=== PATIENT | male | born 1945 | race Caucasian/White ===

== ENCOUNTER → 2017-12-05 09:04 | Outpatient (CLI) | payer OTHER, SELFPAY ==
[2017-12-05 10:01] LABS: Add Manual Diff / Slide Review NO; Basophils Percent Auto 0.6 % (0-2); Eosinophils Percent Auto 2.9 % (2-4); Hematocrit 45.6 % (41-53); Hemoglobin 15.6 g/dL (13.5-17.5); Lymphocytes Percent Auto 30.9 % (25-40); Mean Corpuscular HGB Conc 34.2 % (30-36); Mean Corpuscular Hemoglobin 32.1 PG (26-34); Mean Corpuscular Volume 93.8 fL (80-100); Monocytes Percent Auto 10.1 % (3-14); Neutrophils Absolute Auto 3100 /uL (3000-5900); Neutrophils Percent Auto 55.5 % (50-75); Platelet Count 192 X10^3/uL (150-400); Red Blood Cell Count 4.86 X10^6/uL (4.5-5.9); Red Cell Distribution Width 13.4 % (11.6-14.8); White Blood Cell Count 5.7 X10^3/uL (4.5-11.0)
[2017-12-05 10:50] LABS: Alanine Aminotransferase 31 IU/L (21-72); Albumin 4.6 g/dL (3.5-5.0); Albumin Globulin Ratio 1.5 (1.0-2.8); Alkaline Phosphatase 66 U/L (38-126); Aspartate Aminotransferase 30 IU/L (17-59); BUN Creatinine Ratio 25.6 (6-22); Blood Urea Nitrogen 23 mg/dL (9-20); Calcium 9.6 mg/dL (8.4-10.2); Carbon Dioxide 34 mmol/L (22-32); Chloride 101 mmol/L (98-107); Cholesterol 154 mg/dL (140-199); Estimated Glomerular Filt Rate > 60.0 mL/min (>60); Glucose 102 mg/dL (80-110); HDL Cholesterol 59 mg/dL (40-60); HEMOLYSIS < 15 (0-50); LDL Cholesterol Calculated 73 mg/dL (<100); Potassium 4.3 mmol/L (3.4-5.1); Sodium 144 mmol/L (137-145); Total Protein 7.6 g/dL (6.3-8.2); Triglycerides 110 mg/dL (35-150)
[2017-12-05 11:10] LABS: Thyroid Stimulating Hormone 2.05 uIU/mL (0.47-4.68)
[2017-12-05 11:18] LABS: Prostate Specific Antigen Scrn 1.56 ng/mL (0.1-4.0)
== END ==
PROVIDERS: PCP Family Medicine; Visit Provider Family Medicine
DX: E78.2 Mixed hyperlipidemia (principal); I10 Essential (primary) hypertension; R73.9 Hyperglycemia, unspecified
CPT/HCPCS: 36415; 80053; 80061; 84443; 85025; G0103

== ENCOUNTER → 2018-05-14 10:29 | Outpatient (CLI) | payer OTHER, SELFPAY ==
[2018-05-14 11:04] LABS: Add Manual Diff / Slide Review NO; Basophils Absolute Auto 100 /uL (0-100); Basophils Percent Auto 0.9 % (0-2); Eosinophils Absolute Auto 100 /uL (0-450); Eosinophils Percent Auto 1.6 % (2-4); Hematocrit 47.3 % (41-53); Hemoglobin 15.6 g/dL (13.5-17.5); Lymphocytes Absolute Auto 1500 /uL (1100-4500); Lymphocytes Percent Auto 24.5 % (25-40); Mean Corpuscular HGB Conc 33.1 % (30-36); Mean Corpuscular Hemoglobin 31.2 PG (26-34); Mean Corpuscular Volume 94.3 fL (80-100); Monocytes Absolute Auto 600 /uL (0-900); Neutrophils Absolute Auto 3700 /uL (1500-7000); Platelet Count 198 X10^3/uL (150-400); Red Blood Cell Count 5.02 X10^6/uL (4.5-5.9); White Blood Cell Count 5.9 X10^3/uL (4.5-11.0)
[2018-05-14 11:30] LABS: BUN Creatinine Ratio 23.3 (6-22); Blood Urea Nitrogen 21 mg/dL (9-20); Calcium 9.2 mg/dL (8.4-10.2); Carbon Dioxide 27 mmol/L (22-32); Chloride 100 mmol/L (98-107); Estimated Glomerular Filt Rate > 60.0 mL/min (>60); Glucose 97 mg/dL (80-110); Sodium 139 mmol/L (137-145)
[2018-05-14 11:32] LABS: HEMOLYSIS 77 (0-50)
[2018-05-14 11:34] LABS: Potassium 4.5 mmol/L (3.4-5.1)
== END ==
PROVIDERS: PCP Family Medicine; Visit Provider Orthopaedic Surgery Orthopaedic Surgery of the Spine
DX: Z01.818 Encounter for other preprocedural examination (principal)
CPT/HCPCS: 36415; 80048; 85025; 93005; 93010

== ENCOUNTER 2018-06-13 11:11 | Inpatient (IN) | payer OTHER, MEDICARE, SELFPAY ==
[2018-06-03 09:40] VITALS: BMI 27.2
[2018-06-13] VITALS (16 sets, daily range): BP systolic 133–169; BP diastolic 63–95; PULSE 54–74; RESP 12–16; TEMP 36–36.9; O2SAT 93–100; BMI 27.2
--- NOTE | 2018-06-13 | DI.RAD.S_ITS ---
PROCEDURE: XR CERVICAL SPINE 2V OR 3V INDICATIONS: ACDF, C5-6,C6-7 TECHNIQUE: 5 intraoperative fluoroscopic view(s) of the cervical spine were acquired. COMPARISON: None. FINDINGS: Intraoperative fluoroscopic images of cervical spine shows anterior fusion at C5-C7 levels. IMPRESSION: Fluoroscopy guidance was provided intraoperatively for anterior fusion at C5-C7 levels. Dictated by: Yves Aranda M.D. on 06/13/2018 at 19:40 Approved by: Yves Aranda M.D. on 06/13/2018 at 19:41
[2018-06-13] MEDS: LACTATED RINGERS 1,000 ML 42 ML IV ×2 (13:30→15:50)
--- NOTE | 2018-06-13 14:04 | PM.PREOP ---
Pre-operative Note Interval Note History & Physical reviewed/Exam performed by Physician: Yes Changes to H&P: No
[2018-06-13] MEDS: CEFAZOLIN 2 GM/100 ML FROZ.PIGGY IV ×2 (14:30→22:39)
--- NOTE | 2018-06-13 15:25 | SUR.OPER ---
Prone on spine table, head in foam head support, padded chest and pelvic supports, gel pad at knees, lower legs supported by pillows; nipples, genitalia and toes free of pressure, arms secured on foam padded arm boards at <90 degrees abduction. Tape over blanket at thigh secured to table.
--- NOTE | 2018-06-13 16:59 | P.OP_ITS ---
Operative Date/Time/Diagnoses Date of procedure: 06/13/18 Time of procedure: 14:55 Pre-op diagnosis: 1. C5-6, C6-7 spinal stenosis 2. C5-6, C6-7 spondylosis with radiculopathy Post-op diagnosis: same Procedure & Clinicians Procedure: 1. C5-6 C6-7 anterior cervical diskectomy and fusion 2. C5-6 C6-7 anterior interbody cage placement 3. C5-6 C6-7 anterior instrumentation with plate and screw placement in C5-C6 and C7 vertebrae 4. Utilization of microsurgical technique and operating microscope Same procedure as scheduled: Yes Indications: Patient has been having chronic neck pain and worsening cervical radiculopathy. Patient failed multiple conservative management with worsening pain weakness and numbness in her upper extremity. Patient has been having difficulty performing activity of daily living. After discussing risks benefits of treatment options, patient elected proceed with surgery. Surgeon: Tere Sierra Scuba Diving Instructor: Maki Gomez Click Yes if Unassisted: No Anesthesia Type: General Operative Notes Closure Type: primary Prosthetic devices, grafts, tissues, transplants, or devices: Globus extend plate, PEEK cages Estimated Blood Loss (mL): 10 Blood products transfused: none Procedure in detail: Patient was seen in the preoperative area. Risks and benefits of the surgery was discussed with the patient. Operative consent was obtained and placed in the chart. Patient was then taken to the operative room. Prophylactic antibiotic was given less than 0.5 hr prior to skin incision. General anesthesia was administered. Patient was placed into a supine position on her radiolucent table. Bilateral shoulders were taped down to allow proper C- arm imaging. Anterior cervical area was prepped and draped in a sterile fashion. Time-out was performed at this time. Using lateral C-arm imaging, the level between C5 and C7 was identified and marked on patient's neck. A oblique incision from midline towards medial border of sternocleidomastoid muscle was made. The platysma muscle was incised in line with skin incision. Metzenbaum scissor was used to develop the plane between the medial border of sternocleidomastoid d and the strap muscles medially. The carotid sheath and its contents were identified and protected behind the hand- held retractor during the entire case. The plane between the carotid sheath and strap muscles was developed with Metzenbaum scissors. Dissection was made down to the level of the anterior cervical fascia. Longus colli muscle was incised on the anterior aspect of vertebral bodies bilaterally from C5-C7. Spinal needle was placed into the C5-6 disc space and confirmed with lateral C-arm imaging. Using microsurgical technique and operative microscope, anterior cervical diskectomy was performed at C5-6 and C6-7 level. This was done by removing the disc material, removing the anterior and posterior osteophytes posterior longitudinal ligaments along with performing bilateral foraminotomies at both levels. Patient was found to have severe central and foraminal stenosis at both levels. Patient's stenosis was fully decompressed after decompression was completed. After the diskectomy was completed, 2 anterior interbody cages were obtained. The cages were packed with DBM bone grafting material. One cage each along with the bone grafting material was then packed into the interbody spaces from C5-C7 with one cage into each interbody level. After the cages were placed, the anterior cervical plate was stabilized to the C5-C7 vertebrae using 2 screws at each each level. Total 6 screws were placed. After confirming placement of the hardware with AP and lateral C-arm imaging, the screws were locked into the plate using the locking mechanism and torque limiting screwdriver. After the hardware was placed and confirmed with AP and lateral C-arm imaging, the wound was irrigated with sterile normal saline. The platysma muscle and the subcutaneous tissue was closed with 2-0 Vicryl. The skin was closed with 4-0 Monocryl and Steri-Strips. Patient tolerated the procedure well. Patient was transferred recovery room in stable condition. There were no complications. Complications: none Condition: stable Disposition: PACU Plan for aftercare: Admit to inpatient hospital
[2018-06-13] MEDS: fentaNYL 100 MCG/2 ML INJ 50 MCG IV ×2 (17:20→17:25)
[2018-06-13] MEDS: HYDROMORPHONE 2 MG INJ 0.5 MG IV ×4 (17:27→17:45)
[2018-06-13] MEDS: hydrOXYzine 50 MG/ML INJ IM (18:00)
[2018-06-13] MEDS: SODIUM CHLORIDE 0.9% 1,000 ML 100 ML IV (18:54)
[2018-06-13] MEDS: OXYCODONE IR 5 MG TABLET 10 MG PO ×2 (19:30→22:43)
--- NOTE | 2018-06-13 19:30 | PC.NURSE ---
Pt admitted to acute care from PACU, transferred via bed. Alert/oriented. Pain 08/25. Anterior neck dressing c/d/i. Soft neck collar in place. IV fluids infusing, site patent. Foot SCDs on. Oriented to room/call light. Spouse present for admission. Oxycodone 10mg given for pain. Ice pack also applied.
[2018-06-13] MEDS: hydrOXYzine pamoate 25 MG CAPSULE PO (20:23)
[2018-06-13] MEDS: SIMVASTATIN 20 MG TABLET PO (21:55)
[2018-06-13] MEDS: DOCUSATE 100 MG CAPSULE PO (21:55)
[2018-06-13] MEDS: LATANOPROST 0.005% OPHTH 2.5 ML 1 DROPS EYE-BOTH (21:56)
[2018-06-13] MEDS: SENNOSIDES 8.6 MG TABLET 17.2 MG PO (21:56)
[2018-06-13] MEDS: LISINOPRIL 10 MG TABLET PO (21:56)
[2018-06-14 00:18] VITALS: BP 145/75; PULSE 65; RESP 18; TEMP 36.6; O2SAT 96
[2018-06-14] MEDS: OXYCODONE IR 5 MG TABLET 10 MG PO ×3 (01:09→08:32)
[2018-06-14 04:07] VITALS: BP 144/70; PULSE 70; RESP 18; TEMP 36.7; O2SAT 95
--- NOTE | 2018-06-14 04:17 | PC.NURSE ---
pt AO and receptive to care. c/o 2/10 pain in posterior neck at start of shift and pain increased to 6/10, administered 5mg (1tab) oxycodone. Pain only decreased to 5 and within 2 1/2 hours was up to an 8/10. I then administered 2 tabs at 0400 and will continue to monitor. pt refusing soft collar and SCD's. Using ice pack. Dressing is CDI. pt reports mild throat irritation and asking for ice cream and ice water to assist. NS infusing at 100ml/hr.
[2018-06-14] MEDS: SODIUM CHLORIDE 0.9% 1,000 ML 100 ML IV (05:24)
[2018-06-14] MEDS: CEFAZOLIN 2 GM/100 ML FROZ.PIGGY IV (06:18)
[2018-06-14 07:25] VITALS: BP 126/66; PULSE 71; RESP 18; TEMP 36.3; O2SAT 96
--- NOTE | 2018-06-14 08:01 | PC.NURSE ---
Addendum entered by Joo Oreilly R.N. 06/14/18 13:49: 13:15 Discharge orders given to Pt and , Prescriptions and D/C instructions discussed and given to Pt and . IV d/c'd intact. Pt escorted to car via w/c with KUSH Greenberg and Original Note: Addendum entered by Joo Oreilly R.N. 06/14/18 09:41: Pt continues to progress, looking to go home today. attentive at bedside. Original Note: Pt alert and oriented able to make needs known. Offers no overt c/o pain or issues. Neck dressing CDI.
[2018-06-14] MEDS: DOCUSATE 100 MG CAPSULE PO (08:33)
--- NOTE | 2018-06-14 10:39 | P.DS_ITS ---
History of Present Illness Date Patient Seen: 06/14/18 Time Patient Seen: 10:31 Chief complaint: [id number] C-5-6 C6-7 ACDF Narrative: Patient is a 72 year old male who is POD#1 s/p C5-[address] Sierra. He reports some issues with pain management overnight that resolved with oxycodone 10mg. Since pain level has been 4/10. Pain is centered about the wound site with some radiation to the back of the neck. Prior to surgery he had radiation to the shoulder with tingling and numbess in RUE that has resolved in the post op period. He denies any issues with swallowing and is tolerating a diet. He has been up and out of bed to the bathroom. He denies any chest pain, shortness of breath or calf tenderness. Discharge Providers Date of admission: 06/13/18 11:11 Discharge Date: 06/14/18 Primary care physician: Silvano Leach MD Consults: 06/13/18 18:43 Consult to Occupational Therapy Evaluate & Treat Comment: Physician Instructions: Evaluate and treat Consult to Physical Therapy Evaluate & Treat Comment: Physician Instructions: Evaluate and Treat Discharge provider: Adelina Norwood PA-C Summary Discharge Diagnosis: s/p C5-C6 ACDF Hospital Course: Closure Type: primary Prosthetic devices, grafts, tissues, transplants, or devices: Globus extend plate, PEEK cages Estimated Blood Loss (mL): 10 Blood products transfused: none Procedure in detail: Patient was seen in the preoperative area. Risks and benefits of the surgery was discussed with the patient. Operative consent was obtained and placed in the chart. Patient was then taken to the operative room. Prophylactic antibiotic was given less than 0.5 hr prior to skin incision. General anesthesia was administered. Patient was placed into a supine position on her radiolucent table. Bilateral shoulders were taped down to allow proper C- arm imaging. Anterior cervical area was prepped and draped in a sterile fashio n. Time-out was performed at this time. Using lateral C-arm imaging, the level between C5 and C7 was identified and marked on patient's neck. A oblique incision from midline towards medial border of sternocleidomastoid muscle was made. The platysma muscle was incised in line with skin incision. Metzenbaum scissor was used to develop the plane between the medial border of sternocleidomastoid d and the strap muscles medially. The carotid sheath and its contents were identified and protected behind the hand- held retractor during the entire case. The plane between the carotid sheath and strap muscles was developed with Metzenbaum scissors. Dissection was made down to the level of the anterior cervical fascia. Longus colli muscle was incised on the anterior aspect of vertebral bodies bilaterally from C5-C7. Spinal needle was placed into the C5-6 disc space and confirmed with lateral C-arm imaging. Using microsurgical technique and operative microscope, anterior cervical diskectomy was performed at C5-6 and C6-7 level. This was done by removing the disc material, removing the anterior and posterior osteophytes posterior longitudinal ligaments along with performing bilateral foraminotomies at both levels. Patient was found to have severe central and foraminal stenosis at both levels. Patient's stenosis was fully decompressed after decompression was completed. After the diskectomy was completed, 2 anterior interbody cages were obtained. The cages were packed with DBM bone grafting material. One cage each along with the bone grafting material was then packed into the interbody spaces from C5-C7 with one cage into each interbody level. After the cages were placed, the anterior cervical plate was stabilized to the C5-C7 vertebrae using 2 screws at each each level. Total 6 screws were placed. After confirming placement of the hardware with AP and lateral C-arm imaging, the screws were locked into the plate using the locking mechanism and torque limiting screwdriver. After the hardware was placed and confirmed with AP and lateral C-arm imaging, the wound was irrigated with sterile normal saline. The platysma muscle and the subcutaneous tissue was closed with 2-0 Vicryl. The skin was closed with 4-0 Monocryl and Steri-Strips. Patient tolerated the procedure well. Patient was transferred recovery room in stable condition. There were no complications. Complications: none Condition: stable Disposition: PACU Plan for aftercare: Admit to inpatient hospital. During his inpatient stay the patient has been progressing well. His pain is being well controlled with his current regimen and he has been mobilizing well. He has adequate assistance at home in the post operative period. Scripts were provided for oxycodone as needed for pain and vistaril for muscle spasms. He will follow up in the office as scheduled. Status at Discharge Cognitive/behavioral status at discharge: oriented Overall status at discharge: patient is progressing back to baseline Exam Vital Signs (past 8 hours): - 06/14/18 04:07 06/14/18 07:25 Temperature 98.0 F 97.3 F L Pulse Rate 70 71 Respiratory Rate 18 18 Blood Pressure 144/70 H 126/66 Pulse Oximetry 95 96 Oxygen Delivery Method Nasal Cannula Oxygen Flow Rate 0 Narrative Exam Narrative: Pleasant 72 year old male resting comfortably in bed in no apparent distress. Neck Other: Dressing in place over incision site is clean, dry, and intact. Sensation intact in surrounding area and bilateral upper extremities. Discharge Plan Discharge Plan Patient Disposition: Home Discharge Med Rec/Prescriptions Prescriptions: New oxycodone 5 mg Tablet See Rx Instructions .ROUTE .COMPLEX PRN (Reason: PRN pain) Qty: 40 RF: 0 hydroxyzine pamoate 25 mg Capsule 25 mg PO Q4HR PRN (Reason: PRN nausea/muscle spasms) Qty: 30 RF: 0 Continued latanoprost 0.005 % drops 1 drp EYE-BOTH HS Qty: 0 RF: 0 simvastatin 20 mg tablet 20 mg PO BEDTIME RF: 0 lisinopril 10 mg tablet 10 mg PO BEDTIME RF: 0 Follow up/Referrals: Silvano Leach MD [Primary Care Provider] - Provider Discharge Instructions Diet: Diet as Tolerated Activity: Full weight bearing as tolerated Cold/Heat Therapy: Apply ice packs PRN Skin/Wound/Dressing Care Report to your healthcare provider any signs of infection, such as:: chills, fever, night sweats, increased pain, unusual drainage and unusual redness Dressing: Leave dressing in place. Keep area clean and dry. Discharge Data Primary Care Provider: Silvano Leach Attending Provider: Tere Sierra Admit Date/Time: 06/13/18 11:11 Quality VTE Deep Vein Thrombosis/Pulmonary Embolism Present on Admission: No
--- NOTE | 2018-06-14 11:36 | PT.IIE ---
Current Diagnoses Other spondylosis with radiculopathy, cervical region (06/13/18) Spinal stenosis, cervical region (06/13/18) Surgery Performed Operation Date: 06/13/18 12:45 Actual Procedures p C5-6, C6-7 ACDF w/Anterior Instru. 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) Hiatal hernia (Acute) Lumbago (Acute) Migraines (Acute) Pneumonia (Acute) Actinic keratosis (Chronic ~2004) Ankle pain (Chronic ~2009) Carpal tunnel syndrome (Chronic ~2012) Chronic back pain (Chronic ~1999) Foot pain (Chronic ~2013) Hypertension (Chronic ~2013) Irritable bowel syndrome (Chronic ~1999) Osteoarthritis (Chronic ~2004) Shoulder pain (Chronic ~2001) Tinnitus (Chronic ~1969) Chicken pox (Resolved ~1955) Measles (Resolved ~1955) Mumps (Resolved ~1955) Physical Therapy Inpatient Evaluation/Re-Eval M1 PT/OT-IP Prior Functional Status Start: 06/14/18 12:47 Freq: NEEDED Status: Active Protocol: Document 06/14/18 11:36 DLM (Rec: 06/14/18 13:00 DLM [id number]) Medical Review Prior Functional Status Medical History Reviewed Yes Diet/Fluid Consistency Regular Communication WNL Mobility and Gait Independent without device, community distances Activities of Daily Living and IADL's Independent 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, plays in a [employer] [place] M2 PT-IP Current Condition Start: 06/14/18 12:47 Freq: NEEDED Status: Active Protocol: Document 06/14/18 11:36 DLM (Rec: 06/14/18 13:00 DLM [id number]) Physical Therapy Current Condition Current Condition Evaluation Date 06/14/18 Treatment Diagnosis C5-7 ACDF, impaired gait Onset Date 06/13/18 Precautions Cervical Spine Precautions Soft Collar for Comfort Log Roll Other Precautions he reports hx of decreased balance M3 PT-IP Subjective Start: 06/14/18 12:47 Freq: NEEDED Status: Active Protocol: Document 06/14/18 11:36 DLM (Rec: 06/14/18 13:00 DLM [id number]) Subjective Physical Therapy Visit Type Type Initial Evaluation Visit Start Time 11:05 Visit Stop Time 11:36 Total Visit Minutes 31 Number of RESIDENTIAL CASE MANAGER Visits 0 Physical Therapy Visit Comments Patient Comments he is not sure if he needs a fWW for home, feeling unsteady today Patient Goals discharge home today Therapy Pain Assessment Pain When Pain Assessed During Mobility Pain Present Pain Present Pain Reported Location Neck Intensity 4 Scale Used Numeric (1 - 10) Description Aching Pain Behaviors Guarding M4 PT-IP Mobility and Gait Start: 06/14/18 12:47 Freq: NEEDED Status: Active Protocol: Document 06/14/18 11:36 DLM (Rec: 06/14/18 13:00 DLM [id number]) PT-Bed Mobility Assessment Scooting Scooting to Edge of Bed Independent PT-Transfer Assessment Sit to and From Stand Sit to and from Stand Independent Equipment Transfer Assistive Device Gait Belt Straight Cane Transfers Transfer Destination Chair Transfer Technique Stand Step Pivot Transfer Ability Level of Assist Independent Use of Upper Extremities Comments Mobility Comments OT reports no difficulties with bed mobility, pt up in recliner this visit and wants to stay up Gait Assessment Gait Gait Assistance Required: Standby Assistance Distance (Feet) 200 Assistive Devices Assistive Device Gait Belt Straight Cane Front Wheeled Walker Factors Limiting Gait Function Factors Limiting Gait Function Decreased Activity Tolerance Comments Gait Comments trials of gait performed with fWW and then with cane, pt reports feeling better as he ambulated, no losses of balance during gait with st cane Stair Climbing Assessment Comments Stair Climbing Comments he has no stairs at home PT-Balance Assessment Sitting Balance and Reactions Static Sitting Balance Ability Normal Dynamic Sitting Balance Ability Normal Standing Balance and Reactions Static Standing Balance Ability Good Dynamic Standing Balance Ability Good Device Used cane M5 PT-IP Objective Assessments Start: 06/14/18 12:47 Freq: NEEDED Status: Active Protocol: Document 06/14/18 11:36 DLM (Rec: 06/14/18 13:00 DLM [id number]) Orientation Orientation/Cognition Level of Alertness Alert Orientation Name Age Birthday Month Date Year Day of Week Place Situation Language Function Ability No Deficits Noted Safety Awareness Understands Safety Issues Memory Description No Deficits Noted Gross Range of Motion Upper Extremity ROM Assessment Within Functional Limits Lower Extremity ROM Assessment Within Functional Limits Strength Upper Extremity Strength Assessment Within Functional Limits Lower Extremity Strength Assessment Within Functional Limits Comments Strength Comments functional UE use limited by post-op neck pain and precautions Coordination Assessment Gross Coordination Gross Coordination WNL Sensation Assessment Sensation Gross Sensation Left LE Impaired Sensation Description Numbness Comments Sensation Comments hx of numbness left foot since back problems Muscle Tone Muscle Tone WNL Yes M6 PT-IP Treatment Start: 06/14/18 12:47 Freq: NEEDED Status: Active Protocol: Document 06/14/18 11:36 DLM (Rec: 06/14/18 13:00 DLM [id number]) Physical Therapy Treatment Education Education Provided Precautions Safety M7 PT-IP Assessment and Plan Start: 06/14/18 12:47 Freq: NEEDED Status: Active Protocol: Document 06/14/18 11:36 DLM (Rec: 06/14/18 13:00 DLM [id number]) PT Summary Assessment and Plan Potential Rehabilitation Potential Excellent Status of Condition at Evaluation Evolving Summary Impairments Pain ROM Balance Gait Activity Tolerance Assessment Summary Miki is alert and tolerated therapy well this visit. His activity tolerance appears to be below his baseline and he reports a mild decline in his balance. Wearing a cervical collar may be contributing to his decreased balance as well as post-op issues. After gait trials with fWW and cane it was determined he is safe to discharge home using a cane. Pt has a cane at home but uses no device at baseline. He appears safe to discharge home with his today if medically cleared. No further skilled PT needed at this time . Frequency of Treatment Frequency Of Treatment Discharge Recommendations To Nursing Amount of Assist Needed Standby Assistance Discharge Recommendations PT Discharge Recommendations Home with Assistance Other Discharge Recommendations pt to use his cane for gait
--- NOTE | 2018-06-14 16:00 | OT.IP.EVAL ---
Current Diagnoses Other spondylosis with radiculopathy, cervical region (06/13/18) Spinal stenosis, cervical region (06/13/18) Surgery Performed Operation Date: 06/13/18 12:45 Actual Procedures p C5-6, C6-7 ACDF w/Anterior Instru. 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) Hiatal hernia (Acute) Lumbago (Acute) Migraines (Acute) Pneumonia (Acute) Actinic keratosis (Chronic ~2004) Ankle pain (Chronic ~2009) Carpal tunnel syndrome (Chronic ~2012) Chronic back pain (Chronic ~1999) Foot pain (Chronic ~2013) Hypertension (Chronic ~2013) Irritable bowel syndrome (Chronic ~1999) Osteoarthritis (Chronic ~2004) Shoulder pain (Chronic ~2001) Tinnitus (Chronic ~1969) Chicken pox (Resolved ~1955) Measles (Resolved ~1955) Mumps (Resolved ~1955) Surgical History (Last Updated 06/03/18 @ 09:46 by Kayla Vieira RN) History of arthroplasty of left shoulder (Acute 04/02/16) Hx of carpal tunnel repair (Acute) Anesthesia (Resolved) History of knee replacement (~05/2011) History of knee replacement (~09/2010) Status post arthroscopy (~2006) Occupational Therapy Inpatient Evaluation/Re-Eval M1 PT/OT-IP Prior Functional Status Start: 06/14/18 1100 Freq: NEEDED Status: Active Protocol: Document 06/14/18 11:00 CGR (Rec: 06/14/18 16:00 CGR [id number]) Medical Review Prior Functional Status Medical History Reviewed Yes Diet/Fluid Consistency Regular Communication WNL Mobility and Gait Independent without device, community distances Activities of Daily Living and IADL's Independent 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 OT-IP Current Condition Start: 06/14/18 15:51 Freq: Status: Active Protocol: Document 06/14/18 11:00 CGR (Rec: 06/14/18 16:00 CGR [id number]) Occupational Therapy Current Condition Current Condition Evaluation Date 06/14/18 Treatment Diagnosis C5-7 ACDF Diagnosis Onset Date Sx 06/13 Post Operative Precautions Cervical Spine Precautions Soft Collar for Comfort No Heavy Lifting Log Roll M3 OT- IP Subjective and Pain Start: 06/14/18 15:51 Freq: Status: Active Protocol: Document 06/14/18 11:00 CGR (Rec: 06/14/18 16:00 CGR [id number]) OT- Subjective Occupational Therapy Visit Type Type Initial Evaluation Visit Start Time 10:15 Visit Stop Time 10:55 Total Visit Minutes 40 Occupational Therapy Visit Comments Patient Comments Pt agreeable to OT services OT Pain Assessment Pain When Pain Assessed During Mobility Pain Present Pain Present Pain Reported Location Neck Intensity 4 Scale Used Numeric (1 - 10) Management Techniques Re-positioning Timing of Activity with Medications M4 OT- IP ADL's Start: 06/14/18 15:51 Freq: Status: Active Protocol: Document 06/14/18 11:00 CGR (Rec: 06/14/18 16:00 CGR [id number]) OT ADL-Grooming General Evaluation Grooming Ability Independent Areas Needing Assistance Combing/Brushing Hair Face Washing Comments OT Grooming Comments Standing at sink OT ADL-Oral Care General Eval Oral Care Ability Independent Areas of Assistance Brushing Teeth Comments Oral Care Comments Standing at sink OT ADL-Dressing General Eval Upper Body Dressing Ability Independent Lower Body Dressing Ability Independent Comments OT Dressing Comments Able to perform without AD OT ADL-Toileting General Evaluation Toileting Ability Independent Devices Toileting Assistive Devices Toilet Seat Rails M5 OT- IP IADL's Start: 06/14/18 15:51 Freq: Status: Active Protocol: Document 06/14/18 11:00 CGR (Rec: 06/14/18 16:00 CGR [id number]) OT-Instrumental Activities of Daily Living Home Safety Awareness Awareness of Need for Assistance at Home Good Awareness Ability to Problem Solve Emergency Able to Problem Solve Situations Medication Management Medication Management No Deficits Identified M6 OT- IP Functional Cognition Start: 06/14/18 15:51 Freq: Status: Active Protocol: Document 06/14/18 11:00 CGR (Rec: 06/14/18 16:00 CGR [id number]) Cognitive Factors Limiting Selfcare Function Cognitive Ability Level of Alertness Alert Patient Orientation Name Age Birthday Month Date Year Day of Week Place Situation Attention Span Ability Capable of Focused Attention Ability to Follow Commands Able to Follow Multi-Step Commands Memory Description No Deficits Noted Safety Awareness No Deficits Noted Problem Solving Ability No deficits Noted Executive Function Ability No Deficits Noted Abstract Thinking Ability No Deficits Noted OT- Vision and Hearing OT- Hearing Assessment OT- Hearing Assessment WFL OT- Vision Assessment Visual Acuity WFL Visual Attentiveness WFL Occular Pursuits WFL Visual Convergence WFL Visual Ugarte WFL Diplopia Absent Visual Spacial Neglect Not Applicable Vision Assessment Comments Pt wears trifocals M7 OT- IP Mobility and Balance Start: 06/14/18 15:51 Freq: Status: Active Protocol: Document 06/14/18 11:00 CGR (Rec: 06/14/18 16:00 R [id number]) OT- Bed Mobility Assessment Rolling Type of Rolling Log Rolling Level of Assistance Independent Supine to Sit Supine to Sit Assist Independent Sit to Supine Sit to Supine Assist Independent Scooting Scooting to Edge of Bed Independent Scooting Up and Down in Bed Independent OT-Transfer Assessment Sit to and From Stand Sit to and from Stand Independent Transfers Transfer Ability Independent Technique Transfer Destination Bed Chair Toilet Devices Transfer Assistive Devices Front Wheeled Walker OT- Gait Assessment Gait Gait Assistance Required: Independent Assistive Devices Assistive Device Front Wheeled Walker OT- Balance Assessment Sitting Balance and Reactions Static Sitting Balance Ability Normal Dynamic Sitting Balance Ability Normal Standing Balance and Reactions Static Standing Balance Ability Normal Dynamic Standing Balance Ability Normal M8 OT- IP Objective Assessments Start: 06/14/18 15:51 Freq: Status: Active Protocol: Document 06/14/18 11:00 CGR (Rec: 06/14/18 16:00 CGR [id number]) OT Gross Range of Motion Upper Extremity Range of Motion Assessment Within Functional Limits OT Strength Upper Extremity Strength Assessment Within Functional Limits OT- Coordination Assessment Upper Extremity Finger to Nose Test Within Functional Limits Finger Tapping Test Within Functional Limits OT Sensation Assessment Comments Summary Comments Sensation back to normal, no numbness or tingling M9 OT- IP Assessment and Plan Start: 06/14/18 15:51 Freq: Status: Active Protocol: Document 06/14/18 11:00 CGR (Rec: 03/30/19 16:00 CGR [id number]) OT Summary Assessment and Plan Potential Rehabilitation Potential Excellent Analytic Complexity at Evaluation Low Frequency of Treatment Frequency Of Treatment Discharge Discharge Recommendations OT Discharge Recommendations Home Home Equipment Needs No OT needs
--- NOTE | 2018-06-14 16:09 | CM.IDA ---
Pt POD#1 from spinal surgery w/Dr Mariela DC order for home today. Payer: [facility]/Medicare A Only Reviewed chart. Therapy team and PA agree pt safe to return home w/spouse and outpt f/u as ordered by the Ortho team. No barriers and no SW needs indicated. P: DC home today w/family. COLBY Candelaria
== END 2018-06-14 13:30 | disposition home or self-care (01) | DRG 473 ==
PROVIDERS: Admitting Provider Orthopaedic Surgery Orthopaedic Surgery of the Spine; PCP Family Medicine; Visit Provider Orthopaedic Surgery Orthopaedic Surgery of the Spine
PROC: 0RG20A0 Fusion of 2 or more Cervical Vertebral Joints with Interbody Fusion Device, Anterior Approach, Anterior Column, Open Approach (ICD-10-PCS; principal; 2018-06-13 12:45)
DX: M48.02 Spinal stenosis, cervical region (principal); M47.22 Other spondylosis with radiculopathy, cervical region; I10 Essential (primary) hypertension; E78.5 Hyperlipidemia, unspecified
CPT/HCPCS: 72040; 76000; 97162; 97165; 97535; C1776; J0690; J1100; J1170; J2250; J2405; J2704; J3010; J3410

== ENCOUNTER → 2019-01-15 07:08 | Outpatient (CLI) | payer MEDICARE, OTHER, SELFPAY ==
[2018-06-13 19:06] VITALS: BMI 27.2
[2019-01-15 08:37] LABS: Add Manual Diff / Slide Review NO; Basophils Absolute Auto 0 /uL (0-100); Basophils Percent Auto 0.6 % (0-2); Eosinophils Absolute Auto 200 /uL (0-450); Eosinophils Percent Auto 3.1 % (2-4); Hematocrit 41.7 % (41-53); Hemoglobin 14.5 g/dL (13.5-17.5); Lymphocytes Absolute Auto 1600 /uL (1100-4500); Lymphocytes Percent Auto 32.9 % (25-40); Mean Corpuscular HGB Conc 34.7 % (30-36); Mean Corpuscular Hemoglobin 32.2 PG (26-34); Mean Corpuscular Volume 92.8 fL (80-100); Monocytes Absolute Auto 500 /uL (0-900); Monocytes Percent Auto 10.1 % (3-14); Neutrophils Absolute Auto 2600 /uL (1500-7000); Neutrophils Percent Auto 53.3 % (50-75); Platelet Count 172 X10^3/uL (150-400); Red Blood Cell Count 4.49 X10^6/uL (4.5-5.9); Red Cell Distribution Width 13.4 % (11.6-14.8); White Blood Cell Count 4.9 X10^3/uL (4.5-11.0)
[2019-01-15 08:58] LABS: Alanine Aminotransferase 41 IU/L (21-72); Albumin 4.5 g/dL (3.5-5.0); Albumin Globulin Ratio 1.7 (1.0-2.8); Alkaline Phosphatase 83 U/L (38-126); Aspartate Aminotransferase 32 IU/L (17-59); BUN Creatinine Ratio 23.3 (6-22); Bilirubin Total 0.6 mg/dL (0.2-1.3); Blood Urea Nitrogen 21 mg/dL (9-20); Calcium 9.1 mg/dL (8.4-10.2); Carbon Dioxide 31 mmol/L (22-32); Chloride 102 mmol/L (98-107); Cholesterol 150 mg/dL (140-199); Estimated Glomerular Filt Rate > 60.0 mL/min (>60); Globulin 2.7 g/dL (1.7-4.1); Glucose 103 mg/dL (80-110); HDL Cholesterol 65 mg/dL (40-60); HEMOLYSIS < 15 (0-50); LDL Cholesterol Calculated 76 mg/dL (<100); Potassium 4.3 mmol/L (3.4-5.1); Sodium 141 mmol/L (137-145); Total Protein 7.2 g/dL (6.3-8.2); Triglycerides 47 mg/dL (35-150)
[2019-01-15 09:23] LABS: Prostate Specific Antigen Scrn 1.17 ng/mL (0.1-4.0)
[2019-01-15 09:54] LABS: Thyroid Stimulating Hormone 2.71 uIU/mL (0.47-4.68)
== END ==
PROVIDERS: Family Provider Family Medicine; PCP Family Medicine; Visit Provider Hospitalist
DX: E78.5 Hyperlipidemia, unspecified (principal); I10 Essential (primary) hypertension; R73.9 Hyperglycemia, unspecified
CPT/HCPCS: 36415; 80053; 80061; 84443; 85025; G0103

== ENCOUNTER → 2019-02-28 09:34 | Outpatient (CLI) | payer MEDICARE, OTHER, SELFPAY ==
[2018-06-13 19:06] VITALS: BMI 27.2
[2019-02-28 09:55] LABS: Bacteria Urine None Seen
[2019-02-28 10:20] LABS: Appearance Urine UA CLEAR; Bilirubin Urine UA NEGATIVE (NEGATIVE); Color Urine UA YELLOW; Glucose Urine UA NEGATIVE (Negative); Ketones Urine UA NEGATIVE (NEGATIVE); Leukocyte Esterase Urine UA NEGATIVE (NEGATIVE); Nitrite Urine UA NEGATIVE (Negative); Occult Blood Urine UA 2+ (Negative); Protein Urine UA NEGATIVE (Negative); Urobilinogen Urine UA 0.2 E.U./dL (0.2)
[2019-02-28 10:32] LABS: Add Manual Diff / Slide Review NO; Basophils Absolute Auto 0 /uL (0-100); Basophils Percent Auto 0.4 % (0-2); Eosinophils Absolute Auto 100 /uL (0-450); Eosinophils Percent Auto 2.5 % (2-4); Hematocrit 44.5 % (41-53); Hemoglobin 15.3 g/dL (13.5-17.5); Lymphocytes Absolute Auto 1600 /uL (1100-4500); Mean Corpuscular HGB Conc 34.3 % (30-36); Mean Corpuscular Hemoglobin 31.8 PG (26-34); Mean Corpuscular Volume 92.8 fL (80-100); Monocytes Absolute Auto 500 /uL (0-900); Monocytes Percent Auto 9.1 % (3-14); Neutrophils Absolute Auto 2800 /uL (1500-7000); Platelet Count 189 X10^3/uL (150-400); Red Cell Distribution Width 13.7 % (11.6-14.8)
[2019-02-28 10:34] LABS: Culture Indicated Urine Cult Not Indicated; RBC Urine 1-5/HPF (0-5/HPF); Squamous Epithelial Cell Urine 0-1 /HPF (0-5/HPF); WBC Urine 0-1/HPF (0-5/HPF)
[2019-02-28 10:37] LABS: Blood Urea Nitrogen 24 mg/dL (9-20); Calcium 9.4 mg/dL (8.4-10.2); Carbon Dioxide 33 mmol/L (22-32); Chloride 100 mmol/L (98-107); Estimated Glomerular Filt Rate > 60.0 mL/min (>60); Glucose 110 mg/dL (80-110); HEMOLYSIS < 15 (0-50); Sodium 140 mmol/L (137-145)
[2019-02-28 10:40] LABS: Transferrin 252 mg/dL (206-381)
[2019-02-28 11:26] LABS: Hemoglobin A1C% w Est Avg Glu 5.2 % (4.0-6.0)
== END ==
PROVIDERS: Family Provider Family Medicine; PCP Family Medicine; Visit Provider Orthopaedic Surgery
DX: Z01.818 Encounter for other preprocedural examination (principal); Z01.812 Encounter for preprocedural laboratory examination; R73.9 Hyperglycemia, unspecified; N39.0 Urinary tract infection, site not specified; D64.9 Anemia, unspecified
CPT/HCPCS: 36415; 80048; 81001; 83036; 84466; 85025; 93005; 93010

== ENCOUNTER 2019-04-27 11:12 | Inpatient (IN) | payer MEDICARE, OTHER, SELFPAY ==
[2018-06-13 19:06] VITALS: BMI 27.2
[2019-04-22 12:57] VITALS: BMI 28.0
[2019-04-27] VITALS (17 sets, daily range): BP systolic 103–126; BP diastolic 45–79; PULSE 57–74; RESP 12–17; TEMP 36.4–36.9; O2SAT 92–97; BMI 26.4
--- NOTE | 2019-04-27 06:00 | DI.RAD.S_ITS ---
PROCEDURE: XR SHOULDER RT 1V INDICATIONS: post op TECHNIQUE: 2 views of the shoulder were acquired. COMPARISON: [facility] Outside Film, MR, MR SHOULDER RIGHT WITHOUT CONTRAST, 02/07/2019, 12:45. [facility], CR, SHOULDER 1 VIEW LEFT, 04/16/2016, 10:43. FINDINGS: Bones: No fractures or dislocations. No suspicious bony lesions. Visualized ribs appear intact. Postsurgical changes reflecting right shoulder arthroplasty. Hardware is intact. Soft tissues: No suspicious soft tissue calcifications. IMPRESSION: Right shoulder postoperative arthroplasty changes. Dictated by: Marisa Lloyd M.D. on 04/27/2019 at 17:06 Approved by: Marisa Lloyd M.D. on 04/27/2019 at 17:06
[2019-04-27] MEDS: CELECOXIB 200 MG CAPSULE PO (11:44)
[2019-04-27] MEDS: LACTATED RINGERS 1,000 ML 42 ML IV ×2 (11:47→14:03)
[2019-04-27] MEDS: PREGABALIN 75 MG CAPSULE PO (11:47)
[2019-04-27] MEDS: ACETAMINOPHEN 325 MG TABLET 975 MG PO ×2 (11:47→21:50)
--- NOTE | 2019-04-27 12:22 | PM.PREOP ---
Pre-operative Note Interval Note History & Physical reviewed/Exam performed by Physician: Yes Changes to H&P: No
--- NOTE | 2019-04-27 12:30 | PM.OP.1 ---
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 He returns with significant right shoulder pain and arthritic change evident on x-rays and MRI imaging. He also has significant rotator cuff pathology evident on his MRI and therefore his replacement is contemplated as a reverse total shoulder replacement in order to account for both diagnoses. He has agreed to the surgery after discussion the risks benefits and alternatives. Risks discussed included but were not limited to: Failure to improve, stiffness, instability of the prosthetic, infection, nerve damage, deep venous thrombosis, pulmonary embolism, stroke, myocardial infarction, permanent paralysis and . Surgeon: Aly Fraire Attorney Law Clerk: Adelina Allen Yes if Unassisted: No Anesthesia Type: General, Peripheral nerve block and Local Operative Notes Findings: Significant arthritic change in the glenohumeral joint with excellent quality of the bone. Degenerative change of the rotator cuff but no yenny tearing. Closure Type: primary Specimen(s): none sent Prosthetic devices, grafts, tissues, transplants, or devices: Implants used in this procedure were manufactured by the [employer] and included an RSP reverse total shoulder system with a size 16 porous-coated stem, a 36 mm standard +4 humeral socket. A 36 mm neutral glenoid head with retaining screw, a standard 30 mm screw length glenoid base plate and 4 locking screws measuring 38, 38, 22 and 14 mm in length. Applied: drain(s) and implant(s) Estimated Blood Loss (mL): 100 Blood products transfused: none Procedure in detail: The patient was seen in the preoperative area where they identified the right shoulder as the operative site and this was marked with my initials. They received preoperative antibiotics and underwent the induction of an interscalene block. They were taken to the operating room and placed on the operating room table in a supine position with the underwent the induction of a general anesthetic. There were then repositioned in the ?beach chair? position using a dedicated positioner. All pressure points were well padded. The knees were slightly bent to prevent tension on the sciatic nerves. A auto mechanic supervisor-out was performed. The right arm was prepared from the fingertips to the base of the neck with ChloraPrep in the usual fashion and draped through sterile drapes. An approximately 15 cm incision was created starting at the clavicle just above the coracoid and going to the deltoid insertion. The deltopectoral interval was used to access the shoulder taking the vein to the medial side. The vein was protected throughout the case. The upper 1 cm of the pectoralis major was released. The biceps tendon was identified and used as a guide to releasing the remaining subscapularis. The biceps itself was tenodesed over the pectoralis tendon using a suture. The subscapularis was tagged. The shoulder was dislocated and a proximal humeral osteotomy performed using an extramedullary guide. A proximal humeral protector was then placed. Retractors were placed access the glenoid. A 360 degree release was performed of the remaining subscapularis with care being taken to protect the axillary nerve. The soft tissues were removed circumferentially around the glenoid. The guide was used to drill the guide hole in the center of the inferior glenoid. The tap was placed and used as a guide for the reamer. The tap was then removed and the glenoid base plate inserted. The peripheral locking screws were then placed through the appropriate guide. A trial glenoid head was applied. We then turned our attention to the humerus. The proximal humeral protector was removed. Cylindrical reamers were used to size the canal. Broaching was then performed beginning with a small broach and working up until a line to line fit with the reamer was obtained. The guide for the proximal metaphyseal reamer was then applied and the metaphysis was reamed appropriately. The trial metaphyseal portion of the body was then applied to the broach. Trial reductions were performed and the size of the glenoid head and the cup were optimized. Stability was checked in maximal internal and external rotation in both abduction an abduction and range of motion was checked to allow access to the top of the head, internal rotation to an excess of 50? in the ?scarecrow position? and the ability to reach the groin. The appropriate final prosthetic components were then opened. The glenoid head was impacted into position and checked for rotational and axial stability before placing the set screw. The humeral prosthetic was then impacted into position. The humeral cup was placed. The joint was relocated and irrigated. A deep drain was placed. The deltopectoral interval was reapproximated with 0 Vicryl. Subcutaneous layer was closed with interrupted 3-0 Vicryl and skin with a running 3 0 V lock suture. Subcutaneous tissues were then infiltrated with 0.5% Marcaine for postoperative pain control. An Aquacel Ag dressing was applied and the patient's arm was placed in a sling. The patient was then transferred to the recovery room in good condition having tolerated the procedure well. Complications: none Post-operative Condition: stable Disposition: PACU Plan for aftercare: The patient will be maintained on a standard total shoulder replacement protocol with no specific limits on range of motion. The patient will receive aspirin and sequential compression devices for DVT prophylaxis. The patient will be discharged home when safe for the home environment, likely tomorrow.
[2019-04-27] MEDS: fentaNYL 100 MCG/2 ML INJ 50 MCG IV ×2 (13:08→13:11)
[2019-04-27] MEDS: MIDAZOLAM 2 MG/2 ML VIAL IV ×2 (13:08→13:11)
[2019-04-27] MEDS: TRANEXAMIC ACID 1,000 MG VIAL 1000 MG INJ ×2 (13:20→14:51)
--- NOTE | 2019-04-27 13:20 | SUR.PREOP ---
Block start time [1305] . Monitoring initiated and maintained throughout procedure. Oxygen and medications given per anesthesiologist instructions. Patient remained stable throughout procedure, no adverse reactions noted. Block end time [1314].
--- NOTE | 2019-04-27 13:24 | SUR.PREOP ---
Pt to OR with Katrin, left room 5 in stable condition.
[2019-04-27] MEDS: CEFAZOLIN 2 GM/100 ML FROZ.PIGGY IV (13:25)
--- NOTE | 2019-04-27 13:55 | SUR.OPER ---
Beach chair with Calvinn/Earline shoulder positioner. Lower body on padded OR bed. Head in foam padded head cradle, secured with straps. Non-operative arm secured <90 degrees abduction. Pillow under knees. Safety belt at thigh. Cloth tape over blanket over lower legs. Gel pad under heels.
[2019-04-27] MEDS: BUPIVACAINE 0.5% W/ EPI (PF) 10 ML VIAL 30 ML INJ (14:05)
[2019-04-27] MEDS: HYDROMORPHONE 2 MG INJ IV ×4 (15:40→15:55)
--- NOTE | 2019-04-27 16:03 | SUR.PHASEI ---
reported off to Ke RN. Did give acute care RN Nimco report about this pt.
--- NOTE | 2019-04-27 16:10 | SUR.PHASEI ---
Assumed care from Ally, report called by Ally.
[2019-04-27] MEDS: OXYCODONE IR 5 MG TABLET PO (16:30)
--- NOTE | 2019-04-27 17:12 | SUR.PHASEI ---
Late entry: Pt medicated with oxycodone ir and transported up to room. Pt left in stable condition.
[2019-04-27] MEDS: LACTATED RINGERS 1,000 ML 125 ML IV (17:19)
[2019-04-27] MEDS: ASPIRIN EC 81 MG TABLET PO (21:49)
[2019-04-27] MEDS: DOCUSATE 100 MG CAPSULE PO (21:51)
[2019-04-27] MEDS: SIMVASTATIN 10 MG TABLET PO (21:52)
[2019-04-27] MEDS: LATANOPROST 0.005% OPHTH 2.5 ML 1 DROPS EYE-BOTH (21:52)
--- NOTE | 2019-04-27 23:31 | PC.NURSE ---
Post-op/Evening notes: Red brought from PACU via hospital bed, awake, alert & oriented. Grawgy when 1st admitted to room, reported no pain after given meds in PACU. RUE with strong radial pulse, arm is warm, he can wiggle fingers/move hand, sling in place to protect. Does report residual numbness to R shoulder/arm but can feel nurse hand on shoulder/arm/hand. Drsg CDI. Hemovac present, disc compressed, suction active; 50 ml sero-sang drainage tonight. Continues to deny pain. Reports that he had cervical discectomy surgery last year and has had sore throat today when woke up from surgery, saying it feels like the tube (in OR) must have agitated his throat. Able to eat pudding/broth and few snacks tonight with no coughing or observed choking. ordered him breakfast, he said he prefers soft foods at this point. He has not been OOB since brought from PACU, told me he is able to shift bottom around in bed but that my butt hurts. I encouraged mvmt in bed, asking him if he would like to turn on side or get OOB & sit in recliner, he declined saying OK maybe in a while. I encouraged mvmt & ambulation tonight. Fall precautions in place & alarm active for safety, he is using call button appropriately & encouraged to call for any needs/concerns. BP borderline low tonight 105/58 and 115/66, tonight's dose of Lisinopril not given. Denies dizziness or nausea.
[2019-04-28] MEDS: LACTATED RINGERS 1,000 ML 125 ML IV (00:37)
[2019-04-28 00:40] VITALS: BP 127/65; PULSE 68; RESP 20; TEMP 37.2; O2SAT 95
[2019-04-28 04:22] VITALS: BP 125/63; PULSE 69; RESP 20; TEMP 37.2; O2SAT 95
[2019-04-28 07:00] LABS: Hematocrit 37.4 % (41-53); Hemoglobin 12.6 g/dL (13.5-17.5); Mean Corpuscular HGB Conc 33.7 % (30-36); Mean Corpuscular Hemoglobin 31.4 PG (26-34); Platelet Count 190 X10^3/uL (150-400); Red Blood Cell Count 4.02 X10^6/uL (4.5-5.9); Red Cell Distribution Width 12.8 % (11.6-14.8)
--- NOTE | 2019-04-28 07:46 | PM.DS.1 ---
History of Present Illness History of Present Illness Date Patient Seen: 04/28/19 Time Patient Seen: 07:46 Chief complaint: [id number] Right Total Shoulder Arthrosplasty/Reverse Narrative: The history and physical are contained in the chart previously completed note. Please review that note for this information. Discharge Providers Provider Date of admission: 04/27/19 11:12 Discharge Date: 04/28/19 Primary care physician: Silvano Leach MD Consults: 04/27/19 16:46 Consult to Discharge Planning Routine Comment: Consult to Physical Therapy Evaluate & Treat Comment: Physician Instructions: Evaluate and Treat Consult to Respiratory Therapy Evaluate & Treat Comment: Physician Instructions: Evaluate and treat Discharge provider: Aly Fraire MD Summary Hospital Course Discharge Diagnosis: 1. 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 Mild post hemorrhagic anemia Hospital Course: The patient was admitted to the hospital and taken directly to the operating room on April 27, 2019. He underwent a right reverse total shoulder replacement without complication. He was quite comfortable overnight and stable for discharge on postoperative day 1. Status at Discharge Cognitive/behavioral status at discharge: oriented Functional status at discharge: independent ambulation Overall status at discharge: patient is progressing back to baseline Time Spent with Patient Time spent: Less than 30 minutes Exam Vital Signs (past 8 hours): - 04/28/19 00:40 04/28/19 04:22 Temperature 98.9 F 98.9 F Pulse Rate 68 69 Respiratory Rate 20 20 Blood Pressure 127/65 125/63 Pulse Oximetry 95 95 Oxygen Delivery Method Room Air Oxygen Flow Rate 0 Narrative Exam Narrative: Right shoulder wound is dressed with no significant drainage on the bandage. Light touch is intact in the radial, ulnar, median, muscular cutaneous and axillary nerve distributions. He can extend his thumb, abduct his thumb, abduct his fingers and can fire his biceps and deltoid. Objective Labs Result Diagrams: 04/28/19 06:48 Labs: Laboratory Results - last 24 hr 04/28/19 06:48 WBC 14.0 H RBC 4.02 L Hgb 12.6 L Hct 37.4 L MCV 93.0 MCH 31.4 MCHC 33.7 RDW 12.8 Plt Count 190 Discharge Plan Discharge Plan Patient Disposition: Home Discharge orders & Medications Prescriptions: New acetaminophen 325 mg Tablet 975 mg PO TID 30 Days Qty: 270 RF: 0 aspirin 81 mg Tablet,Delayed Release (Dr/Ec) 81 mg PO BID 42 Days Qty: 84 RF: 0 oxycodone 5 mg Tablet 5 mg PO Q4H PRN (Reason: Pain, Moderate (4-6)) Qty: 40 RF: 0 Continued latanoprost 0.005 % drops 1 drp EYE-BOTH HS Qty: 0 RF: 0 lisinopril 10 mg tablet 10 mg PO BEDTIME Qty: 90 RF: 3 simvastatin 10 mg tablet 10 mg PO BEDTIME Qty: 90 RF: 1 Follow up/Referrals: Silvano Leach MD [Primary Care Provider] - Aly Fraire MD [Physician] - 2 Weeks Discharge Health Status Multidrug resistant organism: No MDRO Diet/Activity/Treatments Diet: Diet as Tolerated and Regular Activity: You may use your right arm in front of your body below shoulder level. Keep your right arm in a sling except for hygiene, eating, reading, and use of a computer. Cold/Heat Therapy: Apply ice to the right shoulder for 15 minutes every hour as needed for pain control. Skin/Wound/Dressing Care Report to your healthcare provider any signs of infection, such as:: chills, fever, night sweats, increased pain, unusual drainage and unusual redness Dressing: Leave the dressing in place until your follow-up. You may shower with the dressing in place. If the central strip of the dressing becomes saturated with either water or blood please call the office to have it evaluated. Visit Report/Discharge Packet Instructions: DI for Prescription Opioid Use, DI for Shoulder Replacement Stand Alone Forms: Surgery Discharge Discharge Data Primary Care Provider: Silvano Leach
[2019-04-28 08:00] VITALS: BP 106/59; PULSE 60; RESP 16; TEMP 37.1; O2SAT 96
[2019-04-28] MEDS: ACETAMINOPHEN 325 MG TABLET 975 MG PO (08:10)
[2019-04-28] MEDS: OXYCODONE IR 5 MG TABLET PO ×2 (08:11→11:39)
[2019-04-28] MEDS: DOCUSATE 100 MG CAPSULE PO (08:12)
[2019-04-28] MEDS: SODIUM CHLORIDE 0.9% FLUSH 10 ML IV (08:12)
[2019-04-28] MEDS: ASPIRIN EC 81 MG TABLET PO (08:12)
--- NOTE | 2019-04-28 09:15 | PT.IIE ---
Current Diagnoses Primary osteoarthritis, right shoulder (04/27/19) Complete rotator cuff tear or rupture of left shoulder, not specified as traumatic (04/27/19) Surgery Performed Operation Date: 04/27/19 13:15 Actual Procedures p Total Shoulder Arthroplasty - Reverse(Right) - Aly Fraire MD Surgical History (Last Updated 04/22/19 @ 13:26 by Kayla Vieira RN) Anesthesia (Resolved) History of arthroplasty of left shoulder (Acute 04/02/16) History of knee replacement (~05/2011) History of knee replacement (~09/2010) Hx of carpal tunnel repair (Acute) S/P cervical spinal fusion (Acute 06/13/18) Status post arthroscopy (~2006) Medical History (Last Updated 06/03/18 @ 09:51 by Kayla Vieira RN) Actinic keratosis (Chronic ~2004) Ankle pain (Chronic ~2009) Carpal tunnel syndrome (Chronic ~2012) Cervical stenosis of spine (Acute) Chicken pox (Resolved ~1955) Chronic back pain (Chronic ~1999) Foot pain (Chronic ~2013) Glaucoma (Acute) Grand mal seizure (Acute ~1978) Hiatal hernia (Acute) Hypertension (Chronic ~2013) Irritable bowel syndrome (Chronic ~1999) Lumbago (Acute) Measles (Resolved ~1955) Migraines (Acute) Mumps (Resolved ~1955) Osteoarthritis (Chronic ~2004) Pneumonia (Acute) Shoulder pain (Chronic ~2001) Tinnitus (Chronic ~1969) Physical Therapy Inpatient Evaluation/Re-Eval M1 PT/OT-IP Prior Functional Status Start: 04/28/19 11:36 Freq: NEEDED Status: Active Protocol: Document 04/28/19 09:15 AB (Rec: 04/28/19 11:46 AB [id number]) Medical Review Prior Functional Status Medical History Reviewed Yes Communication able to make needs known Mobility and Gait pt stated that he is indpeendent with all mobilities and ambulation without AD Social History Household Members spouse Living Arrangements House Number of Floors (Floors) One Floor Number of Stairs To Enter/Railing? no steps to enter Home Environment High Toilet,Tub/Shower Home Equipment Straight Cane,Shower Seat without Backrest,Hand Held Shower Employment Status Retired M2 PT-IP Current Condition Start: 04/28/19 11:36 Freq: NEEDED Status: Active Protocol: Document 04/28/19 09:15 AB (Rec: 04/28/19 11:46 AB [id number]) Physical Therapy Current Condition Current Condition Evaluation Date 04/28/19 Treatment Diagnosis s/p R TSA reverse; difficulty in walking Onset Date 04/27/2019 Precautions Shoulder Precautions Sling,PROM,Pendulums Brace sling RUE Weight Bearing Status Weight Bearing Status Non-Weight Bearing Allowed Weight Bearing Amount (enter % RUE NWB or #) (%) M3 PT-IP Subjective Start: 04/28/19 11:36 Freq: NEEDED Status: Active Protocol: Document 04/28/19 09:15 AB (Rec: 04/28/19 11:46 AB [id number]) Subjective Physical Therapy Visit Type Type Initial Evaluation Visit Start Time 09:15 Visit Stop Time 11:00 Total Visit Minutes 55 Notes pt seen for split visits: 915 to 958 and 1047 to 1100. Number of PIPE WRAPPING MACHINE OPERATOR Visits 0 Physical Therapy Visit Comments Patient Comments pt agreeable to do PT Therapy Pain Assessment Pain When Pain Assessed At Rest Pain Present Pain Present Pain Reported Location Right Shoulder Intensity 3 Scale Used Numeric (1 - 10) Pain Management Techniques Apply Cold,Re-positioning, Timing of Activity with Medications M4 PT-IP Mobility and Gait Start: 04/28/19 11:36 Freq: NEEDED Status: Active Protocol: Document 04/28/19 09:15 AB (Rec: 04/28/19 11:46 [id number]) PT-Bed Mobility Assessment Supine to Sit Supine to Sit Standby Assistance PT-Transfer Assessment Sit to and From Stand Sit to and from Stand Standby Assistance Equipment Transfer Assistive Device Gait Belt Transfers Transfer Destination Chair Transfer Technique ambulated without AD Transfer Ability Level of Assist Standby Assistance Comments Mobility Comments pt educated on precautions. completed supine to sit SBA. educated pt on sling management. completed elbow/ hand exercises and also attempted pendulum but pt unable to fully relax RUE to safely do pendulum but able to dangle UE. pt ambulated ~ 200 ft without AD SBA pt agreed to sit up on chair. positioned pt on chair. call light and table placed within reach. pt seen again with spouse present for caregiver training . educated spouse on how to manage sling and spouse was able to raven sling on pt. also educated on how to do UB dressing . Gait Assessment Gait Gait Assistance Required: Standby Assistance Distance (Feet) 200 Able to Maintain Weight Bearing Status Yes During Gait Assistive Devices Assistive Device None,Gait Belt Factors Limiting Gait Function Factors Limiting Gait Function Limited Range of Motion,Pain PT-Balance Assessment Sitting Balance and Reactions Static Sitting Balance Ability Normal Dynamic Sitting Balance Ability Normal Standing Balance and Reactions Static Standing Balance Ability Good Dynamic Standing Balance Ability Good Device Used without AD M5 PT-IP Objective Assessments Start: 04/28/19 11:36 Freq: NEEDED Status: Active Protocol: Document 04/28/19 09:15 AB (Rec: 04/28/19 11:46 AB [id number]) Orientation Orientation/Cognition Level of Alertness Alert Orientation Name,Age,Birthday,Month,Date, Year,Day of Week,Place, Situation Language Function Ability No Deficits Noted Safety Awareness Understands Safety Issues Memory Description No Deficits Noted Gross Range of Motion Lower Extremity ROM Assessment Within Functional Limits Strength Lower Extremity Strength Assessment Within Functional Limits Sensation Assessment Sensation Gross Sensation WNL Muscle Tone Muscle Tone WNL Yes M6 PT-IP Treatment Start: 04/28/19 11:36 Freq: NEEDED Status: Active Protocol: Document 04/28/19 09:15 AB (Rec: 04/28/19 11:46 AB [id number]) Physical Therapy Treatment Education Education Provided Precautions,Weight Bearing Status,Post-Op Packet,Safety M7 PT-IP Assessment and Plan Start: 04/28/19 11:36 Freq: NEEDED Status: Active Protocol: Document 04/28/19 09:15 AB (Rec: 04/28/19 11:46 AB [id number]) PT Summary Assessment and Plan Potential Rehabilitation Potential Good Status of Condition at Evaluation Stable Summary Impairments Pain,ROM,Strength,Balance, Coordination,Sensation,Tone, Cognition,Bed Mobility, Transfers,Gait,Activity Tolerance Assessment Summary pt requires SBA with mobility and plans to go home with spouse to assist him. pt may go home when medically stable Goals Bed Mobility Goal Independent Transfer Goal Independent Gait Goal Independent Gait Distance 300 Days to Meet Goals 3 Frequency of Treatment Frequency Of Treatment Twice a Day Treatment Plan Physical Therapy Treatment Plan Bed Mobility Training,Transfer Training,Gait Training, Therapeutic Exercise,Balance Retraining,Post Op Education, Discharge Planning,Hot or Cold Pack,Neuromuscular Re-ed, Coordination Retraining,Manual Therapy Recommendations To Nursing Amount of Assist Needed Standby Assistance Discharge Recommendations PT Discharge Recommendations Home with Assistance, Outpatient PT Transportation Needs at Discharge Private Vehicle
--- NOTE | 2019-04-28 11:23 | CM.DANOTE ---
DCP/Assessment: Reviewed chart. Patient is a 73yr old male admitted to [facility] for right TSA performed on 04-27-[address] Fraire. PCP is Dr. Leach. Primary payor is 1)Medicare 2)[facility]. Met with patient and spouse at bedside explained CM/SW role. Patient reports that he plans to d/c home today. Patient's spouse will be primary caregiver. Patient and spouse do not anticipate any d/c planning needs. P: Home today. 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 Yes Advance Directives on File Yes History Provided By Patient Prior Living Arrangements House Household Members spouse Type of transporation used prior to Drives own vehicle admit Independent with ADL's Yes Is patient alert and oriented? Yes Caregiver for Another No Barriers to Discharge No Discharge Plan Home Transportation Arrangement Family to provide transport. Referrals Initiated None needed Whiteboard Updated in Patient Room with Yes name and ext. # of Wood Carving Lathe Operator Review Status In Process Next Review Type Continued Stay Review Pre-Anesthesia Assessment Start: 04/22/19 12:57 Freq: Status: Complete Protocol: Document 04/22/19 12:57 CAB (Rec: 04/22/19 13:10 CAB [id number]) Pre-Anesthesia Assessment PAC Comment Unable to reach pt for scheduled phone assessment. Cervical fusion 06/13/18 @ , chart review only Preferred Name Red Patient Information Reviewed Via Phone Assessment Assessment Completed With Patient Diagnostic Results BMP/CMP,CBC,EKG Comment Labs/EKG @ 02/28/19 Primary Care Provider Silvano Leach Seen Specialist in Last 12 Months Yes Specialist Seen Orthopedist Primary Language Japanese Preferred Language Japanese Height 195.58 cm Weight 107.501 kg Body Mass Index (BMI) 28.0 Hearing Ability Normal Visual Assist Glasses Dentition Type Teeth, Natural Present Barriers to Learning None Other Aids No Hx Anesthesia Reactions No Hx Family Anesthesia Reaction No Hx Malignant Hyperthermia No Hx Blood Transfusions No Anesthesia Review Requested No Lost Charge Card Clerk No alcohol intake current alcohol intake frequency 0-2 drinks per day Smoking Status Former smoker Tobacco type cigarettes how long ago did patient quit smoking Quit 1981 Substance Use Type does not use Pain Present Pain Reported Musculoskeletal Symptoms Back Pain,Joint Pain,Limited Range of Motion,Muscle Weakness History of Falling (Recent or History of Yes ) Patient is completely paralyzed or No completely immobile Mental Status Oriented to own ability Is patient on oxygen? No Does patient have ÁLVAREZ/SOB No Hx Sleep Apnea No CPAP/BIPAP use not prescribed Currently Taking a Beta Eli No Can You Climb a Flight of Stairs Without Yes SOB Hx Chest Pain No Hx SOB No Hx Syncope or Dizziness Yes: Occasional with positional changes Anti-Coagulant Therapy No Has a Sql Developer Dba No Cardiac Testing No Hx Pacemaker/ICD No Pacemaker Rep Required? No Cardiac Clearance Received Not Applicable Diet Type At Home Regular dysphagia Yes: A little bit with nuts Genitourinary Symptoms Change in Urinary Stream, Difficulty Urinating Bladder Pattern Nocturia Urinary Catheter Present No Hx Urinary Self Catheterization No Diabetes No HgbA1C 5.2 Date 02/28/19 Hx Drug Resistant Organism No Presence of External or Internal Medical Yes: Cervical hardware Devices Have you traveled outside the [place] Yes: Out of country 04/06/19-2/ [facility] in the last 30 days? 07/05 Marital Status Lives With spouse Prior Living Arrangements House Support System Child/Children,Spouse Does the Patient Have Assistance After Yes Surgery Patient Discharge Plan Description Return Home Feels Safe in Current Environment Yes Been Physically Hurt or Threatened By a No Person in Current Environment Do you have thoughts of harming yourself None or others? Are you currently considering suicide? No Do you have a plan to hurt yourself or No Plan others? Do You Have Any Spiritual Beliefs That No May Affect Your HC Choices? Do You Have Any Cultural Practices That No May Affect Your HC Choices? Who Can We Speak to About Patient's Care Family, friends Identifying Code for Release of Patient Declines to issue Information Health Care Proxy/Next of Kin Selene ()Mohinder (son) Health Care Proxy Phone Number Selene: [phone] Mohinder: [phone] Emergency Contact Name Selene ()Mohinder (son) Emergency Contact Phone Number Selene: [phone] Mohinder: [phone] Advance Directives? Yes Advance Directives on File Yes Power of Manager Community Yes Power of Manager Community Name Selene () Power of Manager Community
--- NOTE | 2019-04-28 12:03 | PC.NURSE ---
Went over dc instructions and meds, questions answered. Patient taken via wc to vehicle driven by spouse. Patient had all belongings.
== END 2019-04-28 12:04 | disposition home or self-care (01) | DRG 483 ==
PROVIDERS: Admitting Provider Orthopaedic Surgery; Family Provider Family Medicine; PCP Family Medicine; Referring Provider Orthopaedic Surgery; Visit Provider Orthopaedic Surgery
PROC: 0RRJ00Z Replacement of Right Shoulder Joint with Reverse Ball and Socket Synthetic Substitute, Open Approach (ICD-10-PCS; CPT 23472; principal; 2019-04-27 13:15)
DX: M19.011 Primary osteoarthritis, right shoulder (principal); I10 Essential (primary) hypertension; H40.9 Unspecified glaucoma; E78.00 Pure hypercholesterolemia, unspecified
CPT/HCPCS: 36415; 64450; 73020; 85027; 94762; 97161; 97535; C1776; J0330; J0690; J1100; J1170; J2250; J2405; J2704; J3010

== ENCOUNTER 2019-08-07 16:49 | Emergency (ER) | payer MEDICARE, OTHER, SELFPAY ==
[2019-04-27 16:47] VITALS: BMI 26.4
[2019-08-07 17:05] VITALS: BP 136/67; PULSE 59; RESP 16; TEMP 37.1; O2SAT 97; BMI 26.1
[2019-08-07 17:42] LABS: Add Manual Diff / Slide Review NO; Basophils Absolute Auto 0 /uL (0-100); Basophils Percent Auto 0.3 % (0-2); Eosinophils Absolute Auto 100 /uL (0-450); Eosinophils Percent Auto 1.6 % (2-4); Hematocrit 43.6 % (41-53); Lymphocytes Absolute Auto 1500 /uL (1100-4500); Mean Corpuscular HGB Conc 34.5 % (30-36); Mean Corpuscular Hemoglobin 31.8 PG (26-34); Mean Corpuscular Volume 92.2 fL (80-100); Monocytes Absolute Auto 600 /uL (0-900); Monocytes Percent Auto 9.6 % (3-14); Neutrophils Absolute Auto 4400 /uL (1500-7000); Neutrophils Percent Auto 65.5 % (50-75); Platelet Count 186 X10^3/uL (150-400); Red Blood Cell Count 4.72 X10^6/uL (4.5-5.9); Red Cell Distribution Width 13.5 % (11.6-14.8); White Blood Cell Count 6.7 X10^3/uL (4.5-11.0)
[2019-08-07 18:05] LABS: Alanine Aminotransferase 26 IU/L (<50); Albumin 4.8 g/dL (3.5-5.0); Albumin Globulin Ratio 1.4 (1.0-2.8); Alkaline Phosphatase 88 U/L (38-126); Aspartate Aminotransferase 36 IU/L (17-59); BUN Creatinine Ratio 24.4 (6-22); Bilirubin Total 0.6 mg/dL (0.2-1.3); Blood Urea Nitrogen 22 mg/dL (9-20); Calcium 9.6 mg/dL (8.4-10.2); Carbon Dioxide 29 mmol/L (22-32); Chloride 102 mmol/L (98-107); Estimated Glomerular Filt Rate > 60.0 mL/min (>60); Globulin 3.4 g/dL (1.7-4.1); Glucose 109 mg/dL (80-110); HEMOLYSIS 36 (0-50); Lipase 85 U/L (23-300); Potassium 4.4 mmol/L (3.4-5.1); Sodium 138 mmol/L (137-145); Total Protein 8.2 g/dL (6.3-8.2)
[2019-08-07 18:51] LABS: Prothrombin Time 11.5 SECONDS (10.1-12.7)
[2019-08-07 18:54] LABS: PTT Partial Thromboplastin Tim 33 SECONDS (26.4-36.2)
--- NOTE | 2019-08-07 19:50 | PC.NURSE ---
Pt agitated about the wait. Pt claiming that no one has came into check on him in the 2 hours that he has been waiting, and is requesting to leave. QUYEN Gottlieb at bedside and dobby loom chain pegger Kate aware
--- NOTE | 2019-08-07 20:29 | PC.NURSE ---
assessment deferred to
--- NOTE | 2019-08-08 00:09 | ED_ITS ---
HPI - Abdominal Pain General Chief Complaint: Abdominal Pain Stated Complaint: ABDOMINAL PAIN X 2 HOURS Time Seen by Provider: 08/07/19 18:08 Source: patient Mode of arrival: Family Vehicle Limitations: no limitations History of Present Illness HPI narrative: 73-year-old gentleman with a history of hypertension and hyperlipidemia presents with acute right lower quadrant pain starting at 1:00 p.m. this afternoon. Describes it as sharp and stabbing, nonradiating. Not associated with fevers, cough, chills, diarrhea. He is passing flatus, describes normal bowel movements over the last few days. Related Data Home Medications Medication Instructions Recorded Confirmed latanoprost 1 drp EYE-BOTH HS #0 03/22/16 04/27/19 Previous Rx's Medication Instructions Recorded lisinopril 10 mg tablet 10 mg PO BEDTIME #90 tab 02/23/19 oxycodone 5 mg PO Q4H PRN #40 tab 04/28/19 simvastatin 10 mg tablet 10 mg PO BEDTIME #90 tab 08/05/19 Allergies Allergy/AdvReac Type Severity Reaction Status Date / Time omeprazole [OMEPRAZOLE] AdvReac Mild BLOATING, Verified 08/07/19 17:08 CRAMPS Review of Systems Review of Systems Narrative: Pertinent positive and negative findings as per HPI Remainder of review of systems is otherwise unremarkable for Constitutional: Fevers, chills, weakness CV: Chest pain, palpitations, dyspnea on exertion Respiratory: Cough, wheeze, dyspnea GI: Nausea, vomiting, diarrhea, change in bowel habits, black or bloody stools : Dysuria, hematuria, flank pain MS: Muscle weakness, numbness, joint swelling or warmth Skin: Rashes, nonhealing lesions Neuro: Syncope, dizziness, tingling Endocrine: Fatigue, heat or cold intolerance, very dry skin Allergy: Seasonal rhinorrhea, itchy eyes Patient History Medical History Actinic keratosis (Chronic ~2004) Ankle pain (Chronic ~2009) Carpal tunnel syndrome (Chronic ~2012) Cervical stenosis of spine (Acute) Chicken pox (Resolved ~1955) Chronic back pain (Chronic ~1999) Foot pain (Chronic ~2013) Glaucoma (Acute) Grand mal seizure (Acute ~1978) Hiatal hernia (Acute) Hypertension (Chronic ~2013) Irritable bowel syndrome (Chronic ~1999) Lumbago (Acute) Measles (Resolved ~1955) Migraines (Acute) Mumps (Resolved ~1955) Osteoarthritis (Chronic ~2004) Pneumonia (Acute) Shoulder pain (Chronic ~2001) Tinnitus (Chronic ~1969) Surgical History Anesthesia (Resolved) History of arthroplasty of left shoulder (Acute 04/02/16) History of knee replacement (~05/2011) History of knee replacement (~09/2010) Hx of carpal tunnel repair (Acute) S/P cervical spinal fusion (Acute 06/13/18) Status post arthroscopy (~2006) Family History Brother Age: 78 Hypertension High cholesterol Stroke Brother Age: 79 Hypertension High cholesterol Father Heart disease Mother Hypertension High cholesterol Grandfather Heart disease Social History household members: spouse Smoking Status: Former smoker alcohol intake: current Smoking Status: Former smoker alcohol intake frequency: 0-2 drinks per day Substance Use Type: does not use Exam Narrative Exam Narrative: General: Healthy appearing, in no acute distress. Able to give a complete and coherent history. Well-nourished well-developed HEENT: Moist mucous membranes, normal sclera with reactive pupils, Neck: No JVD, supple Respiratory: Lungs are clear to auscultation, no wheezing no rales no rhonchi. Full and symmetrical air movement Cardiac: Regular rate and rhythm no murmurs no bruits Abdomen: On initial exam he has some mild right lower quadrant tenderness without rebound or guarding. By the time blood work has returned and he is reexamined his abdomen is entirely Soft nontender with good bowel tones, no flank pain Skin: Warm and dry, no rashes Neurologic: Grossly neurologically intact with no obvious asymmetries or abnormalities Extremities: No trauma, well perfused Psych: Cooperative, appropriate insight and affect Initial Vital Signs Initial Vital Signs: Vital Signs Temperature 98.7 F 08/07/19 17:05 Pulse Rate 59 L 08/07/19 17:05 Respiratory Rate 16 08/07/19 17:05 Blood Pressure 136/67 08/07/19 17:05 Pulse Oximetry 97 08/07/19 17:05 Course Orders Ordered: ED Orders 08/07/19 17:35 Complete Blood Count AUTO DIFF Stat Comprehensive Metabolic Panel Stat Lipase Stat Partial Thromboplastin Time Stat Prothrombin Time INR Stat Vital Signs Vital signs: Vital Signs - 8 hr 08/07/19 17:05 Temperature 98.7 F Pulse Rate 59 L Respiratory Rate 16 Blood Pressure 136/67 Pulse Oximetry 97 MDM - Abdominal Pain Medical Records Attestation: I reviewed the patient's medical records. Lab Data Attestation: I reviewed the patient's lab results. Result diagrams: 08/07/19 17:35 08/07/19 17:35 Labs: Lab Results 08/07/19 08/07/19 08/07/19 Range/Units 17:35 17:35 17:35 WBC 6.7 (4.5-11.0) X10^3/uL RBC 4.72 (4.5-5.9) X10^6/uL Hgb 15.0 (13.5-17.5) g/dL Hct 43.6 (41-53) % MCV 92.2 (80-100) fL MCH 31.8 (26-34) PG MCHC 34.5 (30-36) % RDW 13.5 (11.6-14.8) % Plt Count 186 (150-400) X10^3/uL Neut % (Auto) 65.5 (50-75) % Lymph % (Auto) 23.0 L (25-40) % Lipscomb % (Auto) 9.6 (3-14) % Eos % (Auto) 1.6 L (2-4) % Baso % (Auto) 0.3 (0-2) % Neut # (Auto) 4400 (5161-9642) /uL Lymph # (Auto) 1500 (9793-5859) /uL Lipscomb # (Auto) 600 (0-900) /uL Eos # (Auto) 100 (0-450) /uL Baso # (Auto) 0 (0-100) /uL PT 11.5 (10.1-12.7) SECONDS INR 1.0 (0.9-1.3) APTT 33 (26.4-36.2) SECONDS Sodium 138 (137-145) mmol/L Potassium 4.4 (3.4-5.1) mmol/L Chloride 102 (98-107) mmol/L Carbon Dioxide 29 (22-32) mmol/L BUN 22 H (9-20) mg/dL Creatinine 0.90 (0.66-1.25) mg/dL Estimated GFR > 60.0 (>60) mL/min BUN/Creatinine Ratio 24.4 H (6-22) Glucose 109 (80-110) mg/dL Calcium 9.6 (8.4-10.2) mg/dL Total Bilirubin 0.6 (0.2-1.3) mg/dL AST 36 (17-59) IU/L ALT 26 (<50) IU/L Alkaline Phosphatase 88 (38-126) U/L Total Protein 8.2 (6.3-8.2) g/dL Albumin 4.8 (3.5-5.0) g/dL Globulin 3.4 (1.7-4.1) g/dL Albumin/Globulin Ratio 1.4 (1.0-2.8) Lipase 85 (23-300) U/L [facility] Narrative Medical decision making narrative: 73-year-old gentleman presents with acute onset right lower quadrant abdominal pain that has completely resolved. His exam is benign as our labs. We reviewed the possibility of appendicitis and discussed that sometimes it can be difficult to fully diagnose but he is not meeting criteria for concerns at this time. We discussed the possibility of kidney stones, pyelonephritis, bowel obstruction and most probable diagnosis of constipation. Given the complete lack of symptoms at this time which shared decision making we opted to not proceed with any imaging. I encouraged him to return to the emergency department should he have worsening or recurrent symptoms. He is safe for home discharge at this time Discharge Plan Departure Patient Disposition: Home Clinical Impression: Abdominal pain Qualifiers: Abdominal location: right lower quadrant Qualified Code(s): R10.31 - Right lower quadrant pain Discharge Date/Time: 08/07/19 20:40 Instructions: DI for Abdominal Pain-Adult Activity Restrictions/Additional Instructions: Thank you for coming in this evening. The pain you experienced at 1:00 this afternoon certainly sounds concerning. I am very pleased that it is completely gone now. Blood work was very reassuring with no evidence of significant infection. Under clinical exam your belly is soft at this time and I am not particularly concerned about acute appendicitis or other intra-abdominal infection. Given the complete resolution of symptoms and a normal blood work the most lik cuca explanation is compact stool in the right side of your colon. We talked about trying some MiraLax to encourage a complete bowel movement. With the chronic belly issues that you had you may find that using MiraLax regularly to regulate her bowel movements causes less gas and is just more comfortable. As we did discuss, appendicitis can be a tricky diagnosis. If you find that you are having increasing pain fevers or new symptoms it would be very appropriate to return to the emergency department and the next step in your workup would be to do a CT scan of your abdomen. I hope that you feel better. Thanks for your patience in the emergency department this evening Prescriptions: No Action latanoprost 0.005 % drops 1 drp EYE-BOTH HS Qty: 0 RF: 0 lisinopril 10 mg tablet 10 mg PO BEDTIME Qty: 90 RF: 3 simvastatin 10 mg tablet 10 mg PO BEDTIME Qty: 90 RF: 0 oxycodone 5 mg Tablet 5 mg PO Q4H PRN (Reason: Pain, Moderate (4-6)) Qty: 40 RF: 0 Referrals: Silvano Leach MD [Primary Care Provider] -
== END 2019-08-07 20:40 | disposition home or self-care (01) ==
PROVIDERS: Emergency Medicine; Emergency Provider Emergency Medicine; Family Provider Family Medicine; PCP Family Medicine
DX: R10.31 Right lower quadrant pain (principal)
CPT/HCPCS: 36415; 80053; 83690; 85025; 85610; 85730; 99283; 99284

== ENCOUNTER → 2019-08-13 07:46 | Outpatient (CLI) | payer MEDICARE, OTHER, SELFPAY ==
[2019-04-27 16:47] VITALS: BMI 26.4
[2019-08-13 08:18] LABS: Add Manual Diff / Slide Review NO; Basophils Absolute Auto 100 /uL (0-100); Basophils Percent Auto 1.9 % (0-2); Eosinophils Absolute Auto 200 /uL (0-450); Eosinophils Percent Auto 2.8 % (2-4); Hematocrit 44.4 % (41-53); Hemoglobin 15.3 g/dL (13.5-17.5); Lymphocytes Absolute Auto 1900 /uL (1100-4500); Lymphocytes Percent Auto 34.3 % (25-40); Mean Corpuscular HGB Conc 34.3 % (30-36); Mean Corpuscular Hemoglobin 31.5 PG (26-34); Mean Corpuscular Volume 91.8 fL (80-100); Monocytes Absolute Auto 500 /uL (0-900); Monocytes Percent Auto 8.4 % (3-14); Neutrophils Absolute Auto 2900 /uL (1500-7000); Neutrophils Percent Auto 52.6 % (50-75); Platelet Count 181 X10^3/uL (150-400); Red Blood Cell Count 4.84 X10^6/uL (4.5-5.9); Red Cell Distribution Width 13.6 % (11.6-14.8); White Blood Cell Count 5.6 X10^3/uL (4.5-11.0)
[2019-08-13 08:35] LABS: BUN Creatinine Ratio 27.4 (6-22); Blood Urea Nitrogen 23 mg/dL (9-20); Calcium 9.6 mg/dL (8.4-10.2); Carbon Dioxide 27 mmol/L (22-32); Chloride 105 mmol/L (98-107); Cholesterol 156 mg/dL (140-199); Estimated Glomerular Filt Rate > 60.0 mL/min (>60); Glucose 116 mg/dL (80-110); HDL Cholesterol 72 mg/dL (40-60); HEMOLYSIS 30 (0-50); LDL Cholesterol Calculated 68 mg/dL (<100); Potassium 4.5 mmol/L (3.4-5.1); Sodium 139 mmol/L (137-145); Triglycerides 82 mg/dL (35-150)
== END ==
PROVIDERS: Family Provider Family Medicine; PCP Family Medicine; Referring Provider Family Medicine; Visit Provider Family Medicine
DX: E78.2 Mixed hyperlipidemia (principal); I10 Essential (primary) hypertension
CPT/HCPCS: 36415; 80048; 80061; 85025

== ENCOUNTER → 2020-07-12 08:28 | Outpatient (CLI) | payer MEDICARE, OTHER, SELFPAY ==
[2019-04-27 16:47] VITALS: BMI 26.4
[2020-07-12 09:49] LABS: Hemoglobin A1C% w Est Avg Glu 5.2 % (4.0-6.0)
[2020-07-12 10:14] LABS: Alanine Aminotransferase 31 IU/L (<50); Albumin 4.3 g/dL (3.5-5.0); Albumin Globulin Ratio 1.6 (1.0-2.8); Alkaline Phosphatase 70 U/L (38-126); Aspartate Aminotransferase 32 IU/L (17-59); BUN Creatinine Ratio 26.7 (6-22); Bilirubin Total 0.7 mg/dL (0.2-1.3); Blood Urea Nitrogen 24 mg/dL (9-20); Calcium 9.7 mg/dL (8.4-10.2); Carbon Dioxide 31 mmol/L (22-32); Chloride 102 mmol/L (98-107); Cholesterol 148 mg/dL (140-199); Estimated Glomerular Filt Rate > 60.0 mL/min (>60); Globulin 2.7 g/dL (1.7-4.1); Glucose 106 mg/dL (80-110); HDL Cholesterol 65 mg/dL (40-60); HEMOLYSIS < 15 (0-50); LDL Cholesterol Calculated 69 mg/dL (<100); Potassium 4.5 mmol/L (3.4-5.1); Sodium 138 mmol/L (137-145); Triglycerides 72 mg/dL (35-150)
[2020-07-12 10:41] LABS: Prostate Specific Antigen 0.961 ng/mL (0.10-4.00)
== END ==
PROVIDERS: Family Provider Family Medicine; PCP Family Medicine; Referring Provider Family Medicine; Visit Provider Family Medicine
DX: I10 Essential (primary) hypertension (principal); R73.9 Hyperglycemia, unspecified; Z12.5 Encounter for screening for malignant neoplasm of prostate
CPT/HCPCS: 36415; 80053; 80061; 83036; 84153; G0103

== ENCOUNTER → 2020-08-23 10:20 | Outpatient (CLI) | payer MEDICARE, OTHER, SELFPAY ==
[2020-08-03 11:52] VITALS: BMI 26.4
--- NOTE | 2020-08-23 10:21 | DI.US.S_ITS ---
PROCEDURE: US CAROTID DOPPLER BI INDICATIONS: exertional, positional dizziness TECHNIQUE: Color and pulse Doppler interrogation was performed of both carotid systems, with image documentation and velocity measurements. COMPARISON: None. FINDINGS: Stenosis calculations are based on SRU (Society of Radiologists in Ultrasound) criteria. The flow velocities and the arterial waveforms are normal within both carotid arterial systems. Atherosclerotic plaque is seen on both sides, left worse than right. The estimated degree of internal carotid artery stenosis is less than 50%. Antegrade flow is confirmed within both vertebral arteries. IMPRESSION: No hemodynamically significant stenosis is seen. Atherosclerotic plaque is noted bilaterally. Dictated by: Neftali Malave M.D. on 08/23/2020 at 11:48 Approved by: Neftali Malave M.D. on 08/23/2020 at 11:49
== END ==
PROVIDERS: Family Provider Family Medicine; PCP Family Medicine; Referring Provider Family Medicine; Visit Provider Family Medicine
DX: I65.23 Occlusion and stenosis of bilateral carotid arteries (principal); I10 Essential (primary) hypertension; R42 Dizziness and giddiness; R06.02 Shortness of breath
CPT/HCPCS: 93880

== ENCOUNTER → 2020-08-27 11:53 | Outpatient (CLI) | payer MEDICARE, OTHER, SELFPAY ==
[2020-08-03 11:52] VITALS: BMI 26.4
[2020-08-27 12:26] LABS: COVID19 -Nasal RAPID Negative (Negative)
== END ==
PROVIDERS: Family Provider Family Medicine; PCP Family Medicine; Visit Provider Physician Assistant
DX: Z01.812 Encounter for preprocedural laboratory examination (principal); Z20.822 Contact with and (suspected) exposure to COVID-19
CPT/HCPCS: 87635; C9803

== ENCOUNTER → 2020-08-29 14:10 | Outpatient (CLI) | payer MEDICARE, OTHER, SELFPAY ==
[2020-08-03 11:52] VITALS: BMI 26.4
--- NOTE | 2020-08-29 14:11 | DI.NM.S_ITS ---
PROCEDURE: NM AMI PERF SPECT REST & STR Rest and exercise myocardial perfusion SPECT with gated imaging and ejection fraction RADIOPHARMACEUTICAL: 26.0 mCi Tc-99m sestamibi IV at rest and 26.0 mCi Tc-99m sestamibi IV at peak exercise. A twoday-protocol was performed. INDICATIONS: Exertional dizziness TECHNIQUE: Radiopharmaceutical was injected at peak stress test, and also at rest. SPECT images were obtained. SPECT myocardial perfusion images were displayed in short axis, horizontal long axis, and vertical long axis views. Gated images were reviewed using [employer]lik[employer] software. COMPARISON: None. CARDIAC STRESS: A standard Kashif treadmill exercise tolerance test was performed by the patient under the supervision of an attending staff. The patient exercised for 9 minutes and 0 seconds; functional aerobic impairment (EMILEE) is -33%. Hemodynamic data: There is normal blood pressure and heart rate response to exercise stress. Patient achieved 92% of maximum predicted heart rate at peak exercise. Symptoms: Patient denied chest pain during exercise. EKG: There were mild horizontal ST depressions in the inferior and anterolateral leads during recovery; occasional PACs present. FINDINGS: Raw data: There is good myocardial labeling by radiotracer. No significant motion artifacts. Left ventricle function: Gated images demonstrate normal left ventricle wall thickening. No segmental wall motion abnormality. No transient ischemic dilation; TID is 0.92 (normal less than 1.3). The left ventricle resting end-diastolic volume is 148 mL. Left ventricle stress ejection fraction is 70%; normal values are above 45%. Myocardial perfusion: There is a mildly intense fixed inferior wall defect that resolves with prone imaging suggesting attenuation artifact than true ischemia or infarction. IMPRESSION: Low risk, probably normal treadmill nuclear stress test 1) No perfusion evidence of ischemia or infarction. There is a mildly intense fixed inferior wall defect that resolves with prone imaging suggesting attenuation artifact than true ischemia or infarction. 2) Normal left ventricular size, wall motion, and systolic function (EF post stress 70%). 3) Mild horizontal ST depressions during recovery that are non-diagnostic in the setting of reassuring perfusion images. 4) No angina during the study. 5) Good exercise tolerance (9.1 METs, EMILEE -33%). Target heart rate achieved. Appropriate BP response to exercise. 6) No prior nuclear stress test available for comparison. Dictated by: Kenn Navarro MD on 08/30/2020 at 16:08 Approved by: Kenn Navarro MD on 08/30/2020 at 16:13
--- NOTE | 2020-08-29 15:20 | PM.TREADMILL ---
Cardiac Stress Test Report Referral & Results Date Patient Seen: 08/29/20 Time Patient Seen: 15:20 Requesting provider: Ricardo Reinoso Indication: Essential hypertension Rest ECG: Sinus rhythm Procedure Note: Standard Kashif protocol, 9:00 mins; 9.7 METS Good exercise capacity, EMILEE -33% Normal hemodynamic response to exercise No chest pain or anginal symptoms 1mm ST depression in II, III, aVF, V5-V6 Occasional PACs Impression: Equivocal exercise stress test Please note: Actual ECG tracings can be found in the PACS system.
== END ==
PROVIDERS: Family Provider Family Medicine; PCP Family Medicine; Referring Provider Family Medicine; Visit Provider Family Medicine
DX: R06.02 Shortness of breath (principal); R42 Dizziness and giddiness; I10 Essential (primary) hypertension
CPT/HCPCS: 78452; 93017; A9502

== ENCOUNTER 2021-02-02 10:30 | Outpatient (RCR) | payer MEDICARE, OTHER, SELFPAY ==
[2020-08-03 11:52] VITALS: BMI 26.4
--- NOTE | 2021-01-06 15:03 | PT.OIE ---
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) Hiatal hernia 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) Hx of carpal tunnel repair Hypertension (~2013) Irritable bowel syndrome (~1999) Lumbago Measles (~1955) Migraines Mumps (~1955) Osteoarthritis (~2004) Pneumonia S/P cervical spinal fusion (06/13/18) Shoulder pain (~2001) Tinnitus (~1969) Vertigo Past Surgical History (Last Reviewed 02/09/20 @ 13:54 by Ricardo Reinoso MD) Anesthesia 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) History of knee replacement (~05/2011) History of knee replacement (~09/2010) Hx of carpal tunnel repair S/P cervical spinal fusion (06/13/18) Status post arthroscopy (~2006) Visit Care Team Role Provider Type Ricardo Reinoso MD Attending Provider Physician Family Provider Primary Care Provider Referring Provider Specialty: Family Practice Address: [address] [place] [address] Email: [email or web address] Physical Therapy Initial Evaluation PT-OP-A Visit Information Start: 01/06/21 14:23 Freq: Status: Active Protocol: Document 01/06/21 10:30 DCW (Rec: 01/06/21 15:02 DCW [id number]) Out-Patient Physical Therapy Visit Information Visit Information Visit Type Initial Evaluation Visit Start Time 10:30 Visit Stop Time 11:15 Total Visit Minutes 45 Visit Number 1 Number of HAT TRIMMER Visits 0 Evaluation Information Evaluation Date 01/06/21 PT-OP-B Current Condition Start: 01/06/21 14:23 Freq: Status: Active Protocol: Document 01/06/21 10:30 DCW (Rec: 01/06/21 15:02 DCW [id number]) Current Condition History of Current Condition Onset Date ~9 month history Current Complaints occasional debilitating dizziness when looking up History of Current Condition Pt is a 75 year old male complaining of a 9 months history of dizziness/imbalance with certain head movements. Reports he gets blurred vision and imbalance when tilting his head back, or occasionally when bending over. Symptoms only last 1-2 minutes, but pt feels that it affects his whole day. Notes he never has symptoms when sitting or driving. 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 Pt also has a history of severe low back pain with radicular symptoms down his right lower extremity. Pt does note a history of HTN, which is well controlled with medication. Prior Treatments and Tests Carotid Doppler: IMPRESSION: No hemodynamically significant stenosis is seen. Atherosclerotic plaque is noted bilaterally. Per Neftali Malave M.D. on 08/23/2020 Cardiac stress test largely unremarkable Audiogram: Findings: Bilateral sensorineural hearing loss with asymmetry in the left ear at 6000 and 8000 Hz. Normal middle ear function bilaterally. Per Neil Vaughn on 03/07 Treatment Goals Patient/Caregiver Goals Determine cause of symptoms PT-OP-C Subjective Start: 01/06/21 14:23 Freq: Status: Active Protocol: Document 01/06/21 10:30 DCW (Rec: 01/06/21 15:02 [facility] [id number]) OP-PT Subjective Patient Comments Patient Comments I'm not sure it's my ears, it really seems to be kind of associated with my neck, actually. Patient Reported Progress Improving Patient Questionnaires Dizziness Handicap Inventory DHI Score 40% DHI Functional Impairment 40 to 59% Impaired (Score 40- 59) PT-OP-O Vestibular Start: 01/06/21 14:23 Freq: Status: Active Protocol: Document 01/06/21 10:30 DCW (Rec: 01/06/21 15:02 DCW [id number]) Vestibular Assessment Screening Tests Vestibular Artery Screen Negative Sharp-Henny Test Negative Auditory Tests Cano Test Within normal limits Rinne Test Negative Air Conduction Results Equal Visual Testing Smooth Pursuits Horizontal WNL Smooth Pursuits Vertical WNL Saccades Horizontal WNL Saccades Vertical WNL Gaze Evoked Nystagmus With Fixation Negative Gaze Evoked Nystagmus Without Fixation Negative Heave Test Positive Bilateral Thrust Head Positive Bilateral Tyler String Test WNL Convergence Test WNL Head Shake Negative Positional Testing Radha-Hallpike Negative Left,Negative Right Rolling Test Negative Left,Negative Right PT-OP-T Assessment and Plan Start: 01/06/21 14:23 Freq: Status: Active Protocol: Document 01/06/21 10:30 DCW (Rec: 01/06/21 15:02 DCW [id number]) Physical Therapy Assessment Rehab Potential Rehabilitation Potential Good Evaluation Complexity Number of Personal Factors/Comorbidities 1-2 Number of Body Systems Impaired 1-2 Clinical Presentation at Evaluation Unstable Impairments Impairments Balance,Coordination,ROM,Soft Tissue Mobility Goals One Impairment Pt experiences dizziness with cervical extension in standing Head Counselor Goal (LTG) Pt to be able to look up or bend over without any symptoms for one entire week to return to nurmal functional activities. LTG Duration 03/08/21 Assessment Summary Assessment Pt's vestibular examination largely unremarkable. Only positive test was head impulse testing, however it was equally positive bilaterally, which is suggestive of age related vestibular loss. Pt's symptoms could not be replicated in clinic today. With subjective history, pt's symptoms may be suggestive of Vertebrobasilar insufficiency, however pt has already had a negative doppler study. Pt may also be suffering from cervicogenic dizziness, which is very difficult to diagnose, however pt may benefit from skilled therapy focusing on cervical ROM, tone management, and strengthening. If pt's symptoms decline, cervicogenic dizziness is most likely cause of symptoms. Physical Therapy Plan Frequency and Duration Frequency of Treatment 2x/Week Duration of Treatment Two months Plan of Care Start Date 01/06/21 Plan of Care End Date 03/08/21 Therapeutic Interventions Therapeutic Interventions Home Exercise Program,Joint Mobilizations,Manual Therapy, Patient/Caregiver Education, Self-Care/Home Management, Therapeutic Activities, Therapeutic Exercises Modalities Cold Pack/Ice Massage,Electric Stimulation,Hot Packs, Ultrasound Next Visit Focus/Plan Next Note Type Treatment Note Next Visit Plan Further assessment of cervical ROM and tone, STM, flexibility
--- NOTE | 2021-01-06 15:04 | PT.OPPOC ---
Physical, Occupational & Speech Therapy At [facility] Current Diagnoses Stiffness of other specified joint, not elsewhere classified (01/06/21) Cervicalgia (01/06/21) Dizziness and giddiness (01/06/21) Visit Care Team Role Provider Type Ricardo Reinoso MD Attending Provider Physician Family Provider Primary Care Provider Referring Provider Specialty: Family Practice Address: [address] [place] [address], [facility] Email: [email or web address] Plan Of Care PT-OP-T Assessment and Plan Start: 01/06/21 14:23 Freq: Status: Active Protocol: Document 01/06/21 10:30 DCW (Rec: 01/06/21 15:02 DCW [id number]) Physical Therapy Assessment Rehab Potential Rehabilitation Potential Good Evaluation Complexity Number of Personal Factors/Comorbidities 1-2 Number of Body Systems Impaired 1-2 Clinical Presentation at Evaluation Unstable Impairments Impairments Balance,Coordination,ROM,Soft Tissue Mobility Goals One Impairment Pt experiences dizziness with cervical extension in standing Public Events Facilities Rental Manager Goal (LTG) Pt to be able to look up or bend over without any symptoms for one entire week to return to normal functional activities. LTG Duration 03/08/21 Assessment Summary Assessment Pt's vestibular examination largely unremarkable. Only positive test was head impulse testing, however it was equally positive bilaterally, which is suggestive of age related vestibular loss. Pt's symptoms could not be replicated in clinic today. With subjective history, pt's symptoms may be suggestive of Vertebrobasilar insufficiency, however pt has already had a negative doppler study. Pt may also be suffering from cervicogenic dizziness, which is very difficult to diagnose, however pt may benefit from skilled therapy focusing on cervical ROM, tone management, and strengthening. If pt's symptoms decline, cervicogenic dizziness is most likely cause of symptoms. Physical Therapy Plan Frequency and Duration Frequency of Treatment 2x/Week Duration of Treatment Two months Plan of Care Start Date 01/06/21 Plan of Care End Date 03/08/21 Therapeutic Interventions Therapeutic Interventions Home Exercise Program,Joint Mobilizations,Manual Therapy, Patient/Caregiver Education, Self-Care/Home Management, Therapeutic Activities, Therapeutic Exercises Modalities Cold Pack/Ice Massage,Electric Stimulation,Hot Packs, Ultrasound Next Visit Focus/Plan Next Note Type Treatment Note Next Visit Plan Further assessment of cervical ROM and tone, STM, flexibility Plan of Care Dates Plan of Care Start Date 01/06/21 Plan of Care End Date 03/08/21 Electronically Signed by: Gordon Barragan, PT 01/06/21 7746 Please Sign and Return: I have reviewed this Plan of Care and certify that the skilled therapy services above are required to meet the patient?s needs. Physician Signature Date Printed Name and Credentials Clinical Instructor Signature Printed Name and Credentials
--- NOTE | 2021-01-09 12:42 | PT.OTN ---
Current Diagnoses Stiffness of other specified joint, not elsewhere classified (01/09/21) Cervicalgia (01/09/21) Dizziness and giddiness (01/09/21) Physical Therapy Treatment Note PT-OP-A Visit Information Start: 01/06/21 14:23 Freq: Status: Active Protocol: Document 01/09/21 12:00 DCW (Rec: 01/09/21 12:42 DCW [id number]) Out-Patient Physical Therapy Visit Information Visit Information Visit Type Treatment Note Visit Start Time 12:00 Visit Stop Time 12:45 Total Visit Minutes 45 Visit Number 2 Number of CUSTOMER SERVICE DRIVER Visits 0 Evaluation Information Evaluation Date 01/06/21 PT-OP-B Current Condition Start: 01/06/21 14:23 Freq: Status: Active Protocol: Document 01/06/21 10:30 DCW (Rec: 01/06/21 15:02 DCW [id number]) Current Condition History of Current Condition Onset Date ~9 month history Current Complaints occasional debilitating dizziness when looking up History of Current Condition Pt is a 75 year old male complaining of a 9 months history of dizziness/imbalance with certain head movements. Reports he gets blurred vision and imbalance when tilting his head back, or occasionally when bending over. Symptoms only last 1-2 minutes, but pt feels that it affects his whole day. Notes he never has symptoms when sitting or driving. 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 Pt also has a history of severe low back pain with radicular symptoms down his right lower extremity. Pt does note a history of HTN, which is well controlled with medication. Prior Treatments and Tests Carotid Doppler: IMPRESSION: No hemodynamically significant stenosis is seen. Atherosclerotic plaque is noted bilaterally. Per Neftali Malave M.D. on 08/23/2020 Cardiac stress test largely unremarkable Audiogram: Findings: Bilateral sensorineural hearing loss with asymmetry in the left ear at 6000 and 8000 Hz. Normal middle ear function bilaterally. Per Neil Vaughn on 03/07 Treatment Goals Patient/Caregiver Goals Determine cause of symptoms PT-OP-C Subjective Start: 01/06/21 14:23 Freq: Status: Active Protocol: Document 01/09/21 12:00 DCW (Rec: 01/09/21 12:42 DCW [id number]) OP-PT Subjective Patient Comments Patient Comments I've got a real bad lumbar spine too, I'm going to need to get that checked out at some point. PT-OP-F Manual Assessment Start: 01/06/21 14:23 Freq: Status: Active Protocol: Document 01/09/21 12:00 DCW (Rec: 01/09/21 12:42 DCW [id number]) Manual Assessments Soft Tissue Assessment Soft Tissue Mobility Assessment Moderate tone R upper trap, R SCM, B occipitals, R pec major Joint Mobility Assessment Joint Mobility Assessment Elevated R sternoclavicular joint, tenderness with palpation PT-OP-K Range of Motion Start: 01/06/21 14:23 Freq: Status: Active Protocol: Document 01/09/21 12:00 DCW (Rec: 01/09/21 12:42 DCW [id number]) Cervical Spine Range of Motion Cervical Spine Active Degrees Testing Position Sitting Flexion 45 Extension 30 Rotation Left 48 Rotation Right 38 Lateral Flexion Left 15 Lateral Flexion Right 20 PT-OP-L Special Tests Start: 01/06/21 14:23 Freq: Status: Active Protocol: Document 01/09/21 12:00 DCW (Rec: 01/09/21 12:42 DCW [id number]) Special Tests Cervical Spine Special Tests Upper Limb Tension Test Test Results Negative Traction Test Results Negative Alar Ligament Test Results Negative Slump Test Results Negative Spurling's Test Test Results Negative Passive Neck Flexion Test Results Negative Foraminal Compression Test Results Negative PT-OP-O Vestibular Start: 01/06/21 14:23 Freq: Status: Active Protocol: Document 01/06/21 10:30 DCW (Rec: 01/06/21 15:02 DCW [id number]) Vestibular Assessment Screening Tests Vestibular Artery Screen Negative Sharp-Henny Test Negative Auditory Tests Cano Test Within normal limits Rinne Test Negative Air Conduction Results Equal Visual Testing Smooth Pursuits Horizontal WNL Smooth Pursuits Vertical WNL Saccades Horizontal WNL Saccades Vertical WNL Gaze Evoked Nystagmus With Fixation Negative Gaze Evoked Nystagmus Without Fixation Negative Heave Test Positive Bilateral Thrust Head Positive Bilateral Tyler String Test WNL Convergence Test WNL Head Shake Negative Positional Testing [place]-Hallpike Negative Left,Negative Right Rolling Test Negative Left,Negative Right PT-OP-Q Treatments Start: 01/06/21 14:23 Freq: Status: Active Protocol: Document 01/09/21 12:00 DCW (Rec: 01/09/21 12:42 DCW [id number]) Therapeutic Exercises Supine Exercises 1 Supine Exercise Name R UT stretch Sitting Exercises 1 Sitting Exercise Name UT, Scal[place] stretches Side bilateral Comments HEP Standing Exercises 1 Standing Exercise Name Corner Pec Stretch Side bilateral Comments HEP Manual Therapy Treatment Soft Tissue Mobilization 1 Body Location UT, Scalenes, Pecs, SCM R>L Mobilization Type Strumming,Sustained Pressure, Trigger Point Release Intensity/Depth Moderate PT-OP-T Assessment and Plan Start: 01/06/21 14:23 Freq: Status: Active Protocol: Document 01/09/21 12:00 DCW (Rec: 01/09/21 12:42 DCW [id number]) Physical Therapy Assessment Rehab Potential Rehabilitation Potential Good Evaluation Complexity Number of Personal Factors/Comorbidities 1-2 Number of Body Systems Impaired 1-2 Clinical Presentation at Evaluation Unstable Impairments Impairments Balance,Coordination,ROM,Soft Tissue Mobility Goals One Impairment Pt experiences dizziness with cervical extension in standing Behavioral Health Aide Goal (LTG) Pt to be able to look up or bend over without any symptoms for one entire week to return to normal functional activities. LTG Duration 03/08/21 Assessment Summary Assessment Pt demonstrates significant tone through right cervical area, limited ROM which affects ability to turn head while driving. Possible cervicogenic causes of pt's complaints of vertigo, will likely benefit from further stretching and STM to decrease tone and improve mobility. Physical Therapy Plan Frequency and Duration Frequency of Treatment 2x/Week Duration of Treatment Two months Plan of Care Start Date 01/06/21 Plan of Care End Date 03/08/21 Therapeutic Interventions Therapeutic Interventions Home Exercise Program,Joint Mobilizations,Manual Therapy, Patient/Caregiver Education, Self-Care/Home Management, Therapeutic Activities, Therapeutic Exercises Modalities Cold Pack/Ice Massage,Electric Stimulation,Hot Packs, Ultrasound Next Visit Focus/Plan Next Note Type Treatment Note Next Visit Plan Further assessment of cervical ROM and tone, STM, flexibility
--- NOTE | 2021-01-11 15:18 | PT.OTN ---
Current Diagnoses Stiffness of other specified joint, not elsewhere classified (01/11/21) Cervicalgia (01/11/21) Dizziness and giddiness (01/11/21) Physical Therapy Treatment Note PT-OP-A Visit Information Start: 01/06/21 14:23 Freq: Status: Active Protocol: Document 01/11/21 14:30 DCW (Rec: 01/11/21 15:18 DCW [id number]) Out-Patient Physical Therapy Visit Information Visit Information Visit Type Treatment Note Visit Start Time 14:30 Visit Stop Time 15:15 Total Visit Minutes 45 Visit Number 3 Number of LINE FIXER Visits 0 Evaluation Information Evaluation Date 01/06/21 PT-OP-B Current Condition Start: 01/06/21 14:23 Freq: Status: Active Protocol: Document 01/06/21 10:30 DCW (Rec: 01/06/21 15:02 DCW [id number]) Current Condition History of Current Condition Onset Date ~9 month history Current Complaints occasional debilitating dizziness when looking up History of Current Condition Pt is a 75 year old male complaining of a 9 months history of dizziness/imbalance with certain head movements. Reports he gets blurred vision and imbalance when tilting his head back, or occasionally when bending over. Symptoms only last 1-2 minutes, but pt feels that it affects his whole day. Notes he never has symptoms when sitting or driving. 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 Pt also has a history of severe low back pain with radicular symptoms down his right lower extremity. Pt does note a history of HTN, which is well controlled with medication. Prior Treatments and Tests Carotid Doppler: IMPRESSION: No hemodynamically significant stenosis is seen. Atherosclerotic plaque is noted bilaterally. Per Neftali Malave M.D. on 08/23/2020 Cardiac stress test largely unremarkable Audiogram: Findings: Bilateral sensorineural hearing loss with asymmetry in the left ear at 6000 and 8000 Hz. Normal middle ear function bilaterally. Per Neil Vaughn on 03/07 Treatment Goals Patient/Caregiver Goals Determine cause of symptoms PT-OP-C Subjective Start: 01/06/21 14:23 Freq: Status: Active Protocol: Document 01/11/21 14:30 DCW (Rec: 01/11/21 15:18 DCW [id number]) OP-PT Subjective Patient Comments Patient Comments I'm a little sore, but I do feel more flexible. PT-OP-F Manual Assessment Start: 01/06/21 14:23 Freq: Status: Active Protocol: Document 01/09/21 12:00 DCW (Rec: 01/09/21 12:42 DCW [id number]) Manual Assessments Soft Tissue Assessment Soft Tissue Mobility Assessment Moderate tone R upper trap, R SCM, B occipitals, R pec major Joint Mobility Assessment Joint Mobility Assessment Elevated R sternoclavicular joint, tenderness with palpation PT-OP-K Range of Motion Start: 01/06/21 14:23 Freq: Status: Active Protocol: Document 01/09/21 12:00 DCW (Rec: 01/09/21 12:42 DCW [id number]) Cervical Spine Range of Motion Cervical Spine Active Degrees Testing Position Sitting Flexion 45 Extension 30 Rotation Left 48 Rotation Right 38 Lateral Flexion Left 15 Lateral Flexion Right 20 PT-OP-L Special Tests Start: 01/06/21 14:23 Freq: Status: Active Protocol: Document 01/09/21 12:00 DCW (Rec: 01/09/21 12:42 DCW [id number]) Special Tests Cervical Spine Special Tests Upper Limb Tension Test Test Results Negative Traction Test Results Negative Alar Ligament Test Results Negative Slump Test Results Negative Spurling's Test Test Results Negative Passive Neck Flexion Test Results Negative Foraminal Compression Test Results Negative PT-OP-O Vestibular Start: 01/06/21 14:23 Freq: Status: Active Protocol: Document 01/06/21 10:30 DCW (Rec: 01/06/21 15:02 DCW [id number]) Vestibular Assessment Screening Tests Vestibular Artery Screen Negative Sharp-Henny Test Negative Auditory Tests Cano Test Within normal limits Rinne Test Negative Air Conduction Results Equal Visual Testing Smooth Pursuits Horizontal WNL Smooth Pursuits Vertical WNL Saccades Horizontal WNL Saccades Vertical WNL Gaze Evoked Nystagmus With Fixation Negative Gaze Evoked Nystagmus Without Fixation Negative Heave Test Positive Bilateral Thrust Head Positive Bilateral Tyler String Test WNL Convergence Test WNL Head Shake Negative Positional Testing [place]-Hallpike Negative Left,Negative Right Rolling Test Negative Left,Negative Right PT-OP-Q Treatments Start: 01/06/21 14:23 Freq: Status: Active Protocol: Document 01/11/21 14:30 DCW (Rec: 01/11/21 15:18 DCW [id number]) Therapeutic Exercises Sitting Exercises 1 Sitting Exercise Name UT, Scalene stretches Side bilateral Comments HEP Manual Therapy Treatment Soft Tissue Mobilization 1 Body Location UT, Scalenes, Pecs, SCM R>L Mobilization Type Strumming,Sustained Pressure, Trigger Point Release Intensity/Depth Moderate Manual Traction Cervical Body Position Supine PT-OP-T Assessment and Plan Start: 01/06/21 14:23 Freq: Status: Active Protocol: Document 01/11/21 14:30 DCW (Rec: 01/11/21 15:18 DCW [id number]) Physical Therapy Assessment Impairments Impairments Balance,Coordination,ROM,Soft Tissue Mobility Goals One Impairment Pt experiences dizziness with cervical extension in standing Alf Goal (LTG) Pt to be able to look up or bend over without any symptoms for one entire week to return to normal functional activities. LTG Duration 03/08/21 Assessment Summary Assessment Pt felt much better following therapy today, noticeable improvement with tone and stiffness. Physical Therapy Plan Frequency and Duration Frequency of Treatment 2x/Week Duration of Treatment Two months Plan of Care Start Date 01/06/21 Plan of Care End Date 03/08/21 Therapeutic Interventions Therapeutic Interventions Home Exercise Program,Joint Mobilizations,Manual Therapy, Patient/Caregiver Education, Self-Care/Home Management, Therapeutic Activities, Therapeutic Exercises Modalities Cold Pack/Ice Massage,Electric Stimulation,Hot Packs, Ultrasound Next Visit Focus/Plan Next Note Type Treatment Note Next Visit Plan Further assessment of cervical ROM and tone, STM, flexibility
--- NOTE | 2021-01-16 11:15 | PT.OTN ---
Current Diagnoses Stiffness of other specified joint, not elsewhere classified (01/16/21) Cervicalgia (01/16/21) Dizziness and giddiness (01/16/21) Physical Therapy Treatment Note PT-OP-A Visit Information Start: 01/06/21 14:23 Freq: Status: Active Protocol: Document 01/16/21 10:30 DCW (Rec: 01/16/21 11:15 DCW [id number]) Out-Patient Physical Therapy Visit Information Visit Information Visit Type Treatment Note Visit Start Time 10:30 Visit Stop Time 11:15 Total Visit Minutes 45 Visit Number 4 Number of FACE BURLER Visits 0 Evaluation Information Evaluation Date 01/06/21 PT-OP-B Current Condition Start: 01/06/21 14:23 Freq: Status: Active Protocol: Document 01/06/21 10:30 DCW (Rec: 01/06/21 15:02 DCW [id number]) Current Condition History of Current Condition Onset Date ~9 month history Current Complaints occasional debilitating dizziness when looking up History of Current Condition Pt is a 75 year old male complaining of a 9 months history of dizziness/imbalance with certain head movements. Reports he gets blurred vision and imbalance when tilting his head back, or occasionally when bending over. Symptoms only last 1-2 minutes, but pt feels that it affects his whole day. Notes he never has symptoms when sitting or driving. 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 Pt also has a history of severe low back pain with radicular symptoms down his right lower extremity. Pt does note a history of HTN, which is well controlled with medication. Prior Treatments and Tests Carotid Doppler: IMPRESSION: No hemodynamically significant stenosis is seen. Atherosclerotic plaque is noted bilaterally. Per Neftali Malave M.D. on 08/23/2020 Cardiac stress test largely unremarkable Audiogram: Findings: Bilateral sensorineural hearing loss with asymmetry in the left ear at 6000 and 8000 Hz. Normal middle ear function bilaterally. Per Neil Vaughn on 03/07 Treatment Goals Patient/Caregiver Goals Determine cause of symptoms PT-OP-C Subjective Start: 01/06/21 14:23 Freq: Status: Active Protocol: Document 01/16/21 10:30 DCW (Rec: 01/16/21 11:15 DCW [id number]) OP-PT Subjective Patient Comments Patient Comments Pt feels a little stiff, a little dizzy. I had a couble episodes this weekend. 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 PT-OP-F Manual Assessment Start: 01/06/21 14:23 Freq: Status: Active Protocol: Document 01/09/21 12:00 DCW (Rec: 01/09/21 12:42 DCW [id number]) Manual Assessments Soft Tissue Assessment Soft Tissue Mobility Assessment Moderate tone R upper trap, R SCM, B occipitals, R pec major Joint Mobility Assessment Joint Mobility Assessment Elevated R sternoclavicular joint, tenderness with palpation PT-OP-K Range of Motion Start: 01/06/21 14:23 Freq: Status: Active Protocol: Document 01/09/21 12:00 DCW (Rec: 01/09/21 12:42 DCW [id number]) Cervical Spine Range of Motion Cervical Spine Active Degrees Testing Position Sitting Flexion 45 Extension 30 Rotation Left 48 Rotation Right 38 Lateral Flexion Left 15 Lateral Flexion Right 20 PT-OP-L Special Tests Start: 01/06/21 14:23 Freq: Status: Active Protocol: Document 01/09/21 12:00 DCW (Rec: 01/09/21 12:42 DCW [id number]) Special Tests Cervical Spine Special Tests Upper Limb Tension Test Test Results Negative Traction Test Results Negative Alar Ligament Test Results Negative Slump Test Results Negative Spurling's Test Test Results Negative Passive Neck Flexion Test Results Negative Foraminal Compression Test Results Negative PT-OP-O Vestibular Start: 01/06/21 14:23 Freq: Status: Active Protocol: Document 01/06/21 10:30 DCW (Rec: 01/06/21 15:02 DCW [id number]) Vestibular Assessment Screening Tests Vestibular Artery Screen Negative Sharp-Henny Test Negative Auditory Tests Cano Test Within normal limits Rinne Test Negative Air Conduction Results Equal Visual Testing Smooth Pursuits Horizontal WNL Smooth Pursuits Vertical WNL Saccades Horizontal WNL Saccades Vertical WNL Gaze Evoked Nystagmus With Fixation Negative Gaze Evoked Nystagmus Without Fixation Negative Heave Test Positive Bilateral Thrust Head Positive Bilateral Tyler String Test WNL Convergence Test WNL Head Shake Negative Positional Testing [place]-Hallpike Negative Left,Negative Right Rolling Test Negative Left,Negative Right PT-OP-Q Treatments Start: 01/06/21 14:23 Freq: Status: Active Protocol: Document 01/16/21 10:30 DCW (Rec: 01/16/21 11:15 DCW [id number]) Therapeutic Exercises Supine Exercises 1 Supine Exercise Name R UT/scalene stretch Manual Therapy Treatment Soft Tissue Mobilization 1 Body Location UT, Scalenes, Pecs, SCM R>L Mobilization Type Strumming,Sustained Pressure, Trigger Point Release Intensity/Depth Moderate Manual Traction Cervical Body Position Supine PT-OP-T Assessment and Plan Start: 01/06/21 14:23 Freq: Status: Active Protocol: Document 01/16/21 10:30 DCW (Rec: 01/16/21 11:15 DCW [id number]) Physical Therapy Assessment Impairments Impairments Balance,Coordination,ROM,Soft Tissue Mobility Goals One Impairment Pt experiences dizziness with cervical extension in standing Half-Way Goal (LTG) Pt to be able to look up or bend over without any symptoms for one entire week to return to normal functional activities. LTG Duration 03/08/21 Assessment Summary Assessment Pt having less frequent dizziness, but still noting some increased dizziness with head/cervical movement. Physical Therapy Plan Frequency and Duration Frequency of Treatment 2x/Week Duration of Treatment Two months Plan of Care Start Date 01/06/21 Plan of Care End Date 03/08/21 Therapeutic Interventions Therapeutic Interventions Home Exercise Program,Joint Mobilizations,Manual Therapy, Patient/Caregiver Education, Self-Care/Home Management, Therapeutic Activities, Therapeutic Exercises Modalities Cold Pack/Ice Massage,Electric Stimulation,Hot Packs, Ultrasound Next Visit Focus/Plan Next Note Type Treatment Note Next Visit Plan Further assessment of cervical ROM and tone, STM, flexibility
--- NOTE | 2021-01-18 11:58 | PT.OTN ---
Current Diagnoses Stiffness of other specified joint, not elsewhere classified (01/18/21) Cervicalgia (01/18/21) Dizziness and giddiness (01/18/21) Physical Therapy Treatment Note PT-OP-A Visit Information Start: 01/06/21 14:23 Freq: Status: Active Protocol: Document 01/18/21 11:15 DCW (Rec: 01/18/21 11:58 DCW [id number]) Out-Patient Physical Therapy Visit Information Visit Information Visit Type Treatment Note Visit Start Time 11:15 Visit Stop Time 12:00 Total Visit Minutes 45 Visit Number 5 Number of WEAVING TEACHER Visits 0 Evaluation Information Evaluation Date 01/06/21 PT-OP-B Current Condition Start: 01/06/21 14:23 Freq: Status: Active Protocol: Document 01/06/21 10:30 DCW (Rec: 01/06/21 15:02 DCW [id number]) Current Condition History of Current Condition Onset Date ~9 month history Current Complaints occasional debilitating dizziness when looking up History of Current Condition Pt is a 75 year old male complaining of a 9 months history of dizziness/imbalance with certain head movements. Reports he gets blurred vision and imbalance when tilting his head back, or occasionally when bending over. Symptoms only last 1-2 minutes, but pt feels that it affects his whole day. Notes he never has symptoms when sitting or driving. 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 Pt also has a history of severe low back pain with radicular symptoms down his right lower extremity. Pt does note a history of HTN, which is well controlled with medication. Prior Treatments and Tests Carotid Doppler: IMPRESSION: No hemodynamically significant stenosis is seen. Atherosclerotic plaque is noted bilaterally. Per Neftali Malave M.D. on 08/23/2020 Cardiac stress test largely unremarkable Audiogram: Findings: Bilateral sensorineural hearing loss with asymmetry in the left ear at 6000 and 8000 Hz. Normal middle ear function bilaterally. Per Neil Vaughn on 03/07 Treatment Goals Patient/Caregiver Goals Determine cause of symptoms PT-OP-C Subjective Start: 01/06/21 14:23 Freq: Status: Active Protocol: Document 01/18/21 11:15 DCW (Rec: 01/18/21 11:58 DCW [id number]) OP-PT Subjective Patient Comments Patient Comments Pt feeling better today, used his personal TENS unit last night, felt good afterward. PT-OP-F Manual Assessment Start: 01/06/21 14:23 Freq: Status: Active Protocol: Document 01/09/21 12:00 DCW (Rec: 01/09/21 12:42 DCW [id number]) Manual Assessments Soft Tissue Assessment Soft Tissue Mobility Assessment Moderate tone R upper trap, R SCM, B occipitals, R pec major Joint Mobility Assessment Joint Mobility Assessment Elevated R sternoclavicular joint, tenderness with palpation PT-OP-K Range of Motion Start: 01/06/21 14:23 Freq: Status: Active Protocol: Document 01/09/21 12:00 DCW (Rec: 01/09/21 12:42 DCW [id number]) Cervical Spine Range of Motion Cervical Spine Active Degrees Testing Position Sitting Flexion 45 Extension 30 Rotation Left 48 Rotation Right 38 Lateral Flexion Left 15 Lateral Flexion Right 20 PT-OP-L Special Tests Start: 01/06/21 14:23 Freq: Status: Active Protocol: Document 01/09/21 12:00 DCW (Rec: 01/09/21 12:42 DCW [id number]) Special Tests Cervical Spine Special Tests Upper Limb Tension Test Test Results Negative Traction Test Results Negative Alar Ligament Test Results Negative Slump Test Results Negative Spurling's Test Test Results Negative Passive Neck Flexion Test Results Negative Foraminal Compression Test Results Negative PT-OP-O Vestibular Start: 01/06/21 14:23 Freq: Status: Active Protocol: Document 01/06/21 10:30 DCW (Rec: 01/06/21 15:02 DCW [id number]) Vestibular Assessment Screening Tests Vestibular Artery Screen Negative Sharp-Henny Test Negative Auditory Tests Cano Test Within normal limits Rinne Test Negative Air Conduction Results Equal Visual Testing Smooth Pursuits Horizontal WNL Smooth Pursuits Vertical WNL Saccades Horizontal WNL Saccades Vertical WNL Gaze Evoked Nystagmus With Fixation Negative Gaze Evoked Nystagmus Without Fixation Negative Heave Test Positive Bilateral Thrust Head Positive Bilateral Tyler String Test WNL Convergence Test WNL Head Shake Negative Positional Testing [place]-Hallpike Negative Left,Negative Right Rolling Test Negative Left,Negative Right PT-OP-Q Treatments Start: 01/06/21 14:23 Freq: Status: Active Protocol: Document 01/18/21 11:15 DCW (Rec: 01/18/21 11:58 DCW [id number]) Therapeutic Exercises Supine Exercises 1 Supine Exercise Name R UT/scalene stretch Manual Therapy Treatment Soft Tissue Mobilization 1 Body Location UT, Scalenes, Pecs, SCM R>L Mobilization Type Strumming,Sustained Pressure, Trigger Point Release Intensity/Depth Moderate Manual Traction Cervical Body Position Supine PT-OP-T Assessment and Plan Start: 01/06/21 14:23 Freq: Status: Active Protocol: Document 01/18/21 11:15 DCW (Rec: 01/18/21 11:58 DCW [id number]) Physical Therapy Assessment Impairments Impairments Balance,Coordination,ROM,Soft Tissue Mobility Goals One Impairment Pt experiences dizziness with cervical extension in standing Rn Shift Mgr Goal (LTG) Pt to be able to look up or bend over without any symptoms for one entire week to return to normal functional activities. LTG Duration 03/08/21 Assessment Summary Assessment Pt working more on home stretching, feels like he is seeing improvement. Physical Therapy Plan Frequency and Duration Frequency of Treatment 2x/Week Duration of Treatment Two months Plan of Care Start Date 01/06/21 Plan of Care End Date 03/08/21 Therapeutic Interventions Therapeutic Interventions Home Exercise Program,Joint Mobilizations,Manual Therapy, Patient/Caregiver Education, Self-Care/Home Management, Therapeutic Activities, Therapeutic Exercises Modalities Cold Pack/Ice Massage,Electric Stimulation,Hot Packs, Ultrasound Next Visit Focus/Plan Next Note Type Treatment Note Next Visit Plan Further assessment of cervical ROM and tone, STM, flexibility
--- NOTE | 2021-01-23 11:15 | PT.OTN ---
Current Diagnoses Stiffness of other specified joint, not elsewhere classified (01/23/21) Cervicalgia (01/23/21) Dizziness and giddiness (01/23/21) Physical Therapy Treatment Note PT-OP-A Visit Information Start: 01/06/21 14:23 Freq: Status: Active Protocol: Document 01/23/21 10:30 DCW (Rec: 01/23/21 11:14 DCW [id number]) Out-Patient Physical Therapy Visit Information Visit Information Visit Type Treatment Note Visit Start Time 10:30 Visit Stop Time 11:15 Total Visit Minutes 45 Visit Number 6 Number of FIBERGLASS LAMINATOR Visits 0 Evaluation Information Evaluation Date 01/06/21 PT-OP-B Current Condition Start: 01/06/21 14:23 Freq: Status: Active Protocol: Document 01/06/21 10:30 DCW (Rec: 01/06/21 15:02 DCW [id number]) Current Condition History of Current Condition Onset Date ~9 month history Current Complaints occasional debilitating dizziness when looking up History of Current Condition Pt is a 75 year old male complaining of a 9 months history of dizziness/imbalance with certain head movements. Reports he gets blurred vision and imbalance when tilting his head back, or occasionally when bending over. Symptoms only last 1-2 minutes, but pt feels that it affects his whole day. Notes he never has symptoms when sitting or driving. 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 Pt also has a history of severe low back pain with radicular symptoms down his right lower extremity. Pt does note a history of HTN, which is well controlled with medication. Prior Treatments and Tests Carotid Doppler: IMPRESSION: No hemodynamically significant stenosis is seen. Atherosclerotic plaque is noted bilaterally. Per Neftali Malave M.D. on 08/23/2020 Cardiac stress test largely unremarkable Audiogram: Findings: Bilateral sensorineural hearing loss with asymmetry in the left ear at 6000 and 8000 Hz. Normal middle ear function bilaterally. Per Neil Vaughn on 03/07 Treatment Goals Patient/Caregiver Goals Determine cause of symptoms PT-OP-C Subjective Start: 01/06/21 14:23 Freq: Status: Active Protocol: Document 01/23/21 10:30 DCW (Rec: 01/23/21 11:14 DCW [id number]) OP-PT Subjective Patient Comments Patient Comments I haven't had any dizzy spells. I'm having more trouble with my back than anything. PT-OP-F Manual Assessment Start: 01/06/21 14:23 Freq: Status: Active Protocol: Document 01/09/21 12:00 DCW (Rec: 01/09/21 12:42 DCW [id number]) Manual Assessments Soft Tissue Assessment Soft Tissue Mobility Assessment Moderate tone R upper trap, R SCM, B occipitals, R pec major Joint Mobility Assessment Joint Mobility Assessment Elevated R sternoclavicular joint, tenderness with palpation PT-OP-K Range of Motion Start: 01/06/21 14:23 Freq: Status: Active Protocol: Document 01/09/21 12:00 DCW (Rec: 01/09/21 12:42 DCW [id number]) Cervical Spine Range of Motion Cervical Spine Active Degrees Testing Position Sitting Flexion 45 Extension 30 Rotation Left 48 Rotation Right 38 Lateral Flexion Left 15 Lateral Flexion Right 20 PT-OP-L Special Tests Start: 01/06/21 14:23 Freq: Status: Active Protocol: Document 01/09/21 12:00 DCW (Rec: 01/09/21 12:42 DCW [id number]) Special Tests Cervical Spine Special Tests Upper Limb Tension Test Test Results Negative Traction Test Results Negative Alar Ligament Test Results Negative Slump Test Results Negative Spurling's Test Test Results Negative Passive Neck Flexion Test Results Negative Foraminal Compression Test Results Negative PT-OP-O Vestibular Start: 01/06/21 14:23 Freq: Status: Active Protocol: Document 01/06/21 10:30 DCW (Rec: 01/06/21 15:02 DCW [id number]) Vestibular Assessment Screening Tests Vestibular Artery Screen Negative Sharp-Henny Test Negative Auditory Tests Cano Test Within normal limits Rinne Test Negative Air Conduction Results Equal Visual Testing Smooth Pursuits Horizontal WNL Smooth Pursuits Vertical WNL Saccades Horizontal WNL Saccades Vertical WNL Gaze Evoked Nystagmus With Fixation Negative Gaze Evoked Nystagmus Without Fixation Negative Heave Test Positive Bilateral Thrust Head Positive Bilateral Tyler String Test WNL Convergence Test WNL Head Shake Negative Positional Testing [place]-Hallpike Negative Left,Negative Right Rolling Test Negative Left,Negative Right PT-OP-Q Treatments Start: 01/06/21 14:23 Freq: Status: Active Protocol: Document 01/23/21 10:30 DCW (Rec: 01/23/21 11:14 DCW [id number]) Therapeutic Exercises Supine Exercises 1 Supine Exercise Name R UT/scalene stretch Manual Therapy Treatment Soft Tissue Mobilization 1 Body Location UT, Scalenes, Pecs, SCM R>L Mobilization Type Strumming,Sustained Pressure, Trigger Point Release Intensity/Depth Moderate Manual Traction Cervical Body Position Supine PT-OP-T Assessment and Plan Start: 01/06/21 14:23 Freq: Status: Active Protocol: Document 01/23/21 10:30 DCW (Rec: 01/23/21 11:14 DCW [id number]) Physical Therapy Assessment Impairments Impairments Balance,Coordination,ROM,Soft Tissue Mobility Goals One Impairment Pt experiences dizziness with cervical extension in standing Penitentiary Goal (LTG) Pt to be able to look up or bend over without any symptoms for one entire week to return to normal functional activities. LTG Duration 03/08/21 Assessment Summary Assessment Pt tone at its best levels currently since he began therapy, not having any recent dizziness, responding well to treatment. Physical Therapy Plan Frequency and Duration Frequency of Treatment 2x/Week Duration of Treatment Two months Plan of Care Start Date 01/06/21 Plan of Care End Date 03/08/21 Therapeutic Interventions Therapeutic Interventions Home Exercise Program,Joint Mobilizations,Manual Therapy, Patient/Caregiver Education, Self-Care/Home Management, Therapeutic Activities, Therapeutic Exercises Modalities Cold Pack/Ice Massage,Electric Stimulation,Hot Packs, Ultrasound Next Visit Focus/Plan Next Note Type Treatment Note Next Visit Plan Further assessment of cervical ROM and tone, STM, flexibility
--- NOTE | 2021-01-26 12:45 | PT.OTN ---
Current Diagnoses Stiffness of other specified joint, not elsewhere classified (01/26/21) Cervicalgia (01/26/21) Dizziness and giddiness (01/26/21) Physical Therapy Treatment Note PT-OP-A Visit Information Start: 01/06/21 14:23 Freq: Status: Active Protocol: Document 01/26/21 12:00 DCW (Rec: 01/26/21 12:45 DCW [id number]) Out-Patient Physical Therapy Visit Information Visit Information Visit Type Treatment Note Visit Start Time 12:00 Visit Stop Time 12:45 Total Visit Minutes 45 Visit Number 7 Number of CORPORATE INVESTIGATOR Visits 0 Evaluation Information Evaluation Date 01/06/21 PT-OP-B Current Condition Start: 01/06/21 14:23 Freq: Status: Active Protocol: Document 01/06/21 10:30 DCW (Rec: 01/06/21 15:02 DCW [id number]) Current Condition History of Current Condition Onset Date ~9 month history Current Complaints occasional debilitating dizziness when looking up History of Current Condition Pt is a 75 year old male complaining of a 9 months history of dizziness/imbalance with certain head movements. Reports he gets blurred vision and imbalance when tilting his head back, or occasionally when bending over. Symptoms only last 1-2 minutes, but pt feels that it affects his whole day. Notes he never has symptoms when sitting or driving. 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 Pt also has a history of severe low back pain with radicular symptoms down his right lower extremity. Pt does note a history of HTN, which is well controlled with medication. Prior Treatments and Tests Carotid Doppler: IMPRESSION: No hemodynamically significant stenosis is seen. Atherosclerotic plaque is noted bilaterally. Per Neftali Malave M.D. on 08/23/2020 Cardiac stress test largely unremarkable Audiogram: Findings: Bilateral sensorineural hearing loss with asymmetry in the left ear at 6000 and 8000 Hz. Normal middle ear function bilaterally. Per Neil Vaughn on 03/07 Treatment Goals Patient/Caregiver Goals Determine cause of symptoms PT-OP-C Subjective Start: 01/06/21 14:23 Freq: Status: Active Protocol: Document 01/26/21 12:00 DCW (Rec: 01/26/21 12:45 DCW [id number]) OP-PT Subjective Patient Comments Patient Comments Pt notes his neck has been doing a lot better, I haven't had any dizziness, and I've been really busy, doing all the things that used to bother me. PT-OP-F Manual Assessment Start: 01/06/21 14:23 Freq: Status: Active Protocol: Document 01/09/21 12:00 DCW (Rec: 01/09/21 12:42 DCW [id number]) Manual Assessments Soft Tissue Assessment Soft Tissue Mobility Assessment Moderate tone R upper trap, R SCM, B occipitals, R pec major Joint Mobility Assessment Joint Mobility Assessment Elevated R sternoclavicular joint, tenderness with palpation PT-OP-K Range of Motion Start: 01/06/21 14:23 Freq: Status: Active Protocol: Document 01/09/21 12:00 DCW (Rec: 01/09/21 12:42 DCW [id number]) Cervical Spine Range of Motion Cervical Spine Active Degrees Testing Position Sitting Flexion 45 Extension 30 Rotation Left 48 Rotation Right 38 Lateral Flexion Left 15 Lateral Flexion Right 20 PT-OP-L Special Tests Start: 01/06/21 14:23 Freq: Status: Active Protocol: Document 01/09/21 12:00 DCW (Rec: 01/09/21 12:42 DCW [id number]) Special Tests Cervical Spine Special Tests Upper Limb Tension Test Test Results Negative Traction Test Results Negative Alar Ligament Test Results Negative Slump Test Results Negative Spurling's Test Test Results Negative Passive Neck Flexion Test Results Negative Foraminal Compression Test Results Negative PT-OP-O Vestibular Start: 01/06/21 14:23 Freq: Status: Active Protocol: Document 01/06/21 10:30 DCW (Rec: 01/06/21 15:02 DCW [id number]) Vestibular Assessment Screening Tests Vestibular Artery Screen Negative Sharp-Henny Test Negative Auditory Tests Cano Test Within normal limits Rinne Test Negative Air Conduction Results Equal Visual Testing Smooth Pursuits Horizontal WNL Smooth Pursuits Vertical WNL Saccades Horizontal WNL Saccades Vertical WNL Gaze Evoked Nystagmus With Fixation Negative Gaze Evoked Nystagmus Without Fixation Negative Heave Test Positive Bilateral Thrust Head Positive Bilateral Tyler String Test WNL Convergence Test WNL Head Shake Negative Positional Testing Radha-Hallpike Negative Left,Negative Right Rolling Test Negative Left,Negative Right PT-OP-Q Treatments Start: 01/06/21 14:23 Freq: Status: Active Protocol: Document 01/26/21 12:00 DCW (Rec: 01/26/21 12:45 DCW [id number]) Manual Therapy Treatment Soft Tissue Mobilization 1 Body Location UT, Scalenes, Pecs, SCM R>L Mobilization Type Strumming,Sustained Pressure, Trigger Point Release Intensity/Depth Moderate Manual Traction Cervical Body Position Supine PT-OP-T Assessment and Plan Start: 01/06/21 14:23 Freq: Status: Active Protocol: Document 01/26/21 12:00 DCW (Rec: 01/26/21 12:45 DCW [id number]) Physical Therapy Assessment Impairments Impairments Balance,Coordination,ROM,Soft Tissue Mobility Goals One Impairment Pt experiences dizziness with cervical extension in standing [employer] Worker Goal (LTG) Pt to be able to look up or bend over without any symptoms for one entire week to return to normal functional activities. LTG Duration 03/08/21 Assessment Summary Assessment Continues to progress well, no recent dizziness. Likely approaching discharge, will return for scheduled appointments next week, will then likely discharge to independent program. Physical Therapy Plan Frequency and Duration Frequency of Treatment 2x/Week Duration of Treatment Two months Plan of Care Start Date 01/06/21 Plan of Care End Date 03/08/21 Therapeutic Interventions Therapeutic Interventions Home Exercise Program,Joint Mobilizations,Manual Therapy, Patient/Caregiver Education, Self-Care/Home Management, Therapeutic Activities, Therapeutic Exercises Modalities Cold Pack/Ice Massage,Electric Stimulation,Hot Packs, Ultrasound Next Visit Focus/Plan Next Note Type Treatment Note Next Visit Plan Further assessment of cervical ROM and tone, STM, flexibility
--- NOTE | 2021-01-30 12:43 | PT.OTN ---
Current Diagnoses Stiffness of other specified joint, not elsewhere classified (01/30/21) Cervicalgia (01/30/21) Dizziness and giddiness (01/30/21) Physical Therapy Treatment Note PT-OP-A Visit Information Start: 01/06/21 14:23 Freq: Status: Active Protocol: Document 01/30/21 12:04 DCW (Rec: 01/30/21 12:43 DCW [id number]) Out-Patient Physical Therapy Visit Information Visit Information Visit Type Treatment Note Visit Start Time 12:04 Visit Stop Time 12:45 Total Visit Minutes 41 Visit Number 8 Number of LOCAL COORDINATOR Visits 0 Evaluation Information Evaluation Date 01/06/21 PT-OP-B Current Condition Start: 01/06/21 14:23 Freq: Status: Active Protocol: Document 01/06/21 10:30 DCW (Rec: 01/06/21 15:02 DCW [id number]) Current Condition History of Current Condition Onset Date ~9 month history Current Complaints occasional debilitating dizziness when looking up History of Current Condition Pt is a 75 year old male complaining of a 9 months history of dizziness/imbalance with certain head movements. Reports he gets blurred vision and imbalance when tilting his head back, or occasionally when bending over. Symptoms only last 1-2 minutes, but pt feels that it affects his whole day. Notes he never has symptoms when sitting or driving. 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 Pt also has a history of severe low back pain with radicular symptoms down his right lower extremity. Pt does note a history of HTN, which is well controlled with medication. Prior Treatments and Tests Carotid Doppler: IMPRESSION: No hemodynamically significant stenosis is seen. Atherosclerotic plaque is noted bilaterally. Per Neftali Malave M.D. on 08/23/2020 Cardiac stress test largely unremarkable Audiogram: Findings: Bilateral sensorineural hearing loss with asymmetry in the left ear at 6000 and 8000 Hz. Normal middle ear function bilaterally. Per Neil Vaughn on 03/07 Treatment Goals Patient/Caregiver Goals Determine cause of symptoms PT-OP-C Subjective Start: 01/06/21 14:23 Freq: Status: Active Protocol: Document 01/30/21 12:04 DCW (Rec: 01/30/21 12:42 DCW [id number]) OP-PT Subjective Patient Comments Patient Comments I was having some fuzziness and just felt off yesterday, and my neck was just so tight. I did those neck stretches and actually felt better, so I think we're on the right track. PT-OP-F Manual Assessment Start: 01/06/21 14:23 Freq: Status: Active Protocol: Document 01/09/21 12:00 DCW (Rec: 01/09/21 12:42 DCW [id number]) Manual Assessments Soft Tissue Assessment Soft Tissue Mobility Assessment Moderate tone R upper trap, R SCM, B occipitals, R pec major Joint Mobility Assessment Joint Mobility Assessment Elevated R sternoclavicular joint, tenderness with palpation PT-OP-K Range of Motion Start: 01/06/21 14:23 Freq: Status: Active Protocol: Document 01/09/21 12:00 DCW (Rec: 01/09/21 12:42 DCW [id number]) Cervical Spine Range of Motion Cervical Spine Active Degrees Testing Position Sitting Flexion 45 Extension 30 Rotation Left 48 Rotation Right 38 Lateral Flexion Left 15 Lateral Flexion Right 20 PT-OP-L Special Tests Start: 01/06/21 14:23 Freq: Status: Active Protocol: Document 01/09/21 12:00 DCW (Rec: 01/09/21 12:42 DCW [id number]) Special Tests Cervical Spine Special Tests Upper Limb Tension Test Test Results Negative Traction Test Results Negative Alar Ligament Test Results Negative Slump Test Results Negative Spurling's Test Test Results Negative Passive Neck Flexion Test Results Negative Foraminal Compression Test Results Negative PT-OP-O Vestibular Start: 01/06/21 14:23 Freq: Status: Active Protocol: Document 01/06/21 10:30 DCW (Rec: 01/06/21 15:02 DCW [id number]) Vestibular Assessment Screening Tests Vestibular Artery Screen Negative Sharp-Henny Test Negative Auditory Tests Cano Test Within normal limits Rinne Test Negative Air Conduction Results Equal Visual Testing Smooth Pursuits Horizontal WNL Smooth Pursuits Vertical WNL Saccades Horizontal WNL Saccades Vertical WNL Gaze Evoked Nystagmus With Fixation Negative Gaze Evoked Nystagmus Without Fixation Negative Heave Test Positive Bilateral Thrust Head Positive Bilateral Tyler String Test WNL Convergence Test WNL Head Shake Negative Positional Testing Radha-Hallpike Negative Left,Negative Right Rolling Test Negative Left,Negative Right PT-OP-Q Treatments Start: 01/06/21 14:23 Freq: Status: Active Protocol: Document 01/30/21 12:04 DCW (Rec: 01/30/21 12:42 DCW [id number]) Manual Therapy Treatment Soft Tissue Mobilization 1 Body Location UT, Scalenes, Pecs, SCM R>L Mobilization Type Strumming,Sustained Pressure, Trigger Point Release Intensity/Depth Moderate Manual Traction Cervical Body Position Supine PT-OP-T Assessment and Plan Start: 01/06/21 14:23 Freq: Status: Active Protocol: Document 01/30/21 12:04 DCW (Rec: 01/30/21 12:42 DCW [id number]) Physical Therapy Assessment Impairments Impairments Balance,Coordination,ROM,Soft Tissue Mobility Goals One Impairment Pt experiences dizziness with cervical extension in standing [facility] Goal (LTG) Pt to be able to look up or bend over without any symptoms for one entire week to return to normal functional activities. LTG Duration 03/08/21 Assessment Summary Assessment Pt doing well, will discharge to [facility] following next visit. Physical Therapy Plan Frequency and Duration Frequency of Treatment 2x/Week Duration of Treatment Two months Plan of Care Start Date 01/06/21 Plan of Care End Date 03/08/21 Therapeutic Interventions Therapeutic Interventions Home Exercise Program,Joint Mobilizations,Manual Therapy, Patient/Caregiver Education, Self-Care/Home Management, Therapeutic Activities, Therapeutic Exercises Modalities Cold Pack/Ice Massage,Electric Stimulation,Hot Packs, Ultrasound Next Visit Focus/Plan Next Note Type Discharge Summary Next Visit Plan Further assessment of cervical ROM and tone, STM, flexibility
--- NOTE | 2021-02-02 11:18 | PT.OTN ---
Current Diagnoses Stiffness of other specified joint, not elsewhere classified (02/02/21) Cervicalgia (02/02/21) Dizziness and giddiness (02/02/21) Physical Therapy Treatment Note PT-OP-A Visit Information Start: 01/06/21 14:23 Freq: Status: Active Protocol: Document 02/02/21 10:37 DCW (Rec: 02/02/21 11:18 DCW [id number]) Out-Patient Physical Therapy Visit Information Visit Information Visit Type Treatment Note Visit Start Time 10:37 Visit Stop Time 11:15 Total Visit Minutes 38 Visit Number 9 Number of INSPECTORS AND REGULATORY OFFICERS Visits 0 Evaluation Information Evaluation Date 01/06/21 PT-OP-B Current Condition Start: 01/06/21 14:23 Freq: Status: Active Protocol: Document 01/06/21 10:30 DCW (Rec: 01/06/21 15:02 DCW [id number]) Current Condition History of Current Condition Onset Date ~9 month history Current Complaints occasional debilitating dizziness when looking up History of Current Condition Pt is a 75 year old male complaining of a 9 months history of dizziness/imbalance with certain head movements. Reports he gets blurred vision and imbalance when tilting his head back, or occasionally when bending over. Symptoms only last 1-2 minutes, but pt feels that it affects his whole day. Notes he never has symptoms when sitting or driving. 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 Pt also has a history of severe low back pain with radicular symptoms down his right lower extremity. Pt does note a history of HTN, which is well controlled with medication. Prior Treatments and Tests Carotid Doppler: IMPRESSION: No hemodynamically significant stenosis is seen. Atherosclerotic plaque is noted bilaterally. Per Neftali Malave M.D. on 08/23/2020 Cardiac stress test largely unremarkable Audiogram: Findings: Bilateral sensorineural hearing loss with asymmetry in the left ear at 6000 and 8000 Hz. Normal middle ear function bilaterally. Per Neil Vaughn on 03/07 Treatment Goals Patient/Caregiver Goals Determine cause of symptoms PT-OP-C Subjective Start: 01/06/21 14:23 Freq: Status: Active Protocol: Document 02/02/21 10:37 DCW (Rec: 02/02/21 11:18 DCW [id number]) OP-PT Subjective Patient Comments Patient Comments I'm doing real good, I haven' t had any dizzy spells the past couple of days. PT-OP-F Manual Assessment Start: 01/06/21 14:23 Freq: Status: Active Protocol: Document 02/02/21 10:37 DCW (Rec: 02/02/21 10:46 DCW [id number]) Manual Assessments Soft Tissue Assessment Soft Tissue Mobility Assessment Mild tone R upper trap, R SCM Joint Mobility Assessment Joint Mobility Assessment Elevated R sternoclavicular joint, tenderness with palpation PT-OP-K Range of Motion Start: 01/06/21 14:23 Freq: Status: Active Protocol: Document 02/02/21 10:37 DCW (Rec: 02/02/21 10:46 DCW [id number]) Cervical Spine Range of Motion Cervical Spine Active Degrees Testing Position Sitting Flexion 55 Extension 35 Rotation Left 55 Rotation Right 50 Lateral Flexion Left 25 Lateral Flexion Right 25 PT-OP-L Special Tests Start: 01/06/21 14:23 Freq: Status: Active Protocol: Document 01/09/21 12:00 DCW (Rec: 01/09/21 12:42 DCW [id number]) Special Tests Cervical Spine Special Tests Upper Limb Tension Test Test Results Negative Traction Test Results Negative Alar Ligament Test Results Negative Slump Test Results Negative Spurling's Test Test Results Negative Passive Neck Flexion Test Results Negative Foraminal Compression Test Results Negative PT-OP-O Vestibular Start: 01/06/21 14:23 Freq: Status: Active Protocol: Document 01/06/21 10:30 DCW (Rec: 01/06/21 15:02 DCW [id number]) Vestibular Assessment Screening Tests Vestibular Artery Screen Negative Sharp-Henny Test Negative Auditory Tests Cano Test Within normal limits Rinne Test Negative Air Conduction Results Equal Visual Testing Smooth Pursuits Horizontal WNL Smooth Pursuits Vertical WNL Saccades Horizontal WNL Saccades Vertical WNL Gaze Evoked Nystagmus With Fixation Negative Gaze Evoked Nystagmus Without Fixation Negative Heave Test Positive Bilateral Thrust Head Positive Bilateral Tyler String Test WNL Convergence Test WNL Head Shake Negative Positional Testing Radha-Hallpike Negative Left,Negative Right Rolling Test Negative Left,Negative Right PT-OP-Q Treatments Start: 01/06/21 14:23 Freq: Status: Active Protocol: Document 02/02/21 10:37 DCW (Rec: 02/02/21 11:18 DCW [id number]) Manual Therapy Treatment Soft Tissue Mobilization 1 Body Location UT, Scalenes, Pecs, SCM R>L Mobilization Type Strumming,Sustained Pressure, Trigger Point Release Intensity/Depth Moderate Manual Traction Cervical Body Position Supine PT-OP-T Assessment and Plan Start: 01/06/21 14:23 Freq: Status: Active Protocol: Document 02/02/21 10:37 DCW (Rec: 02/02/21 11:18 DCW [id number]) Physical Therapy Assessment Impairments Impairments Balance,Coordination,ROM,Soft Tissue Mobility Goals One Impairment Pt experiences dizziness with cervical extension in standing [facility] Goal (LTG) Pt to be able to look up or bend over without any symptoms for one entire week to return to normal functional activities. LTG Duration Met Progress Towards Goals Progress Towards Goals Goals Met Assessment Summary Assessment Pt feeling good, has not been experiencing vertigo, feels that he has a good understanding regarding his HEP, appropriate for discharge at this time. Physical Therapy Plan Frequency and Duration Frequency of Treatment 2x/Week Duration of Treatment Two months Plan of Care Start Date 01/06/21 Plan of Care End Date 03/08/21 Therapeutic Interventions Therapeutic Interventions Home Exercise Program,Joint Mobilizations,Manual Therapy, Patient/Caregiver Education, Self-Care/Home Management, Therapeutic Activities, Therapeutic Exercises Modalities Cold Pack/Ice Massage,Electric Stimulation,Hot Packs, Ultrasound Discharge Physical Therapy Discharge Reasons Goals Met Next Visit Focus/Plan Next Note Type Discharge Summary
== END 2021-04-18 09:43 ==
LOC: PHYS 10:30
PROVIDERS: Family Provider Family Medicine; PCP Family Medicine; Referring Provider Family Medicine; Visit Provider Family Medicine
DX: R42 Dizziness and giddiness (principal); M25.69 Stiffness of other specified joint, not elsewhere classified; M54.2 Cervicalgia
CPT/HCPCS: 97110; 97140; 97162

== ENCOUNTER → 2021-02-02 13:26 | Outpatient (CLI) | payer MEDICARE, OTHER, SELFPAY ==
[2020-08-03 11:52] VITALS: BMI 26.4
--- NOTE | 2021-02-02 | DI.CT.S_ITS ---
PROCEDURE: CT LUMBAR SPINE WO CON INDICATIONS: Radiculopathy, lumbar region TECHNIQUE: Noncontrast 3 mm thick sections acquired from the T12 level to the sacrum. Sagittal and coronal reformats were constructed. For radiation dose reduction, the following was used: automated exposure control. COMPARISON: [facility] Outside Film, MR, MR LUMBAR SPINE WITHOUT CONTRAST, 01/30/2020, 12:47 (images only, no report) FINDINGS: Image quality: Excellent. Bones: No acute vertebral body compression fractures. No suspicious lytic or blastic bony lesions. No pars defects. Mild dextroconvex scoliotic curvature is seen. There is mild grade 1 anterolisthesis seen at the L2-L3 level. Mild grade 1 retrolisthesis is seen at L4-L5. This patient has transitional lumbar anatomy. For the purposes of this examination, the level with the last pair of ribs is considered to be T12. By this numbering scheme, the L5 level is transitional and is relatively highly sacralized. T12-L1: Partially bridging anterior osteophytes are seen. The disc height is relatively well preserved. No significant neural foraminal or central canal narrowing can be seen. L1-L2: Calcification/ossification can be seen involving the posterior left annulus fibrosus, as on series 4, image 39 and on series 6, image 71. Mild to moderate disc bulge is seen. Mild bilateral neural foraminal narrowing is seen. Mild central canal narrowing is seen. L2-L3: The disc height is well preserved. At least moderate disc bulge is seen. Prominent facet hypertrophy is seen at this level. Moderate bilateral neural foraminal narrowing can be seen, left worse than right. At least moderate central canal narrowing is seen. L3-L4: Moderate to severe loss of disc height is seen on the left side. Vacuum disc phenomenon is seen at this level. Bridging endplate osteophytes are seen on the left. Moderate to prominent disc bulge is seen at this level. There is moderate to severe right-sided and at least moderate left-sided neural foraminal narrowing seen. Moderate to severe central canal narrowing is seen at this level. L4-L5: There is moderate loss of disc height. Vacuum disc phenomenon is seen at this level. At least moderate disc bulge is seen at this level. Prominent facet hypertrophy can be seen. There is severe bilateral neural foraminal narrowing seen. Moderate to severe central canal narrowing is seen. L5-S1: The disc height is well preserved. Mild to moderate disc bulge is seen. There is moderate left-sided and no significant right-sided neural foraminal narrowing seen. No significant central canal narrowing is seen. Soft tissues: No retroperitoneal masses or hematomas. Visualized aorta is normal in caliber. Atherosclerotic calcification is noted. 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 Mild dextroconvex scoliotic curvature is seen. Dictated by: Neftali Malave M.D. on 02/02/2021 at 15:57 Approved by: Neftali Malave M.D. on 02/02/2021 at 16:08
[2021-02-02 15:03] LABS: Add Manual Diff / Slide Review NO; Basophils Absolute Auto 0 /uL (0-100); Basophils Percent Auto 0.5 % (0-2); Eosinophils Absolute Auto 100 /uL (0-450); Eosinophils Percent Auto 1.7 % (2-4); Hematocrit 41.9 % (41-53); Hemoglobin 14.3 g/dL (13.5-17.5); Lymphocytes Absolute Auto 1600 /uL (1100-4500); Lymphocytes Percent Auto 26.4 % (25-40); Mean Corpuscular HGB Conc 34.1 % (30-36); Mean Corpuscular Hemoglobin 31.8 PG (26-34); Mean Corpuscular Volume 93.4 fL (80-100); Monocytes Absolute Auto 600 /uL (0-900); Monocytes Percent Auto 9.2 % (3-14); Neutrophils Absolute Auto 3900 /uL (1500-7000); Neutrophils Percent Auto 62.2 % (50-75); Platelet Count 178 X10^3/uL (150-400); Red Blood Cell Count 4.49 X10^6/uL (4.5-5.9); Red Cell Distribution Width 13.3 % (11.6-14.8); White Blood Cell Count 6.2 X10^3/uL (4.5-11.0)
[2021-02-02 15:20] LABS: Appearance Urine UA CLEAR; Bilirubin Urine UA NEGATIVE (NEGATIVE); Color Urine UA YELLOW; Glucose Urine UA NEGATIVE (Negative); Ketones Urine UA NEGATIVE (NEGATIVE); Leukocyte Esterase Urine UA NEGATIVE (NEGATIVE); Nitrite Urine UA NEGATIVE (Negative); Occult Blood Urine UA TRACE-INTACT (Negative); Protein Urine UA NEGATIVE (Negative); Specific Gravity Urine UA 1.015 (1.000-1.035); Urobilinogen Urine UA 0.2 E.U./dL (0.2)
[2021-02-02 15:54] LABS: Bacteria Urine None Seen; Culture Indicated Urine Cult Not Indicated; RBC Urine None Seen (0-5/HPF); WBC Urine None Seen (0-5/HPF)
[2021-02-02 17:07] LABS: BUN Creatinine Ratio 22.8 (6-22); Blood Urea Nitrogen 21 mg/dL (9-20); Calcium 9.7 mg/dL (8.4-10.2); Carbon Dioxide 33 mmol/L (22-32); Chloride 101 mmol/L (98-107); Estimated Glomerular Filt Rate > 60.0 mL/min (>60); Glucose 84 mg/dL (80-110); HEMOLYSIS < 15 (0-50); Potassium 4.5 mmol/L (3.4-5.1); Sodium 140 mmol/L (137-145)
[2021-02-02 17:56] LABS: Hemoglobin A1C% w Est Avg Glu 5.1 % (4.0-6.0)
== END ==
PROVIDERS: Family Provider Family Medicine; PCP Family Medicine; Referring Provider Orthopaedic Surgery Orthopaedic Surgery of the Spine; Visit Provider Orthopaedic Surgery Orthopaedic Surgery of the Spine
DX: Z01.818 Encounter for other preprocedural examination (principal); M47.26 Other spondylosis with radiculopathy, lumbar region; M43.27 Fusion of spine, lumbosacral region; Z01.812 Encounter for preprocedural laboratory examination; M41.86 Other forms of scoliosis, lumbar region; N39.0 Urinary tract infection, site not specified; R73.9 Hyperglycemia, unspecified
CPT/HCPCS: 36415; 72131; 80048; 81001; 83036; 85025; 93005

== ENCOUNTER → 2021-05-16 12:09 | Outpatient (CLI) | payer MEDICARE, OTHER, SELFPAY ==
[2020-08-03 11:52] VITALS: BMI 26.4
[2021-05-16 16:05] LABS: Add Manual Diff / Slide Review NO; Basophils Absolute Auto 0 /uL (0-100); Basophils Percent Auto 0.6 % (0-2); Eosinophils Absolute Auto 100 /uL (0-450); Eosinophils Percent Auto 1.8 % (2-4); Hematocrit 41.4 % (41-53); Lymphocytes Absolute Auto 1400 /uL (1100-4500); Mean Corpuscular HGB Conc 33.9 % (30-36); Mean Corpuscular Hemoglobin 31.8 PG (26-34); Mean Corpuscular Volume 93.8 fL (80-100); Monocytes Absolute Auto 600 /uL (0-900); Monocytes Percent Auto 8.9 % (3-14); Neutrophils Absolute Auto 4600 /uL (1500-7000); Neutrophils Percent Auto 67.7 % (50-75); Platelet Count 165 X10^3/uL (150-400); Red Blood Cell Count 4.42 X10^6/uL (4.5-5.9); Red Cell Distribution Width 13.3 % (11.6-14.8); White Blood Cell Count 6.8 X10^3/uL (4.5-11.0)
== END ==
PROVIDERS: Family Provider Family Medicine; PCP Family Medicine; Referring Provider Orthopaedic Surgery Orthopaedic Surgery of the Spine; Visit Provider Orthopaedic Surgery Orthopaedic Surgery of the Spine
DX: M54.50 Low back pain, unspecified (principal)
CPT/HCPCS: 36415; 85025

== ENCOUNTER 2021-05-17 11:15 | Outpatient (RCR) | payer MEDICARE, OTHER, SELFPAY ==
[2020-08-03 11:52] VITALS: BMI 26.4
--- NOTE | 2021-05-08 12:26 | PT.OIE ---
Current Diagnoses Other specific arthropathies, not elsewhere classified, right shoulder (05/08/21) Pain in right shoulder (05/08/21) Stiffness of right shoulder, not elsewhere classified (05/08/21) Stiffness of left shoulder, not elsewhere classified (05/08/21) Aftercare following joint replacement surgery (05/08/21) Past Medical History (Last Updated 01/03/21 @ 08:24 by Ricardo Reinoso MD) Actinic keratosis (~2004) Ankle pain (~2009) Carpal tunnel syndrome (~2012) Cervical stenosis of spine Chicken pox (~1955) Chronic back pain (~1999) Foot pain (~2013) Glaucoma 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) Hiatal hernia 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) Hx of carpal tunnel repair Hypertension (~2013) Irritable bowel syndrome (~1999) Lumbago Measles (~1955) Migraines Mumps (~1955) Osteoarthritis (~2004) Pneumonia S/P cervical spinal fusion (06/13/18) Shoulder pain (~2001) Tinnitus (~1969) Vertigo Past Surgical History (Last Reviewed 02/09/20 @ 13:54 by Ricardo Reinoso MD) Anesthesia 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) History of knee replacement (~05/2011) History of knee replacement (~09/2010) Hx of carpal tunnel repair S/P cervical spinal fusion (06/13/18) Status post arthroscopy (~2006) Visit Care Team Role Provider Type Ricardo Reinoso MD Family Provider Physician Primary Care Provider Specialty: Family Practice Address: [address] [place] [address], [id number] Email: [email or web address] Aly Fraire MD Attending Provider Physician Referring Provider Specialty: Orthopedic Surgery Address: [address] [place] [address], [id number] Email: [email or web address] [facility] Initial Evaluation PT-OP-A Visit Information Start: 05/08/21 10:20 Freq: Status: Active Protocol: Document 05/08/21 09:45 DCW (Rec: 05/08/21 10:21 [facility] [id number]) Out-Patient Physical Therapy Visit Information Visit Information Visit Type Initial Evaluation Visit Start Time 09:45 Visit Stop Time 10:20 Total Visit Minutes 35 Visit Number 1 Number of PRESSER HAND Visits 0 Evaluation Information Evaluation Date 05/08/21 PT-OP-B Current Condition Start: 05/08/21 10:20 Freq: Status: Active Protocol: Document 05/08/21 09:45 DCW (Rec: 05/08/21 12:26 DCW [id number]) Current Condition History of Current Condition Onset Date 04/27/2019 Current Complaints Right shoulder pain and weakness s/p reverse TSA History of Current Condition Pt is a 75 year old male presenting with a two year history of right shoulder pain following a reverse total shoulder arthroplasty. Pt also had a left total shoulder five years ago, which has been doing well. Pt note he never really recovered from his right shoulder surgery, and has just had fairly constant pain and difficulty with his arm. Increased pain with lifting, carrying, playing his perry guitar, lying on his right side, or using his right arm to steer his car. Complicating matters is there is a fairly major time restriction with this PT course, as pt is scheduled for a lumbar fusion on 05/22/21, and will therefore only be able to attend ~2 weeks of therapy for his shoulder pre- surgery. Prior Treatments and Tests R reverse TSA 04/27/2019 L TSA 04/02/2016 PT-OP-C Subjective Start: 05/08/21 10:20 Freq: Status: Active Protocol: Document 05/08/21 09:45 DCW (Rec: 05/08/21 10:29 DCW [id number]) OP-PT Subjective Patient Comments Patient Comments It's actually better than it has been in months today. I'm not sure why, I though about cancelling. Patient Reported Progress Improving Patient Questionnaires Quick Dash- Upper Extremity Quick Dash UE Score 45.45% OP-PT Pain Assessment Pain Assessment Grid Paper Pain Assessment Grid Completed Yes Location Right Shoulder Intensity 4 Scale Used Numeric (0 - 10) PT-OP-E Functional Tests Start: 05/08/21 10:20 Freq: Status: Active Protocol: Document 05/08/21 09:45 DCW (Rec: 05/08/21 12:26 DCW [id number]) Functional Tests Apley's Scratch Test Action 2- Left T2 Action 2- Right T2 Action 3- Left T11 Action 3- Right S1 PT-OP-F Manual Assessment Start: 05/08/21 10:20 Freq: Status: Active Protocol: Document 05/08/21 09:45 DCW (Rec: 05/08/21 12:26 DCW [id number]) Manual Assessments Soft Tissue Assessment Soft Tissue Mobility Assessment Tenderness to palpation 2/4: pain with wincing along right infra- and supraspinatus, as well as along right deltoid. PT-OP-K Range of Motion Start: 05/08/21 10:20 Freq: Status: Active Protocol: Document 05/08/21 09:45 DCW (Rec: 05/08/21 12:26 DCW [id number]) Shoulder Goniometric Range of Motion Shoulder Right Active Testing Position Sitting Flexion 110 Abduction 125 Internal Rotation Behind Back (text) S1 Comments Pinching pain at end-rande abduction Left Active Testing Position Sitting Flexion 118 Abduction 140 Internal Rotation Behind Back (text) T11 Shoulder ROM Limitations Shoulder ROM Limitations Muscle Weakness,Muscle Tone, Pain PT-OP-M Strength Start: 05/08/21 10:20 Freq: Status: Active Protocol: Document 05/08/21 09:45 DCW (Rec: 05/08/21 12:26 DCW [id number]) Shoulder Strength Shoulder Manual Muscle Testing Right Flexion 4- Good- Abduction (C5) 4- Good- External Rotation 3+ Fair+ Internal Rotation 4 Good Left Flexion 4 Good Abduction (C5) 4 Good External Rotation 4- Good- Internal Rotation 4 Good PT-OP-Q Treatments Start: 05/08/21 10:20 Freq: Status: Active Protocol: Document 05/08/21 09:45 DCW (Rec: 05/08/21 10:24 DCW [id number]) Therapeutic Exercises Supine Exercises 2 Supine Exercise Name Flys Side bilateral Resistance 4# 1 Supine Exercise Name Serratus punch Side bilateral Resistance 4# Standing Exercises 4 Standing Exercise Name External Rotation Side bilateral Resistance Lv 3 T-band 3 Standing Exercise Name Internal Rotation Side bilateral Resistance Lv 3 T-band 2 Standing Exercise Name Rows Side bilateral Resistance Lv 3 T-band Equipment Used 4# 1 Standing Exercise Name Shoulder Extension Side bilateral Resistance 4# PT-OP-T Assessment and Plan Start: 05/08/21 10:20 Freq: Status: Active Protocol: Document 05/08/21 09:45 DCW (Rec: 05/08/21 12:26 DCW [id number]) Physical Therapy Assessment Rehab Potential Rehabilitation Potential Good Evaluation Complexity Number of Personal Factors/Comorbidities 1-2 Number of Body Systems Impaired 1-2 Clinical Presentation at Evaluation Stable Impairments Impairments Activity Tolerance,Functional Activities,Functional Mobility ,Pain,ROM,Strength Goals Three Impairment Pt experiences increased shoulder pain after playing his perry guitar Short Term Goal (STG) Pt to report ability to play his guitar for one hour without increased pain the following day. Two Impairment bilateral shoulder weakness Short Term Goal (STG) Pt to demonstrate a half grade improvement in R shoulder MMT in all planes STG Duration 05/22/21 One Impairment Pt does not have an appropriate home exercise program Short Term Goal (STG) Pt to be independent and compliant with an appropriate HEP STG Duration 05/22/21 Assessment Summary Assessment Pt presents with signs and symptoms consistent with decreased mobility and strength two years s/p reverse total shoulder. Pt should benefit from skilled therapy focusing on improving strength, activity tolerance, mobility, and pain control in order to improve pt's ability to participate in his preferred hobbies and daily activities. Physical Therapy will unfortunately be limited with his planned lumbar fusion scheduled two weeks from today , will likely need to discharge at this time due to very large change in medical status. Pt may need to return to skilled therapy for both his shoulder and his back following surgery. Physical Therapy Plan Frequency and Duration Frequency of Treatment 2x/Week Duration of Treatment Three weeks Plan of Care Start Date 05/08/21 Plan of Care End Date 05/29/21 Therapeutic Interventions Therapeutic Interventions Home Exercise Program,Joint Mobilizations,Manual Therapy, Patient/Caregiver Education, Self-Care/Home Management,Soft Tissue Mobilization, Therapeutic Activities, Therapeutic Exercises Modalities Cold Pack/Ice Massage,Electric Stimulation,Hot Packs, Ultrasound Next Visit Focus/Plan Next Note Type Treatment Note Next Visit Plan Shoulder strengthening, pec stretching, joint stabilization
--- NOTE | 2021-05-08 12:26 | PT.OPPOC ---
Physical, Occupational & Speech Therapy At [facility] Current Diagnoses Other specific arthropathies, not elsewhere classified, right shoulder (05/08/21) Pain in right shoulder (05/08/21) Stiffness of right shoulder, not elsewhere classified (05/08/21) Stiffness of left shoulder, not elsewhere classified (05/08/21) Aftercare following joint replacement surgery (05/08/21) Visit Care Team Role Provider Type Ricardo Reinoso MD Family Provider Physician Primary Care Provider Specialty: Family Practice Address: [address] [place] [address], [id number] Email: [email or web address] Aly Fraire MD Attending Provider Physician Referring Provider Specialty: Orthopedic Surgery Address: [address] [place] [address], [address] Email: [email or web address] Plan Of Care PT-OP-T Assessment and Plan Start: 05/08/21 10:20 Freq: Status: Active Protocol: Document 05/08/21 09:45 DCW (Rec: 05/08/21 12:26 DCW [id number]) Physical Therapy Assessment Rehab Potential Rehabilitation Potential Good Evaluation Complexity Number of Personal Factors/Comorbidities 1-2 Number of Body Systems Impaired 1-2 Clinical Presentation at Evaluation Stable Impairments Impairments Activity Tolerance,Functional Activities,Functional Mobility ,Pain,ROM,Strength Goals Three Impairment Pt experiences increased shoulder pain after playing his perry guitar Short Term Goal (STG) Pt to report ability to play his guitar for one hour without increased pain the following day. Two Impairment bilateral shoulder weakness Short Term Goal (STG) Pt to demonstrate a half grade improvement in R shoulder MMT in all planes STG Duration 05/22/21 One Impairment Pt does not have an appropriate home exercise program Short Term Goal (STG) Pt to be independent and compliant with an appropriate HEP STG Duration 05/22/21 Assessment Summary Assessment Pt presents with signs and symptoms consistent with decreased mobility and strength two years s/p reverse total shoulder. Pt should benefit from skilled therapy focusing on improving strength, activity tolerance, mobility, and pain control in order to improve pt's ability to participate in his preferred hobbies and daily activities. Physical Therapy will unfortunately be limited with his planned lumbar fusion scheduled two weeks from today , will likely need to discharge at this time due to very large change in medical status. Pt may need to return to skilled therapy for both his shoulder and his back following surgery. Physical Therapy Plan Frequency and Duration Frequency of Treatment 2x/Week Duration of Treatment Three weeks Plan of Care Start Date 05/08/21 Plan of Care End Date 05/29/21 Therapeutic Interventions Therapeutic Interventions Home Exercise Program,Joint Mobilizations,Manual Therapy, Patient/Caregiver Education, Self-Care/Home Management,Soft Tissue Mobilization, Therapeutic Activities, Therapeutic Exercises Modalities Cold Pack/Ice Massage,Electric Stimulation,Hot Packs, Ultrasound Next Visit Focus/Plan Next Note Type Treatment Note Next Visit Plan Shoulder strengthening, pec stretching, joint stabilization Plan of Care Dates Plan of Care Start Date 05/08/21 Plan of Care End Date 05/29/21 Electronically Signed by: Gordon Barragan, PT 05/08/21 4527 Please Sign and Return: I have reviewed this Plan of Care and certify that the skilled therapy services above are required to meet the patient?s needs. Physician Signature Date Printed Name and Credentials Clinical Instructor Signature Printed Name and Credentials
--- NOTE | 2021-05-10 15:57 | PT.OTN ---
Current Diagnoses Other specific arthropathies, not elsewhere classified, right shoulder (05/10/21) Pain in right shoulder (05/10/21) Stiffness of right shoulder, not elsewhere classified (05/10/21) Stiffness of left shoulder, not elsewhere classified (05/10/21) Aftercare following joint replacement surgery (05/10/21) Physical Therapy Treatment Note PT-OP-A Visit Information Start: 05/08/21 10:20 Freq: Status: Active Protocol: Document 05/10/21 15:15 DCW (Rec: 05/10/21 15:56 DCW [id number]) Out-Patient Physical Therapy Visit Information Visit Information Visit Type Treatment Note Visit Start Time 15:15 Visit Stop Time 16:00 Total Visit Minutes 45 Visit Number 2 Number of ROUTE RIDER SUPERVISOR Visits 0 Evaluation Information Evaluation Date 05/08/21 PT-OP-B Current Condition Start: 05/08/21 10:20 Freq: Status: Active Protocol: Document 05/08/21 09:45 DCW (Rec: 05/08/21 12:26 DCW [id number]) Current Condition History of Current Condition Onset Date 04/27/2019 Current Complaints Right shoulder pain and weakness s/p reverse TSA History of Current Condition Pt is a 75 year old male presenting with a two year history of right shoulder pain following a reverse total shoulder arthroplasty. Pt also had a left total shoulder five years ago, which has been doing well. Pt note he never really recovered from his right shoulder surgery, and has just had fairly constant pain and difficulty with his arm. Increased pain with lifting, carrying, playing his perry guitar, lying on his right side, or using his right arm to steer his car. Complicating matters is there is a fairly major time restriction with this PT course, as pt is scheduled for a lumbar fusion on 05/22/21, and will therefore only be able to attend ~2 weeks of therapy for his shoulder pre- surgery. Prior Treatments and Tests R reverse TSA 04/27/2019 L TSA 04/02/2016 PT-OP-C Subjective Start: 05/08/21 10:20 Freq: Status: Active Protocol: Document 05/10/21 15:15 DCW (Rec: 05/10/21 15:57 DCW [id number]) OP-PT Subjective Patient Comments Patient Comments Pt notes he was a little sore yesterday, but is doing better now. PT-OP-E Functional Tests Start: 05/08/21 10:20 Freq: Status: Active Protocol: Document 05/08/21 09:45 DCW (Rec: 05/08/21 12:26 DCW [id number]) Functional Tests Apley's Scratch Test Action 2- Left T2 Action 2- Right T2 Action 3- Left T11 Action 3- Right S1 PT-OP-F Manual Assessment Start: 05/08/21 10:20 Freq: Status: Active Protocol: Document 05/08/21 09:45 DCW (Rec: 05/08/21 12:26 DCW [id number]) Manual Assessments Soft Tissue Assessment Soft Tissue Mobility Assessment Tenderness to palpation 2/4: pain with wincing along right infra- and supraspinatus, as well as along right deltoid. PT-OP-K Range of Motion Start: 05/08/21 10:20 Freq: Status: Active Protocol: Document 05/08/21 09:45 DCW (Rec: 05/08/21 12:26 DCW [id number]) Shoulder Goniometric Range of Motion Shoulder Right Active Testing Position Sitting Flexion 110 Abduction 125 Internal Rotation Behind Back (text) S1 Comments Pinching pain at end-rande abduction Left Active Testing Position Sitting Flexion 118 Abduction 140 Internal Rotation Behind Back (text) T11 Shoulder ROM Limitations Shoulder ROM Limitations Muscle Weakness,Muscle Tone, Pain PT-OP-M Strength Start: 05/08/21 10:20 Freq: Status: Active Protocol: Document 05/08/21 09:45 DCW (Rec: 05/08/21 12:26 DCW [id number]) Shoulder Strength Shoulder Manual Muscle Testing Right Flexion 4- Good- Abduction (C5) 4- Good- External Rotation 3+ Fair+ Internal Rotation 4 Good Left Flexion 4 Good Abduction (C5) 4 Good External Rotation 4- Good- Internal Rotation 4 Good PT-OP-Q Treatments Start: 05/08/21 10:20 Freq: Status: Active Protocol: Document 05/10/21 15:15 DCW (Rec: 05/10/21 15:56 DCW [id number]) Cardio Equipment Upper Body Ergometer (UBE) Duration (Minutes) 6 RPM 60 Seat Position 14 Height 4.5 Therapeutic Exercises Supine Exercises 3 Supine Exercise Name Hold T-ball in 90 deg flexion vs perturbation Side bilateral Prone Exercises 1 Prone Exercise Name I's, Y's, T's, W's Side bilateral Resistance 2# Other Exercises 1 Other Exercise Name UE resisted side-stepping Resistance Red T-band loop Manual Therapy Treatment Soft Tissue Mobilization 1 Body Location R Parascapulars Mobilization Type Strumming,Sustained Pressure Joint Mobilizations 1 Joint Scapoluthoracic Direction Lateral Grade III Body Position Supine PT-OP-T Assessment and Plan Start: 05/08/21 10:20 Freq: Status: Active Protocol: Document 05/10/21 15:15 DCW (Rec: 05/10/21 15:56 DCW [id number]) Physical Therapy Assessment Impairments Impairments Activity Tolerance,Functional Activities,Functional Mobility ,Pain,ROM,Strength Goals Three Impairment Pt experiences increased shoulder pain after playing his perry guitar Short Term Goal (STG) Pt to report ability to play his guitar for one hour without increased pain the following day. Two Impairment bilateral shoulder weakness Short Term Goal (STG) Pt to demonstrate a half grade improvement in R shoulder MMT in all planes STG Duration 05/22/21 One Impairment Pt does not have an appropriate home exercise program Short Term Goal (STG) Pt to be independent and compliant with an appropriate HEP STG Duration 05/22/21 Assessment Summary Assessment Pt has been compliant so far with his HEP, tolerated new exercises very well. Mild soreness with STM, felt better following session. Physical Therapy Plan Frequency and Duration Frequency of Treatment 2x/Week Duration of Treatment Three weeks Plan of Care Start Date 05/08/21 Plan of Care End Date 05/29/21 Therapeutic Interventions Therapeutic Interventions Home Exercise Program,Joint Mobilizations,Manual Therapy, Patient/Caregiver Education, Self-Care/Home Management,Soft Tissue Mobilization, Therapeutic Activities, Therapeutic Exercises Modalities Cold Pack/Ice Massage,Electric Stimulation,Hot Packs, Ultrasound Next Visit Focus/Plan Next Note Type Treatment Note Next Visit Plan Shoulder strengthening, pec stretching, joint stabilization
--- NOTE | 2021-05-15 10:28 | PT.OTN ---
Current Diagnoses Other specific arthropathies, not elsewhere classified, right shoulder (05/15/21) Pain in right shoulder (05/15/21) Stiffness of right shoulder, not elsewhere classified (05/15/21) Stiffness of left shoulder, not elsewhere classified (05/15/21) Aftercare following joint replacement surgery (05/15/21) Physical Therapy Treatment Note PT-OP-A Visit Information Start: 05/08/21 10:20 Freq: Status: Active Protocol: Document 05/15/21 09:49 DCW (Rec: 05/15/21 10:28 DCW [id number]) Out-Patient Physical Therapy Visit Information Visit Information Visit Type Treatment Note Visit Start Time 09:49 Visit Stop Time 10:30 Total Visit Minutes 41 Visit Number 3 Number of LEGAL DOCUMENT SPECIALIST Visits 0 Evaluation Information Evaluation Date 05/08/21 PT-OP-B Current Condition Start: 05/08/21 10:20 Freq: Status: Active Protocol: Document 05/08/21 09:45 DCW (Rec: 05/08/21 12:26 DCW [id number]) Current Condition History of Current Condition Onset Date 04/27/2019 Current Complaints Right shoulder pain and weakness s/p reverse TSA History of Current Condition Pt is a 75 year old male presenting with a two year history of right shoulder pain following a reverse total shoulder arthroplasty. Pt also had a left total shoulder five years ago, which has been doing well. Pt note he never really recovered from his right shoulder surgery, and has just had fairly constant pain and difficulty with his arm. Increased pain with lifting, carrying, playing his perry guitar, lying on his right side, or using his right arm to steer his car. Complicating matters is there is a fairly major time restriction with this PT course, as pt is scheduled for a lumbar fusion on 05/22/21, and will therefore only be able to attend ~2 weeks of therapy for his shoulder pre- surgery. Prior Treatments and Tests R reverse TSA 04/27/2019 L TSA 04/02/2016 PT-OP-C Subjective Start: 05/08/21 10:20 Freq: Status: Active Protocol: Document 05/15/21 09:49 DCW (Rec: 05/15/21 10:28 DCW [id number]) OP-PT Subjective Patient Comments Patient Comments I'm been surprised. We had rehersal yesterday, and I didn 't take any advil or anything, and I felt really good. PT-OP-E Functional Tests Start: 05/08/21 10:20 Freq: Status: Active Protocol: Document 05/08/21 09:45 DCW (Rec: 05/08/21 12:26 DCW [id number]) Functional Tests Apley's Scratch Test Action 2- Left T2 Action 2- Right T2 Action 3- Left T11 Action 3- Right S1 PT-OP-F Manual Assessment Start: 05/08/21 10:20 Freq: Status: Active Protocol: Document 05/08/21 09:45 DCW (Rec: 05/08/21 12:26 DCW [id number]) Manual Assessments Soft Tissue Assessment Soft Tissue Mobility Assessment Tenderness to palpation 2/4: pain with wincing along right infra- and supraspinatus, as well as along right deltoid. PT-OP-K Range of Motion Start: 05/08/21 10:20 Freq: Status: Active Protocol: Document 05/08/21 09:45 DCW (Rec: 05/08/21 12:26 DCW [id number]) Shoulder Goniometric Range of Motion Shoulder Right Active Testing Position Sitting Flexion 110 Abduction 125 Internal Rotation Behind Back (text) S1 Comments Pinching pain at end-rande abduction Left Active Testing Position Sitting Flexion 118 Abduction 140 Internal Rotation Behind Back (text) T11 Shoulder ROM Limitations Shoulder ROM Limitations Muscle Weakness,Muscle Tone, Pain PT-OP-M Strength Start: 05/08/21 10:20 Freq: Status: Active Protocol: Document 05/08/21 09:45 DCW (Rec: 05/08/21 12:26 DCW [id number]) Shoulder Strength Shoulder Manual Muscle Testing Right Flexion 4- Good- Abduction (C5) 4- Good- External Rotation 3+ Fair+ Internal Rotation 4 Good Left Flexion 4 Good Abduction (C5) 4 Good External Rotation 4- Good- Internal Rotation 4 Good PT-OP-Q Treatments Start: 05/08/21 10:20 Freq: Status: Active Protocol: Document 05/15/21 09:49 DCW (Rec: 05/15/21 10:28 DCW [id number]) Cardio Equipment Upper Body Ergometer (UBE) Duration (Minutes) 6 RPM 60 Seat Position 14 Height 4.5 Therapeutic Exercises Supine Exercises 4 Supine Exercise Name UE PNF D1/D2 Other Exercises 3 Other Exercise Name Ball/Wall circles Side right Resistance 2# Comments Flexion, Abduction 2 Other Exercise Name Wall clock Side bilateral Resistance Red T-band loop Manual Therapy Treatment Soft Tissue Mobilization 1 Body Location R Parascapulars Mobilization Type Strumming,Sustained Pressure Joint Mobilizations 1 Joint Scapoluthoracic Direction Lateral Grade III Body Position Supine PT-OP-T Assessment and Plan Start: 05/08/21 10:20 Freq: Status: Active Protocol: Document 05/15/21 09:49 DCW (Rec: 05/15/21 10:28 DCW [id number]) Physical Therapy Assessment Impairments Impairments Activity Tolerance,Functional Activities,Functional Mobility ,Pain,ROM,Strength Goals Three Impairment Pt experiences increased shoulder pain after playing his perry guitar Short Term Goal (STG) Pt to report ability to play his guitar for one hour without increased pain the following day. Two Impairment bilateral shoulder weakness Short Term Goal (STG) Pt to demonstrate a half grade improvement in R shoulder MMT in all planes STG Duration 05/22/21 One Impairment Pt does not have an appropriate home exercise program Short Term Goal (STG) Pt to be independent and compliant with an appropriate HEP STG Duration 05/22/21 Assessment Summary Assessment Pt progressing well, showing good improvement with shoulder and scapular mobility. Physical Therapy Plan Frequency and Duration Frequency of Treatment 2x/Week Duration of Treatment Three weeks Plan of Care Start Date 05/08/21 Plan of Care End Date 05/29/21 Therapeutic Interventions Therapeutic Interventions Home Exercise Program,Joint Mobilizations,Manual Therapy, Patient/Caregiver Education, Self-Care/Home Management,Soft Tissue Mobilization, Therapeutic Activities, Therapeutic Exercises Modalities Cold Pack/Ice Massage,Electric Stimulation,Hot Packs, Ultrasound Next Visit Focus/Plan Next Note Type Treatment Note Next Visit Plan Shoulder strengthening, pec stretching, joint stabilization
--- NOTE | 2021-05-17 12:01 | PT.OTN ---
Current Diagnoses Other specific arthropathies, not elsewhere classified, right shoulder (05/17/21) Pain in right shoulder (05/17/21) Stiffness of right shoulder, not elsewhere classified (05/17/21) Stiffness of left shoulder, not elsewhere classified (05/17/21) Aftercare following joint replacement surgery (05/17/21) Physical Therapy Treatment Note PT-OP-A Visit Information Start: 05/08/21 10:20 Freq: Status: Active Protocol: Document 05/17/21 11:15 DCW (Rec: 05/17/21 11:58 DCW [id number]) Out-Patient Physical Therapy Visit Information Visit Information Visit Type Discharge Summary Visit Start Time 11:15 Visit Stop Time 12:00 Total Visit Minutes 45 Visit Number 4 Number of PRECISION INSTRUMENT AND TOOL MAKER Visits 0 Evaluation Information Evaluation Date 05/08/21 PT-OP-B Current Condition Start: 05/08/21 10:20 Freq: Status: Active Protocol: Document 05/08/21 09:45 DCW (Rec: 05/08/21 12:26 DCW [id number]) Current Condition History of Current Condition Onset Date 04/27/2019 Current Complaints Right shoulder pain and weakness s/p reverse TSA History of Current Condition Pt is a 75 year old male presenting with a two year history of right shoulder pain following a reverse total shoulder arthroplasty. Pt also had a left total shoulder five years ago, which has been doing well. Pt note he never really recovered from his right shoulder surgery, and has just had fairly constant pain and difficulty with his arm. Increased pain with lifting, carrying, playing his perry guitar, lying on his right side, or using his right arm to steer his car. Complicating matters is there is a fairly major time restriction with this PT course, as pt is scheduled for a lumbar fusion on 05/22/21, and will therefore only be able to attend ~2 weeks of therapy for his shoulder pre- surgery. Prior Treatments and Tests R reverse TSA 04/27/2019 L TSA 04/02/2016 PT-OP-C Subjective Start: 05/08/21 10:20 Freq: Status: Active Protocol: Document 05/17/21 11:15 DCW (Rec: 05/17/21 11:58 DCW [id number]) OP-PT Subjective Patient Comments Patient Comments Right shoulder very sore today. PT-OP-E Functional Tests Start: 05/08/21 10:20 Freq: Status: Active Protocol: Document 05/08/21 09:45 DCW (Rec: 05/08/21 12:26 DCW [id number]) Functional Tests Apley's Scratch Test Action 2- Left T2 Action 2- Right T2 Action 3- Left T11 Action 3- Right S1 PT-OP-F Manual Assessment Start: 05/08/21 10:20 Freq: Status: Active Protocol: Document 05/08/21 09:45 DCW (Rec: 05/08/21 12:26 DCW [id number]) Manual Assessments Soft Tissue Assessment Soft Tissue Mobility Assessment Tenderness to palpation 2/4: pain with wincing along right infra- and supraspinatus, as well as along right deltoid. PT-OP-K Range of Motion Start: 05/08/21 10:20 Freq: Status: Active Protocol: Document 05/08/21 09:45 DCW (Rec: 05/08/21 12:26 DCW [id number]) Shoulder Goniometric Range of Motion Shoulder Right Active Testing Position Sitting Flexion 110 Abduction 125 Internal Rotation Behind Back (text) S1 Comments Pinching pain at end-rande abduction Left Active Testing Position Sitting Flexion 118 Abduction 140 Internal Rotation Behind Back (text) T11 Shoulder ROM Limitations Shoulder ROM Limitations Muscle Weakness,Muscle Tone, Pain PT-OP-M Strength Start: 05/08/21 10:20 Freq: Status: Active Protocol: Document 05/08/21 09:45 DCW (Rec: 05/08/21 12:26 DCW [id number]) Shoulder Strength Shoulder Manual Muscle Testing Right Flexion 4- Good- Abduction (C5) 4- Good- External Rotation 3+ Fair+ Internal Rotation 4 Good Left Flexion 4 Good Abduction (C5) 4 Good External Rotation 4- Good- Internal Rotation 4 Good PT-OP-Q Treatments Start: 05/08/21 10:20 Freq: Status: Active Protocol: Document 05/17/21 11:15 DCW (Rec: 05/17/21 11:58 DCW [id number]) Cardio Equipment Upper Body Ergometer (UBE) Duration (Minutes) 6 RPM 60 Seat Position 14 Height 4.5 Therapeutic Exercises Supine Exercises 4 Supine Exercise Name UE PNF D1/D2 Manual Therapy Treatment Soft Tissue Mobilization 1 Body Location R Parascapulars Mobilization Type Strumming,Sustained Pressure Joint Mobilizations 1 Joint Scapoluthoracic Direction Lateral Grade III Body Position Supine PT-OP-T Assessment and Plan Start: 05/08/21 10:20 Freq: Status: Active Protocol: Document 05/17/21 11:15 DCW (Rec: 05/17/21 11:58 DCW [id number]) Physical Therapy Assessment Impairments Impairments Activity Tolerance,Functional Activities,Functional Mobility ,Pain,ROM,Strength Goals Three Impairment Pt experiences increased shoulder pain after playing his perry guitar Short Term Goal (STG) Pt to report ability to play his guitar for one hour without increased pain the following day. Two Impairment bilateral shoulder weakness Short Term Goal (STG) Pt to demonstrate a half grade improvement in R shoulder MMT in all planes STG Duration 05/22/21 One Impairment Pt does not have an appropriate home exercise program Short Term Goal (STG) Pt to be independent and compliant with an appropriate HEP STG Duration 05/22/21 Assessment Summary Assessment Pt more sore today, but felt more mobile and less swollen following STM. PT is undergoing low back surgery next week, and will therefore be discharged from skilled therapy at this time. Pt to return to skilled therapy following surgery with a new referral. Physical Therapy Plan Frequency and Duration Frequency of Treatment 2x/Week Duration of Treatment Three weeks Plan of Care Start Date 05/08/21 Plan of Care End Date 05/29/21 Therapeutic Interventions Therapeutic Interventions Home Exercise Program,Joint Mobilizations,Manual Therapy, Patient/Caregiver Education, Self-Care/Home Management,Soft Tissue Mobilization, Therapeutic Activities, Therapeutic Exercises Modalities Cold Pack/Ice Massage,Electric Stimulation,Hot Packs, Ultrasound Discharge Physical Therapy Discharge Reasons Change in Medical Status Discharge Comments Lumbar surgery on 05/22/21 Next Visit Focus/Plan Next Note Type Discharge Summary
== END 2021-05-22 09:57 ==
LOC: PHYS 11:15
PROVIDERS: Family Provider Family Medicine; PCP Family Medicine; Referring Provider Orthopaedic Surgery; Visit Provider Orthopaedic Surgery
DX: M12.811 Other specific arthropathies, not elsewhere classified, right shoulder (principal); Z47.1 Aftercare following joint replacement surgery; M25.511 Pain in right shoulder; M25.612 Stiffness of left shoulder, not elsewhere classified; M25.611 Stiffness of right shoulder, not elsewhere classified
CPT/HCPCS: 97110; 97140; 97161

== ENCOUNTER → 2021-05-19 09:22 | Outpatient (CLI) | payer MEDICARE, OTHER, SELFPAY ==
[2020-08-03 11:52] VITALS: BMI 26.4
[2021-05-19 10:53] LABS: COVID19 -Nasal RAPID Negative (Negative)
== END ==
PROVIDERS: Family Provider Family Medicine; PCP Family Medicine; Visit Provider Family Medicine Sleep Medicine
DX: Z20.822 Contact with and (suspected) exposure to COVID-19 (principal)
CPT/HCPCS: 87635; C9803

== ENCOUNTER 2021-05-22 06:06 | Inpatient (IN) | payer MEDICARE, OTHER, SELFPAY ==
[2020-08-03 11:52] VITALS: BMI 26.4
[2021-05-16 08:26] VITALS: BMI 27.7
[2021-05-22] VITALS (21 sets, daily range): BP systolic 112–146; BP diastolic 43–76; PULSE 58–87; RESP 12–18; TEMP 35.8–37.1; O2SAT 94–100; BMI 27.7
--- NOTE | 2021-05-22 | DI.RAD.S_ITS ---
PROCEDURE: XR LUMBAR SPINE 2-3V INDICATIONS: L3-4 L4-5 TLIF TECHNIQUE: 2 intraoperative views of the lumbar spine were acquired. COMPARISON: None. FINDINGS: Intraoperative imaging demonstrates mid/lower lumbar fusion hardware. IMPRESSION: Intraoperative imaging as above. Dictated by: Jenna Kamara M.D. on 05/22/2021 at 13:54 Approved by: Jenna Kamara M.D. on 05/22/2021 at 13:56
[2021-05-22] MEDS: LACTATED RINGERS 1,000 ML 42 ML IV ×2 (07:00→11:19)
--- NOTE | 2021-05-22 07:44 | PM.PREOP ---
Pre-operative Note COVID-19 COVID-19 status: Negative Result date/Date tested (Pos, Neg/Pending): 05/21/21 Criteria for continued procedure: Expected advancement of disease process, Possibility delay results in more complex future surgery or treatment, Increased loss of function, Continuing or worsening of significant or severe pain, Deterioration of the patient's condition or overall health and Delay expected to result in less-positive ultimate med/surg outcome Interval Note History & Physical reviewed/Exam performed by Physician: Yes Changes to H&P: No
[2021-05-22] MEDS: CEFAZOLIN 2 GM/20 ML SYRINGE IV ×3 (08:00→23:44)
[2021-05-22] MEDS: BUPIVACAINE LIPOSOME 266 MG/20 ML VIAL INJ (09:05)
[2021-05-22] MEDS: BUPIVACAINE 0.25% (PF) 30 ML, EPINEPHrine 0.3 MG INJ (09:06)
--- NOTE | 2021-05-22 12:25 | PM.OP.1 ---
Operative Date/Time/Diagnoses Date of procedure: 05/22/21 Time of procedure: 07:45 Pre-op diagnosis: 1. L3-4, L4-5 spinal stenosis with radiculopathy 2. L3-4, L4-5 spondylolisthesis. Post-op diagnosis: same Procedure & Clinicians Procedure: 1. L3-4, L4-5 Postero-lateral and posterior interbody fusion 2. L3-4, L4-5 interbody cage placement. 3. L3-4, L4-5 decompressive laminectomy with bilateral facetecomies 4. L3-4, L4-5 Posterior segmental instrumentation 5. [place] of bone marrow from iliac crest 6. Utilization of microsurgical technique and operating microscope Same procedure as scheduled: Yes Indications: Patient has been having chronic back pain and worsening lumbar radiculopathy. Patient failed multiple conservative management with worsening pain weakness and numbness in her lower extremity. Patient has been having difficulty performing activity of daily living. After discussing risks benefits of treatment options, patient elected proceed with surgery. Surgeon: Tere Sierra Purchasing Administrator: Tram Portillo Click Yes if Unassisted: No Anesthesia Type: General Operative Notes Closure Type: primary Specimen(s): none sent Prosthetic devices, grafts, tissues, transplants, or devices: Globus CREO MIS screws, Rise cage Applied: catheter Estimated Blood Loss (mL): 150 Blood products transfused: none Procedure in detail: Patient was seen in the preoperative area. Risks and benefits of the surgery was discussed with the patient. Informed consent was obtained from the patient and placed in the chart. Surgical site was marked. Patient was taken to the operative room. General anesthesia was administered. Prophylactic antibiotic was given to the patient less than 30 min before the incision was made. Patient was placed into a prone position on the Julian table. Patient's back was then prepped and draped in the sterile fashion. Time-out was performed at this time. After patient was prepped and draped, patient's PSIS was palpated and marked bilaterally. Small 1 cm incision was made over the PSIS for placement of the reference probes. Two trocar was placed into the PSIS 1 on each side. The reference probe was attached to the trocar of the reference apparatus. At this time the C-arm imaging was used to confirm AP and lateral of L3, L4-L5 vertebrae and merged the C-arm imaging using the [employer] robotic navigation system with the CT of the lumbar spine. After successful merging was completed and confirmed, skin marker was used to teresita out the skin incision using the [employer] robotic arm. Bilateral incision was made at this time. Pre templated trajectory was used and guided using the [employer] robotic navigation system for bilateral L3 L4, L5 pedicle screw placement. This was done by using the robotic arm to guide the high-speed bur to make a cortical entry point. Next a drill was placed also using the robotic arm and guided using the navigation system drilling partially through bilateral L3, L4, L5 pedicles. Next L3, L4, L5 pedicle screws it was pre templated and measured was placed onto the power company truck driver and inserted into the pedicles bilaterally. After all 6 screws were placed C-arm imaging was taken of both AP and lateral to confirm the placement. Excellent placement of the screws were confirmed and a matched precisely with the pre planned screw placement using the navigation system. MARs retractor was inserted using [employer] guidence. Globus MARS retractors was placed inside the incision and docked onto the L3, L4 lamina. Using microsurgical technique and operating microscope, a L4, L5 laminectomy and L3-4, L4-5 facetectomy was performed using a [place] rongeur. Patient was found have severe lateral recess and neural foramen stenosis which was fully decompressed after the laminectomy facetectomy. More than 75% of the facets were removed during the process of decompression rendering L3-4, L4-5 level grossly unstable and required a fusion procedure at the same time. The disc space at L3-4, L4-5 was identified, and a total diskectomy was performed at L3-4, L4-5 level. The endplates were decorticated using a rasp and shaver. The total diskectomy and decortication was performed at L3-4, L4-5 level in order to to accomplish a L3-4, L4-5 fusion. The local bone from the laminectomy and facetectomy was saved for local bone grafting. After the total diskectomy and decortication was completed, Trifecta bone graft material was combined with local bone that was harvested earlier. At this time, a separate skin is incision was made over the iliac crest. A Jamshidi needle was inserted into the iliac crest through a separate skin incision. 5 cc of bone marrow aspiration was obtained through the separate skin incision using a Jamshidi needle from the iliac crest. The bone marrow aspiration was combined with local bone and the Trifecta bone grafting material. The bone grafting material was placed into the L3-4, L4-5 interbody space along with expandable cages. One cage each was inserted into the L3-4 L4-5 interbody space along with bone graft material. The cage was expanded to its maximum height using the torque limiting screwdriver. The disc preparation as well as the cage insertion were also performed under navigation guidance. After the cage was placed, AP and lateral C-arm imaging was taken to confirm placement of the cage and excellent position was confirmed. Globus MARS retractor was inserted and docked onto the L3-4, L4-5 posterolateral gutter on the right side. Using the power drill, posterior-lateral decortication was performed at L3-4, L4-5 level until bleeding cortical bone was identified. The remaining bone grafting material was placed into the L3-4, L4-5 posterior lateral gutter he order to accomplish posterolateral fusion at the L3-4, L4-5 level. At this time the tulips were attached to the L3, L4-L5 pedicle screw shanks. After measuring the length of the rods, they were inserted into the tulips of the pedicle screws and locked in place using locking caps and torque limiting screwdriver bilaterally. Total 6 caps and 2 titanium rods was used in order to complete the posterior instrumentation construct. After all the hardware was placed, and confirmed with AP and lateral C-arm imaging, the wound was then irrigated with sterile normal saline and packed with Ray-Zunilda gauze for 3 min to accomplish hemostasis. After the gauze was removed the deep fascia was closed with #1 Vicryl suture. The subcutaneous layer was closed with 2-0 Vicryl. The skin was closed with skin jax. Patient tolerated the procedure well. There were no complications. Neuro monitoring system was used to monitor patient's neurologic status throughout entire procedure. There was no disturbance of the neural monitoring signals throughout the case. Complications: none Post-operative Condition: stable Disposition: PACU Plan for aftercare: Admit to inpatient hospital
[2021-05-22] MEDS: HYDROMORPHONE 2 MG INJ IV ×5 (12:36→13:22)
[2021-05-22] MEDS: fentaNYL 250 MCG/5 ML INJ IV ×5 (12:43→13:29)
[2021-05-22] MEDS: OXYCODONE/ACETAMINOPHEN 5/325 TABLET 1 TAB PO ×2 (12:50→13:26)
[2021-05-22] MEDS: ONDANSETRON 4 MG/2 ML INJ IV (13:40)
--- NOTE | 2021-05-22 15:39 | PC.NURSE ---
Addendum entered by Azalea Lakhani R.N. 05/22/21 19:08: Patient given 2 oxycodone for pain of 09/24, this was helpful to patient and he is resting. Original Note: Assess- Patient has a dressing to his lower back that is cdi, he is sleeping now and comfortable. He will call when he is having discomfort and understands that pain medication to to keep him comfortable but will not completely take his discomfort to his lower back away. He is lying on his l.side, sanchez in place with yellow urine. CMS wnl and ppx2. Resting now.
[2021-05-22] MEDS: OXYCODONE IR 5 MG TABLET 10 MG PO ×2 (18:04→21:04)
[2021-05-22] MEDS: SENNOSIDES 8.6 MG TABLET 17.2 MG PO (20:53)
[2021-05-22] MEDS: ATORVASTATIN 20 MG TABLET 10 MG PO (20:53)
[2021-05-22] MEDS: lisinopriL 10 MG TABLET PO (20:54)
[2021-05-22] MEDS: DOCUSATE 100 MG CAPSULE PO (20:56)
[2021-05-23] VITALS (8 sets, daily range): BP systolic 115–123; BP diastolic 50–56; PULSE 71–88; RESP 18; TEMP 36.8–38.3; O2SAT 97–100
[2021-05-23] MEDS: OXYCODONE IR 5 MG TABLET 10 MG PO ×6 (03:39→23:53)
[2021-05-23 05:14] LABS: Hematocrit 38.4 % (41-53); Hemoglobin 12.7 g/dL (13.5-17.5)
--- NOTE | 2021-05-23 07:22 | PM.PNPO.1 ---
Subjective Subjective Date Patient Seen: 05/23/21 Time Patient Seen: 07:53 Interval history: Sitting up in bed comfortably. Complains of back pain, denies leg pain. Has not been out of bed yet. Exam Vital Signs (past 8 hours): - 05/22/21 23:43 05/23/21 03:35 Temperature 98.7 F 99.1 F Pulse Rate 72 71 Respiratory Rate 18 18 Blood Pressure 121/62 120/50 L Pulse Oximetry 96 98 Oxygen Delivery Method Room Air Oxygen Flow Rate 0 Narrative Exam Narrative: 5/5 strength in quadriceps, hamstrings, DF, PF, EHL bilaterally. Sensation to light touch intact in BLE, somewhat decreased in R anterior thigh. Calves soft, compressible, nontender and without palpable cords or masses. 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) Hiatal hernia Hypertension (~2013) Irritable bowel syndrome (~1999) Lumbago Measles (~1955) Migraines Mumps (~1955) Osteoarthritis (~2004) Pneumonia Shoulder pain (~2001) Tinnitus (~1969) Vertigo Surgical History (Updated 05/23/21 @ 07:23 by Tram Portillo PA-C) Anesthesia 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) History of knee replacement (~05/2011) History of knee replacement (~09/2010) 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) Hx of carpal tunnel repair S/P cervical spinal fusion (06/13/18) Status post arthroscopy (~2006) Family History Brother Age: 80 Hypertension High cholesterol Stroke Brother Age: 81 Hypertension High cholesterol Father Heart disease Mother Hypertension High cholesterol Grandfather Heart disease Social History household members: spouse Smoking Status: Former smoker alcohol intake: current Assessment & Plan Post-op Assessment and plan (1) S/P lumbar fusion: Assessment and Plan narrative: D/c sanchez. PT to evaluate and mobilize. Continue pain control with Tylenol, Vistaril, and oxycodone - will sent rxs to [facility]. (2) Acute postoperative anemia due to expected blood loss: Assessment and Plan narrative: Asymptomatic; no intervention needed at this time. Postoperative Procedures: Procedures Operation Date: 05/22/21 07:45 Actual Procedure Side Surgeon p L3-4, L4-5 TLIF w. posterior instrumentation-Robot Tere Sierra MD Postoperative day: 1 Postoperative plan narrative: Likely discharge home tomorrow. Quality VTE Deep Vein Thrombosis/Pulmonary Embolism Present on Admission: No
[2021-05-23] MEDS: DOCUSATE 100 MG CAPSULE PO ×2 (08:40→20:56)
--- NOTE | 2021-05-23 09:58 | OT.IP.EVAL ---
Current Diagnoses Acute posthemorrhagic anemia (05/22/21) Spondylolisthesis, lumbar region (05/22/21) Arthrodesis status (05/22/21) Surgery Performed Operation Date: 05/22/21 07:45 Actual Procedures p L3-4, L4-5 TLIF w. 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) Hx of carpal tunnel repair Hypertension (~2013) Irritable bowel syndrome (~1999) Lumbago Measles (~1955) Migraines Mumps (~1955) Osteoarthritis (~2004) Pneumonia S/P cervical spinal fusion (06/13/18) Shoulder pain (~2001) Tinnitus (~1969) Vertigo Surgical History (Last Updated 05/16/21 @ 08:32 by Kayla Vieira RN) Anesthesia 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) History of knee replacement (~05/2011) History of knee replacement (~09/2010) 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 Activities of Daily Living and IADL's Completely independent with ADL and IADl but have pain. Social History Household Members spouse Living Arrangements House Number of Floors (Floors) Two Floors Number of Stairs To Enter/Railing? No steps to enter and a sloped ramp to get to the second level ( per pt was two steps prior). 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 Pt has borrowed a tall FWW and tall chair from a friend. In addition pt has a tall recliner at home which he used for prior shoulder surgeries in the past. M2 OT-IP Current Condition Start: 05/23/21 10:01 Freq: Status: Active Protocol: Document 05/23/21 10:01 [facility] (Rec: 05/23/21 10:30 [facility] [id number]) Occupational Therapy Current Condition Current Condition Evaluation Date 05/23/21 Treatment Diagnosis S/p L3-4, L4-5 TLIF Diagnosis Onset Date 05/22/21 Post Operative Precautions Lumbar Precautions Log Roll,No Twisting,Limit Bending,Lifting Restriction of 10 lbs,Gait Belt above Incisional Area M3 OT- IP Subjective and Pain Start: 05/23/21 10:01 Freq: Status: Active Protocol: Document 05/23/21 10:01 [facility] (Rec: 05/23/21 10:30 [facility] [id number]) OT- Subjective Occupational Therapy Visit Type Type Initial Evaluation Visit Start Time 09:15 Visit Stop Time 09:58 Total Visit Minutes 43 Occupational Therapy Visit Comments Patient Comments Pt agreed to get up for OT eval. Patient/Caregiver Goals TO go home. OT Pain Assessment Pain When Pain Assessed During Mobility Pain Present Pain Present Pain Reported Location Lower Back Intensity 7 Scale Used Numeric (0 - 10) M4 OT- IP ADL's Start: 05/23/21 10:01 Freq: Status: Active Protocol: Document 05/23/21 10:01 [facility] (Rec: 05/23/21 10:30 [facility] [id number]) OT KTO-Qvyh-Juajvut General Evaluation Self-Feeding Ability Independent OT ADL-Grooming General Evaluation Grooming Ability Standby Assistance Areas Needing Assistance Retrieving/Set-up of Grooming Items OT ADL-Oral Care Comments Oral Care Comments NOt performed, able to educated best to spit into a cup to best follow his back precautions for oral care needs. OT ADL-Dressing General Eval Lower Body Dressing Ability Standby Assistance,Maximum Assistance Comments OT Dressing Comments Able to practice use of sock aid with pt and pt has texted his to pick one up in addition to a shower chair at [facility]. OT ADL-Toileting General Evaluation Toileting Ability Total Assistance Comments OT Toileting Comments Ovalle in place. Spoke of strategies to for wiping after a bowel movement, pt to dizzy to try today. Standing with FWW to reach back may be his best option. OT ADL-Bathing Comments OT Bathing Comments To attempt tomorrow. M5 OT- IP IADL's Start: 05/23/21 10:01 Freq: Status: Active Protocol: Document 05/23/21 10:01 [facility] (Rec: 05/23/21 10:30 [facility] [id number]) OT-Instrumental Activities of Daily Living Home Safety Awareness Home Safety Comments Pt a little groggy from cox medications and states his will be able to assist with his needs at home as needed. M6 OT- IP Functional Cognition Start: 05/23/21 10:01 Freq: Status: Active Protocol: Document 05/23/21 10:01 [facility] (Rec: 05/23/21 10:30 [facility] [id number]) Cognitive Factors Limiting Selfcare Function Cognitive Ability Level of Alertness Alert,Drowsy Patient Orientation Name,Place,Situation Attention Span Ability Capable of Focused Attention, Capable of Sustained Attention Ability to Follow Commands Able to Follow One Step Commands Safety Awareness Decreased Recall of Precautions Cognitive Comments Cognitive Assessment Comments Pt a bit groggy from pain medications and needing reminders to recall his back precautions. OT- Vision and Hearing OT- Hearing Assessment OT- Hearing Assessment WFL OT- Vision Assessment Visual Acuity Glasses All The Time M7 OT- IP Mobility and Balance Start: 05/23/21 10:01 Freq: Status: Active Protocol: Document 05/23/21 10:01 [facility] (Rec: 05/23/21 10:30 [facility] [id number]) OT- Bed Mobility Assessment Rolling Type of Rolling Roll to Right Level of Assistance Contact Guard Assistance Supine to Sit Supine to Sit Assist Minimal Assistance Sit to Supine Sit to Supine Assist Minimal Assistance OT-Transfer Assessment Sit to and From Stand Sit to and from Stand Minimal Assistance Transfers Transfer Ability Minimal Assistance Technique Transfer Destination Bed Transfer Technique Stand Step Pivot Devices Transfer Assistive Devices Gait Belt,Front Wheeled Walker Comments Mobility Comments TRICIA to help with bed mobility to get his trunk upright and get his feet up in the bed. TRICIA to stand with FWW and able to take a few step and then complaining of being dizzy. BP supine 127/53, sitting 121/51, and standing 102/53, nursing notified and pt wanted to get back in bed. OT- Gait Assessment Comments Gait Ability Comments CGA with FWW for a few steps in the room. OT- Balance Assessment Sitting Balance and Reactions Static Sitting Balance Ability Good Standing Balance and Reactions Static Standing Balance Ability Fair M8 OT- IP Objective Assessments Start: 05/23/21 10:01 Freq: Status: Active Protocol: Document 05/23/21 10:01 [facility] (Rec: 05/23/21 10:30 [facility] [id number]) OT-Muscle Tone Assessment Muscle Tone WNL Yes M9 OT- IP Assessment and Plan Start: 05/23/21 10:01 Freq: Status: Active Protocol: Document 05/23/21 10:01 [facility] (Rec: 05/23/21 10:30 [facility] [id number]) OT Summary Assessment and Plan Potential Rehabilitation Potential Good Analytic Complexity at Evaluation Low Summary OT Impairments Pain,Balance,Functional Mobility,Dressing,Toileting, Bathing,Toilet Transfers, Shower Transfers,Activity Tolerance Progress Towards Goals Slow Progress due to Pain,Slow Progress due to Medical Issues Assessment Summary Pt low complexity and main barriers are decreased BP and pain at this time. Pt has a supportive to be able to assist at home and looking into getting a shower chair and sock aid for the pt. Pt pending medical progress to go home with his . To do showering tomorrow. Goals Dressing Goal Independent Toileting Goal Independent Bathing Goal Independent Toilet Transfer Goal Independent Shower Transfer Goal Independent Patient/Caregiver Education Goal Demonstrate Post-Op Precautions,Caregiver Independent Assisting Patient Days to Meet Goals 5 Frequency of Treatment Frequency Of Treatment Once a Day Treatment Plan OT Treatment Plan ADL Training,Functional Mobility,Patient/Family Education,Discharge Planning Other Treatment Recommendations and Next shower Treatment Focus Discharge Recommendations OT Discharge Recommendations Home with Assistance Home Equipment Needs shower chair, sock aid Transportation Needs at Discharge Private Vehicle
--- NOTE | 2021-05-23 10:11 | PT.IIE ---
Current Diagnoses Acute posthemorrhagic anemia (05/22/21) Spondylolisthesis, lumbar region (05/22/21) Arthrodesis status (05/22/21) Surgery Performed Operation Date: 05/22/21 07:45 Actual Procedures p L3-4, L4-5 TLIF w. posterior instrumentation-Robot - Tere Sierra MD Surgical History (Last Updated 05/16/21 @ 08:32 by Kayla Vieira RN) Anesthesia History of knee replacement (~05/2011) History of knee replacement (~09/2010) Status post arthroscopy (~2006) Medical History (Last Updated 01/03/21 @ 08:24 by Ricardo Reinoso MD) Actinic keratosis (~2004) Ankle pain (~2009) Carpal tunnel syndrome (~2012) Cervical stenosis of spine Chicken pox (~1955) Chronic back pain (~1999) Foot pain (~2013) Glaucoma 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) Hiatal hernia Hypertension (~2013) Irritable bowel syndrome (~1999) Lumbago Measles (~1955) Migraines Mumps (~1955) Osteoarthritis (~2004) Pneumonia Shoulder pain (~2001) Tinnitus (~1969) Vertigo Physical Therapy Inpatient Evaluation/Re-Eval M1 PT/OT-IP Prior Functional Status Start: 05/23/21 11:59 Freq: NEEDED Status: Active Protocol: Document 05/23/21 10:11 AB (Rec: 05/23/21 12:22 [email or web address]) Medical Review Prior Functional Status Medical History Reviewed Yes Communication able to make needs known Mobility and Gait pt stated that he is independent with all mobilities and ambulation without AD Social History Household Members spouse Living Arrangements House Number of Floors (Floors) One Floor Number of Stairs To Enter/Railing? no steps to enter Home Environment High Toilet,Tub/Shower Home Equipment Front Wheel Walker,Hand Held Shower,Grab Bars In Shower Additional Social History Comment pt stated that he does not want his spouse to assist him much and stated going to SNF for rehab and that the doctor is aware M2 PT-IP Current Condition Start: 05/23/21 11:59 Freq: NEEDED Status: Active Protocol: Document 05/23/21 10:11 AB (Rec: 05/23/21 12:22 AB [email or web address]) Physical Therapy Current Condition Current Condition Evaluation Date 05/23/21 Treatment Diagnosis s/p L3-4, L4-5 TLIF; difficulty in walking Onset Date 05/22/21 M3 PT-IP Subjective Start: 05/23/21 11:59 Freq: NEEDED Status: Active Protocol: Document 05/23/21 10:11 AB (Rec: 05/23/21 12:22 [id number]) Subjective Physical Therapy Visit Type Type Initial Evaluation Visit Start Time 10:11 Visit Stop Time 10:52 Total Visit Minutes 41 Number of PROVIDER RELATIONS REPRESENTATIVE Visits 0 Physical Therapy Visit Comments Patient Comments agreeable to do PT Therapy Pain Assessment Pain When Pain Assessed At Rest Pain Present Pain Present Pain Reported Location Lower Back Intensity 6 Scale Used Numeric (0 - 10) Pain Behaviors Guarding,Wincing Pain Management Techniques Distraction,Modification of Treatment,Re-positioning, Timing of Activity with Medications M4 PT-IP Mobility and Gait Start: 05/23/21 11:59 Freq: NEEDED Status: Active Protocol: Document 05/23/21 10:11 AB (Rec: 05/23/21 12:22 [id number]) PT-Bed Mobility Assessment Rolling Type of Rolling Log Rolling Level of Assist Minimal Assistance Supine to Sit Supine to Sit Minimal Assistance Sit to Supine Sit to Supine Moderate Assistance PT-Transfer Assessment Sit to and From Stand Sit to and from Stand Maximum Assistance,1 Person Assistance,Use of Upper Extremities Equipment Transfer Assistive Device Gait Belt,Front Wheeled Walker Orthotic/Prosthetic Devices or Brace: No Comments Mobility Comments reviewed back precautions with pt and log roll bed mobility. BP in supine: 124/56. pt completed supine to sit min A and max cues. able to sit on EOB SBA. c/o slight dizziness . BP checked in sittin/ 58. completed sit to stand max A and max cues. required x 3 attempts to be able to stand. able to stand using FWW for support mod A. c/o dizziness. BP checked: 92/48. pt sat back on the bed and rested. BP checked: 121/48. pt agreed to stand again and completed max A and max cues x 2 attempts. c/o dizziness again. BP checked: 76/44. instructed pt to sit back down . pt scooted to HOB SBA. completed sit to supine mod A and cues. positioned in bed. BP in supine: 126/51. call light and table placed within reach. informed nurse Gait Assessment Comments Gait Comments deferred due to decrease in BP in standin/44 PT-Balance Assessment Sitting Balance and Reactions Static Sitting Balance Ability Good Dynamic Sitting Balance Ability Good Standing Balance and Reactions Static Standing Balance Ability Fair Dynamic Standing Balance Ability Poor Device Used FWW M5 PT-IP Objective Assessments Start: 05/23/21 11:59 Freq: NEEDED Status: Active Protocol: Document 05/23/21 10:11 AB (Rec: 05/23/21 12:22 AB [id number]) Orientation Orientation/Cognition Level of Alertness Alert Orientation Name,Age,Birthday,Month,Date, Year,Day of Week,Place, Situation Language Function Ability No Deficits Noted Safety Awareness Decreased Safety Awareness Memory Description Short Term Impaired Gross Range of Motion Lower Extremity ROM Assessment Within Functional Limits Strength Lower Extremity Strength Assessment Bilaterally Impaired Comments Strength Comments LLE: 4-/5 RLE: 3+/5 Sensation Assessment Sensation Gross Sensation Right LE Impaired,Left LE Impaired Light Touch Impaired Proprioception (Position) Impaired Sensation Description Numbness Comments Sensation Comments stated chronic numbness on BLE : lower leg to B feet Muscle Tone Muscle Tone WNL Yes M6 PT-IP Treatment Start: 05/23/21 11:59 Freq: NEEDED Status: Active Protocol: Document 05/23/21 10:11 AB (Rec: 05/23/21 12:22 AB [id number]) Physical Therapy Treatment Education Education Provided Precautions,Weight Bearing Status,Safety M7 PT-IP Assessment and Plan Start: 05/23/21 11:59 Freq: NEEDED Status: Active Protocol: Document 05/23/21 10:11 AB (Rec: 05/23/21 12:22 AB [id number]) PT Summary Assessment and Plan Potential Rehabilitation Potential Good Status of Condition at Evaluation Evolving Summary Impairments Pain,ROM,Strength,Balance, Coordination,Sensation,Tone, Cognition,Bed Mobility, Transfers,Gait,Activity Tolerance Assessment Summary pt requiring max A with sit to stand and unable to tolerate much activity with decrease in BP to 76/44 in standing. pt will require SNF rehab to improve strength and mobiltiiy . Goals Bed Mobility Goal Standby Assistance Transfer Goal Standby Assistance,Front Wheeled Walker Gait Goal Standby Assistance,Front Wheel Walker Gait Distance 250 Days to Meet Goals 5 Frequency of Treatment Frequency Of Treatment Twice a Day Treatment Plan Physical Therapy Treatment Plan Bed Mobility Training,Transfer Training,Gait Training, Therapeutic Exercise,Balance Retraining,Post Op Education, Discharge Planning,Hot or Cold Pack,Neuromuscular Re-ed, Coordination Retraining,Manual Therapy Precautions Lumbar Precautions Log Roll,No Twisting,Limit Bending,Lifting Restriction of 10 lbs,Gait Belt above Incisional Area Recommendations To Nursing Amount of Assist Needed 1 Person Assist Discharge Recommendations PT Discharge Recommendations SNF Rehab Transportation Needs at Discharge Wheelchair/Cabulance
--- NOTE | 2021-05-23 10:24 | PC.NURSE ---
Addendum entered by Azalea Lakhani R.N. 05/23/21 19:07: Patient had a temp of 100.5, just given tylenol and he is resting comfortably. Voices no complaints of pain Addendum entered by Azalea Lakhani R.N. 05/23/21 15:49: Encouraged patient to let us take his catheter out, he wants to wait until he is moving more and his blood pressure is not going down as he gets up. Patient takes lisinopril 10mg at night, will pass on to maria luz NAPIER that she may want to hold this medication because of hypotension. Addendum entered by Azalea Lakhani R.N. 05/23/21 15:28: Patients temp 101.0, given tylenol earlier, he has ice pack to his chest and head at this time. He denies pain to lower back. Addendum entered by Azalea Lakhani R.N. 05/23/21 14:59: Physical therapy attempted to work with Patient again, his sitting and lying blood pressures were good, when he stood this last time his systolic was in the 80s. Patient layed back down and bp came up. Tram PAPPAS is aware of this and patient had a 1000cc bolus earlier over an hour. He also had a temp of 100. Tylenol given and patient had 2 oxycodone before this. He is resting comfortably in bed. Original Note: Assess- Patient is alert and oriented x3, he complained of 6/10 pain to lower back, given oxycodone 10mg and helpful. Lower back dressing is cdi, patient states that he has numbess to his r.leg but this was before surgery. Ovalle to come out soon, patient worked with pt and ot, he stood up and ambulated. Blood pressure went down to 105/50s and he complained of being dizzy. Back to bed, cms wnl and ppx2.
--- NOTE | 2021-05-23 10:31 | CM.DANOTE ---
Addendum entered by Shanti Ahmadi R.N. 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 Updated patient, He is ok going to either place, would rather be here in town if possible. Left a message with Tram Garcia, PAC ortho, that if patient is medically ready tomorrow, can go to jail. Addendum entered by Shanti Ahmadi R.N. 05/23/21 15:42: Met with patient and gave him Medicare Choice List. Explained to him that he would be going on a COVID waiver, patient concerned about it being payed for. Let him know that [facility] may accept, will know for sure in the am. He is ok going there, he just knows he'll need rehab. Addendum entered by Shanti Ahmadi R.N. 05/23/21 15:26: Patient is currently OBS, from [facility] [place]. He will be re-reviewed tomorrow. Spoke to Marla earlier today, and she was concerned taking him on a COVID waiver, since they have had a few lately, and was hoping for him being inpatient. Called Kizzy at [facility] and gave her update on patient. She is prepared to take patient tomorrow on COVID waiver. She asked if he was vaccinated, which he is. Went ahead and completed PASSR, and faxed over face sheet, PASSR, vaccination information, operative report, today's progress note and P.T. note. Will need to complete COVID waiver form and have ortho sign. P: DCP to continue to follow. Will attempt to meet with ortho tomorrow regarding discharging patient to skilled facility. Shanti Ahmadi RN/Scallop Cutter Machine Original Note: DCP: Case received, EMR reviewed and met with patient. Introduced self and role. Was able to obtain information regarding patient's baseline activity level prior to hospitalization. DCP assessment completed with information currently available. Patient is a 75 year old male who admitted yesterday morning to the care of the orthopedic team. PCP: Dr. Reinoso. Payer: confirmed: Medicare/[employer]. Patient came to the hospital via private vehicle for a surgical procedure. Patient had L3-4, L4-5 posteo-lateral and posterior interbody fusion. Patient has had chronic back pain. He has history of spondylolisthesis of lumbar region. Met with patient in his room. He is alert and oriented. He was sitting up in bed. Confirmed with patient that he resides here in [place] with his spouse, Selene. He has not used any DME supplies prior to surgery. 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 He stated, his might be able to help him, but he's pretty anxious about moving, and would like referral sent to rehab just in case. He has never been to rehab, and has no preference, this is just for back up. Went ahead and called Marla over at [facility] and gave her referral information. She will review. Patient has not yet been up with P.T, will have to see how he does with therapy. P: DCP to continue to follow. Goal is home, but [facility] will also review in case he needs rehab. Shanti Ahmadi RN/Scallop Cutter Machine Discharge Planning/Care Management CM Discharge Assessment Start: 05/23/21 10:28 Freq: Status: Active Protocol: Document 05/23/21 10:28 (Rec: 05/23/21 10:31 [id number]) Discharge Planning Assessment Assigned Canal Equipment Maintenance Supervisor Shanti Ahmadi RN/Scallop Cutter Machine Advance Directives? Yes Advance Directives on File Yes History Provided By Patient,Medical Record Prior Living Arrangements House Household Members spouse Type of transporation used prior to Drives own vehicle admit Independent with ADL's Yes Is patient alert and oriented? Yes Caregiver for Another No Barriers to Discharge No Discharge Plan Home Transportation Arrangement Family to provide transport. Referrals Initiated [facility] Additional Comment Sent referral to [facility] as back up Whiteboard Updated in Patient Room with Yes name and ext. # of Canal Equipment Maintenance Supervisor Review Status In Process Next Review Type Continued Stay Review Pre-Anesthesia Assessment Start: 05/16/21 08:26 Freq: Status: Active Protocol: Document 05/16/21 08:26 CAB (Rec: 05/16/21 08:31 CAB [id number]) Pre-Anesthesia Assessment PAC Comment Patient is s/p RT TSA 04/27/19. He declines need for PAC phone assess for upcoming surgery. He reports no changes to medical/medication history and has no questions/ concerns for surgery, chart review only. Preferred Name Red Patient Information Reviewed Via Chart Review Comment Pre-op labs/ECG not identified at time of review, COVID screen @ 05/19/21 Seen Specialist in Last 12 Months Yes Specialist Seen Orthopedist Primary Language Congolese Preferred Language Congolese Emergency Medical Service Manager Required No Height 6 ft 5 in Weight 234 lb Body Mass Index (BMI) 27.7 Hearing Ability Normal Visual Assist Glasses Dentition Type Teeth, Natural Present Barriers to Learning None Other Aids No Hx Anesthesia Reactions No Hx Family Anesthesia Reaction No Hx Malignant Hyperthermia No Hx Blood Transfusions No Hx Blood Transfusion Reaction No Anesthesia Review Requested No Rope Rider No alcohol intake current alcohol intake frequency 0-2 drinks per day Smoking Status Former smoker Tobacco type cigarettes how long ago did patient quit smoking Quit 1982 Substance Use Type does not use Pain Present Pain Reported Musculoskeletal Symptoms Back Pain,Joint Pain,Limited Range of Motion,Muscle Weakness History of Falling (Recent or History of Yes ) Patient is completely paralyzed or No completely immobile Mental Status Oriented to own ability Is patient on oxygen? No Does patient have ÁLVAREZ/SOB No Hx Sleep Apnea No CPAP/BIPAP use not prescribed Currently Taking a Beta Eli No Can You Climb a Flight of Stairs Without Yes SOB Hx Chest Pain No Hx SOB No Hx Syncope or Dizziness Yes: Occasional with positional changes Anti-Coagulant Therapy No Has a Application Engineer No Cardiac Testing No Hx Pacemaker/ICD No Pacemaker Rep Required? No Diet Type At Home Regular dysphagia Yes: A little bit with nuts Genitourinary Symptoms Change in Urinary Stream, Difficulty Urinating Bladder Pattern Nocturia Urinary Catheter Present No Hx Urinary Self Catheterization No Diabetes No Hx Drug Resistant Organism No Presence of External or Internal Medical Yes: Cervical hardware, esperanza Devices shoulders/knees Marital Status Lives With spouse Prior Living Arrangements House Support System Child/Children,Spouse Does the Patient Have Assistance After Yes Surgery Patient Discharge Plan Description Return Home Feels Safe in Current Environment Yes Been Physically Hurt or Threatened By a No Person in Current Environment Do you have thoughts of harming yourself None or others? Are you currently considering suicide? No Do you have a plan to hurt yourself or No Plan others? Do You Have Any Spiritual Beliefs That No May Affect Your HC Choices? Do You Have Any Cultural Practices That No May Affect Your HC Choices? Who Can We Speak to About Patient's Care Family, friends Identifying Code for Release of Patient Declines to issue Information Health Care Proxy/Next of Kin Selene ()Mohinder (son) Health Care Proxy Phone Number Selene: [phone] Mohinder: Emergency Contact Name Selene ()Mohinder (son) Emergency Contact Phone Number Selene: [phone] Mohinder: [phone] Advance Directives? Yes Advance Directives on File Yes Power of Insulation Estimator Yes Power of Insulation Estimator Name Selene () Power of Insulation Estimator
[2021-05-23] MEDS: SODIUM CHLORIDE 0.9% 1,000 ML 1000 ML IV (11:20)
[2021-05-23] MEDS: ACETAMINOPHEN 325 MG TABLET 650 MG PO ×2 (12:55→18:48)
--- NOTE | 2021-05-23 13:30 | PT.IPTN ---
Current Diagnoses Acute posthemorrhagic anemia (05/22/21) Spondylolisthesis, lumbar region (05/22/21) Arthrodesis status (05/22/21) Surgery Performed Operation Date: 05/22/21 07:45 Actual Procedures p L3-4, L4-5 TLIF w. posterior instrumentation-Robot - Tere Sierra MD Physical Therapy Treatment Note M2 PT-IP Current Condition Start: 05/23/21 11:59 Freq: NEEDED Status: Active Protocol: Document 05/23/21 10:11 AB (Rec: 05/23/21 12:22 AB [id number]) Physical Therapy Current Condition Current Condition Evaluation Date 05/23/21 Treatment Diagnosis s/p L3-4, L4-5 TLIF; difficulty in walking Onset Date 05/22/21 M3 PT-IP Subjective Start: 05/23/21 11:59 Freq: NEEDED Status: Active Protocol: Document 05/23/21 13:30 AB (Rec: 05/23/21 15:16 AB [email or web address]) Subjective Physical Therapy Visit Type Type Treatment Note Visit Start Time 13:30 Visit Stop Time 13:45 Total Visit Minutes 15 Number of PLANNING MANAGER Visits 0 Physical Therapy Visit Comments Patient Comments agreeable to do PT Therapy Pain Assessment Pain When Pain Assessed At Rest Pain Present Pain Present Pain Reported Location Lower Back Intensity 6 Scale Used Numeric (0 - 10) M4 PT-IP Mobility and Gait Start: 05/23/21 11:59 Freq: NEEDED Status: Active Protocol: Document 05/23/21 13:30 AB (Rec: 05/23/21 15:16 AB [id number]) PT-Bed Mobility Assessment Rolling Type of Rolling Log Rolling Level of Assist Standby Assistance Supine to Sit Supine to Sit Standby Assistance Sit to Supine Sit to Supine Standby Assistance PT-Transfer Assessment Comments Mobility Comments pt's spouse in room. spouse stated that she cannot assist pt to do his showers or assist him to get up from the toilet . pt requires cues to recall his back precautions. BP in supine log roll supine to sit SBA. Pt sat on EOB SBA . BP in sittin/44. pt sat for ~ 2 min and BP checked again: 107/52. c/o increase back pain. pt sat for 1 more minute and BP checked: 93/42. Pt refused to stand and stated that he just wants to get back in bed. completed supine to sit log roll SBA. positioned on the chair. BP checked. : 119/47. call light and table placed within reach. M5 PT-IP Objective Assessments Start: 05/23/21 11:59 Freq: NEEDED Status: Active Protocol: Document 05/23/21 10:11 AB (Rec: 05/23/21 12:22 AB [id number]) Orientation Orientation/Cognition Level of Alertness Alert Orientation Name,Age,Birthday,Month,Date, Year,Day of Week,Place, Situation Language Function Ability No Deficits Noted Safety Awareness Decreased Safety Awareness Memory Description Short Term Impaired Gross Range of Motion Lower Extremity ROM Assessment Within Functional Limits Strength Lower Extremity Strength Assessment Bilaterally Impaired Comments Strength Comments LLE: 4-/5 RLE: 3+/5 Sensation Assessment Sensation Gross Sensation Right LE Impaired,Left LE Impaired Light Touch Impaired Proprioception (Position) Impaired Sensation Description Numbness Comments Sensation Comments stated chronic numbness on BLE : lower leg to B feet Muscle Tone Muscle Tone WNL Yes M6 PT-IP Treatment Start: 05/23/21 11:59 Freq: NEEDED Status: Active Protocol: Document 05/23/21 13:30 AB (Rec: 05/23/21 15:16 AB [email or web address]) Physical Therapy Treatment Education Education Provided Precautions,Weight Bearing Status,Safety M7 PT-IP Assessment and Plan Start: 05/23/21 11:59 Freq: NEEDED Status: Active Protocol: Document 05/23/21 13:30 AB (Rec: 05/23/21 15:16 AB [id number]) PT Summary Assessment and Plan Potential Rehabilitation Potential Fair Summary Impairments Pain,ROM,Strength,Balance, Coordination,Sensation,Tone, Cognition,Bed Mobility, Transfers,Gait,Activity Tolerance Progress Towards Goals Slow Progress due to Pain,Slow Progress due to Medical Issues,Slow Progress due to Activity Tolerance Assessment Summary pt continues to have decrease BP and unable to tolerate much activity. will continue to assess progress but will require SNF rehab at this time . Goals Bed Mobility Goal Standby Assistance Transfer Goal Standby Assistance,Front Wheeled Walker Gait Goal Standby Assistance,Front Wheel Walker Gait Distance 250 Days to Meet Goals 5 Frequency of Treatment Frequency Of Treatment Twice a Day Treatment Plan Physical Therapy Treatment Plan Bed Mobility Training,Transfer Training,Gait Training, Therapeutic Exercise,Balance Retraining,Post Op Education, Discharge Planning,Hot or Cold Pack,Neuromuscular Re-ed, Coordination Retraining,Manual Therapy Precautions Lumbar Precautions Log Roll,No Twisting,Limit Bending,Lifting Restriction of 10 lbs,Gait Belt above Incisional Area Recommendations To Nursing Amount of Assist Needed 1 Person Assist Discharge Recommendations PT Discharge Recommendations SNF Rehab Transportation Needs at Discharge Wheelchair/Cabulance
[2021-05-23] MEDS: ATORVASTATIN 20 MG TABLET 10 MG PO (20:55)
[2021-05-23] MEDS: SENNOSIDES 8.6 MG TABLET 17.2 MG PO (20:56)
[2021-05-24] VITALS (8 sets, daily range): BP systolic 97–136; BP diastolic 53–62; PULSE 76–89; RESP 16–19; TEMP 36.6–37; O2SAT 94–99
[2021-05-24] MEDS: OXYCODONE IR 5 MG TABLET 10 MG PO ×6 (04:56→23:58)
--- NOTE | 2021-05-24 07:27 | PM.DS.1 ---
History of Present Illness History of Present Illness Date Patient Seen: 05/24/21 Time Patient Seen: 07:28 Chief complaint: LUMBAR TLIF *OPB* Narrative: Operative Date/Time/Diagnoses Date of procedure: 05/22/21 Time of procedure: 07:45 Pre-op diagnosis: 1. L3-4, L4-5 spinal stenosis with radiculopathy 2. L3-4, L4-5 spondylolisthesis. Post-op diagnosis: same Procedure & Clinicians Procedure: 1. L3-4, L4-5 Postero-lateral and posterior interbody fusion 2. L3-4, L4-5 interbody cage placement. 3. L3-4, L4-5 decompressive laminectomy with bilateral facetecomies 4. L3-4, L4-5 Posterior segmental instrumentation 5. [place] of bone marrow from iliac crest 6. Utilization of microsurgical technique and operating microscope Same procedure as scheduled: Yes Indications: Patient has been having chronic back pain and worsening lumbar radiculopathy. Patient failed multiple conservative management with worsening pain weakness and numbness in her lower extremity.? Patient has been having difficulty performing activity of daily living.? After discussing risks benefits of treatment options, patient elected proceed with surgery. Surgeon: Tere Sierra Learning Coach: Tram Portillo Click Yes if Unassisted: No Anesthesia Type: General Operative Notes Closure Type: primary Specimen(s): none sent Prosthetic devices, grafts, tissues, transplants, or devices: Globus CREO MIS screws, Rise cage Applied: catheter Estimated Blood Loss (mL): 150 Blood products transfused: none Discharge Providers Provider Date of admission: 05/22/21 14:27 Discharge Date: 05/24/21 Primary care physician: Ricardo Reinoso MD Consults: 05/22/21 14:04 Consult to Occupational Therapy Evaluate & Treat Comment: Physician Instructions: Evaluate and treat Consult to Physical Therapy Evaluate & Treat Comment: Physician Instructions: Evaluate and Treat Discharge provider: Tram Portillo PA-C Summary Hospital Course Discharge Diagnosis: s/p lumbar fusion Hospital Course: [facility] was complicated by episodes of orthostatic hypotension that interfered with his ability to participate in PT/OT. His expressed inability to help him at home, and on POD# 2 he wanted to go to a [facility] facility for rehab. He was eating without difficulty, and his urinary catheter was removed prior to discharge. Status at Discharge Cognitive/behavioral status at discharge: at baseline, oriented Functional status at discharge: uses cane/walker Exam Vital Signs (past 8 hours): - 05/24/21 00:00 05/24/21 04:15 Temperature 98.6 F 98.5 F Pulse Rate 82 81 Respiratory Rate 19 19 Blood Pressure 125/61 129/53 L Pulse Oximetry 94 99 Oxygen Delivery Method Room Air Oxygen Flow Rate 0 Objective Labs Result Diagrams: 05/23/21 04:30 [facility] Medical History (Updated 05/23/21 @ 07:23 by Tram Portillo PA-C) Actinic keratosis (~2004) Ankle pain (~2009) Carpal tunnel syndrome (~2012) Cervical stenosis of spine Chicken pox (~1955) Chronic back pain (~1999) Foot pain (~2013) Glaucoma 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) Hiatal hernia Hypertension (~2013) Irritable bowel syndrome (~1999) Lumbago Measles (~1955) Migraines Mumps (~1955) Osteoarthritis (~2004) Pneumonia Shoulder pain (~2001) Tinnitus (~1969) Vertigo Surgical History (Updated 05/23/21 @ 07:23 by Tram Portillo PA-C) Anesthesia 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) History of knee replacement (~05/2011) History of knee replacement (~09/2010) 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) Hx of carpal tunnel repair S/P cervical spinal fusion (06/13/18) Status post arthroscopy (~2006) Family History Brother Age: 80 Hypertension High cholesterol Stroke Brother Age: 81 Hypertension High cholesterol Father Heart disease Mother Hypertension High cholesterol Grandfather Heart disease Social History household members: spouse Smoking Status: Former smoker alcohol intake: current Discharge Assessment & Plan Assessment and Plan Assessment: 1) s/p L3-4, L4-5 transforaminal lumbar interbody fusion 2) acute anemia d/t intraoperative blood loss 3) episodic orthostatic hypotension Plan of Treatment: Discharge to SNF for continued rehab. Multimodal pain control. F/u in office in 2 weeks for staple removal and post-surgical assessment. Discharge Plan Discharge Plan Patient Disposition: SNF Transfer to: [facility] Transportation: Facility vehicle I certify the postop hospital [facility] care is medically necessary on a continuing basis for any conditions for which he/ she received care during this hospitalization.: Yes The receiving facility has agreed to accept transfer and provide medical treatment.: Yes Discharge orders & Medications Prescriptions: New acetaminophen 325 mg Tablet 650 mg PO Q6HR PRN (Reason: Pain, Mild (1-3)) Qty: 240 0RF docusate sodium 100 mg Capsule 100 mg PO BID PRN (Reason: constipation) Qty: 60 0RF hydroxyzine pamoate 25 mg Capsule 25 mg PO Q4HR PRN (Reason: muscle spasm) Qty: 180 0RF oxycodone 5 mg Tablet 10 mg PO Q4-6H PRN (Reason: Pain, Severe (7-10)) Qty: 42 0RF oxycodone 5 mg tablet 5 mg PO Q4H PRN (Reason: pain (scale score 7-10)) Qty: 60 0RF Continued latanoprost 0.005 % drops 1 drp EYE-BOTH HS Qty: 0 0RF lisinopril 10 mg tablet 10 mg PO BEDTIME Qty: 90 3RF simvastatin 10 mg tablet 10 mg PO BEDTIME Qty: 90 3RF Follow up/Referrals: Ricardo Reinoso MD [Primary Care Provider] - Tere Sierra MD [Physician] - As previously scheduled (Follow up with Dr Sirera on 06/06/2021 @ 10:30 am at [facility] in [place].) Diet/Activity/Treatments Diet: Diet as Tolerated Activity: Walk frequently! No deep bending (more than 90 degrees) or twisting at the waist. No lifting more than 20 pounds. Skin/Wound/Dressing Care Report to your healthcare provider any signs of infection, such as:: chills, fever, night sweats, increased pain, unusual drainage and unusual redness Dressing: May shower. Keep incisions as dry as possible; change dressing if it becomes wet inside. No bathing or otherwise soaking incisions. Special Rehabilitation Services Rehab type: Physical therapy and Occupational therapy Restrictions to mobility: No deep bending (more than 90 degrees) or twisting at the waist. No lifting more than 20 pounds. Visit Report/Discharge Packet Instructions: DI for Prescription Opioid Use, DI for Transforaminal Lumbar Interbody Fusion Stand Alone Forms: Surgery Discharge Discharge Data Primary Care Provider: Ricardo Reinoso Attending Provider: Tere Sierra VTE Deep Vein Thrombosis/Pulmonary Embolism Present on Admission: No
[2021-05-24] MEDS: MAGNESIUM HYDROXIDE 30 ML UDC PO (07:53)
[2021-05-24] MEDS: DOCUSATE 100 MG CAPSULE PO ×2 (07:53→20:36)
[2021-05-24 08:10] LABS: COVID19 -Nasal RAPID Negative (Negative)
--- NOTE | 2021-05-24 09:15 | CM.DPNOTE ---
Faxed final snf packet to [facility] and received conf. Coleen Davies CM Assist.
--- NOTE | 2021-05-24 10:42 | OT.IP.TRT ---
Current Diagnoses Acute posthemorrhagic anemia (05/23/21) Spondylolisthesis, lumbar region (05/23/21) Arthrodesis status (05/23/21) Surgery Performed Operation Date: 05/22/21 07:45 Actual Procedures p L3-4, L4-5 TLIF w. posterior instrumentation-Robot - Tere Sierra MD Occupational Therapy Treatment Note M2 OT-IP Current Condition Start: 05/23/21 10:01 Freq: Status: Active Protocol: Document 05/23/21 10:01 [facility] (Rec: 05/23/21 10:30 [facility] [id number]) Occupational Therapy Current Condition Current Condition Evaluation Date 05/23/21 Treatment Diagnosis S/p L3-4, L4-5 TLIF Diagnosis Onset Date 05/22/21 Post Operative Precautions Lumbar Precautions Log Roll,No Twisting,Limit Bending,Lifting Restriction of 10 lbs,Gait Belt above Incisional Area M3 OT- IP Subjective and Pain Start: 05/23/21 10:01 Freq: Status: Active Protocol: Document 05/24/21 10:34 [facility] (Rec: 05/24/21 10:41 [facility] [id number]) OT- Subjective Occupational Therapy Visit Type Type Treatment Note Visit Start Time 09:12 Visit Stop Time 09:39 Total Visit Minutes 27 Occupational Therapy Visit Comments Patient Comments Pt agreed to get up to try to use the bathroom. Patient/Caregiver Goals Pt feel would be best to go to skilled rehab as feels that his will not be able to physically care for him. OT Pain Assessment Pain When Pain Assessed At Rest Pain Present Pain Present Pain Reported Location Lower Back Intensity 7 Scale Used Numeric (0 - 10) 10:01 Freq: Status: Active Protocol: Document 05/23/21 10:01 [facility] (Rec: 05/23/21 10:30 [facility] [id number]) OT-Instrumental Activities of Daily Living Home Safety Awareness Home Safety Comments Pt a little groggy from cox medications and states his will be able to assist with his needs at home as needed. M6 OT- IP Functional Cognition Start: 05/23/21 10:01 Freq: Status: Active Protocol: Document 05/23/21 10:01 [facility] (Rec: 05/23/21 10:30 [facility] [id number]) Cognitive Factors Limiting Selfcare Function Cognitive Ability Level of Alertness Alert,Drowsy Patient Orientation Name,Place,Situation Attention Span Ability Capable of Focused Attention, Capable of Sustained Attention Ability to Follow Commands Able to Follow One Step Commands Safety Awareness Decreased Recall of Precautions Cognitive Comments Cognitive Assessment Comments Pt a bit groggy from pain medications and needing reminders to recall his back precautions. OT- Vision and Hearing OT- Hearing Assessment OT- Hearing Assessment WFL OT- Vision Assessment Visual Acuity Glasses All The Time Pt needing CGA to sit upright and TRICIA to help get his legs back into bed. OT-Transfer Assessment Comments Mobility Comments BP supine 135/59, came to sitting and then became woozy and BP 88/64 and pt states felt that he was going to pass out, BP supine 128/53, back in sitting 123/56, and back to supine 109/50. Not able to get pt to standing as too woozy today. Nursing notified . OT- Balance Assessment Sitting Balance and Reactions Static Sitting Balance Ability Good M8 OT- IP Objective Assessments Start: 05/23/21 10:01 Freq: Status: Active Protocol: Document 05/23/21 10:01 [facility] (Rec: 05/23/21 10:30 [facility] [id number]) OT-Muscle Tone Assessment Muscle Tone WNL Yes M9 OT- IP Assessment and Plan Start: 05/23/21 10:01 Freq: Status: Active Protocol: Document 05/24/21 10:34 [facility] (Rec: 05/24/21 10:41 [facility] [id number]) OT Summary Assessment and Plan Potential Rehabilitation Potential Good Analytic Complexity at Evaluation Low Summary OT Impairments Pain,Balance,Functional Mobility,Dressing,Toileting, Bathing,Toilet Transfers, Shower Transfers,Activity Tolerance Progress Towards Goals Slow Progress due to Pain,Slow Progress due to Medical Issues Assessment Summary Pt having low BP and not able to tolerate sitting and unable to stand at this time as feeling like he was going to pass out. Nursing notified of his low BP. Pt to go to skilled rehab when medically stable. Goals Dressing Goal Independent Toileting Goal Independent Bathing Goal Independent Toilet Transfer Goal Independent Shower Transfer Goal Independent Patient/Caregiver Education Goal Demonstrate Post-Op Precautions Days to Meet Goals 10 Frequency of Treatment Frequency Of Treatment Once a Day Treatment Plan OT Treatment Plan ADL Training,Functional Mobility,Patient/Family Education,Discharge Planning Other Treatment Recommendations and Next shower Treatment Focus Discharge Recommendations OT Discharge Recommendations SNF Rehab Other Discharge Recommendations wc transportation needs at discharge pending his BP levle /toleration while seated as today was low and unable to tolerate sitting upright as feel liek he was goign to pass out. Transportation Needs at Discharge Wheelchair/Cabulance
--- NOTE | 2021-05-24 11:21 | CM.DPC ---
Addendum entered by Shanti Ahmadi R.N. 05/24/21 14:54: Patient is not going to discharge today, his blood pressures continue to be low. Will plan on discharge tomorrow as long as he is hemodynamically stable. Original Note: DCP Cont: Patient has discharge orders. Was able to get med sheet from SRINIVASAN Ugalde. Marla at [facility] indicated that she can pick out hand patient at 12:30. PASSR, COVID swab, and orders were all faxed over to her. There have been some concerns about his orthostatic BPS, they were going to consult with ortho. Also, provider did not complete a hard script for his Oxycodone, nurse, Griselda, was calling the PAC. P: Patient is supposed to discharge to [facility] today, pick out hand 1230, will depend upon BP, and obtaining hard script for Oxycodone. Time may need to be pushed back to later. Shanti Ahmadi RN/Case Manage
--- NOTE | 2021-05-24 11:27 | PT.IPTN ---
Current Diagnoses Acute posthemorrhagic anemia (05/22/21) Spondylolisthesis, lumbar region (05/22/21) Arthrodesis status (05/22/21) Surgery Performed Operation Date: 05/22/21 07:45 Actual Procedures p L3-4, L4-5 TLIF w. posterior instrumentation-Robot - Tere Sierra MD Physical Therapy Treatment Note M2 PT-IP Current Condition Start: 05/23/21 11:59 Freq: NEEDED Status: Active Protocol: Document 05/24/21 10:52 SP (Rec: 05/24/21 14:08 SP [id number]) Physical Therapy Current Condition Current Condition Evaluation Date 05/23/21 Treatment Diagnosis s/p L3-4, L4-5 TLIF; difficulty in walking Onset Date 05/22/21 M3 PT-IP Subjective Start: 05/23/21 11:59 Freq: NEEDED Status: Active Protocol: Document 05/24/21 10:52 SP (Rec: 05/24/21 14:08 SP [id number]) Subjective Physical Therapy Visit Type Type Treatment Note Visit Start Time 10:52 Visit Stop Time 11:27 Total Visit Minutes 35 Notes Vitals taken during tx: supine: BP 125/62 HR 80 sit: BP 110/ 56 HR 82 stand: 99/56 HR 89 (little dizzy) SPT to chair (sitting): BP 100 /64 post 10 steps near bed w/ FWW (standing): BP 78/39- increased dizziness reported Number of SOAKER Visits 1 Physical Therapy Visit Comments Patient Comments agreeable to do PT Therapy Pain Assessment Pain When Pain Assessed During Mobility Pain Present Pain Present Pain Reported Location Lower Back Intensity 6 Scale Used Numeric (0 - 10) Pain Behaviors Facial Grimacing Pain Management Techniques Distraction,Modification of Treatment,Re-positioning M4 PT-IP Mobility and Gait Start: 05/23/21 11:59 Freq: NEEDED Status: Active Protocol: Document 05/24/21 10:52 SP (Rec: 05/24/21 14:08 SP [id number]) PT-Bed Mobility Assessment Rolling Type of Rolling Log Rolling,Bilateral Level of Assist Standby Assistance Supine to Sit Supine to Sit Minimal Assistance,1 Person Assistance,Bedrails Sit to Supine Sit to Supine Contact Guard Assistance, Minimal Assistance,1 Person Assistance,Bedrails Scooting Scooting to Edge of Bed Standby Assistance PT-Transfer Assessment Sit to and From Stand Sit to and from Stand Maximum Assistance,1 Person Assistance,Use of Upper Extremities Equipment Transfer Assistive Device Gait Belt,Front Wheeled Walker Orthotic/Prosthetic Devices or Brace: No Transfers Transfer Destination Bed,Chair Transfer Technique pt ambulated using FWW Transfer Ability Level of Assist Minimal Assistance Comments Mobility Comments pt slight elevated supine when arrived. HOB flattened, instructed BLE AP, HS for circulation and mobility LE strength assessment AROM, cued abdominal facilitation assist spinal bracing for comfort, good response. Pt completed LR R SBA w/ bed rail, R SL>sit Min A for trunk righting and use bed rails/ UE wB on bed. STS at EOB cues for push from bed required heavy BUE WB bed/ FWW and Max Ax1 to come to full stand, unsteady BLE, cued quad facilitation. Once in standing Min A due to trunk sway at times during vital assessment. Reports slight dizziness but ok. SPT to chair Min A x1 cued quad facilitation reduce risk LEs buckling not complete steady Moderate UE WB on FWW, stand> sit Mod A with cues for reach back slow descent. Pt able to complete self use of urinal 190 mL, left in bathroom for nursing, notified. SIt>stand from chair Max A x1, able to small distance gait heavy UE WB on FWW near bench and back to EOB approx 10 ft total, unsteady LEs, decreased foot clearance and stride. Reported increase dizziness, note decrease in BP 78/39. Mod A descent to bed and sit>R SL Min A for LEs into bed, R SL> supine SBA and cued centering in bed. Provided educaiton and suupport of pillows under BLEs with response LB comfortable positioning. Pt stated felt much better, didn' t get supine BP. Pt had bed alarmed, call light and all needs in reach before left. Updated communication board and notified nursing and care mgt orthostatic BP and symptomatic continuing. Will continue to assess progress. Gait Assessment Gait Gait Assistance Required: Minimum Assistance,1 Person Assist Distance (Feet) 12 Able to Maintain Weight Bearing Status Yes During Gait Assistive Devices Assistive Device Gait Belt,Front Wheeled Walker Orthotic/Prosthetic Devices or Brace: No Gait Deviations General Gait Pattern Antalgic,Decreased Stride Length,Decreased Feet Clearance,Lateral Trunk Lean, Narrow Based Gait,Step-to Gait Factors Limiting Gait Function Factors Limiting Gait Function Decreased Activity Tolerance, Decreased Sensation,Decreased Strength,Limited Range of Motion,Pain,Poor Balance,Poor Safety Awareness Comments Gait Comments unsteady BLE coming to stand, decreased stride, step length, cued quad facilitation, heavy BUE WB on FWW. Stair Climbing Assessment Comments Stair Climbing Comments no stairs required to assess. PT-Balance Assessment Sitting Balance and Reactions Static Sitting Balance Ability Good Dynamic Sitting Balance Ability Fair Standing Balance and Reactions Static Standing Balance Ability Fair Dynamic Standing Balance Ability Poor Device Used FWW M5 PT-IP Objective Assessments Start: 05/23/21 11:59 Freq: NEEDED Status: Active Protocol: Document 05/23/21 10:11 AB (Rec: 05/23/21 12:22 AB [id number]) Orientation Orientation/Cognition Level of Alertness Alert Orientation Name,Age,Birthday,Month,Date, Year,Day of Week,Place, Situation Language Function Ability No Deficits Noted Safety Awareness Decreased Safety Awareness Memory Description Short Term Impaired Gross Range of Motion Lower Extremity ROM Assessment Within Functional Limits Strength Lower Extremity Strength Assessment Bilaterally Impaired Comments Strength Comments LLE: 4-/5 RLE: 3+/5 Sensation Assessment Sensation Gross Sensation Right LE Impaired,Left LE Impaired Light Touch Impaired Proprioception (Position) Impaired Sensation Description Numbness Comments Sensation Comments stated chronic numbness on BLE : lower leg to B feet Muscle Tone Muscle Tone WNL Yes M6 PT-IP Treatment Start: 05/23/21 11:59 Freq: NEEDED Status: Active Protocol: Document 05/24/21 10:52 SP (Rec: 05/24/21 14:08 SP [id number]) Physical Therapy Treatment Exercises Exercises Ankle Pumps,Heel Slides Education Education Provided Precautions,Weight Bearing Status,Safety Other Treatments Other Treatment Performed Good recall to precautions and maintained during mobility. M7 PT-IP Assessment and Plan Start: 05/23/21 11:59 Freq: NEEDED Status: Active Protocol: Document 05/24/21 10:52 SP (Rec: 05/24/21 14:08 SP [id number]) PT Summary Assessment and Plan Potential Rehabilitation Potential Fair Status of Condition at Evaluation Evolving Summary Impairments Pain,ROM,Strength,Balance, Coordination,Sensation,Tone, Cognition,Bed Mobility, Transfers,Gait,Activity Tolerance Progress Towards Goals Slow Progress due to Pain,Slow Progress due to Medical Issues,Slow Progress due to Activity Tolerance Assessment Summary Pt requires Min A bed mob, Heavy Max A x1 for sit<>stand with decreased strength WB BLE coming to standing w/ FWW. Continues to have decrease BP and progressively increased symptomatic with extended upright mobililty, Min A in standing, unsteady sway stationary and during small distance gait w/FWW. Notified nursing and care mgt mobility reassessment during tx. Will continue to assess progress but will require SNF rehab at this time to progress strength when safe vitals. Goals Bed Mobility Goal Standby Assistance Transfer Goal Standby Assistance,Front Wheeled Walker Gait Goal Standby Assistance,Front Wheel Walker Gait Distance 250 Days to Meet Goals 5 Frequency of Treatment Frequency Of Treatment Twice a Day Treatment Plan Physical Therapy Treatment Plan Bed Mobility Training,Transfer Training,Gait Training, Therapeutic Exercise,Balance Retraining,Post Op Education, Discharge Planning,Hot or Cold Pack,Neuromuscular Re-ed, Coordination Retraining,Manual Therapy Other Recommendations and Next Treatment check orthstatic BP. bed mob, Focus transfer, gait if safe. Precautions Lumbar Precautions Log Roll,No Twisting,Limit Bending,Lifting Restriction of 10 lbs,Gait Belt above Incisional Area Recommendations To Nursing Amount of Assist Needed 2 Person Assist Discharge Recommendations PT Discharge Recommendations SNF Rehab Transportation Needs at Discharge Wheelchair/Cabulance
--- NOTE | 2021-05-24 14:57 | PT.IPTN ---
Addendum entered and electronically signed by Bárbara Baker, ECHO 05/24/21 19:38: Pt reported during tx, having headache, not normal for him. He has been conscious of fluid intake. Original Note: Current Diagnoses Acute posthemorrhagic anemia (05/22/21) Spondylolisthesis, lumbar region (05/22/21) Arthrodesis status (05/22/21) Surgery Performed Operation Date: 05/22/21 07:45 Actual Procedures p L3-4, L4-5 TLIF w. posterior instrumentation-Robot - Tere Sierra MD Physical Therapy Treatment Note M2 PT-IP Current Condition Start: 05/23/21 11:59 Freq: NEEDED Status: Active Protocol: Document 05/24/21 14:33 SP (Rec: 05/24/21 18:11 SP [id number]) Physical Therapy Current Condition Current Condition Evaluation Date 05/23/21 Treatment Diagnosis s/p L3-4, L4-5 TLIF; difficulty in walking Onset Date 05/22/21 M3 PT-IP Subjective Start: 05/23/21 11:59 Freq: NEEDED Status: Active Protocol: Document 05/24/21 14:33 SP (Rec: 05/24/21 18:11 SP [id number]) Subjective Physical Therapy Visit Type Type Treatment Note Visit Start Time 14:33 Visit Stop Time 14:57 Total Visit Minutes 24 Notes Vitals taken during tx: slight elevated supine: BP 135 /54, HR 79 seated at EOB: BP 92/74 Post stand (nurse change dressing approx 2 min): 88/52 HR 76 Supine: 141/62 HR 71 Pt reported no dizziness until stood for dressing change. Number of BUFFER MACHINE Visits 2 Physical Therapy Visit Comments Patient Comments agreeable to do PT Patient Goals Go to SNF to improve strength and safety BPs before returning home, unable to assist him. Therapy Pain Assessment Pain When Pain Assessed During Mobility Pain Present Pain Present Pain Reported Location Lower Back Intensity 3 Scale Used Numeric (0 - 10) Description Aching Pain Management Techniques Distraction,Modification of Treatment,Re-positioning M4 PT-IP Mobility and Gait Start: 05/23/21 11:59 Freq: NEEDED Status: Active Protocol: Document 05/24/21 14:33 SP (Rec: 05/24/21 18:11 SP [id number]) PT-Bed Mobility Assessment Rolling Type of Rolling Log Rolling,Bilateral Level of Assist Standby Assistance Supine to Sit Supine to Sit Contact Guard Assistance,1 Person Assistance,Head of Bed Elevated,Bedrails Sit to Supine Sit to Supine Minimal Assistance,1 Person Assistance,Bedrails Scooting Scooting to Edge of Bed Standby Assistance PT-Transfer Assessment Sit to and From Stand Sit to and from Stand Maximum Assistance,1 Person Assistance,Use of Upper Extremities Equipment Transfer Assistive Device Gait Belt,Front Wheeled Walker Orthotic/Prosthetic Devices or Brace: No Transfers Transfer Destination Bed Transfer Technique STS only at EOB w/ FWW Comments Mobility Comments Pt orthostatic during mobility , nonsymptomatic in sitting willing to progress in standing if safe/ reported dizziness during dressing change in standing, BP decreased unsafe range. Pt required CGA elevated LR R> sit w/ bed rails, cued awareness of abdominal engagement minimal bracing for spinal stabilization. Sit> stand Max A x1 with support anterior knees to prevent buckling while self heavy BUE WB on FWW, unsteady BLE coming to standing. Stand>sit Mod A x1 with contact anterior thigh prevent buckling and anterior knee support, lateral scoot up EOB Max A x1 x3 scoots. sit >supine Min A for BLE support into bed. Able to reposition self with cues for ab bracing and bridge technique. pillows under B thighs for comfort to LB. Pt had call light and all needs in reach, bed alarmed for safety fall risk. BUFFER MACHINE provided larger BSC. TFs only if BP safe range recommending 2 person nursing. WIll continue to assess progress. Gait Assessment Comments Gait Comments STS only at EOB due to weakeness during dressing change by nursing, decrease strength and decrease BP unableto progress gait this tx . Stair Climbing Assessment Comments Stair Climbing Comments no stairs required to assess. PT-Balance Assessment Sitting Balance and Reactions Static Sitting Balance Ability Good Dynamic Sitting Balance Ability Good Standing Balance and Reactions Static Standing Balance Ability Fair Dynamic Standing Balance Ability Poor Device Used FWW M5 PT-IP Objective Assessments Start: 05/23/21 11:59 Freq: NEEDED Status: Active Protocol: Document 05/23/21 10:11 AB (Rec: 05/23/21 12:22 AB [id number]) Orientation Orientation/Cognition Level of Alertness Alert Orientation Name,Age,Birthday,Month,Date, Year,Day of Week,Place, Situation Language Function Ability No Deficits Noted Safety Awareness Decreased Safety Awareness Memory Description Short Term Impaired Gross Range of Motion Lower Extremity ROM Assessment Within Functional Limits Strength Lower Extremity Strength Assessment Bilaterally Impaired Comments Strength Comments LLE: 4-/5 RLE: 3+/5 Sensation Assessment Sensation Gross Sensation Right LE Impaired,Left LE Impaired Light Touch Impaired Proprioception (Position) Impaired Sensation Description Numbness Comments Sensation Comments stated chronic numbness on BLE : lower leg to B feet Muscle Tone Muscle Tone WNL Yes M6 PT-IP Treatment Start: 05/23/21 11:59 Freq: NEEDED Status: Active Protocol: Document 05/24/21 14:33 SP (Rec: 05/24/21 18:11 SP [id number]) Physical Therapy Treatment Exercises Exercises Ankle Pumps,Heel Slides,Seated Knee Flexion/Extension Education Education Provided Precautions,Weight Bearing Status,Safety Other Treatments Other Treatment Performed Discussed AP, heel slides, quad sets for strengthending w / TA engagement for spinal stabilization. Good feedback response able to do while not ableto stand efficiently. M7 PT-IP Assessment and Plan Start: 05/23/21 11:59 Freq: NEEDED Status: Active Protocol: Document 05/24/21 14:33 SP (Rec: 05/24/21 18:11 SP [id number]) PT Summary Assessment and Plan Potential Rehabilitation Potential Fair Status of Condition at Evaluation Evolving Summary Impairments Pain,ROM,Strength,Balance, Coordination,Sensation,Tone, Cognition,Bed Mobility, Transfers,Gait,Activity Tolerance Progress Towards Goals Slow Progress due to Pain,Slow Progress due to Medical Issues,Slow Progress due to Activity Tolerance Assessment Summary Pt requires CGA bed mob with HOB elevated. Sit<>Stand heavy Max A x1, support anterior knees and cues quad facilitation to come standing safely. Min A for sit>supine. Pt will require SNF for progress in strength toward functional mobility when safe to DC if stable BP. Will continue to assess progress. Goals Bed Mobility Goal Standby Assistance Transfer Goal Standby Assistance,Front Wheeled Walker Gait Goal Standby Assistance,Front Wheel Walker Gait Distance 250 Days to Meet Goals 5 Frequency of Treatment Frequency Of Treatment Twice a Day Treatment Plan Physical Therapy Treatment Plan Bed Mobility Training,Transfer Training,Gait Training, Therapeutic Exercise,Balance Retraining,Post Op Education, Discharge Planning,Hot or Cold Pack,Neuromuscular Re-ed, Coordination Retraining,Manual Therapy Other Recommendations and Next Treatment check orthstatic BP. bed mob, Focus transfer, gait if safe. Precautions Lumbar Precautions Log Roll,No Twisting,Limit Bending,Lifting Restriction of 10 lbs,Gait Belt above Incisional Area Recommendations To Nursing Amount of Assist Needed 2 Person Assist Discharge Recommendations PT Discharge Recommendations SNF Rehab Transportation Needs at Discharge Wheelchair/Cabulance
--- NOTE | 2021-05-24 15:00 | PC.NURSE ---
Day shift: Pt's dressing rolled up at this time. Replaced with Coversite. Op-site well approximated with no s/s of infection. PT in room at this time (1445) and Pt light headed when standing and able to tolerate standing for approx 4 minutes. BP 80/45 at this time as well. Pt back ion bed and supine BP of 135/74 and asymptomatic. Call light in reach and bed alarm is on. Encouraged foot waves and I.S. use as directed. Will continue with post-op plan of care.
[2021-05-24] MEDS: SENNOSIDES 8.6 MG TABLET 17.2 MG PO (20:36)
[2021-05-24] MEDS: ATORVASTATIN 20 MG TABLET 10 MG PO (20:36)
[2021-05-24] MEDS: SODIUM CHLORIDE 0.9% FLUSH 10 ML IV (20:37)
[2021-05-24] MEDS: LATANOPROST 0.005% OPHTH 2.5 ML 1 DROPS EYE-BOTH (20:37)
[2021-05-24] MEDS: hydrOXYzine pamoate 25 MG CAPSULE PO (20:37)
--- NOTE | 2021-05-24 21:24 | PC.NURSE ---
Patient is alert and oriented. Breath sounds CTA with RA sat of 96%. HRR. Patient declined hs Lisinopril as earlier today when up with PT he had become hypotensive; BP at start of shift was 118/57. Denied nausea. BT present and is passing flatus but reports his last BM was 3/6; received Senna + Colace and had MOM earlier today so was given prune juice. Denies dysuria, frequency or urgency with urination; voiding per urinal. Is able to turn himself in bed. Dressing to back is CDI. CMS is intact. Gait not assessed at this time. States pain was 4/10 but had been medicated with oxycodone at 1830 so given Vistaril with hs meds and is currently asleep; declined ice pack. Bilateral foot SCD's applied at time of assessment. Fall risk score is moderate; bed alarm is activated.
[2021-05-25] VITALS (9 sets, daily range): BP systolic 72–137; BP diastolic 52–73; PULSE 66–76; RESP 16–18; TEMP 36.7–37.2; O2SAT 94–98
[2021-05-25] MEDS: OXYCODONE IR 5 MG TABLET 10 MG PO ×2 (03:30→08:16)
[2021-05-25] MEDS: DOCUSATE 100 MG CAPSULE PO ×2 (08:16→20:02)
[2021-05-25] MEDS: MAGNESIUM HYDROXIDE 30 ML UDC PO (08:16)
[2021-05-25] MEDS: SODIUM CHLORIDE 0.9% FLUSH 10 ML IV ×2 (08:16→19:58)
--- NOTE | 2021-05-25 09:20 | CM.DPC ---
Addendum entered by Kay Nina R.N. 05/25/21 12:50: Patients blood pressure dropped again when PT stood him up. BP went to 72/52... patients Blood pressure is stable when sitting and lying down but has been dropping when he stands up. DC plan [facility]. DC on hold until tomorrow as long as patient is stable. Kay Nina RNnatural resources manager Original Note: DCP Continued: ERASMO spoke with Marla at [facility] who stated she can do transport for the patient today at 1PM and already has all the information PASRR complete and sent to facility. COvid swab done yesterday and results sent to August. CM let RN know of DC time. Nurse report number is [phone] given to nurse alexander. Patient transport set up for 1PM today. 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 Kay Nnia RNtube machine operator
--- NOTE | 2021-05-25 09:53 | PT.IPTN ---
Current Diagnoses Acute posthemorrhagic anemia (05/22/21) Spondylolisthesis, lumbar region (05/22/21) Arthrodesis status (05/22/21) Surgery Performed Operation Date: 05/22/21 07:45 Actual Procedures p L3-4, L4-5 TLIF w. posterior instrumentation-Robot - Tere Sierra MD Physical Therapy Treatment Note M2 PT-IP Current Condition Start: 05/23/21 11:59 Freq: NEEDED Status: Active Protocol: Document 05/24/21 14:33 SP (Rec: 05/24/21 18:11 SP [id number]) Physical Therapy Current Condition Current Condition Evaluation Date 05/23/21 Treatment Diagnosis s/p L3-4, L4-5 TLIF; difficulty in walking Onset Date 05/22/21 M3 PT-IP Subjective Start: 05/23/21 11:59 Freq: NEEDED Status: Active Protocol: Document 05/25/21 09:42 KS (Rec: 05/25/21 12:24 KS [id number]) Subjective Physical Therapy Visit Type Type Treatment Note Visit Start Time 09:42 Visit Stop Time 09:53 Total Visit Minutes 11 Notes Pt 72/52 standing, only able to do exercise in bed. Number of ELECTRICAL SIGN WIRER Visits 3 Physical Therapy Visit Comments Patient Comments agreeable to do PT M4 PT-IP Mobility and Gait Start: 05/23/21 11:59 Freq: NEEDED Status: Active Protocol: Document 05/25/21 09:42 KS (Rec: 05/25/21 12:24 KS [id number]) PT-Bed Mobility Assessment Rolling Type of Rolling Log Rolling,Roll to Right Level of Assist Standby Assistance Scooting Scooting Up and Down in Bed Standby Assistance PT-Transfer Assessment Comments Mobility Comments MASTIC SPRAYER had just taken pt vitals and pt remains orthostatic. 136/65 in supine, 101/53 sitting, and72/52 standing. Pt reported dizziness and lightheadedness that subsided when he got back into bed. Pt agreeable to reposition and perform leg exercises while supine. Pt SBA for logroll and scooting up to reposition in bed. He then performed 2x10 bilateral ankle pumps, quad sets, and glute sets. Gait Assessment Comments Gait Comments Unable due to orthostatic BP. Stair Climbing Assessment Comments Stair Climbing Comments no stairs required to assess. M5 PT-IP Objective Assessments Start: 05/23/21 11:59 Freq: NEEDED Status: Active Protocol: Document 05/23/21 10:11 AB (Rec: 05/23/21 12:22 AB [id number]) Orientation Orientation/Cognition Level of Alertness Alert Orientation Name,Age,Birthday,Month,Date, Year,Day of Week,Place, Situation Language Function Ability No Deficits Noted Safety Awareness Decreased Safety Awareness Memory Description Short Term Impaired Gross Range of Motion Lower Extremity ROM Assessment Within Functional Limits Strength Lower Extremity Strength Assessment Bilaterally Impaired Comments Strength Comments LLE: 4-/5 RLE: 3+/5 Sensation Assessment Sensation Gross Sensation Right LE Impaired,Left LE Impaired Light Touch Impaired Proprioception (Position) Impaired Sensation Description Numbness Comments Sensation Comments stated chronic numbness on BLE : lower leg to B feet Muscle Tone Muscle Tone WNL Yes M6 PT-IP Treatment Start: 05/23/21 11:59 Freq: NEEDED Status: Active Protocol: Document 05/25/21 09:42 KS (Rec: 05/25/21 12:24 KS [id number]) Physical Therapy Treatment Exercises Exercises Ankle Pumps,Gluteal Sets,Quad Sets Education Education Provided Precautions,Weight Bearing Status,Safety Other Treatments Other Treatment Performed Encouraged performance of LE strengthening exercises to promote blood flow and strengthening. M7 PT-IP Assessment and Plan Start: 05/23/21 11:59 Freq: NEEDED Status: Active Protocol: Document 05/25/21 09:42 KS (Rec: 05/25/21 12:24 KS [id number]) PT Summary Assessment and Plan Potential Rehabilitation Potential Fair Status of Condition at Evaluation Evolving Summary Impairments Pain,ROM,Strength,Balance, Coordination,Sensation,Tone, Cognition,Bed Mobility, Transfers,Gait,Activity Tolerance Progress Towards Goals Slow Progress due to Pain,Slow Progress due to Medical Issues,Slow Progress due to Activity Tolerance Assessment Summary Unable to get pt out of bed today due to low BP (72/52 in standing), however pt able to reposition himself in bed SBA< recall 3/3 spinal precautions , and perform LE exercises. Pt will require SNF to improve strength and functional mobility. Goals Bed Mobility Goal Standby Assistance Transfer Goal Standby Assistance,Front Wheeled Walker Gait Goal Standby Assistance,Front Wheel Walker Gait Distance 250 Days to Meet Goals 5 Frequency of Treatment Frequency Of Treatment Twice a Day Treatment Plan Physical Therapy Treatment Plan Bed Mobility Training,Transfer Training,Gait Training, Therapeutic Exercise,Balance Retraining,Post Op Education, Discharge Planning,Hot or Cold Pack,Neuromuscular Re-ed, Coordination Retraining,Manual Therapy Other Recommendations and Next Treatment check orthstatic BP. bed mob, Focus transfer, gait if safe. Precautions Lumbar Precautions Log Roll,No Twisting,Limit Bending,Lifting Restriction of 10 lbs,Gait Belt above Incisional Area Recommendations To Nursing Amount of Assist Needed 2 Person Assist Discharge Recommendations PT Discharge Recommendations SNF Rehab Transportation Needs at Discharge Wheelchair/Cabulance
--- NOTE | 2021-05-25 09:54 | OT.IP.TRT ---
Current Diagnoses Acute posthemorrhagic anemia (05/22/21) Spondylolisthesis, lumbar region (05/22/21) Arthrodesis status (05/22/21) Surgery Performed Operation Date: 05/22/21 07:45 Actual Procedures p L3-4, L4-5 TLIF w. posterior instrumentation-Robot - Tere Sierra MD Occupational Therapy Treatment Note M2 OT-IP Current Condition Start: 05/23/21 10:01 Freq: Status: Active Protocol: Document 05/23/21 10:01 [facility] (Rec: 05/23/21 10:30 [facility] [id number]) Occupational Therapy Current Condition Current Condition Evaluation Date 05/23/21 Treatment Diagnosis S/p L3-4, L4-5 TLIF Diagnosis Onset Date 05/22/21 Post Operative Precautions Lumbar Precautions Log Roll,No Twisting,Limit Bending,Lifting Restriction of 10 lbs,Gait Belt above Incisional Area M3 OT- IP Subjective and Pain Start: 05/23/21 10:01 Freq: Status: Active Protocol: Document 05/25/21 09:00 [facility] (Rec: 05/25/21 09:54 [facility] [id number]) OT- Subjective Occupational Therapy Visit Type Type Treatment Note Visit Start Time 09:00 Visit Stop Time 09:32 Total Visit Minutes 32 Occupational Therapy Visit Comments Patient Comments Pt wanting to get up. Patient/Caregiver Goals TO go home. OT Pain Assessment Pain When Pain Assessed At Rest Pain Present Pain Present Pain Reported Location Lower Back Intensity 7 Scale Used Numeric (0 - 10) M5 OT- IP IADL's Start: 05/23/21 10:01 Freq: Status: Active Protocol: Document 05/23/21 10:01 [facility] (Rec: 05/23/21 10:30 [facility] [id number]) OT-Instrumental Activities of Daily Living Home Safety Awareness Home Safety Comments Pt a little groggy from cox medications and states his will be able to assist with his needs at home as needed. M7 OT- IP Mobility and Balance Start: 05/23/21 10:01 Freq: Status: Active Protocol: Document 05/25/21 09:00 [facility] (Rec: 05/25/21 09:54 [facility] [id number]) OT- Bed Mobility Assessment Rolling Level of Assistance Standby Assistance Supine to Sit Supine to Sit Assist Contact Guard Assistance, Moderate Assistance,Bedrails Sit to Supine Sit to Supine Assist Moderate Assistance Scooting Scooting to Edge of Bed Standby Assistance OT-Transfer Assessment Sit to and From Stand Sit to and from Stand Moderate Assistance Comments Mobility Comments Without of grab bar pt needing initially MODA x1 to get upright, with use of grab bar the second time CGA to sit to the edge of the bed. MODA X1 to stand to FWW and with higher bed. BP supine 136/65, sitting 101/53, and after standing as unable to stand long enough to get his BP 72/52- pt complaining of feeling like he was going to pass out. Nursing notified. OT- Balance Assessment Sitting Balance and Reactions Static Sitting Balance Ability Good Standing Balance and Reactions Static Standing Balance Ability Poor M8 OT- IP Objective Assessments Start: 05/23/21 10:01 Freq: Status: Active Protocol: Document 05/23/21 10:01 [facility] (Rec: 05/23/21 10:30 [facility] [id number]) OT-Muscle Tone Assessment Muscle Tone WNL Yes M9 OT- IP Assessment and Plan Start: 05/23/21 10:01 Freq: Status: Active Protocol: Document 05/25/21 09:00 [facility] (Rec: 05/25/21 09:54 [facility] [id number]) OT Summary Assessment and Plan Potential Rehabilitation Potential Good Analytic Complexity at Evaluation Low Summary OT Impairments Pain,Balance,Functional Mobility,Dressing,Toileting, Bathing,Toilet Transfers, Shower Transfers,Activity Tolerance Progress Towards Goals Slow Progress due to Pain,Slow Progress due to Medical Issues Assessment Summary Pt still having orthostatic BP which impedes his ability to get up and move. Pt also needing MODA for bed mobility needs and to be able to come to stand as his knee tend to buckle. Pt looking to go to skilled rehab when medically stable. Goals Dressing Goal Independent Toileting Goal Independent Bathing Goal Independent Toilet Transfer Goal Independent Shower Transfer Goal Independent Patient/Caregiver Education Goal Demonstrate Post-Op Precautions Days to Meet Goals 10 Frequency of Treatment Frequency Of Treatment Once a Day Treatment Plan OT Treatment Plan ADL Training,Functional Mobility,Patient/Family Education,Discharge Planning Discharge Recommendations OT Discharge Recommendations SNF Rehab Transportation Needs at Discharge Wheelchair/Cabulance
[2021-05-25] MEDS: ACETAMINOPHEN 325 MG TABLET 650 MG PO ×2 (14:46→19:57)
--- NOTE | 2021-05-25 15:25 | PT.IPTN ---
Current Diagnoses Acute posthemorrhagic anemia (05/22/21) Spondylolisthesis, lumbar region (05/22/21) Arthrodesis status (05/22/21) Surgery Performed Operation Date: 05/22/21 07:45 Actual Procedures p L3-4, L4-5 TLIF w. posterior instrumentation-Robot - Tere Sierra MD Physical Therapy Treatment Note M2 PT-IP Current Condition Start: 05/23/21 11:59 Freq: NEEDED Status: Active Protocol: Document 05/24/21 14:33 SP (Rec: 05/24/21 18:11 SP [id number]) Physical Therapy Current Condition Current Condition Evaluation Date 05/23/21 Treatment Diagnosis s/p L3-4, L4-5 TLIF; difficulty in walking Onset Date 05/22/21 M3 PT-IP Subjective Start: 05/23/21 11:59 Freq: NEEDED Status: Active Protocol: Document 05/25/21 14:59 KS (Rec: 05/25/21 16:18 KS [id number]) Subjective Physical Therapy Visit Type Type Treatment Note Visit Start Time 14:59 Visit Stop Time 15:25 Total Visit Minutes 26 Notes BP: 124/59 supine 123/64 sitting 99/46 standing 117/51 standing 104/50 standing Number of CONTAINER MAKER Visits 4 Physical Therapy Visit Comments Patient Comments agreeable to do PT M4 PT-IP Mobility and Gait Start: 05/23/21 11:59 Freq: NEEDED Status: Active Protocol: Document 05/25/21 14:59 KS (Rec: 05/25/21 16:18 KS [id number]) PT-Bed Mobility Assessment Rolling Type of Rolling Log Rolling,Roll to Right Level of Assist Standby Assistance Supine to Sit Supine to Sit Contact Guard Assistance,1 Person Assistance,Head of Bed Elevated,Bedrails Sit to Supine Sit to Supine Minimal Assistance,1 Person Assistance,Bedrails PT-Transfer Assessment Sit to and From Stand Sit to and from Stand Moderate Assistance,1 Person Assistance,Use of Upper Extremities Equipment Transfer Assistive Device Gait Belt,Front Wheeled Walker Orthotic/Prosthetic Devices or Brace: No Transfers Transfer Destination Bed,Chair Transfer Technique Pt ambulated w/ FWW Transfer Ability Level of Assist Moderate Assistance,1 Person Assistance,Use of Upper Extremities Comments Mobility Comments Pt in bed upon arrival, SBA for logroll, CGA for sup<>sit. Mod A and slightly raised bed for sit<>Stand w/ FWW. Pt then performed stand step pivot to chair, Min A for slow descent and cues for hand placement. Pt sit<>stand Mod A and ambulated ~20 ft w/ some light headedness reported. Decreased stride and foot clearance, but good use of FWW . Min A for sit<>sup for LE elevation into bed. Gait Assessment Gait Gait Assistance Required: Contact Guard Assist,1 Person Assist Distance (Feet) 20 Assistive Devices Assistive Device Gait Belt,Front Wheeled Walker Comments Gait Comments Pts blood pressure more stable this afternoon and pt less symptomatic. Stair Climbing Assessment Comments Stair Climbing Comments no stairs required to assess. PT-Balance Assessment Sitting Balance and Reactions Static Sitting Balance Ability Good Dynamic Sitting Balance Ability Good Standing Balance and Reactions Static Standing Balance Ability Fair Dynamic Standing Balance Ability Fair Device Used FWW M5 PT-IP Objective Assessments Start: 05/23/21 11:59 Freq: NEEDED Status: Active Protocol: Document 05/23/21 10:11 AB (Rec: 05/23/21 12:22 AB [id number]) Orientation Orientation/Cognition Level of Alertness Alert Orientation Name,Age,Birthday,Month,Date, Year,Day of Week,Place, Situation Language Function Ability No Deficits Noted Safety Awareness Decreased Safety Awareness Memory Description Short Term Impaired Gross Range of Motion Lower Extremity ROM Assessment Within Functional Limits Strength Lower Extremity Strength Assessment Bilaterally Impaired Comments Strength Comments LLE: 4-/5 RLE: 3+/5 Sensation Assessment Sensation Gross Sensation Right LE Impaired,Left LE Impaired Light Touch Impaired Proprioception (Position) Impaired Sensation Description Numbness Comments Sensation Comments stated chronic numbness on BLE : lower leg to B feet Muscle Tone Muscle Tone WNL Yes M6 PT-IP Treatment Start: 05/23/21 11:59 Freq: NEEDED Status: Active Protocol: Document 05/25/21 14:59 KS (Rec: 05/25/21 16:18 KS [id number]) Physical Therapy Treatment Exercises Exercises Ankle Pumps Education Education Provided Precautions,Weight Bearing Status,Safety Other Treatments Other Treatment Performed Encouraged performance of LE strengthening exercises to promote blood flow and strengthening. M7 PT-IP Assessment and Plan Start: 05/23/21 11:59 Freq: NEEDED Status: Active Protocol: Document 05/25/21 14:59 KS (Rec: 05/25/21 16:18 KS [id number]) PT Summary Assessment and Plan Potential Rehabilitation Potential Fair Status of Condition at Evaluation Evolving Summary Impairments Pain,ROM,Strength,Balance, Coordination,Sensation,Tone, Cognition,Bed Mobility, Transfers,Gait,Activity Tolerance Progress Towards Goals Slow Progress due to Pain,Slow Progress due to Medical Issues,Slow Progress due to Activity Tolerance Assessment Summary Able to progress pt this PM slightly due to higher and mor stable BP and less symtpoms. Pt SBA to CGA for bed mobility , but Mod to MAx for sit<> stand w/ FWW w/ cues for hand placement. Ambulated 20 ft and perfrmed [address] but very fatigued following. He will require SNF to improve strength, activity tolerance and mobility. Goals Bed Mobility Goal Standby Assistance Transfer Goal Standby Assistance,Front Wheeled Walker Gait Goal Standby Assistance,Front Wheel Walker Gait Distance 250 Days to Meet Goals 5 Frequency of Treatment Frequency Of Treatment Twice a Day Treatment Plan Physical Therapy Treatment Plan Bed Mobility Training,Transfer Training,Gait Training, Therapeutic Exercise,Balance Retraining,Post Op Education, Discharge Planning,Hot or Cold Pack,Neuromuscular Re-ed, Coordination Retraining,Manual Therapy Other Recommendations and Next Treatment check orthstatic BP. bed mob, Focus transfer, gait if safe. Precautions Lumbar Precautions Log Roll,No Twisting,Limit Bending,Lifting Restriction of 10 lbs,Gait Belt above Incisional Area Recommendations To Nursing Amount of Assist Needed 2 Person Assist Discharge Recommendations PT Discharge Recommendations SNF Rehab Transportation Needs at Discharge Wheelchair/Cabulance
[2021-05-25] MEDS: SODIUM CHLORIDE 0.9% 1,000 ML 500 ML IV (16:18)
[2021-05-25] MEDS: SENNOSIDES 8.6 MG TABLET 17.2 MG PO (19:59)
[2021-05-25] MEDS: ATORVASTATIN 20 MG TABLET 10 MG PO (20:01)
[2021-05-25] MEDS: lisinopriL 10 MG TABLET PO (20:02)
[2021-05-25] MEDS: LATANOPROST 0.005% OPHTH 2.5 ML 1 DROPS EYE-BOTH (20:03)
[2021-05-26] MEDS: OXYCODONE IR 5 MG TABLET 10 MG PO (00:44)
[2021-05-26 01:00] VITALS: BP 131/71; PULSE 68; RESP 16; TEMP 36.6; O2SAT 97
[2021-05-26] MEDS: ACETAMINOPHEN 325 MG TABLET 650 MG PO (04:50)
[2021-05-26 06:15] VITALS: BP 125/55; PULSE 72; RESP 16; TEMP 37.1; O2SAT 98
[2021-05-26 07:23] LABS: Hematocrit 36.3 % (41-53); Hemoglobin 12.2 g/dL (13.5-17.5); Mean Corpuscular HGB Conc 33.6 % (30-36); Mean Corpuscular Hemoglobin 31.5 PG (26-34); Mean Corpuscular Volume 93.8 fL (80-100); Platelet Count 173 X10^3/uL (150-400); Red Blood Cell Count 3.87 X10^6/uL (4.5-5.9); Red Cell Distribution Width 13.2 % (11.6-14.8); White Blood Cell Count 6.6 X10^3/uL (4.5-11.0)
[2021-05-26 07:36] LABS: Alanine Aminotransferase 19 IU/L (<50); Albumin 3.8 g/dL (3.5-5.0); Albumin Globulin Ratio 1.2 (1.0-2.8); Alkaline Phosphatase 53 U/L (38-126); Aspartate Aminotransferase 32 IU/L (17-59); BUN Creatinine Ratio 21.8 (6-22); Bilirubin Total 0.9 mg/dL (0.2-1.3); Blood Urea Nitrogen 17 mg/dL (9-20); Calcium 8.9 mg/dL (8.4-10.2); Carbon Dioxide 32 mmol/L (22-32); Chloride 100 mmol/L (98-107); Estimated Glomerular Filt Rate > 60.0 mL/min (>60); Globulin 3.2 g/dL (1.7-4.1); Glucose 117 mg/dL (80-110); HEMOLYSIS < 15 (0-50); Potassium 4.1 mmol/L (3.4-5.1); Sodium 136 mmol/L (137-145)
[2021-05-26] MEDS: DOCUSATE 100 MG CAPSULE PO (07:58)
[2021-05-26] MEDS: MAGNESIUM HYDROXIDE 30 ML UDC PO (07:58)
[2021-05-26] MEDS: SODIUM CHLORIDE 0.9% FLUSH 10 ML IV (07:58)
--- NOTE | 2021-05-26 08:51 | PM.DS.1 ---
History of Present Illness History of Present Illness Date Patient Seen: 05/26/21 Time Patient Seen: 08:52 Chief complaint: Low back pain s/p lumbar TLIF Narrative: Patient is complaining of mild low back pain this morning. He is asymptomatic with his orthostatic hypertension. Overall he is feeling well like to be discharged home today. He denies any new numbness or tingling, he does have persisting left thigh numbness which was present prior to surgery. He notes his hip/groin pain and sciatica have resolved since surgery. Discharge Providers Provider Date of admission: 05/22/21 06:06 Discharge Date: 05/26/21 Primary care physician: Ricardo Reinoso MD Consults: 05/22/21 14:04 Consult to Occupational Therapy Evaluate & Treat Comment: Physician Instructions: Evaluate and treat Consult to Physical Therapy Evaluate & Treat Comment: Physician Instructions: Evaluate and Treat Discharge provider: Neetu Choe PA-C Summary Hospital Course Discharge Diagnosis: 1. L3-4, L4-5 spinal stenosis with radiculopathy 2. L3-4, L4-5 spondylolisthesis. 3. Orthostatic hypotension, resolved 4. Acute blood-loss anemia Hospital Course: Operative Date/Time/Diagnoses Date of procedure: 05/22/21 Time of procedure: 07:45 Procedure & Clinicians Procedure: 1. L3-4, L4-5 Postero-lateral and posterior interbody fusion 2. L3-4, L4-5 interbody cage placement. 3. L3-4, L4-5 decompressive laminectomy with bilateral facetecomies 4. L3-4, L4-5 Posterior segmental instrumentation 5. [place] of bone marrow from iliac crest 6. Utilization of microsurgical technique and operating microscope Same procedure as scheduled: Yes Indications: Patient has been having chronic back pain and worsening lumbar radiculopathy. Patient failed multiple conservative management with worsening pain weakness and numbness in her lower extremity.? Patient has been having difficulty performing activity of daily living.? After discussing risks benefits of treatment options, patient elected proceed with surgery. Surgeon: Tere Sierra Sheet Metal Former: Tram Portillo Click Yes if Unassisted: No Anesthesia Type: General Operative Notes Closure Type: primary Specimen(s): none sent Prosthetic devices, grafts, tissues, transplants, or devices: Globus CREO MIS screws, Rise cage Applied: catheter Estimated Blood Loss (mL): 150 Status at Discharge Cognitive/behavioral status at discharge: oriented Functional status at discharge: uses cane/walker Overall status at discharge: patient is progressing back to baseline Exam Vital Signs (past 8 hours): - 05/26/21 01:00 05/26/21 06:15 Temperature 97.8 F 98.8 F Pulse Rate 68 72 Respiratory Rate 16 16 Blood Pressure 131/71 125/55 L Pulse Oximetry 97 98 Oxygen Delivery Method Room Air Oxygen Flow Rate 0 Narrative Exam Narrative: Pleasant 75-year-old male, resting comfortably in bed, no acute distress. Dressing demonstrates some scant dried bloody drainage on the left lateral incision. No surrounding erythema or induration. Bilateral lower extremities: Motor function is grossly intact, sensation is grossly intact to light touch, calves are soft and nontender to palpation. Objective Labs Result Diagrams: 05/26/21 06:22 05/26/21 06:22 Labs: Laboratory Results - last 24 hr 05/26/21 05/26/21 06:22 06:22 WBC 6.6 RBC 3.87 L Hgb 12.2 L Hct 36.3 L MCV 93.8 MCH 31.5 MCHC 33.6 RDW 13.2 Plt Count 173 Sodium 136 L Potassium 4.1 Chloride 100 Carbon Dioxide 32 BUN 17 Creatinine 0.78 Estimated GFR > 60.0 BUN/Creatinine Ratio 21.8 Glucose 117 H Calcium 8.9 Total Bilirubin 0.9 AST 32 ALT 19 Alkaline Phosphatase 53 Total Protein 7.0 Albumin 3.8 Globulin 3.2 Albumin/Globulin Ratio 1.2 [facility] Medical History Actinic keratosis (~2004) Ankle pain (~2009) Carpal tunnel syndrome (~2012) Cervical stenosis of spine Chicken pox (~1955) Chronic back pain (~1999) Foot pain (~2013) Glaucoma 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) Hiatal hernia Hypertension (~2013) Irritable bowel syndrome (~1999) Lumbago Measles (~1955) Migraines Mumps (~1955) Osteoarthritis (~2004) Pneumonia Shoulder pain (~2001) Tinnitus (~1969) Vertigo Surgical History Anesthesia 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) History of knee replacement (~05/2011) History of knee replacement (~09/2010) 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) Hx of carpal tunnel repair S/P cervical spinal fusion (06/13/18) Status post arthroscopy (~2006) Family History Brother Age: 80 Hypertension High cholesterol Stroke Brother Age: 81 Hypertension High cholesterol Father Heart disease Mother Hypertension High cholesterol Grandfather Heart disease Social History household members: spouse Smoking Status: Former smoker alcohol intake: current Discharge Assessment & Plan Assessment and Plan Assessment: 1) s/p L3-4, L4-5 transforaminal lumbar interbody fusion 2) acute anemia d/t intraoperative blood loss 3) episodic orthostatic hypotension Plan of Treatment: -mobilize with PT. Went weight-bearing as tolerated front wheel walker. Limit bending, lifting, twisting -continue with current multimodal pain management -DC home today once cleared by PT, as the patient is much improving Discharge Plan Discharge Plan Patient Disposition: Home Discharge orders & Medications Prescriptions: New acetaminophen 325 mg Tablet 650 mg PO Q6HR PRN (Reason: Pain, Mild (1-3)) Qty: 240 0RF docusate sodium 100 mg Capsule 100 mg PO BID PRN (Reason: constipation) Qty: 60 0RF hydroxyzine pamoate 25 mg Capsule 25 mg PO Q4HR PRN (Reason: muscle spasm) Qty: 180 0RF oxycodone 5 mg Tablet 10 mg PO Q4-6H PRN (Reason: Pain, Severe (7-10)) Qty: 42 0RF oxycodone 5 mg tablet 5 mg PO Q4H PRN (Reason: pain (scale score 7-10)) Qty: 60 0RF Continued latanoprost 0.005 % drops 1 drp EYE-BOTH HS Qty: 0 0RF lisinopril 10 mg tablet 10 mg PO BEDTIME Qty: 90 3RF simvastatin 10 mg tablet 10 mg PO BEDTIME Qty: 90 3RF Follow up/Referrals: Ricardo Reinoso MD [Primary Care Provider] - Tere Sierra MD [Physician] - As previously scheduled (Follow up with Dr Sierra on 06/06/2021 @ 10:30 am at [facility] Diet/Activity/Treatments Diet: Diet as Tolerated Activity: Walk frequently! No deep bending (more than 90 degrees) or twisting at the waist. No lifting more than 20 pounds. Skin/Wound/Dressing Care Report to your healthcare provider any signs of infection, such as:: chills, fever, night sweats, increased pain, unusual drainage and unusual redness Dressing: May shower. Keep incisions as dry as possible; change dressing if it becomes wet inside. No bathing or otherwise soaking incisions. Visit Report/Discharge Packet Instructions: DI for Prescription Opioid Use, DI for Transforaminal Lumbar Interbody Fusion Stand Alone Forms: Surgery Discharge Discharge Data Primary Care Provider: Ricardo Reinoso VTE Deep Vein Thrombosis/Pulmonary Embolism Present on Admission: No
--- NOTE | 2021-05-26 09:54 | PC.NURSE ---
Day shift: Pt working w/ PT this AM and his spouse in room. Pt hypotensive 80/40 when standing w/ c/o lightheadedness. Pt to sit in chair as long as tolerated and will again have caregiver training this early afternoon and hopefully be able to d/c home or SNF. Call light in reach. Pt agrees to not get OOB w/o help from staff.
--- NOTE | 2021-05-26 10:00 | PT.IPTN ---
Current Diagnoses Acute posthemorrhagic anemia (05/22/21) Spondylolisthesis, lumbar region (05/22/21) Arthrodesis status (05/22/21) Surgery Performed Operation Date: 05/22/21 07:45 Actual Procedures p L3-4, L4-5 TLIF w. posterior instrumentation-Robot - Tere Sierra MD Physical Therapy Treatment Note M2 PT-IP Current Condition Start: 05/23/21 11:59 Freq: NEEDED Status: Active Protocol: Document 05/24/21 14:33 SP (Rec: 05/24/21 18:11 SP [id number]) Physical Therapy Current Condition Current Condition Evaluation Date 05/23/21 Treatment Diagnosis s/p L3-4, L4-5 TLIF; difficulty in walking Onset Date 05/22/21 M3 PT-IP Subjective Start: 05/23/21 11:59 Freq: NEEDED Status: Active Protocol: Document 05/26/21 09:21 KS (Rec: 05/26/21 12:36 KS [id number]) Subjective Physical Therapy Visit Type Type Treatment Note Visit Start Time 09:21 Visit Stop Time 10:00 Total Visit Minutes 39 Notes BP: 127/50 sitting 97/48 standing 111/55 sitting 97/39 standing 107/58 sitting L arm 85/37 standing L arm Number of ROTO ROOTER OPERATOR Visits 5 Physical Therapy Visit Comments Patient Comments agreeable to do PT, present during treatment M4 PT-IP Mobility and Gait Start: 05/23/21 11:59 Freq: NEEDED Status: Active Protocol: Document 05/26/21 09:21 KS (Rec: 05/26/21 12:36 KS [id number]) PT-Bed Mobility Assessment Rolling Type of Rolling Log Rolling,Roll to Right Level of Assist Standby Assistance Supine to Sit Supine to Sit Contact Guard Assistance,1 Person Assistance,Head of Bed Elevated,Bedrails Scooting Scooting to Edge of Bed Standby Assistance PT-Transfer Assessment Sit to and From Stand Sit to and from Stand Contact Guard Assistance,1 Person Assistance,Use of Upper Extremities Equipment Transfer Assistive Device Gait Belt,Front Wheeled Walker Orthotic/Prosthetic Devices or Brace: No Transfers Transfer Destination Bed,Chair Transfer Technique Pt ambulated w/ FWW Transfer Ability Level of Assist Contact Guard Assistance, Minimal Assistance,1 Person Assistance,Use of Upper Extremities Comments Mobility Comments Pt in bed upon arrival w/ present. SBA for logroll and CGA for sup<>sit and scooting EOB. Pts BP: 127/50 sitting and denied dizziness. Pt sit<> stand CGA w/ FWW and cues for hand placement. BP: 97/48 and pt reports lightheadedness. Pt sat back down and BP: 111/55, after ~3 min pt sit<>Stand again CGA w/ FWW and BP: 97/39 and still lightheaded. Pt then sat back down, BP taken on L arm this time and 107/58 in sitting, 85/37 in standing. Pt ambulated ~3 ft to chair CGA nd left in chair w/ all needs in reach. Gait Assessment Gait Gait Assistance Required: Contact Guard Assist,1 Person Assist Distance (Feet) 3 Assistive Devices Assistive Device Gait Belt,Front Wheeled Walker Gait Deviations General Gait Pattern Antalgic,Decreased Stride Length,Decreased Feet Clearance,Lateral Trunk Lean, Narrow Based Gait,Step-to Gait Factors Limiting Gait Function Factors Limiting Gait Function Decreased Activity Tolerance, Decreased Sensation,Decreased Strength,Limited Range of Motion,Pain,Poor Balance,Poor Safety Awareness Comments Gait Comments Unable to progress gait due to symptomatic low BP. Stair Climbing Assessment Comments Stair Climbing Comments no stairs required to assess. PT-Balance Assessment Sitting Balance and Reactions Static Sitting Balance Ability Good Dynamic Sitting Balance Ability Good Standing Balance and Reactions Static Standing Balance Ability Fair Dynamic Standing Balance Ability Fair Device Used FWW M5 PT-IP Objective Assessments Start: 05/23/21 11:59 Freq: NEEDED Status: Active Protocol: Document 05/23/21 10:11 AB (Rec: 05/23/21 12:22 AB [id number]) Orientation Orientation/Cognition Level of Alertness Alert Orientation Name,Age,Birthday,Month,Date, Year,Day of Week,Place, Situation Language Function Ability No Deficits Noted Safety Awareness Decreased Safety Awareness Memory Description Short Term Impaired Gross Range of Motion Lower Extremity ROM Assessment Within Functional Limits Strength Lower Extremity Strength Assessment Bilaterally Impaired Comments Strength Comments LLE: 4-/5 RLE: 3+/5 Sensation Assessment Sensation Gross Sensation Right LE Impaired,Left LE Impaired Light Touch Impaired Proprioception (Position) Impaired Sensation Description Numbness Comments Sensation Comments stated chronic numbness on BLE : lower leg to B feet Muscle Tone Muscle Tone WNL Yes M6 PT-IP Treatment Start: 05/23/21 11:59 Freq: NEEDED Status: Active Protocol: Document 05/26/21 09:21 KS (Rec: 05/26/21 12:36 KS [id number]) Physical Therapy Treatment Exercises Exercises Ankle Pumps Education Education Provided Precautions,Weight Bearing Status,Safety Other Treatments Other Treatment Performed Encouraged performance of LE strengthening exercises to promote blood flow and strengthening. M7 PT-IP Assessment and Plan Start: 05/23/21 11:59 Freq: NEEDED Status: Active Protocol: Document 05/26/21 09:21 KS (Rec: 05/26/21 12:36 KS [id number]) PT Summary Assessment and Plan Potential Rehabilitation Potential Fair Status of Condition at Evaluation Evolving Summary Impairments Pain,ROM,Strength,Balance, Coordination,Sensation,Tone, Cognition,Bed Mobility, Transfers,Gait,Activity Tolerance Progress Towards Goals Slow Progress due to Pain,Slow Progress due to Medical Issues,Slow Progress due to Activity Tolerance Assessment Summary Pt remains limited by symptomatic low BP, however is requiring only SBA to CGA throughout treatment today w/ FWW and cues. Pts was present during treatment and demonstrated gait belt application and assist w/ sit< >stand if needed. Pt states he will need to ambulate ~100 ft to enter his home, but we have been unable to complete due to low bp. Will continue to assess as appropriate. Goals Bed Mobility Goal Standby Assistance Transfer Goal Standby Assistance,Front Wheeled Walker Gait Goal Standby Assistance,Front Wheel Walker Gait Distance 250 Days to Meet Goals 5 Frequency of Treatment Frequency Of Treatment Twice a Day Treatment Plan Physical Therapy Treatment Plan Bed Mobility Training,Transfer Training,Gait Training, Therapeutic Exercise,Balance Retraining,Post Op Education, Discharge Planning,Hot or Cold Pack,Neuromuscular Re-ed, Coordination Retraining,Manual Therapy Other Recommendations and Next Treatment check orthstatic BP. bed mob, Focus transfer, gait if safe. Precautions Lumbar Precautions Log Roll,No Twisting,Limit Bending,Lifting Restriction of 10 lbs,Gait Belt above Incisional Area Recommendations To Nursing Amount of Assist Needed 2 Person Assist Discharge Recommendations PT Discharge Recommendations SNF Rehab Transportation Needs at Discharge Wheelchair/Cabulance
--- NOTE | 2021-05-26 14:29 | PT.IPTN ---
Current Diagnoses Acute posthemorrhagic anemia (05/22/21) Spondylolisthesis, lumbar region (05/22/21) Arthrodesis status (05/22/21) Surgery Performed Operation Date: 05/22/21 07:45 Actual Procedures p L3-4, L4-5 TLIF w. posterior instrumentation-Robot - Tere Sierra MD Physical Therapy Treatment Note M2 PT-IP Current Condition Start: 05/23/21 11:59 Freq: NEEDED Status: Active Protocol: Document 05/24/21 14:33 SP (Rec: 05/24/21 18:11 SP [id number]) Physical Therapy Current Condition Current Condition Evaluation Date 05/23/21 Treatment Diagnosis s/p L3-4, L4-5 TLIF; difficulty in walking Onset Date 05/22/21 M3 PT-IP Subjective Start: 05/23/21 11:59 Freq: NEEDED Status: Active Protocol: Document 05/26/21 14:09 KS (Rec: 05/26/21 15:16 KS [id number]) Subjective Physical Therapy Visit Type Type Treatment Note Visit Start Time 14:09 Visit Stop Time 14:29 Total Visit Minutes 20 Notes BP: 111/51 sitting 92/53 standing 150/67 supine Number of SHAREPOINT ARCHITECT Visits 6 Physical Therapy Visit Comments Patient Comments agreeable to do PT, present during treatment M4 PT-IP Mobility and Gait Start: 05/23/21 11:59 Freq: NEEDED Status: Active Protocol: Document 05/26/21 14:09 KS (Rec: 05/26/21 15:16 KS [id number]) PT-Bed Mobility Assessment Rolling Type of Rolling Log Rolling,Roll to Right Level of Assist Standby Assistance Supine to Sit Supine to Sit Standby Assistance,1 Person Assistance Sit to Supine Sit to Supine Standby Assistance Scooting Scooting to Edge of Bed Standby Assistance PT-Transfer Assessment Sit to and From Stand Sit to and from Stand Standby Assistance,1 Person Assistance,Use of Upper Extremities Equipment Transfer Assistive Device Gait Belt,Front Wheeled Walker Orthotic/Prosthetic Devices or Brace: No Transfers Transfer Destination Bed Transfer Technique Pt ambulated w/ FWW Transfer Ability Level of Assist Standby Assistance,Contact Guard Assistance,1 Person Assistance,Use of Upper Extremities Comments Mobility Comments Pt in bed upon arrival w/ in room. Able to recall all spinal precautions. SBA for logroll and sup<>sit, BP: 111/ 51 pt sit<>stand w/ FWW SBA and stood for 2 min, BP: 92/53 and asymptomatic. Pt then ambulated ~80 ft around room w / CGA by this SHAREPOINT ARCHITECT and then pts . Pt returned to bed and SBA for sit<>sup. Pts BP: 150/ 67 supine. Pt denied lightheadedness during mobility. Gait Assessment Gait Gait Assistance Required: Contact Guard Assist,1 Person Assist Distance (Feet) 80 Assistive Devices Assistive Device Gait Belt,Front Wheeled Walker Gait Deviations General Gait Pattern Antalgic,Decreased Stride Length,Decreased Feet Clearance,Lateral Trunk Lean, Narrow Based Gait,Step-to Gait Factors Limiting Gait Function Factors Limiting Gait Function Decreased Activity Tolerance, Decreased Sensation,Decreased Strength,Limited Range of Motion,Pain,Poor Balance,Poor Safety Awareness Comments Gait Comments Able to ambulate 80 ft w/ FWW CGA, very minimal weight through FWW. Stair Climbing Assessment Comments Stair Climbing Comments no stairs required to assess. PT-Balance Assessment Sitting Balance and Reactions Static Sitting Balance Ability Good Dynamic Sitting Balance Ability Good Standing Balance and Reactions Static Standing Balance Ability Fair Dynamic Standing Balance Ability Fair Device Used FWW M5 PT-IP Objective Assessments Start: 05/23/21 11:59 Freq: NEEDED Status: Active Protocol: Document 05/23/21 10:11 AB (Rec: 05/23/21 12:22 AB [id number]) Orientation Orientation/Cognition Level of Alertness Alert Orientation Name,Age,Birthday,Month,Date, Year,Day of Week,Place, Situation Language Function Ability No Deficits Noted Safety Awareness Decreased Safety Awareness Memory Description Short Term Impaired Gross Range of Motion Lower Extremity ROM Assessment Within Functional Limits Strength Lower Extremity Strength Assessment Bilaterally Impaired Comments Strength Comments LLE: 4-/5 RLE: 3+/5 Sensation Assessment Sensation Gross Sensation Right LE Impaired,Left LE Impaired Light Touch Impaired Proprioception (Position) Impaired Sensation Description Numbness Comments Sensation Comments stated chronic numbness on BLE : lower leg to B feet Muscle Tone Muscle Tone WNL Yes M6 PT-IP Treatment Start: 05/23/21 11:59 Freq: NEEDED Status: Active Protocol: Document 05/26/21 14:09 KS (Rec: 05/26/21 15:16 KS [id number]) Physical Therapy Treatment Education Education Provided Precautions,Weight Bearing Status,Safety Other Treatments Other Treatment Performed Continued caregiver training w / pts who understands application of gait belt and how to prive assist w/ bed mobility, transfers, and ambulation althought pt only SBA to CGA at this time. M7 PT-IP Assessment and Plan Start: 05/23/21 11:59 Freq: NEEDED Status: Active Protocol: Document 05/26/21 14:09 KS (Rec: 05/26/21 15:16 KS [id number]) PT Summary Assessment and Plan Potential Rehabilitation Potential Fair Status of Condition at Evaluation Evolving Summary Impairments Pain,ROM,Strength,Balance, Coordination,Sensation,Tone, Cognition,Bed Mobility, Transfers,Gait,Activity Tolerance Progress Towards Goals Slow Progress due to Pain,Slow Progress due to Medical Issues,Slow Progress due to Activity Tolerance Assessment Summary Pt remains orthostatic but is now asymptomatic. SBA for bed mobility and transfers w/ FWW, able to ambulate 80 ft w/ FWW minimal weight bearing through BUE and no LOB CGA. Pt denied any symptoms of orthostaic BP, but is 92/53 while standing compared to 150 /67 supine. Pt states he feels safe mobility grossman at home and so does , but is concerned about low BP. Goals Bed Mobility Goal Standby Assistance Transfer Goal Standby Assistance,Front Wheeled Walker Gait Goal Standby Assistance,Front Wheel Walker Gait Distance 250 Days to Meet Goals 5 Frequency of Treatment Frequency Of Treatment Twice a Day Treatment Plan Physical Therapy Treatment Plan Bed Mobility Training,Transfer Training,Gait Training, Therapeutic Exercise,Balance Retraining,Post Op Education, Discharge Planning,Hot or Cold Pack,Neuromuscular Re-ed, Coordination Retraining,Manual Therapy Other Recommendations and Next Treatment check orthstatic BP. bed mob, Focus transfer, gait if safe. Precautions Lumbar Precautions Log Roll,No Twisting,Limit Bending,Lifting Restriction of 10 lbs,Gait Belt above Incisional Area Recommendations To Nursing Amount of Assist Needed 2 Person Assist Discharge Recommendations PT Discharge Recommendations SNF Rehab Transportation Needs at Discharge Wheelchair/Cabulance
--- NOTE | 2021-05-26 16:45 | OT.IP.TRT ---
Current Diagnoses Acute posthemorrhagic anemia (05/22/21) Spondylolisthesis, lumbar region (05/22/21) Arthrodesis status (05/22/21) Surgery Performed Operation Date: 05/22/21 07:45 Actual Procedures p L3-4, L4-5 TLIF w. posterior instrumentation-Robot - Tere Sierra MD Occupational Therapy Treatment Note M2 OT-IP Current Condition Start: 05/23/21 10:01 Freq: Status: Active Protocol: Document 05/23/21 10:01 [facility] (Rec: 05/23/21 10:30 [facility] [id number]) Occupational Therapy Current Condition Current Condition Evaluation Date 05/23/21 Treatment Diagnosis S/p L3-4, L4-5 TLIF Diagnosis Onset Date 05/22/21 Post Operative Precautions Lumbar Precautions Log Roll,No Twisting,Limit Bending,Lifting Restriction of 10 lbs,Gait Belt above Incisional Area M3 OT- IP Subjective and Pain Start: 05/23/21 10:01 Freq: Status: Active Protocol: Document 05/26/21 16:45 [facility] (Rec: 05/26/21 17:42 [facility] [id number]) OT- Subjective Occupational Therapy Visit Type Type Treatment Note Visit Start Time 16:05 Visit Stop Time 16:45 Total Visit Minutes 40 Occupational Therapy Visit Comments Patient Comments Pt wanting to shower and his was present for caregiver training. Patient/Caregiver Goals TO go home. OT Pain Assessment Pain When Pain Assessed At Rest Pain Present Pain Present Denied Pain M4 OT- IP ADL's Start: 05/23/21 10:01 Freq: Status: Active Protocol: Document 05/26/21 16:45 [facility] (Rec: 05/26/21 17:42 [facility] [id number]) OT QAD-Bjif-Rldvvcp General Evaluation Self-Feeding Ability Independent OT ADL-Grooming General Evaluation Areas Needing Assistance Retrieving/Set-up of Grooming Items OT ADL-Dressing General Eval Lower Body Dressing Ability Maximum Assistance Areas Needing Assistance Underpants/Brief,Pants/Shorts, Socks Comments OT Dressing Comments Pt too tired from showering and wanting his to assist for his shower. Pt's able to get raised toilet seat , sock aid, and shower chair for the pt. Pt's unable to assist with socks due to bad right arm and therefore pt to use sock aid or not wear sock at this time. OT ADL-Toileting General Evaluation Toileting Ability Standby Assistance Comments OT Toileting Comments Pt needing cues for completeness after a bowel movement and was easier to use wipes and stand to be able to reach appropriately. OT ADL-Bathing General Evaluation Bathing Ability Moderate Assistance Areas Needing Assistance Wash/Dry Upper Body,Wash/Dry Lower Extremities M6 OT- IP Functional Cognition Start: 05/23/21 10:01 Freq: Status: Active Protocol: Document 05/26/21 16:45 [facility] (Rec: 05/26/21 17:42 [facility] [id number]) Cognitive Factors Limiting Selfcare Function Cognitive Comments Cognitive Assessment Comments Intact just needing reminders to move slowly. M7 OT- IP Mobility and Balance Start: 05/23/21 10:01 Freq: Status: Active Protocol: Document 05/26/21 16:45 [facility] (Rec: 05/26/21 17:42 [facility] [id number]) OT- Bed Mobility Assessment Supine to Sit Supine to Sit Assist Standby Assistance Sit to Supine Sit to Supine Assist Standby Assistance OT-Transfer Assessment Sit to and From Stand Sit to and from Stand Standby Assistance Transfers Transfer Ability Standby Assistance,Contact Guard Assistance Technique Transfer Destination Bed,Chair,Shower Stall Transfer Technique Stand Step Pivot Devices Transfer Assistive Devices Gait Belt,Front Wheeled Walker Comments Mobility Comments Pt's able to raven/doff gait belt and able to assist pt to be able to simulate stepping into and out of the tub/shower, and mobility in the room with good safety. M8 OT- IP Objective Assessments Start: 05/23/21 10:01 Freq: Status: Active Protocol: Document 05/23/21 10:01 [facility] (Rec: 05/23/21 10:30 [facility] [id number]) OT-Muscle Tone Assessment Muscle Tone WNL Yes M9 OT- IP Assessment and Plan Start: 05/23/21 10:01 Freq: Status: Active Protocol: Document 05/26/21 16:45 [facility] (Rec: 05/26/21 17:42 [facility] [id number]) OT Summary Assessment and Plan Potential Rehabilitation Potential Good Analytic Complexity at Evaluation Low Summary Progress Towards Goals Progressing Toward Goals Assessment Summary Pt able to complete caregiver training with his with good safety and understanding for dressing,toileting, and showering needs. Pt's needing reassurance, emphasized for pt and to communicate needs, and take there time. There is 50 ft from the garage to the front door and suggested if needed to have a chair so pt can rest half way if needed. Pt to go home with his . Discharge Recommendations OT Discharge Recommendations Home with 24/7 Assist Available Transportation Needs at Discharge Private Vehicle
--- NOTE | 2021-05-26 17:36 | PC.NURSE ---
Day shift: Paperwork signed and all questions answered. This proposal manager writer has talked with MIAN Oliver and given her the update that Pt's BP stable and he wants to go home. Melody talked with Dr Sierra and Pt went home. Instructed Pt and on dressing change if needed. Pain has been well controlled with just Tylenol for the last 24 hrs approx. Pt had shower prior to d/c w/ OT. Spouse has been in room for this and PT session today. Pt was cleared by PT today as well r/t to his safety and mobility. CM informed as well of Pt's d/c today. Pt has all personal belongings. Pts' spouse picked up his new MD scripts. Left unit via [facility] w/ KUSH Roberson at approx [phone].
== END 2021-05-26 17:44 | disposition home or self-care (01) | DRG 983 ==
LOC: OR 06:07 → AC 06:29
PROVIDERS: Physician Assistant; Admitting Provider Orthopaedic Surgery Orthopaedic Surgery of the Spine; Family Provider Family Medicine; PCP Family Medicine; Referring Provider Orthopaedic Surgery Orthopaedic Surgery of the Spine; Visit Provider Orthopaedic Surgery Orthopaedic Surgery of the Spine
PROC: 0SG10AJ Fusion of 2 or more Lumbar Vertebral Joints with Interbody Fusion Device, Posterior Approach, Anterior Column, Open Approach (ICD-10-PCS; principal; 2021-05-22 07:45)
DX: I95.1 Orthostatic hypotension (principal); M48.062 Spinal stenosis, lumbar region with neurogenic claudication; M43.16 Spondylolisthesis, lumbar region; M54.16 Radiculopathy, lumbar region; R51.9 Headache, unspecified; I10 Essential (primary) hypertension; H40.9 Unspecified glaucoma; Z20.822 Contact with and (suspected) exposure to COVID-19; Z87.891 Personal history of nicotine dependence
CPT/HCPCS: 36415; 72100; 76000; 80053; 82962; 85014; 85018; 85027; 87635; 97110; 97116; 97162; 97165; 97530; 97535; C9803; C1831; C9290; J0171; J0690; J1100; J1170; J2405; J2704; J3010

== ENCOUNTER → 2021-05-29 15:00 | Outpatient (ROUT) | payer MEDICARE, OTHER, SELFPAY ==
[2021-05-22 06:39] VITALS: BMI 27.7
[2021-05-29 16:31] LABS: Appearance Urine UA CLEAR; Bilirubin Urine UA NEGATIVE (NEGATIVE); Color Urine UA YELLOW; Glucose Urine UA NEGATIVE (Negative); Ketones Urine UA NEGATIVE (NEGATIVE); Leukocyte Esterase Urine UA NEGATIVE (NEGATIVE); Nitrite Urine UA NEGATIVE (Negative); Occult Blood Urine UA NEGATIVE (Negative); Protein Urine UA NEGATIVE (Negative); Urobilinogen Urine UA 0.2 E.U./dL (0.2); pH Urine UA 7.5 (4.5-8.0)
[2021-05-29 20:22] LABS: Bacteria Urine None Seen; Culture Indicated Urine Cult Not Indicated; RBC Urine None Seen (0-5/HPF); WBC Urine None Seen (0-5/HPF)
== END ==
PROVIDERS: Family Provider Family Medicine; PCP Family Medicine; Visit Provider Family Medicine
DX: R30.0 Dysuria (principal)
CPT/HCPCS: 81001

== ENCOUNTER → 2021-08-08 10:34 | Outpatient (CLI) | payer MEDICARE, OTHER, SELFPAY ==
[2021-05-22 06:39] VITALS: BMI 27.7
[2021-08-08 12:04] LABS: COVID19 -Nasal RAPID Negative (Negative)
== END ==
PROVIDERS: Family Provider Orthopaedic Surgery Orthopaedic Surgery of the Spine; PCP Family Medicine; Visit Provider Surgery
DX: Z20.822 Contact with and (suspected) exposure to COVID-19 (principal); Z01.812 Encounter for preprocedural laboratory examination
CPT/HCPCS: 87635; C9803

== ENCOUNTER 2021-08-10 14:01 | Day surgery (SDC) | payer MEDICARE, OTHER, SELFPAY ==
[2021-05-22 06:39] VITALS: BMI 27.7
--- NOTE | 2021-08-10 | PATH_ITS ---
[facility] Accession Number: [id number] . 01 Material submitted: . sigmoid colon - SIGMOID COLON POLYP . 01 Diagnosis: Sigmoid Colon, Polyp, Biopsy: Hyperplastic polyp. MRV 08/15/2021 1334 Local . 01 Electronically signed: . Tamara Baird MD, Pathologist NPI- [id number] . 01 Gross description: . SIGMOID COLON POLYP: Received in formalin are multiple fragment(s) of corrales, soft tissue measuring 0.5 x 0.5 x 0.1 cm in aggregate submitted entirely in 1 cassette(s) /CPE 08/12/2021 0259 Local . 01 Pathologist provided ICD-10: K63.5 . 01 CPT . 721577 Specimen Comment: A courtesy copy of this report has been sent to [phone] Performed at: [address] [facility] [address] [place] [address], [place], [place] [id number] MD Gutierrez Hammonds MD Phone: [phone]
[2021-08-10 14:15] VITALS: BP 155/80; PULSE 74; RESP 18; TEMP 36.9; O2SAT 98; BMI 26.1
[2021-08-10] MEDS: LACTATED RINGERS 1,000 ML 42 ML IV (14:26)
--- NOTE | 2021-08-10 16:12 | PM.HP.1 ---
History of Present Illness History of Present Illness Date Patient Seen: 08/10/21 Time Patient Seen: 16:12 Chief complaint: DX COLONOSCOPY Narrative: Miki is a 75-year-old man who has had 2 colonoscopies. Last was about 6 years ago and polyps removed. He had been told to with turn in about 5 years. No known family history of colon cancer. 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) Hx of carpal tunnel repair S/P cervical spinal fusion (06/13/18) Status post arthroscopy (~2006) Family & Social History Family History Brother Age: 80 Hypertension High cholesterol Stroke Brother Age: 81 Hypertension High cholesterol Father Heart disease Mother Hypertension High cholesterol Grandfather Heart disease Social History: household members spouse Tobacco & Substance use: Tobacco type cigarettes Smoking Status Former smoker alcohol intake current alcohol intake frequency 0-2 drinks per day Substance Use Type does not use Meds Home Medications and Allergies Home Medications Medication Instructions Recorded Confirmed Type latanoprost 0.005 % eye drops 1 drp EYE-BOTH HS #0 03/22/16 08/10/21 History lisinopril 10 mg tablet 10 mg PO BEDTIME #90 tab 10/12/20 08/10/21 Rx simvastatin 10 mg tablet 10 mg PO BEDTIME #90 tab 10/12/20 08/10/21 Rx acetaminophen 325 mg tablet 650 mg PO Q6HR PRN #240 tab 05/23/21 08/10/21 Rx docusate sodium 100 mg capsule 100 mg PO BID PRN #60 cap 05/23/21 08/10/21 Rx sodium sul 1.479 gram-potas ch See Rx Instructions PO PER PKG DIR 07/31/21 Rx 0.188 gram-magnes sul 0.225 gram #24 tab tablet (Sutab) Allergies Allergy/AdvReac Type Severity Reaction Status Date / Time omeprazole [OMEPRAZOLE] AdvReac Mild BLOATING, Verified 05/22/21 06:44 CRAMPS meperidine [From Demerol] AdvReac Verified 05/22/21 06:56 Exam Vital Signs (past 8 hours): - 08/10/21 14:15 Temperature 98.5 F Pulse Rate 74 Respiratory Rate 18 Blood Pressure 155/80 H Pulse Oximetry 98 Oxygen Delivery Method Room Air Const General: healthy appearing Resp Effort & Inspection: normal respiratory effort Assessment & Plan Assessment and plan (1) History of colon polyps: Status: Acute Plan 75-year-old man with a history of polyps. We discussed the risks and benefits of colonoscopy and he would like to proceed Time Spent With Patient Critical Care time: I spent a total of [] minutes of critical care time on this patient's care today; this time is exclusive of procedural time.
[2021-08-10] MEDS: fentaNYL 250 MCG/5 ML INJ 200 MCG IV (16:50)
[2021-08-10] MEDS: MIDAZOLAM 5 MG/5 ML VIAL 1 MG IV (16:50)
[2021-08-10 17:00] VITALS: BP 133/70; PULSE 65; RESP 17; TEMP 36.5; O2SAT 96
[2021-08-10 17:05] VITALS: BP 119/67; PULSE 62; RESP 15; O2SAT 96
--- NOTE | 2021-08-10 17:08 | PM.OP.COLON ---
Operative Date/Time/Diagnoses Date of procedure: 08/10/21 Time of procedure: 17:08 Pre-op diagnosis: History of colon polyps Post-op diagnosis: same Procedure & Clinicians Study performed: Colonoscopy Same procedure as scheduled: Yes Procedure Notes Procedure in detail: Surgeon: Richar Perry MD Procedure: The patient was brought to the endoscopy suite, placed in left lateral decubitus position. The patient was connected to monitoring devices. A time-out was performed. Sedation was administered. Once the patient was adequately sedated, a digital rectal exam was performed and was normal. The scope was then inserted and advanced to the cecum where the appendiceal orifice was identified and photographed. The scope was then slowly withdrawn over greater than 6 minutes. Mucosa was thoroughly inspected. There was 1 polyp in the sigmoid colon which was about 6 mm and removed with cold snare. The scope was retroflexed in the rectum. No abnormalities were noted. The scope was straightened and removed. The patient was awakened and brought to recovery. Versed: 9 mg Fentanyl: 200 mcg EBL: 2 mL Findings: 6 mm sigmoid colon polyp Scope withdrawal time: 14 Sedation minutes: 37 Post-procedure Recommendations: Will call with biopsy results Disposition: PACU
[2021-08-10 17:10] VITALS: BP 123/70; PULSE 63; RESP 16; O2SAT 96
[2021-08-10 17:15] VITALS: BP 120/73; PULSE 65; RESP 14; O2SAT 97
[2021-08-10 17:23] VITALS: BP 133/70; PULSE 61; RESP 16; O2SAT 97
== END 2021-08-10 17:36 | disposition home or self-care (01) ==
PROVIDERS: Family Provider Orthopaedic Surgery Orthopaedic Surgery of the Spine; PCP Family Medicine; Referring Provider Surgery; Visit Provider Surgery
PROC: 0DJD8ZZ Inspection of Lower Intestinal Tract, Via Natural or Artificial Opening Endoscopic (ICD-10-PCS; CPT 45378; principal; 2021-08-10 15:15)
DX: Z12.11 Encounter for screening for malignant neoplasm of colon (principal); Z86.010 Personal history of colon polyps; K63.5 Polyp of colon
CPT/HCPCS: 45385; 99152; 99153; J2250; J3010

== ENCOUNTER → 2021-11-09 15:17 | Outpatient (CLI) | payer MEDICARE, OTHER, SELFPAY ==
[2021-05-22 06:39] VITALS: BMI 27.7
--- NOTE | 2021-11-09 15:20 | DI.US.S_ITS ---
PROCEDURE: US PERIPH VENOUS LOW EXTREM RT INDICATIONS: Please evaluate for DVT TECHNIQUE: Real-time imaging, as well as color and pulse Doppler interrogation, were performed of the lower extremity deep veins from the inguinal ligament to the popliteal fossa. COMPARISON: None. FINDINGS: The common femoral, femoral and popliteal veins are normally compressible, and free of intraluminal thrombus. Color and pulse Doppler demonstrate normal phasic intraluminal flow. There is normal augmentation response to distal compression maneuver. IMPRESSION: Negative for deep venous thrombosis. Dictated by: Neftali Malave M.D. on 11/09/2021 at 15:03 Approved by: Neftali Malave M.D. on 11/09/2021 at 15:04
== END ==
PROVIDERS: Family Provider Orthopaedic Surgery Orthopaedic Surgery of the Spine; PCP Family Medicine; Referring Provider Physician Assistant Medical; Visit Provider Physician Assistant Medical
DX: M79.661 Pain in right lower leg (principal)
CPT/HCPCS: 93971

== ENCOUNTER → 2021-11-13 15:40 | Outpatient (CLI) | payer MEDICARE, OTHER, SELFPAY ==
[2021-05-22 06:39] VITALS: BMI 27.7
--- NOTE | 2021-11-13 15:42 | DI.US.S_ITS ---
PROCEDURE: US PERIP VENOUS LOW EXTREM RT INDICATIONS: Please evaluate for DVT TECHNIQUE: Real-time imaging, as well as color and pulse Doppler interrogation, were performed of the lower extremity deep veins from the inguinal ligament to the popliteal fossa. COMPARISON: [facility], , [facility] VENOUS LOW EXTREM RT, 11/09/2021, 15:25. FINDINGS: The common femoral, femoral and popliteal veins are normally compressible, and free of intraluminal thrombus. Color and pulse Doppler demonstrate normal phasic intraluminal flow. There is normal augmentation response to distal compression maneuver. IMPRESSION: Negative for deep venous thrombosis. Dictated by: Neftali Malave M.D. on 11/13/2021 at 15:34 Approved by: Neftali Malave M.D. on 11/13/2021 at 15:35
== END ==
PROVIDERS: Family Provider Orthopaedic Surgery Orthopaedic Surgery of the Spine; PCP Family Medicine; Referring Provider Family Medicine; Visit Provider Family Medicine
DX: M79.89 Other specified soft tissue disorders (principal)
CPT/HCPCS: 93971

== ENCOUNTER → 2021-11-14 08:20 | Outpatient (CLI) | payer MEDICARE, OTHER, SELFPAY ==
[2021-05-22 06:39] VITALS: BMI 27.7
[2021-11-14 10:09] LABS: Add Manual Diff / Slide Review NO; Basophils Absolute Auto 0 /uL (0-100); Basophils Percent Auto 0.4 % (0-2); Eosinophils Absolute Auto 200 /uL (0-450); Eosinophils Percent Auto 3.4 % (2-4); Hematocrit 41.6 % (41-53); Hemoglobin 14.1 g/dL (13.5-17.5); Lymphocytes Absolute Auto 1400 /uL (1100-4500); Lymphocytes Percent Auto 27.8 % (25-40); Mean Corpuscular HGB Conc 33.8 % (30-36); Mean Corpuscular Hemoglobin 31.5 PG (26-34); Mean Corpuscular Volume 93.1 fL (80-100); Monocytes Absolute Auto 400 /uL (0-900); Monocytes Percent Auto 8.3 % (3-14); Neutrophils Absolute Auto 3100 /uL (1500-7000); Neutrophils Percent Auto 60.1 % (50-75); Platelet Count 179 X10^3/uL (150-400); Red Blood Cell Count 4.47 X10^6/uL (4.5-5.9); Red Cell Distribution Width 13.6 % (11.6-14.8); White Blood Cell Count 5.2 X10^3/uL (4.5-11.0)
[2021-11-14 10:28] LABS: Alanine Aminotransferase 21 IU/L (<50); Albumin 4.1 g/dL (3.5-5.0); Albumin Globulin Ratio 1.5 (1.0-2.8); Alkaline Phosphatase 76 U/L (38-126); Aspartate Aminotransferase 23 IU/L (17-59); Bilirubin Total 0.8 mg/dL (0.2-1.3); Blood Urea Nitrogen 15 mg/dL (9-20); Carbon Dioxide 33 mmol/L (22-32); Chloride 100 mmol/L (98-107); Estimated Glomerular Filt Rate > 60 mL/min (>60); Globulin 2.7 g/dL (1.7-4.1); Glucose 98 mg/dL (80-110); HEMOLYSIS < 15 (0-50); Sodium 136 mmol/L (137-145); Total Protein 6.8 g/dL (6.3-8.2)
[2021-11-14 10:36] LABS: Hemoglobin A1C% w Est Avg Glu 5.4 % (4.0-6.0)
[2021-11-14 10:50] LABS: TSH w/ Reflex to FT4 2.47 uIU/mL (0.47-4.68)
== END ==
PROVIDERS: Family Provider Orthopaedic Surgery Orthopaedic Surgery of the Spine; PCP Family Medicine; Referring Provider Family Medicine; Visit Provider Family Medicine
DX: E78.2 Mixed hyperlipidemia (principal); R73.9 Hyperglycemia, unspecified; I10 Essential (primary) hypertension; R60.0 Localized edema
CPT/HCPCS: 36415; 80053; 83036; 84443; 85025

== ENCOUNTER 2021-11-14 14:30 | Outpatient (RCR) | payer MEDICARE, OTHER, SELFPAY ==
[2021-05-22 06:39] VITALS: BMI 27.7
--- NOTE | 2021-07-19 17:34 | PT.OIE ---
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) Hx of carpal tunnel repair Hypertension (~2013) Irritable bowel syndrome (~1999) Lumbago Measles (~1955) Migraines Mumps (~1955) Osteoarthritis (~2004) Pneumonia S/P cervical spinal fusion (06/13/18) Shoulder pain (~2001) Tinnitus (~1969) Vertigo Past Surgical History (Last Reviewed 05/26/21 @ 08:54 by Neetu Choe PA-C) Anesthesia 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) History of knee replacement (~05/2011) History of knee replacement (~09/2010) 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) Hx of carpal tunnel repair S/P cervical spinal fusion (06/13/18) Status post arthroscopy (~2006) Visit Care Team Role Provider Type Ricardo Reinoso MD Primary Care Provider Physician Specialty: Family Practice Address: [address] [place] [address], [address] Email: [email or web address] Tere Sierra MD Attending Provider Physician Family Provider Referring Provider Specialty: Orthopedics Orthopedic Surgery Address: [address] [place] [address], [address] Email: [email or web address] [facility] Initial Evaluation PT-OP-A Visit Information Start: 07/18/21 17:19 Freq: Status: Active Protocol: Document 07/18/21 16:00 DCW (Rec: 07/19/21 09:40 DCW [id number]) Out-Patient Physical Therapy Visit Information Visit Information Visit Type Initial Evaluation Visit Start Time 16:00 Visit Stop Time 16:45 Total Visit Minutes 45 Visit Number 1 Number of ASSISTANCE COORDINATOR Visits 0 Evaluation Information Evaluation Date 07/19/21 PT-OP-B Current Condition Start: 07/18/21 17:19 Freq: Status: Active Protocol: Document 07/18/21 16:00 DCW (Rec: 07/19/21 09:40 [facility] [id number]) Current Condition History of Current Condition Onset Date 05/22/21 Current Complaints s/p L3-4, L4-5 TLIF History of Current Condition Pt is a 75 year old male presenting 8 weeks s/p L3-4, L4-5 TLIF with posterior instrumentation. Pt had previously fair conservative treatment of LBP and radicular symptoms. Notes he is feeling better, but currently still has some left leg nerve pain, notes his knee occasionally edgar, mild numbness, and often has cramping in his left leg at night. Reports he has been up walking more recently, going on two 1/4 mile walks each day. Coming in to his evaluation was the first time he had tried to drive since surgery. Notes his surgeon has placed him on a 25# lifting restriction, and has told him that at this point, bending and twisting is okay, but limited. Treatment Goals Patient/Caregiver Goals Pt's goals are to improve back and core strength, sleep through the night, and to feel comfortabl;e enough to continue with his previous shoulder HEP. 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 PT-OP-C Subjective Start: 07/18/21 17:19 Freq: Status: Active Protocol: Document 07/18/21 16:00 DCW (Rec: 07/19/21 09:42 DCW [id number]) OP-PT Subjective Patient Comments Patient Comments Overall I'm a lot better, but therer's still pain, mainly at night, it's really limiting my sleep. Patient Questionnaires Oswestry Low Back Index Oswestry Score 38% Oswestry Impairment 20 to 39% Impaired (Score 20- 39) OP-PT Pain Assessment Location Lower Back Intensity 3 Scale Used Numeric (0 - 10) Description Sharp,Shooting,Tingling Radiating Location Radiates down to left anteriolateral thigh PT-OP-F Manual Assessment Start: 07/18/21 17:19 Freq: Status: Active Protocol: Document 07/18/21 16:00 DCW (Rec: 07/19/21 17:14 DCW [id number]) Manual Assessments Soft Tissue Assessment Soft Tissue Mobility Assessment Noticeable edema and inflammation along L2-5 directly between surgical incisions on each side of the spine Joint Mobility Assessment Joint Mobility Assessment Minimal lumbar joint mobility, most flexion and extension comes entirely from hip mobility. PT-OP-J Posture/Palpation/Skin Start: 07/18/21 17:19 Freq: Status: Active Protocol: Document 07/18/21 16:00 DCW (Rec: 07/19/21 17:14 DCW [id number]) Posture Evaluation Position Standing Evaluation View Lateral L-Spine Posture Flattened,Decreased Lordosis PT-OP-M Strength Start: 07/18/21 17:19 Freq: Status: Active Protocol: Document 07/18/21 16:00 DCW (Rec: 07/19/21 17:14 DCW [id number]) Hip Strength Hip Manual Muscle Testing Right Flexion (L2) 4- Good- Extension (S1) 4- Good- Abduction 4 Good Adduction 4 Good External Rotation 4+ Good+ Internal Rotation 4+ Good+ Left Flexion (L2) 3 Fair Extension (S1) 4- Good- Abduction 4 Good Adduction 4 Good External Rotation 4- Good- Internal Rotation 3+ Fair+ Knee Strength Knee Manual Muscle Testing Right Flexion (S2) 4+ Good+ Extension (L3) 4+ Good+ Left Flexion (S2) 4 Good Extension (L3) 4- Good- Ankle/Foot Strength Ankle and Foot Manual Muscle Testing Right Dorsiflexion (L4) 4 Good Plantarflexion (S1) 4 Good Left Dorsiflexion (L4) 3 Fair Plantarflexion (S1) 3+ Fair+ PT-OP-Q Treatments Start: 07/18/21 17:19 Freq: Status: Active Protocol: Document 07/18/21 16:00 DCW (Rec: 07/18/21 17:22 DCW [id number]) Therapeutic Exercises Sitting Exercises 1 Sitting Exercise Name Lumbar flexion stretch Equipment Used /c and /s 85 cm T-ball Comments Gentle - pt instructed to not force mobility, not move into pain PT-OP-T Assessment and Plan Start: 07/18/21 17:19 Freq: Status: Active Protocol: Document 07/18/21 16:00 DCW (Rec: 07/19/21 17:34 DC [id number]) Physical Therapy Assessment Rehab Potential Rehabilitation Potential Good Evaluation Complexity Number of Personal Factors/Comorbidities 0 Number of Body Systems Impaired 3 Clinical Presentation at Evaluation Unstable Impairments Impairments Activity Tolerance,Functional Activities,Functional Mobility ,Integument,Pain,ROM,Sensation ,Soft Tissue Mobility,Strength ,Tone Goals Two Impairment Pt displays left-sided LE weakness in all planes E Commerce Architect Goal (LTG) Pt to increase LE strength in all planes to at least 4/5 in order to prevent continued knee buckling during gait LTG Duration 09/17/21 One Impairment Pt does not have an appropriate home exercise program Short Term Goal (STG) Pt to be independent and compliant with an appropriate HEP STG Duration 08/18/21 Assessment Summary Assessment Pt presents with L LE weakness , continuing, although lessened, radicular symptoms, in lumbar immobility eight weeks s/p L3-4, L4-5 TLIF. Pt shows some increased edema around the surgical site, which is likely adding to some of his radicular symptoms. Pt should benefit from skilled therapy focusing on LE strengthening, gentle lumbar mobility, increasing activity tolerance, body mechanics and lifting techniques as weight restrictions get more relaxed. Physical Therapy Plan Frequency and Duration Frequency of Treatment 2x/Week Duration of Treatment Two months Plan of Care Start Date 07/18/21 Plan of Care End Date 09/17/21 Therapeutic Interventions Therapeutic Interventions Aquatic Therapy,Balance Training,Home Exercise Program ,Joint Mobilizations,Manual Therapy,Neuromuscular Re- education,Patient/Caregiver Education,Self-Care/Home Management,Soft Tissue Mobilization,Therapeutic Activities,Therapeutic Exercises Modalities Cold Pack/Ice Massage,Electric Stimulation,Hot Packs, Ultrasound Next Visit Focus/Plan Next Note Type Treatment Note Next Visit Plan LE strengthening, core strengthening, trunk mobility
--- NOTE | 2021-07-19 17:34 | PT.OPPOC ---
Physical, Occupational & Speech Therapy At [facility] Current Diagnoses Stiffness of other specified joint, not elsewhere classified (07/18/21) Spinal stenosis, lumbar region with neurogenic claudication (07/18/21) Weakness (07/18/21) Visit Care Team Role Provider Type Ricardo Reinoso MD Primary Care Provider Physician Specialty: Family Practice Address: [address] [place] [address], [address] Email: [email or web address] Tere Sierra MD Attending Provider Physician Family Provider Referring Provider Specialty: Orthopedics Orthopedic Surgery Address: [address] [place] [address], [address] Email: [email or web address] Plan Of Care PT-OP-T Assessment and Plan Start: 07/18/21 17:19 Freq: Status: Active Protocol: Document 07/18/21 16:00 DCW (Rec: 07/19/21 17:34 DCW [id number]) Physical Therapy Assessment Rehab Potential Rehabilitation Potential Good Evaluation Complexity Number of Personal Factors/Comorbidities 0 Number of Body Systems Impaired 3 Clinical Presentation at Evaluation Unstable Impairments Impairments Activity Tolerance,Functional Activities,Functional Mobility ,Integument,Pain,ROM,Sensation ,Soft Tissue Mobility,Strength ,Tone Goals Two Impairment Pt displays left-sided LE weakness in all planes Vice President Of Operations Goal (LTG) Pt to increase LE strength in all planes to at least 4/5 in order to prevent continued knee buckling during gait LTG Duration 09/17/21 One Impairment Pt does not have an appropriate home exercise program Short Term Goal (STG) Pt to be independent and compliant with an appropriate HEP STG Duration 08/18/21 Assessment Summary Assessment Pt presents with L LE weakness , continuing, although lessened, radicular symptoms, in lumbar immobility eight weeks s/p L3-4, L4-5 TLIF. Pt shows some increased edema around the surgical site, which is likely adding to some of his radicular symptoms. Pt should benefit from skilled therapy focusing on LE strengthening, gentle lumbar mobility, increasing activity tolerance, body mechanics and lifting techniques as weight restrictions get more relaxed. Physical Therapy Plan Frequency and Duration Frequency of Treatment 2x/Week Duration of Treatment Two months Plan of Care Start Date 07/18/21 Plan of Care End Date 09/17/21 Therapeutic Interventions Therapeutic Interventions Aquatic Therapy,Balance Training,Home Exercise Program ,Joint Mobilizations,Manual Therapy,Neuromuscular Re- education,Patient/Caregiver Education,Self-Care/Home Management,Soft Tissue Mobilization,Therapeutic Activities,Therapeutic Exercises Modalities Cold Pack/Ice Massage,Electric Stimulation,Hot Packs, Ultrasound Next Visit Focus/Plan Next Note Type Treatment Note Next Visit Plan LE strengthening, core strengthening, trunk mobility Plan of Care Dates Plan of Care Start Date 07/18/21 Plan of Care End Date 09/17/21 Electronically Signed by: Gordon Barragan, PT 07/19/21 5810 If you are in agreement with this Plan of Care, please return a signed and dated copy. I have reviewed this Plan of Care and certify that the skilled therapy services above are required to meet the patient?s needs. Physician Signature Date Printed Name and Credentials Clinical Instructor Signature Printed Name and Credentials
--- NOTE | 2021-08-07 12:56 | PT.OTN ---
Current Diagnoses Stiffness of other specified joint, not elsewhere classified (08/07/21) Spinal stenosis, lumbar region with neurogenic claudication (08/07/21) Weakness (08/07/21) Physical Therapy Treatment Note PT-OP-A Visit Information Start: 07/18/21 17:19 Freq: Status: Active Protocol: Document 08/07/21 12:00 DCW (Rec: 08/07/21 12:56 DCW [id number]) Out-Patient Physical Therapy Visit Information Visit Information Visit Type Treatment Note Visit Start Time 12:00 Visit Stop Time 12:45 Total Visit Minutes 45 Visit Number 2 Number of TREATMENT SUPERVISOR Visits 0 Evaluation Information Evaluation Date 07/19/21 PT-OP-B Current Condition Start: 07/18/21 17:19 Freq: Status: Active Protocol: Document 07/18/21 16:00 DCW (Rec: 07/19/21 09:40 DCW [id number]) Current Condition History of Current Condition Onset Date 05/22/21 Current Complaints s/p L3-4, L4-5 TLIF History of Current Condition Pt is a 75 year old male presenting 8 weeks s/p L3-4, L4-5 TLIF with posterior instrumentation. Pt had previously fair conservative treatment of LBP and radicular symptoms. Notes he is feeling better, but currently still has some left leg nerve pain, notes his knee occasionally edgar, mild numbness, and often has cramping in his left leg at night. Reports he has been up walking more recently, going on two 1/4 mile walks each day. Coming in to his evaluation was the first time he had tried to drive since surgery. Notes his surgeon has placed him on a 25# lifting restriction, and has told him that at this point, bending and twisting is okay, but limited. Treatment Goals Patient/Caregiver Goals Pt's goals are to improve back and core strength, sleep through the night, and to feel comfortabl;e enough to continue with his previous shoulder HEP. 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 PT-OP-C Subjective Start: 07/18/21 17:19 Freq: Status: Active Protocol: Document 08/07/21 12:00 DCW (Rec: 08/07/21 12:56 DCW [id number]) OP-PT Subjective Patient Comments Patient Comments Pt reports he sat on his stool too much yesterday during a show, and he was struggling a lot the rest of the night with left leg pain and muscle twitching. PT-OP-F Manual Assessment Start: 07/18/21 17:19 Freq: Status: Active Protocol: Document 07/18/21 16:00 DCW (Rec: 07/19/21 17:14 DCW [id number]) Manual Assessments Soft Tissue Assessment Soft Tissue Mobility Assessment Noticeable edema and inflammation along L2-5 directly between surgical incisions on each side of the spine Joint Mobility Assessment Joint Mobility Assessment Minimal lumbar joint mobility, most flexion and extension comes entirely from hip mobility. PT-OP-J Posture/Palpation/Skin Start: 07/18/21 17:19 Freq: Status: Active Protocol: Document 07/18/21 16:00 DCW (Rec: 07/19/21 17:14 DCW [id number]) Posture Evaluation Position Standing Evaluation View Lateral L-Spine Posture Flattened,Decreased Lordosis PT-OP-M Strength Start: 07/18/21 17:19 Freq: Status: Active Protocol: Document 07/18/21 16:00 DCW (Rec: 07/19/21 17:14 DCW [id number]) Hip Strength Hip Manual Muscle Testing Right Flexion (L2) 4- Good- Extension (S1) 4- Good- Abduction 4 Good Adduction 4 Good External Rotation 4+ Good+ Internal Rotation 4+ Good+ Left Flexion (L2) 3 Fair Extension (S1) 4- Good- Abduction 4 Good Adduction 4 Good External Rotation 4- Good- Internal Rotation 3+ Fair+ Knee Strength Knee Manual Muscle Testing Right Flexion (S2) 4+ Good+ Extension (L3) 4+ Good+ Left Flexion (S2) 4 Good Extension (L3) 4- Good- Ankle/Foot Strength Ankle and Foot Manual Muscle Testing Right Dorsiflexion (L4) 4 Good Plantarflexion (S1) 4 Good Left Dorsiflexion (L4) 3 Fair Plantarflexion (S1) 3+ Fair+ PT-OP-Q Treatments Start: 07/18/21 17:19 Freq: Status: Active Protocol: Document 08/07/21 12:00 DCW (Rec: 08/07/21 12:56 DCW [id number]) Cardio Equipment Recumbent Stepper (Sci-Fit) Duration (Minutes) 5 Resistance 3 Seat Position 14 Gym Equipment Shuttle Recovery Unilateral Squats Resistance 62# Shuttle Recovery Platform Stable Bilateral Squats Resistance 100# Shuttle Recovery Platform Stable Therapeutic Ball LTR Exercise Details LTR Ball Size/Color Red - 55 cm Body Position Supine Wall squat Ball Size/Color Red - 55 cm Body Position Standing Therapeutic Exercises Supine Exercises 2 Supine Exercise Name Hamstring stretch Side left 1 Supine Exercise Name Figure-4 piriformis stretch Side left Standing Exercises 1 Standing Exercise Name Hip extension Side bilateral Resistance Red Equipment Used T-band loop Other Exercises 1 Other Exercise Name Resisted side-stepping Resistance Red Equipment Used T-band loop Manual Therapy Treatment Soft Tissue Mobilization Piriformis Body Location L Piriforims Mobilization Type Sustained Pressure,Trigger Point Release Intensity/Depth Moderate Body Position Sidelying PT-OP-T Assessment and Plan Start: 07/18/21 17:19 Freq: Status: Active Protocol: Document 08/07/21 12:00 DCW (Rec: 08/07/21 12:56 DCW [id number]) Physical Therapy Assessment Impairments Impairments Activity Tolerance,Functional Activities,Functional Mobility ,Integument,Pain,ROM,Sensation ,Soft Tissue Mobility,Strength ,Tone Goals Two Impairment Pt displays left-sided LE weakness in all planes Group Home Goal (LTG) Pt to increase LE strength in all planes to at least 4/5 in order to prevent continued knee buckling during gait LTG Duration 09/17/21 One Impairment Pt does not have an appropriate home exercise program Short Term Goal (STG) Pt to be independent and compliant with an appropriate HEP STG Duration 08/18/21 Assessment Summary Assessment Pt feeling like he is noticing some improvement with his leg strength, and has been icing his back more regularly, with noticeable decrease in edema near surgical site. Physical Therapy Plan Frequency and Duration Frequency of Treatment 2x/Week Duration of Treatment Two months Plan of Care Start Date 07/18/21 Plan of Care End Date 09/17/21 Therapeutic Interventions Therapeutic Interventions Aquatic Therapy,Balance Training,Home Exercise Program ,Joint Mobilizations,Manual Therapy,Neuromuscular Re- education,Patient/Caregiver Education,Self-Care/Home Management,Soft Tissue Mobilization,Therapeutic Activities,Therapeutic Exercises Modalities Cold Pack/Ice Massage,Electric Stimulation,Hot Packs, Ultrasound Next Visit Focus/Plan Next Note Type Treatment Note Next Visit Plan LE strengthening, core strengthening, trunk mobility
--- NOTE | 2021-08-11 09:53 | PT.OTN ---
Current Diagnoses Stiffness of other specified joint, not elsewhere classified (08/11/21) Spinal stenosis, lumbar region with neurogenic claudication (08/11/21) Weakness (08/11/21) Physical Therapy Treatment Note PT-OP-A Visit Information Start: 07/18/21 17:19 Freq: Status: Active Protocol: Document 08/11/21 09:00 DCW (Rec: 08/11/21 09:52 DCW [id number]) Out-Patient Physical Therapy Visit Information Visit Information Visit Type Treatment Note Visit Start Time 09:00 Visit Stop Time 09:45 Total Visit Minutes 45 Visit Number 3 Number of NURSES DIRECTOR Visits 0 Evaluation Information Evaluation Date 07/19/21 PT-OP-B Current Condition Start: 07/18/21 17:19 Freq: Status: Active Protocol: Document 07/18/21 16:00 DCW (Rec: 07/19/21 09:40 DCW [id number]) Current Condition History of Current Condition Onset Date 05/22/21 Current Complaints s/p L3-4, L4-5 TLIF History of Current Condition Pt is a 75 year old male presenting 8 weeks s/p L3-4, L4-5 TLIF with posterior instrumentation. Pt had previously fair conservative treatment of LBP and radicular symptoms. Notes he is feeling better, but currently still has some left leg nerve pain, notes his knee occasionally edgar, mild numbness, and often has cramping in his left leg at night. Reports he has been up walking more recently, going on two 1/4 mile walks each day. Coming in to his evaluation was the first time he had tried to drive since surgery. Notes his surgeon has placed him on a 25# lifting restriction, and has told him that at this point, bending and twisting is okay, but limited. Treatment Goals Patient/Caregiver Goals Pt's goals are to improve back and core strength, sleep through the night, and to feel comfortabl;e enough to continue with his previous shoulder HEP. 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 PT-OP-C Subjective Start: 07/18/21 17:19 Freq: Status: Active Protocol: Document 08/11/21 09:00 DCW (Rec: 08/11/21 09:52 DCW [id number]) OP-PT Subjective Patient Comments Patient Comments Pt notes he had a colonoscopy yesterday, was instructed to take it easy for a few weeks. PT-OP-F Manual Assessment Start: 07/18/21 17:19 Freq: Status: Active Protocol: Document 07/18/21 16:00 DCW (Rec: 07/19/21 17:14 DCW [id number]) Manual Assessments Soft Tissue Assessment Soft Tissue Mobility Assessment Noticeable edema and inflammation along L2-5 directly between surgical incisions on each side of the spine Joint Mobility Assessment Joint Mobility Assessment Minimal lumbar joint mobility, most flexion and extension comes entirely from hip mobility. PT-OP-J Posture/Palpation/Skin Start: 07/18/21 17:19 Freq: Status: Active Protocol: Document 07/18/21 16:00 DCW (Rec: 07/19/21 17:14 DCW [id number]) Posture Evaluation Position Standing Evaluation View Lateral L-Spine Posture Flattened,Decreased Lordosis PT-OP-M Strength Start: 07/18/21 17:19 Freq: Status: Active Protocol: Document 07/18/21 16:00 DCW (Rec: 07/19/21 17:14 DCW [id number]) Hip Strength Hip Manual Muscle Testing Right Flexion (L2) 4- Good- Extension (S1) 4- Good- Abduction 4 Good Adduction 4 Good External Rotation 4+ Good+ Internal Rotation 4+ Good+ Left Flexion (L2) 3 Fair Extension (S1) 4- Good- Abduction 4 Good Adduction 4 Good External Rotation 4- Good- Internal Rotation 3+ Fair+ Knee Strength Knee Manual Muscle Testing Right Flexion (S2) 4+ Good+ Extension (L3) 4+ Good+ Left Flexion (S2) 4 Good Extension (L3) 4- Good- Ankle/Foot Strength Ankle and Foot Manual Muscle Testing Right Dorsiflexion (L4) 4 Good Plantarflexion (S1) 4 Good Left Dorsiflexion (L4) 3 Fair Plantarflexion (S1) 3+ Fair+ PT-OP-Q Treatments Start: 07/18/21 17:19 Freq: Status: Active Protocol: Document 08/11/21 09:00 DCW (Rec: 08/11/21 09:52 DCW [id number]) Gym Equipment Therapeutic Ball Resisted hip flexion Exercise Details Resisted hip/knee flexion Ball Size/Color Red - 55 cm Lv 3 T-band Body Position Supine LTR Exercise Details LTR Ball Size/Color Red - 55 cm Body Position Supine Therapeutic Exercises Supine Exercises 4 Supine Exercise Name SLR Side bilateral Resistance 5# 3 Supine Exercise Name ITB stretch /s strap Side bilateral 2 Supine Exercise Name Hamstring stretch Side bilateral Sidelying Exercises 2 Sidelying Exercise Name Hip Abduction 1 Sidelying Exercise Name Open book Other Exercises 3 Other Exercise Name Cat/Camel 2 Other Exercise Name Child's pose PT-OP-T Assessment and Plan Start: 07/18/21 17:19 Freq: Status: Active Protocol: Document 08/11/21 09:00 DCW (Rec: 08/11/21 09:52 DCW [id number]) Physical Therapy Assessment Impairments Impairments Activity Tolerance,Functional Activities,Functional Mobility ,Integument,Pain,ROM,Sensation ,Soft Tissue Mobility,Strength ,Tone Goals Two Impairment Pt displays left-sided LE weakness in all planes Custodial Goal (LTG) Pt to increase LE strength in all planes to at least 4/5 in order to prevent continued knee buckling during gait LTG Duration 09/17/21 One Impairment Pt does not have an appropriate home exercise program Short Term Goal (STG) Pt to be independent and compliant with an appropriate HEP STG Duration 08/18/21 Assessment Summary Assessment Pt requested more stretching today, notes that stretching in the AM seems to be the most helpful to getting through his day. Focused more on stretching and gentle strengthening today due to instructions for gentle activities secondary to colonoscopy. Physical Therapy Plan Frequency and Duration Frequency of Treatment 2x/Week Duration of Treatment Two months Plan of Care Start Date 07/18/21 Plan of Care End Date 09/17/21 Therapeutic Interventions Therapeutic Interventions Aquatic Therapy,Balance Training,Home Exercise Program ,Joint Mobilizations,Manual Therapy,Neuromuscular Re- education,Patient/Caregiver Education,Self-Care/Home Management,Soft Tissue Mobilization,Therapeutic Activities,Therapeutic Exercises Modalities Cold Pack/Ice Massage,Electric Stimulation,Hot Packs, Ultrasound Next Visit Focus/Plan Next Note Type Treatment Note Next Visit Plan LE strengthening, core strengthening, trunk mobility
--- NOTE | 2021-08-16 15:17 | PT.OTN ---
Current Diagnoses Stiffness of other specified joint, not elsewhere classified (08/16/21) Spinal stenosis, lumbar region with neurogenic claudication (08/16/21) Weakness (08/16/21) Physical Therapy Treatment Note PT-OP-A Visit Information Start: 07/18/21 17:19 Freq: Status: Active Protocol: Document 08/16/21 14:34 DCW (Rec: 08/16/21 15:17 DCW [id number]) Out-Patient Physical Therapy Visit Information Visit Information Visit Type Treatment Note Visit Start Time 14:34 Visit Stop Time 15:15 Total Visit Minutes 41 Visit Number 4 Number of FERMENTATION SCIENTIST Visits 0 Evaluation Information Evaluation Date 07/19/21 PT-OP-B Current Condition Start: 07/18/21 17:19 Freq: Status: Active Protocol: Document 07/18/21 16:00 DCW (Rec: 07/19/21 09:40 DCW [id number]) Current Condition History of Current Condition Onset Date 05/22/21 Current Complaints s/p L3-4, L4-5 TLIF History of Current Condition Pt is a 75 year old male presenting 8 weeks s/p L3-4, L4-5 TLIF with posterior instrumentation. Pt had previously fair conservative treatment of LBP and radicular symptoms. Notes he is feeling better, but currently still has some left leg nerve pain, notes his knee occasionally edgar, mild numbness, and often has cramping in his left leg at night. Reports he has been up walking more recently, going on two 1/4 mile walks each day. Coming in to his evaluation was the first time he had tried to drive since surgery. Notes his surgeon has placed him on a 25# lifting restriction, and has told him that at this point, bending and twisting is okay, but limited. Treatment Goals Patient/Caregiver Goals Pt's goals are to improve back and core strength, sleep through the night, and to feel comfortabl;e enough to continue with his previous shoulder HEP. 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 PT-OP-C Subjective Start: 07/18/21 17:19 Freq: Status: Active Protocol: Document 08/16/21 14:34 DCW (Rec: 08/16/21 15:16 DCW [id number]) OP-PT Subjective Patient Comments Patient Comments When I walk around, my right hip gets really fired up, and then wraps around the front of my thigh. PT-OP-F Manual Assessment Start: 07/18/21 17:19 Freq: Status: Active Protocol: Document 07/18/21 16:00 DCW (Rec: 07/19/21 17:14 DCW [id number]) Manual Assessments Soft Tissue Assessment Soft Tissue Mobility Assessment Noticeable edema and inflammation along L2-5 directly between surgical incisions on each side of the spine Joint Mobility Assessment Joint Mobility Assessment Minimal lumbar joint mobility, most flexion and extension comes entirely from hip mobility. PT-OP-J Posture/Palpation/Skin Start: 07/18/21 17:19 Freq: Status: Active Protocol: Document 07/18/21 16:00 DCW (Rec: 07/19/21 17:14 DCW [id number]) Posture Evaluation Position Standing Evaluation View Lateral L-Spine Posture Flattened,Decreased Lordosis PT-OP-M Strength Start: 07/18/21 17:19 Freq: Status: Active Protocol: Document 07/18/21 16:00 DCW (Rec: 07/19/21 17:14 DCW [id number]) Hip Strength Hip Manual Muscle Testing Right Flexion (L2) 4- Good- Extension (S1) 4- Good- Abduction 4 Good Adduction 4 Good External Rotation 4+ Good+ Internal Rotation 4+ Good+ Left Flexion (L2) 3 Fair Extension (S1) 4- Good- Abduction 4 Good Adduction 4 Good External Rotation 4- Good- Internal Rotation 3+ Fair+ Knee Strength Knee Manual Muscle Testing Right Flexion (S2) 4+ Good+ Extension (L3) 4+ Good+ Left Flexion (S2) 4 Good Extension (L3) 4- Good- Ankle/Foot Strength Ankle and Foot Manual Muscle Testing Right Dorsiflexion (L4) 4 Good Plantarflexion (S1) 4 Good Left Dorsiflexion (L4) 3 Fair Plantarflexion (S1) 3+ Fair+ PT-OP-Q Treatments Start: 07/18/21 17:19 Freq: Status: Active Protocol: Document 08/16/21 14:34 DCW (Rec: 08/16/21 15:16 DCW [id number]) Gym Equipment Cable Column (Body Solid) Leg Extension Resistance 40# Leg Curl Resistance 60# Hip Adduction Resistance 40# Hip Abduction Resistance 50# Shuttle Recovery Unilateral Squats Resistance 62# Shuttle Recovery Platform Stable Bilateral Squats Resistance 100# Shuttle Recovery Platform Stable Therapeutic Exercises Supine Exercises 1 Supine Exercise Name Figure-4 piriformis stretch Side bilateral Manual Therapy Treatment Soft Tissue Mobilization Piriformis Body Location R Piriforims Mobilization Type Sustained Pressure,Trigger Point Release Intensity/Depth Moderate Body Position Sidelying PT-OP-T Assessment and Plan Start: 07/18/21 17:19 Freq: Status: Active Protocol: Document 08/16/21 14:34 DCW (Rec: 08/16/21 15:16 DCW [id number]) Physical Therapy Assessment Impairments Impairments Activity Tolerance,Functional Activities,Functional Mobility ,Integument,Pain,ROM,Sensation ,Soft Tissue Mobility,Strength ,Tone Goals Two Impairment Pt displays left-sided LE weakness in all planes Snf Goal (LTG) Pt to increase LE strength in all planes to at least 4/5 in order to prevent continued knee buckling during gait LTG Duration 09/17/21 One Impairment Pt does not have an appropriate home exercise program Short Term Goal (STG) Pt to be independent and compliant with an appropriate HEP STG Duration 08/18/21 Assessment Summary Assessment Pt continues to experience significant left LE weakness following back surgery, feels he has been noticing increased lateral thigh pain. Did note his right hip felt significantly better following STM today. Physical Therapy Plan Frequency and Duration Frequency of Treatment 2x/Week Duration of Treatment Two months Plan of Care Start Date 07/18/21 Plan of Care End Date 09/17/21 Therapeutic Interventions Therapeutic Interventions Aquatic Therapy,Balance Training,Home Exercise Program ,Joint Mobilizations,Manual Therapy,Neuromuscular Re- education,Patient/Caregiver Education,Self-Care/Home Management,Soft Tissue Mobilization,Therapeutic Activities,Therapeutic Exercises Modalities Cold Pack/Ice Massage,Electric Stimulation,Hot Packs, Ultrasound Next Visit Focus/Plan Next Note Type Treatment Note Next Visit Plan LE strengthening, core strengthening, trunk mobility
--- NOTE | 2021-08-18 09:44 | PT.OTN ---
Current Diagnoses Stiffness of other specified joint, not elsewhere classified (08/18/21) Spinal stenosis, lumbar region with neurogenic claudication (08/18/21) Weakness (08/18/21) Physical Therapy Treatment Note PT-OP-A Visit Information Start: 07/18/21 17:19 Freq: Status: Active Protocol: Document 08/18/21 09:00 DCW (Rec: 08/18/21 09:44 DCW [id number]) Out-Patient Physical Therapy Visit Information Visit Information Visit Type Treatment Note Visit Start Time 09:00 Visit Stop Time 09:45 Total Visit Minutes 45 Visit Number 5 Number of DRAWBENCH OPERATOR HELPER Visits 0 Evaluation Information Evaluation Date 07/19/21 PT-OP-B Current Condition Start: 07/18/21 17:19 Freq: Status: Active Protocol: Document 07/18/21 16:00 DCW (Rec: 07/19/21 09:40 DCW [id number]) Current Condition History of Current Condition Onset Date 05/22/21 Current Complaints s/p L3-4, L4-5 TLIF History of Current Condition Pt is a 75 year old male presenting 8 weeks s/p L3-4, L4-5 TLIF with posterior instrumentation. Pt had previously fair conservative treatment of LBP and radicular symptoms. Notes he is feeling better, but currently still has some left leg nerve pain, notes his knee occasionally edgar, mild numbness, and often has cramping in his left leg at night. Reports he has been up walking more recently, going on two 1/4 mile walks each day. Coming in to his evaluation was the first time he had tried to drive since surgery. Notes his surgeon has placed him on a 25# lifting restriction, and has told him that at this point, bending and twisting is okay, but limited. Treatment Goals Patient/Caregiver Goals Pt's goals are to improve back and core strength, sleep through the night, and to feel comfortabl;e enough to continue with his previous shoulder HEP. 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 PT-OP-C Subjective Start: 07/18/21 17:19 Freq: Status: Active Protocol: Document 08/18/21 09:00 DCW (Rec: 08/18/21 09:44 DCW [id number]) OP-PT Subjective Patient Comments Patient Comments I was so sore yesterday, and my back is still pretty angry with me. PT-OP-F Manual Assessment Start: 07/18/21 17:19 Freq: Status: Active Protocol: Document 07/18/21 16:00 DCW (Rec: 07/19/21 17:14 DCW [id number]) Manual Assessments Soft Tissue Assessment Soft Tissue Mobility Assessment Noticeable edema and inflammation along L2-5 directly between surgical incisions on each side of the spine Joint Mobility Assessment Joint Mobility Assessment Minimal lumbar joint mobility, most flexion and extension comes entirely from hip mobility. PT-OP-J Posture/Palpation/Skin Start: 07/18/21 17:19 Freq: Status: Active Protocol: Document 07/18/21 16:00 DCW (Rec: 07/19/21 17:14 DCW [id number]) Posture Evaluation Position Standing Evaluation View Lateral L-Spine Posture Flattened,Decreased Lordosis PT-OP-M Strength Start: 07/18/21 17:19 Freq: Status: Active Protocol: Document 07/18/21 16:00 DCW (Rec: 07/19/21 17:14 DCW [id number]) Hip Strength Hip Manual Muscle Testing Right Flexion (L2) 4- Good- Extension (S1) 4- Good- Abduction 4 Good Adduction 4 Good External Rotation 4+ Good+ Internal Rotation 4+ Good+ Left Flexion (L2) 3 Fair Extension (S1) 4- Good- Abduction 4 Good Adduction 4 Good External Rotation 4- Good- Internal Rotation 3+ Fair+ Knee Strength Knee Manual Muscle Testing Right Flexion (S2) 4+ Good+ Extension (L3) 4+ Good+ Left Flexion (S2) 4 Good Extension (L3) 4- Good- Ankle/Foot Strength Ankle and Foot Manual Muscle Testing Right Dorsiflexion (L4) 4 Good Plantarflexion (S1) 4 Good Left Dorsiflexion (L4) 3 Fair Plantarflexion (S1) 3+ Fair+ PT-OP-Q Treatments Start: 07/18/21 17:19 Freq: Status: Active Protocol: Document 08/18/21 09:00 DCW (Rec: 08/18/21 09:44 DCW [id number]) Gym Equipment Cable Column (Body Solid) Leg Extension Resistance 40# Leg Curl Resistance 60# Hip Adduction Resistance 40# Hip Abduction Resistance 50# Shuttle Recovery Unilateral Squats Resistance 62#->50# Shuttle Recovery Platform Stable Bilateral Squats Resistance 100# Shuttle Recovery Platform Stable Therapeutic Exercises Supine Exercises 2 Supine Exercise Name Hamstring stretch Side bilateral 1 Supine Exercise Name Figure-4 piriformis stretch Side bilateral Other Exercises 1 Other Exercise Name Resisted side-stepping Resistance Red Equipment Used T-band loop Manual Therapy Treatment Soft Tissue Mobilization Piriformis Body Location R Piriforims Mobilization Type Sustained Pressure,Trigger Point Release Intensity/Depth Moderate Body Position Sidelying Manual Traction 1 Details Short-axis L hip traction Body Position Hooklying Comments /c Strap PT-OP-T Assessment and Plan Start: 07/18/21 17:19 Freq: Status: Active Protocol: Document 08/18/21 09:00 DCW (Rec: 08/18/21 09:44 DCW [id number]) Physical Therapy Assessment Impairments Impairments Activity Tolerance,Functional Activities,Functional Mobility ,Integument,Pain,ROM,Sensation ,Soft Tissue Mobility,Strength ,Tone Goals Two Impairment Pt displays left-sided LE weakness in all planes Retirement Goal (LTG) Pt to increase LE strength in all planes to at least 4/5 in order to prevent continued knee buckling during gait LTG Duration 09/17/21 One Impairment Pt does not have an appropriate home exercise program Short Term Goal (STG) Pt to be independent and compliant with an appropriate HEP STG Duration 08/18/21 Assessment Summary Assessment Pt had two instances of left thigh cramping during today's session, both medial and lateral, reports he has a massage gun at home and he's going to hit it hard this afternoon. Physical Therapy Plan Frequency and Duration Frequency of Treatment 2x/Week Duration of Treatment Two months Plan of Care Start Date 07/18/21 Plan of Care End Date 09/17/21 Therapeutic Interventions Therapeutic Interventions Aquatic Therapy,Balance Training,Home Exercise Program ,Joint Mobilizations,Manual Therapy,Neuromuscular Re- education,Patient/Caregiver Education,Self-Care/Home Management,Soft Tissue Mobilization,Therapeutic Activities,Therapeutic Exercises Modalities Cold Pack/Ice Massage,Electric Stimulation,Hot Packs, Ultrasound Next Visit Focus/Plan Next Note Type Treatment Note Next Visit Plan LE strengthening, core strengthening, trunk mobility
--- NOTE | 2021-08-21 12:10 | PT.OTN ---
Current Diagnoses Stiffness of other specified joint, not elsewhere classified (08/21/21) Spinal stenosis, lumbar region with neurogenic claudication (08/21/21) Weakness (08/21/21) Physical Therapy Treatment Note PT-OP-A Visit Information Start: 07/18/21 17:19 Freq: Status: Active Protocol: Document 08/21/21 11:15 DCW (Rec: 08/21/21 12:10 DCW [id number]) Out-Patient Physical Therapy Visit Information Visit Information Visit Type Treatment Note Visit Start Time 11:15 Visit Stop Time 12:00 Total Visit Minutes 45 Visit Number 6 Number of ONLINE CONTENT COORDINATOR Visits 0 Evaluation Information Evaluation Date 07/19/21 PT-OP-B Current Condition Start: 07/18/21 17:19 Freq: Status: Active Protocol: Document 07/18/21 16:00 DCW (Rec: 07/19/21 09:40 DCW [id number]) Current Condition History of Current Condition Onset Date 05/22/21 Current Complaints s/p L3-4, L4-5 TLIF History of Current Condition Pt is a 75 year old male presenting 8 weeks s/p L3-4, L4-5 TLIF with posterior instrumentation. Pt had previously fair conservative treatment of LBP and radicular symptoms. Notes he is feeling better, but currently still has some left leg nerve pain, notes his knee occasionally edgar, mild numbness, and often has cramping in his left leg at night. Reports he has been up walking more recently, going on two 1/4 mile walks each day. Coming in to his evaluation was the first time he had tried to drive since surgery. Notes his surgeon has placed him on a 25# lifting restriction, and has told him that at this point, bending and twisting is okay, but limited. Treatment Goals Patient/Caregiver Goals Pt's goals are to improve back and core strength, sleep through the night, and to feel comfortabl;e enough to continue with his previous shoulder HEP. 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 PT-OP-C Subjective Start: 07/18/21 17:19 Freq: Status: Active Protocol: Document 08/21/21 11:15 DCW (Rec: 08/21/21 12:10 DCW [id number]) OP-PT Subjective Patient Comments Patient Comments Notes he has been out walking more, but his left knee will typically start to give out every 15 feet near the end of his walk. PT-OP-F Manual Assessment Start: 07/18/21 17:19 Freq: Status: Active Protocol: Document 07/18/21 16:00 DCW (Rec: 07/19/21 17:14 DCW [id number]) Manual Assessments Soft Tissue Assessment Soft Tissue Mobility Assessment Noticeable edema and inflammation along L2-5 directly between surgical incisions on each side of the spine Joint Mobility Assessment Joint Mobility Assessment Minimal lumbar joint mobility, most flexion and extension comes entirely from hip mobility. PT-OP-J Posture/Palpation/Skin Start: 07/18/21 17:19 Freq: Status: Active Protocol: Document 07/18/21 16:00 DCW (Rec: 07/19/21 17:14 DCW [id number]) Posture Evaluation Position Standing Evaluation View Lateral L-Spine Posture Flattened,Decreased Lordosis PT-OP-M Strength Start: 07/18/21 17:19 Freq: Status: Active Protocol: Document 07/18/21 16:00 DCW (Rec: 07/19/21 17:14 DCW [id number]) Hip Strength Hip Manual Muscle Testing Right Flexion (L2) 4- Good- Extension (S1) 4- Good- Abduction 4 Good Adduction 4 Good External Rotation 4+ Good+ Internal Rotation 4+ Good+ Left Flexion (L2) 3 Fair Extension (S1) 4- Good- Abduction 4 Good Adduction 4 Good External Rotation 4- Good- Internal Rotation 3+ Fair+ Knee Strength Knee Manual Muscle Testing Right Flexion (S2) 4+ Good+ Extension (L3) 4+ Good+ Left Flexion (S2) 4 Good Extension (L3) 4- Good- Ankle/Foot Strength Ankle and Foot Manual Muscle Testing Right Dorsiflexion (L4) 4 Good Plantarflexion (S1) 4 Good Left Dorsiflexion (L4) 3 Fair Plantarflexion (S1) 3+ Fair+ PT-OP-Q Treatments Start: 07/18/21 17:19 Freq: Status: Active Protocol: Document 08/21/21 11:15 DCW (Rec: 08/21/21 12:10 DCW [id number]) Gym Equipment Cable Column (Body Solid) Leg Extension Resistance 40# Leg Curl Resistance 60# Hip Adduction Resistance 40# Hip Abduction Resistance 50# Shuttle Recovery Unilateral Squats Resistance 50# Shuttle Recovery Platform Stable Bilateral Squats Resistance 100# Shuttle Recovery Platform Stable Therapeutic Ball LTR Exercise Details LTR Ball Size/Color Red - 55 cm Body Position Supine Therapeutic Exercises Supine Exercises 2 Supine Exercise Name Hamstring stretch Side bilateral 1 Supine Exercise Name Figure-4 piriformis stretch Side bilateral Standing Exercises 1 Standing Exercise Name Hip extension Side bilateral Resistance Green Equipment Used T-band loop Other Exercises 1 Other Exercise Name Resisted side-stepping Resistance Green Equipment Used T-band loop Manual Therapy Treatment Manual Traction 1 Details Short-axis L hip traction Body Position Hooklying Comments /c Strap PT-OP-T Assessment and Plan Start: 07/18/21 17:19 Freq: Status: Active Protocol: Document 08/21/21 11:15 DCW (Rec: 08/21/21 12:10 DCW [id number]) Physical Therapy Assessment Impairments Impairments Activity Tolerance,Functional Activities,Functional Mobility ,Integument,Pain,ROM,Sensation ,Soft Tissue Mobility,Strength ,Tone Goals Two Impairment Pt displays left-sided LE weakness in all planes 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 Physical Therapy Plan Frequency and Duration Frequency of Treatment 2x/Week Duration of Treatment Two months Plan of Care Start Date 07/18/21 Plan of Care End Date 09/17/21 Therapeutic Interventions Therapeutic Interventions Aquatic Therapy,Balance Training,Home Exercise Program ,Joint Mobilizations,Manual Therapy,Neuromuscular Re- education,Patient/Caregiver Education,Self-Care/Home Management,Soft Tissue Mobilization,Therapeutic Activities,Therapeutic Exercises Modalities Cold Pack/Ice Massage,Electric Stimulation,Hot Packs, Ultrasound Next Visit Focus/Plan Next Note Type Treatment Note Next Visit Plan LE strengthening, core strengthening, trunk mobility
--- NOTE | 2021-08-25 11:17 | PT.OTN ---
Current Diagnoses Stiffness of other specified joint, not elsewhere classified (08/25/21) Spinal stenosis, lumbar region with neurogenic claudication (08/25/21) Weakness (08/25/21) Physical Therapy Treatment Note PT-OP-A Visit Information Start: 07/18/21 17:19 Freq: Status: Active Protocol: Document 08/25/21 10:30 DCW (Rec: 08/25/21 11:16 DCW [id number]) Out-Patient Physical Therapy Visit Information Visit Information Visit Type Treatment Note Visit Start Time 10:30 Visit Stop Time 11:15 Total Visit Minutes 45 Visit Number 7 Number of ASSISTANT FINANCIAL ACCOUNTANT Visits 0 Evaluation Information Evaluation Date 07/19/21 PT-OP-B Current Condition Start: 07/18/21 17:19 Freq: Status: Active Protocol: Document 07/18/21 16:00 DCW (Rec: 07/19/21 09:40 DCW [id number]) Current Condition History of Current Condition Onset Date 05/22/21 Current Complaints s/p L3-4, L4-5 TLIF History of Current Condition Pt is a 75 year old male presenting 8 weeks s/p L3-4, L4-5 TLIF with posterior instrumentation. Pt had previously fair conservative treatment of LBP and radicular symptoms. Notes he is feeling better, but currently still has some left leg nerve pain, notes his knee occasionally edgar, mild numbness, and often has cramping in his left leg at night. Reports he has been up walking more recently, going on two 1/4 mile walks each day. Coming in to his evaluation was the first time he had tried to drive since surgery. Notes his surgeon has placed him on a 25# lifting restriction, and has told him that at this point, bending and twisting is okay, but limited. Treatment Goals Patient/Caregiver Goals Pt's goals are to improve back and core strength, sleep through the night, and to feel comfortabl;e enough to continue with his previous shoulder HEP. 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 PT-OP-C Subjective Start: 07/18/21 17:19 Freq: Status: Active Protocol: Document 08/25/21 10:30 DCW (Rec: 08/25/21 11:16 DCW [id number]) OP-PT Subjective Patient Comments Patient Comments I'm a little stiff, but otherwise okay. PT-OP-F Manual Assessment Start: 07/18/21 17:19 Freq: Status: Active Protocol: Document 07/18/21 16:00 DCW (Rec: 07/19/21 17:14 DCW [id number]) Manual Assessments Soft Tissue Assessment Soft Tissue Mobility Assessment Noticeable edema and inflammation along L2-5 directly between surgical incisions on each side of the spine Joint Mobility Assessment Joint Mobility Assessment Minimal lumbar joint mobility, most flexion and extension comes entirely from hip mobility. PT-OP-J Posture/Palpation/Skin Start: 07/18/21 17:19 Freq: Status: Active Protocol: Document 07/18/21 16:00 DCW (Rec: 07/19/21 17:14 DCW [id number]) Posture Evaluation Position Standing Evaluation View Lateral L-Spine Posture Flattened,Decreased Lordosis PT-OP-M Strength Start: 07/18/21 17:19 Freq: Status: Active Protocol: Document 07/18/21 16:00 DCW (Rec: 07/19/21 17:14 DCW [id number]) Hip Strength Hip Manual Muscle Testing Right Flexion (L2) 4- Good- Extension (S1) 4- Good- Abduction 4 Good Adduction 4 Good External Rotation 4+ Good+ Internal Rotation 4+ Good+ Left Flexion (L2) 3 Fair Extension (S1) 4- Good- Abduction 4 Good Adduction 4 Good External Rotation 4- Good- Internal Rotation 3+ Fair+ Knee Strength Knee Manual Muscle Testing Right Flexion (S2) 4+ Good+ Extension (L3) 4+ Good+ Left Flexion (S2) 4 Good Extension (L3) 4- Good- Ankle/Foot Strength Ankle and Foot Manual Muscle Testing Right Dorsiflexion (L4) 4 Good Plantarflexion (S1) 4 Good Left Dorsiflexion (L4) 3 Fair Plantarflexion (S1) 3+ Fair+ PT-OP-Q Treatments Start: 07/18/21 17:19 Freq: Status: Active Protocol: Document 08/25/21 10:30 DCW (Rec: 08/25/21 11:16 DCW [id number]) Gym Equipment Cable Column (Body Solid) Leg Extension Resistance 50# Leg Curl Resistance 70# Hip Adduction Resistance 40# Hip Abduction Resistance 60# Shuttle Recovery Unilateral Squats Resistance 50# Shuttle Recovery Platform Stable Bilateral Squats Resistance 100# Shuttle Recovery Platform Stable Therapeutic Ball Resisted hip flexion Exercise Details Resisted hip/knee flexion Ball Size/Color Red - 55 cm Lv 3 T-band Body Position Supine LTR Exercise Details LTR Ball Size/Color Red - 55 cm Body Position Supine Therapeutic Exercises Supine Exercises 2 Supine Exercise Name Hamstring stretch Side bilateral 1 Supine Exercise Name Figure-4 piriformis stretch Side bilateral Manual Therapy Treatment Soft Tissue Mobilization Paraspinals Body Location B Paraspinals Mobilization Type Sustained Pressure,Trigger Point Release Body Position Sidelying Piriformis Body Location R Piriforims Mobilization Type Sustained Pressure,Trigger Point Release Intensity/Depth Moderate Body Position Sidelying PT-OP-T Assessment and Plan Start: 07/18/21 17:19 Freq: Status: Active Protocol: Document 08/25/21 10:30 DCW (Rec: 08/25/21 11:16 DCW [id number]) Physical Therapy Assessment Impairments Impairments Activity Tolerance,Functional Activities,Functional Mobility ,Integument,Pain,ROM,Sensation ,Soft Tissue Mobility,Strength ,Tone Goals Two Impairment Pt displays left-sided LE weakness in all planes Automation Qa Analyst Goal (LTG) Pt to increase LE strength in all planes to at least 4/5 in order to prevent continued knee buckling during gait LTG Duration 09/17/21 One Impairment Pt does not have an appropriate home exercise program Short Term Goal (STG) Pt to be independent and compliant with an appropriate HEP STG Duration 08/18/21 Assessment Summary Assessment Slowly making some progress with L LE weakness, still significantly weaker than right. Continued tenderness in paraspinals. Physical Therapy Plan Frequency and Duration Frequency of Treatment 2x/Week Duration of Treatment Two months Plan of Care Start Date 07/18/21 Plan of Care End Date 09/17/21 Therapeutic Interventions Therapeutic Interventions Aquatic Therapy,Balance Training,Home Exercise Program ,Joint Mobilizations,Manual Therapy,Neuromuscular Re- education,Patient/Caregiver Education,Self-Care/Home Management,Soft Tissue Mobilization,Therapeutic Activities,Therapeutic Exercises Modalities Cold Pack/Ice Massage,Electric Stimulation,Hot Packs, Ultrasound Next Visit Focus/Plan Next Note Type Treatment Note Next Visit Plan LE strengthening, core strengthening, trunk mobility
--- NOTE | 2021-08-28 15:16 | PT.OTN ---
Current Diagnoses Stiffness of other specified joint, not elsewhere classified (08/28/21) Spinal stenosis, lumbar region with neurogenic claudication (08/28/21) Weakness (08/28/21) Physical Therapy Treatment Note PT-OP-A Visit Information Start: 07/18/21 17:19 Freq: Status: Active Protocol: Document 08/28/21 14:30 DCW (Rec: 08/28/21 15:16 DCW [id number]) Out-Patient Physical Therapy Visit Information Visit Information Visit Type Treatment Note Visit Start Time 14:30 Visit Stop Time 15:15 Total Visit Minutes 45 Visit Number 8 Number of PHOTOENGRAVING FINISHER Visits 0 Evaluation Information Evaluation Date 07/19/21 PT-OP-B Current Condition Start: 07/18/21 17:19 Freq: Status: Active Protocol: Document 07/18/21 16:00 DCW (Rec: 07/19/21 09:40 DCW [id number]) Current Condition History of Current Condition Onset Date 05/22/21 Current Complaints s/p L3-4, L4-5 TLIF History of Current Condition Pt is a 75 year old male presenting 8 weeks s/p L3-4, L4-5 TLIF with posterior instrumentation. Pt had previously fair conservative treatment of LBP and radicular symptoms. Notes he is feeling better, but currently still has some left leg nerve pain, notes his knee occasionally edgar, mild numbness, and often has cramping in his left leg at night. Reports he has been up walking more recently, going on two 1/4 mile walks each day. Coming in to his evaluation was the first time he had tried to drive since surgery. Notes his surgeon has placed him on a 25# lifting restriction, and has told him that at this point, bending and twisting is okay, but limited. Treatment Goals Patient/Caregiver Goals Pt's goals are to improve back and core strength, sleep through the night, and to feel comfortabl;e enough to continue with his previous shoulder HEP. 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 PT-OP-C Subjective Start: 07/18/21 17:19 Freq: Status: Active Protocol: Document 08/28/21 14:30 DCW (Rec: 08/28/21 15:16 DCW [id number]) OP-PT Subjective Patient Comments Patient Comments My backs really hurts today, I don't know why. I took a long walk yesterday, and felt pretty good afterward, but maybe that's it. PT-OP-F Manual Assessment Start: 07/18/21 17:19 Freq: Status: Active Protocol: Document 07/18/21 16:00 DCW (Rec: 07/19/21 17:14 DCW [id number]) Manual Assessments Soft Tissue Assessment Soft Tissue Mobility Assessment Noticeable edema and inflammation along L2-5 directly between surgical incisions on each side of the spine Joint Mobility Assessment Joint Mobility Assessment Minimal lumbar joint mobility, most flexion and extension comes entirely from hip mobility. PT-OP-J Posture/Palpation/Skin Start: 07/18/21 17:19 Freq: Status: Active Protocol: Document 07/18/21 16:00 DCW (Rec: 07/19/21 17:14 DCW [id number]) Posture Evaluation Position Standing Evaluation View Lateral L-Spine Posture Flattened,Decreased Lordosis PT-OP-M Strength Start: 07/18/21 17:19 Freq: Status: Active Protocol: Document 07/18/21 16:00 DCW (Rec: 07/19/21 17:14 DCW [id number]) Hip Strength Hip Manual Muscle Testing Right Flexion (L2) 4- Good- Extension (S1) 4- Good- Abduction 4 Good Adduction 4 Good External Rotation 4+ Good+ Internal Rotation 4+ Good+ Left Flexion (L2) 3 Fair Extension (S1) 4- Good- Abduction 4 Good Adduction 4 Good External Rotation 4- Good- Internal Rotation 3+ Fair+ Knee Strength Knee Manual Muscle Testing Right Flexion (S2) 4+ Good+ Extension (L3) 4+ Good+ Left Flexion (S2) 4 Good Extension (L3) 4- Good- Ankle/Foot Strength Ankle and Foot Manual Muscle Testing Right Dorsiflexion (L4) 4 Good Plantarflexion (S1) 4 Good Left Dorsiflexion (L4) 3 Fair Plantarflexion (S1) 3+ Fair+ PT-OP-Q Treatments Start: 07/18/21 17:19 Freq: Status: Active Protocol: Document 08/28/21 14:30 DCW (Rec: 08/28/21 15:16 DCW [id number]) Cardio Equipment Recumbent Stepper (Sci-Fit) Duration (Minutes) 5 Resistance 3 Seat Position 15 Gym Equipment Cable Column (Body Solid) Leg Extension Resistance 50# Leg Curl Resistance 70# Hip Adduction Resistance 40# Hip Abduction Resistance 60# Shuttle Recovery Unilateral Squats Resistance 62# Shuttle Recovery Platform Stable Bilateral Squats Resistance 112# Shuttle Recovery Platform Stable Therapeutic Ball Resisted hip flexion Exercise Details Resisted hip/knee flexion Ball Size/Color Red - 55 cm Lv 3 T-band Body Position Supine LTR Exercise Details LTR Ball Size/Color Red - 55 cm Body Position Supine Therapeutic Exercises Supine Exercises 2 Supine Exercise Name Hamstring stretch Side bilateral 1 Supine Exercise Name Figure-4 piriformis stretch Side bilateral Manual Therapy Treatment Soft Tissue Mobilization Paraspinals Body Location B Paraspinals Mobilization Type Sustained Pressure,Trigger Point Release Body Position Sidelying Piriformis Body Location B Piriforims Mobilization Type Sustained Pressure,Trigger Point Release Intensity/Depth Moderate Body Position Sidelying PT-OP-T Assessment and Plan Start: 07/18/21 17:19 Freq: Status: Active Protocol: Document 08/28/21 14:30 DCW (Rec: 08/28/21 15:16 DCW [id number]) Physical Therapy Assessment Impairments Impairments Activity Tolerance,Functional Activities,Functional Mobility ,Integument,Pain,ROM,Sensation ,Soft Tissue Mobility,Strength ,Tone Goals Two Impairment Pt displays left-sided LE weakness in all planes Half-Way Goal (LTG) Pt to increase LE strength in all planes to at least 4/5 in order to prevent continued knee buckling during gait LTG Duration 09/17/21 One Impairment Pt does not have an appropriate home exercise program Short Term Goal (STG) Pt to be independent and compliant with an appropriate HEP STG Duration 08/18/21 Assessment Summary Assessment Pt did well with some increased resistance, showing improved lumbar mobility Physical Therapy Plan Frequency and Duration Frequency of Treatment 2x/Week Duration of Treatment Two months Plan of Care Start Date 07/18/21 Plan of Care End Date 09/17/21 Therapeutic Interventions Therapeutic Interventions Aquatic Therapy,Balance Training,Home Exercise Program ,Joint Mobilizations,Manual Therapy,Neuromuscular Re- education,Patient/Caregiver Education,Self-Care/Home Management,Soft Tissue Mobilization,Therapeutic Activities,Therapeutic Exercises Modalities Cold Pack/Ice Massage,Electric Stimulation,Hot Packs, Ultrasound Next Visit Focus/Plan Next Note Type Treatment Note Next Visit Plan LE strengthening, core strengthening, trunk mobility
--- NOTE | 2021-08-30 16:00 | PT.OTN ---
Current Diagnoses Stiffness of other specified joint, not elsewhere classified (08/30/21) Spinal stenosis, lumbar region with neurogenic claudication (08/30/21) Weakness (08/30/21) Physical Therapy Treatment Note PT-OP-A Visit Information Start: 07/18/21 17:19 Freq: Status: Active Protocol: Document 08/30/21 15:15 DCW (Rec: 08/30/21 16:00 DCW [id number]) Out-Patient Physical Therapy Visit Information Visit Information Visit Type Treatment Note Visit Start Time 15:15 Visit Stop Time 16:00 Total Visit Minutes 45 Visit Number 9 Number of AUTOMATIC DOOR MECHANIC Visits 0 Evaluation Information Evaluation Date 07/19/21 PT-OP-B Current Condition Start: 07/18/21 17:19 Freq: Status: Active Protocol: Document 07/18/21 16:00 DCW (Rec: 07/19/21 09:40 DCW [id number]) Current Condition History of Current Condition Onset Date 05/22/21 Current Complaints s/p L3-4, L4-5 TLIF History of Current Condition Pt is a 75 year old male presenting 8 weeks s/p L3-4, L4-5 TLIF with posterior instrumentation. Pt had previously fair conservative treatment of LBP and radicular symptoms. Notes he is feeling better, but currently still has some left leg nerve pain, notes his knee occasionally edgar, mild numbness, and often has cramping in his left leg at night. Reports he has been up walking more recently, going on two 1/4 mile walks each day. Coming in to his evaluation was the first time he had tried to drive since surgery. Notes his surgeon has placed him on a 25# lifting restriction, and has told him that at this point, bending and twisting is okay, but limited. Treatment Goals Patient/Caregiver Goals Pt's goals are to improve back and core strength, sleep through the night, and to feel comfortabl;e enough to continue with his previous shoulder HEP. 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 PT-OP-C Subjective Start: 07/18/21 17:19 Freq: Status: Active Protocol: Document 08/30/21 15:15 DCW (Rec: 08/30/21 16:00 DCW [id number]) OP-PT Subjective Patient Comments Patient Comments I went out to the [facility] yesterday with my , my friend has a place out there on a hill, and just walking around on the hill was really difficult. [place], after a few steps, my leg just wouldn't do it anymore. PT-OP-F Manual Assessment Start: 07/18/21 17:19 Freq: Status: Active Protocol: Document 07/18/21 16:00 DCW (Rec: 07/19/21 17:14 DCW [id number]) Manual Assessments Soft Tissue Assessment Soft Tissue Mobility Assessment Noticeable edema and inflammation along L2-5 directly between surgical incisions on each side of the spine Joint Mobility Assessment Joint Mobility Assessment Minimal lumbar joint mobility, most flexion and extension comes entirely from hip mobility. PT-OP-J Posture/Palpation/Skin Start: 07/18/21 17:19 Freq: Status: Active Protocol: Document 07/18/21 16:00 DCW (Rec: 07/19/21 17:14 DCW [id number]) Posture Evaluation Position Standing Evaluation View Lateral L-Spine Posture Flattened,Decreased Lordosis PT-OP-M Strength Start: 07/18/21 17:19 Freq: Status: Active Protocol: Document 07/18/21 16:00 DCW (Rec: 07/19/21 17:14 DCW [id number]) Hip Strength Hip Manual Muscle Testing Right Flexion (L2) 4- Good- Extension (S1) 4- Good- Abduction 4 Good Adduction 4 Good External Rotation 4+ Good+ Internal Rotation 4+ Good+ Left Flexion (L2) 3 Fair Extension (S1) 4- Good- Abduction 4 Good Adduction 4 Good External Rotation 4- Good- Internal Rotation 3+ Fair+ Knee Strength Knee Manual Muscle Testing Right Flexion (S2) 4+ Good+ Extension (L3) 4+ Good+ Left Flexion (S2) 4 Good Extension (L3) 4- Good- Ankle/Foot Strength Ankle and Foot Manual Muscle Testing Right Dorsiflexion (L4) 4 Good Plantarflexion (S1) 4 Good Left Dorsiflexion (L4) 3 Fair Plantarflexion (S1) 3+ Fair+ PT-OP-Q Treatments Start: 07/18/21 17:19 Freq: Status: Active Protocol: Document 08/30/21 15:15 DCW (Rec: 08/30/21 16:00 DCW [id number]) Cardio Equipment Recumbent Elliptical (Biodex) Duration (Minutes) 5 Resistance 4 Seat Position 13 Gym Equipment Cable Column (Body Solid) Leg Extension Resistance 50# Leg Curl Resistance 70# Hip Adduction Resistance 40# Hip Abduction Resistance 60# Shuttle Recovery Unilateral Squats Resistance 62# Shuttle Recovery Platform Stable Bilateral Squats Resistance 100# Shuttle Recovery Platform Stable Therapeutic Exercises Supine Exercises 2 Supine Exercise Name Hamstring stretch Side bilateral 1 Supine Exercise Name Figure-4 piriformis stretch Side bilateral Other Exercises 1 Other Exercise Name Resistance band HEP Comments Knee ext/curls, hip abd/flex Manual Therapy Treatment Soft Tissue Mobilization Paraspinals Body Location B Paraspinals Mobilization Type Sustained Pressure,Trigger Point Release Body Position Sidelying Piriformis Body Location B Piriforims Mobilization Type Sustained Pressure,Trigger Point Release Intensity/Depth Moderate Body Position Sidelying PT-OP-T Assessment and Plan Start: 07/18/21 17:19 Freq: Status: Active Protocol: Document 08/30/21 15:15 DCW (Rec: 08/30/21 16:00 DCW [id number]) Physical Therapy Assessment Impairments Impairments Activity Tolerance,Functional Activities,Functional Mobility ,Integument,Pain,ROM,Sensation ,Soft Tissue Mobility,Strength ,Tone Goals Two Impairment Pt displays left-sided LE weakness in all planes Mcfp Goal (LTG) Pt to increase LE strength in all planes to at least 4/5 in order to prevent continued knee buckling during gait LTG Duration 09/17/21 One Impairment Pt does not have an appropriate home exercise program Short Term Goal (STG) Pt to be independent and compliant with an appropriate HEP STG Duration 08/18/21 Assessment Summary Assessment Added resistance band HEP for pt since he will likely have a break in care upcoming due to scheduling conflicts. Physical Therapy Plan Frequency and Duration Frequency of Treatment 2x/Week Duration of Treatment Two months Plan of Care Start Date 07/18/21 Plan of Care End Date 09/17/21 Therapeutic Interventions Therapeutic Interventions Aquatic Therapy,Balance Training,Home Exercise Program ,Joint Mobilizations,Manual Therapy,Neuromuscular Re- education,Patient/Caregiver Education,Self-Care/Home Management,Soft Tissue Mobilization,Therapeutic Activities,Therapeutic Exercises Modalities Cold Pack/Ice Massage,Electric Stimulation,Hot Packs, Ultrasound Next Visit Focus/Plan Next Note Type Treatment Note Next Visit Plan LE strengthening, core strengthening, trunk mobility
--- NOTE | 2021-09-08 15:56 | PT.OTN ---
Current Diagnoses Stiffness of other specified joint, not elsewhere classified (09/08/21) Spinal stenosis, lumbar region with neurogenic claudication (09/08/21) Weakness (09/08/21) Physical Therapy Treatment Note PT-OP-A Visit Information Start: 07/18/21 17:19 Freq: Status: Active Protocol: Document 09/08/21 15:15 DCW (Rec: 09/08/21 15:56 DCW [id number]) Out-Patient Physical Therapy Visit Information Visit Information Visit Type Treatment Note Visit Start Time 15:15 Visit Stop Time 16:00 Total Visit Minutes 45 Visit Number 10 Number of REHAB RN Visits 0 Evaluation Information Evaluation Date 07/19/21 PT-OP-B Current Condition Start: 07/18/21 17:19 Freq: Status: Active Protocol: Document 07/18/21 16:00 DCW (Rec: 07/19/21 09:40 DCW [id number]) Current Condition History of Current Condition Onset Date 05/22/21 Current Complaints s/p L3-4, L4-5 TLIF History of Current Condition Pt is a 75 year old male presenting 8 weeks s/p L3-4, L4-5 TLIF with posterior instrumentation. Pt had previously fair conservative treatment of LBP and radicular symptoms. Notes he is feeling better, but currently still has some left leg nerve pain, notes his knee occasionally edgar, mild numbness, and often has cramping in his left leg at night. Reports he has been up walking more recently, going on two 1/4 mile walks each day. Coming in to his evaluation was the first time he had tried to drive since surgery. Notes his surgeon has placed him on a 25# lifting restriction, and has told him that at this point, bending and twisting is okay, but limited. Treatment Goals Patient/Caregiver Goals Pt's goals are to improve back and core strength, sleep through the night, and to feel comfortabl;e enough to continue with his previous shoulder HEP. 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 PT-OP-C Subjective Start: 07/18/21 17:19 Freq: Status: Active Protocol: Document 09/08/21 15:15 DCW (Rec: 09/08/21 15:56 DCW [id number]) OP-PT Subjective Patient Comments Patient Comments The back is starting to feel better. There's still some trouble in the mornings, getting up and around is still hard, still some twinges in my leg, but I feel pretty good really. PT-OP-F Manual Assessment Start: 07/18/21 17:19 Freq: Status: Active Protocol: Document 07/18/21 16:00 DCW (Rec: 07/19/21 17:14 DCW [id number]) Manual Assessments Soft Tissue Assessment Soft Tissue Mobility Assessment Noticeable edema and inflammation along L2-5 directly between surgical incisions on each side of the spine Joint Mobility Assessment Joint Mobility Assessment Minimal lumbar joint mobility, most flexion and extension comes entirely from hip mobility. PT-OP-J Posture/Palpation/Skin Start: 07/18/21 17:19 Freq: Status: Active Protocol: Document 07/18/21 16:00 DCW (Rec: 07/19/21 17:14 DCW [id number]) Posture Evaluation Position Standing Evaluation View Lateral L-Spine Posture Flattened,Decreased Lordosis PT-OP-M Strength Start: 07/18/21 17:19 Freq: Status: Active Protocol: Document 07/18/21 16:00 DCW (Rec: 07/19/21 17:14 DCW [id number]) Hip Strength Hip Manual Muscle Testing Right Flexion (L2) 4- Good- Extension (S1) 4- Good- Abduction 4 Good Adduction 4 Good External Rotation 4+ Good+ Internal Rotation 4+ Good+ Left Flexion (L2) 3 Fair Extension (S1) 4- Good- Abduction 4 Good Adduction 4 Good External Rotation 4- Good- Internal Rotation 3+ Fair+ Knee Strength Knee Manual Muscle Testing Right Flexion (S2) 4+ Good+ Extension (L3) 4+ Good+ Left Flexion (S2) 4 Good Extension (L3) 4- Good- Ankle/Foot Strength Ankle and Foot Manual Muscle Testing Right Dorsiflexion (L4) 4 Good Plantarflexion (S1) 4 Good Left Dorsiflexion (L4) 3 Fair Plantarflexion (S1) 3+ Fair+ PT-OP-Q Treatments Start: 07/18/21 17:19 Freq: Status: Active Protocol: Document 09/08/21 15:15 DCW (Rec: 09/08/21 15:56 DCW [id number]) Cardio Equipment Recumbent Stepper (Sci-Fit) Duration (Minutes) 6 Resistance 4 Seat Position 16 Gym Equipment Cable Column (Body Solid) Leg Extension Resistance 50# Leg Curl Resistance 70# Hip Adduction Resistance 40# Hip Abduction Resistance 60# Shuttle Recovery Unilateral Squats Resistance 62# Shuttle Recovery Platform Stable Bilateral Squats Resistance 100# Shuttle Recovery Platform Stable Therapeutic Ball LTR Exercise Details LTR Ball Size/Color Red - 55 cm Body Position Supine Manual Therapy Treatment Soft Tissue Mobilization Paraspinals Body Location B Paraspinals Mobilization Type Sustained Pressure,Trigger Point Release Body Position Sidelying Piriformis Body Location B Piriforims Mobilization Type Sustained Pressure,Trigger Point Release Intensity/Depth Moderate Body Position Sidelying PT-OP-T Assessment and Plan Start: 07/18/21 17:19 Freq: Status: Active Protocol: Document 09/08/21 15:15 DCW (Rec: 09/08/21 15:56 DCW [id number]) Physical Therapy Assessment Impairments Impairments Activity Tolerance,Functional Activities,Functional Mobility ,Integument,Pain,ROM,Sensation ,Soft Tissue Mobility,Strength ,Tone Goals Two Impairment Pt displays left-sided LE weakness in all planes Penitentiary Goal (LTG) Pt to increase LE strength in all planes to at least 4/5 in order to prevent continued knee buckling during gait LTG Duration 09/17/21 One Impairment Pt does not have an appropriate home exercise program Short Term Goal (STG) Pt to be independent and compliant with an appropriate HEP STG Duration 08/18/21 Assessment Summary Assessment R QL especially sore today, STM focused mainly on this area, otherwise doing well. Physical Therapy Plan Frequency and Duration Frequency of Treatment 2x/Week Duration of Treatment Two months Plan of Care Start Date 07/18/21 Plan of Care End Date 09/17/21 Therapeutic Interventions Therapeutic Interventions Aquatic Therapy,Balance Training,Home Exercise Program ,Joint Mobilizations,Manual Therapy,Neuromuscular Re- education,Patient/Caregiver Education,Self-Care/Home Management,Soft Tissue Mobilization,Therapeutic Activities,Therapeutic Exercises Modalities Cold Pack/Ice Massage,Electric Stimulation,Hot Packs, Ultrasound Next Visit Focus/Plan Next Note Type Treatment Note Next Visit Plan LE strengthening, core strengthening, trunk mobility
--- NOTE | 2021-09-11 11:55 | PT.OTN ---
Current Diagnoses Stiffness of other specified joint, not elsewhere classified (09/11/21) Spinal stenosis, lumbar region with neurogenic claudication (09/11/21) Weakness (09/11/21) Physical Therapy Treatment Note PT-OP-A Visit Information Start: 07/18/21 17:19 Freq: Status: Active Protocol: Document 09/11/21 11:15 DCW (Rec: 09/11/21 11:55 DCW [id number]) Out-Patient Physical Therapy Visit Information Visit Information Visit Type Treatment Note Visit Start Time 11:15 Visit Stop Time 12:00 Total Visit Minutes 45 Visit Number 11 Number of ARTILLERY MAINTENANCE SUPERVISOR Visits 0 Evaluation Information Evaluation Date 07/19/21 PT-OP-B Current Condition Start: 07/18/21 17:19 Freq: Status: Active Protocol: Document 07/18/21 16:00 DCW (Rec: 07/19/21 09:40 DCW [id number]) Current Condition History of Current Condition Onset Date 05/22/21 Current Complaints s/p L3-4, L4-5 TLIF History of Current Condition Pt is a 75 year old male presenting 8 weeks s/p L3-4, L4-5 TLIF with posterior instrumentation. Pt had previously fair conservative treatment of LBP and radicular symptoms. Notes he is feeling better, but currently still has some left leg nerve pain, notes his knee occasionally edgar, mild numbness, and often has cramping in his left leg at night. Reports he has been up walking more recently, going on two 1/4 mile walks each day. Coming in to his evaluation was the first time he had tried to drive since surgery. Notes his surgeon has placed him on a 25# lifting restriction, and has told him that at this point, bending and twisting is okay, but limited. Treatment Goals Patient/Caregiver Goals Pt's goals are to improve back and core strength, sleep through the night, and to feel comfortabl;e enough to continue with his previous shoulder HEP. 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 PT-OP-C Subjective Start: 07/18/21 17:19 Freq: Status: Active Protocol: Document 09/11/21 11:15 DCW (Rec: 09/11/21 11:55 DCW [id number]) OP-PT Subjective Patient Comments Patient Comments Pt reports he is doing pretty well today. PT-OP-F Manual Assessment Start: 07/18/21 17:19 Freq: Status: Active Protocol: Document 07/18/21 16:00 DCW (Rec: 07/19/21 17:14 DCW [id number]) Manual Assessments Soft Tissue Assessment Soft Tissue Mobility Assessment Noticeable edema and inflammation along L2-5 directly between surgical incisions on each side of the spine Joint Mobility Assessment Joint Mobility Assessment Minimal lumbar joint mobility, most flexion and extension comes entirely from hip mobility. PT-OP-J Posture/Palpation/Skin Start: 07/18/21 17:19 Freq: Status: Active Protocol: Document 07/18/21 16:00 DCW (Rec: 07/19/21 17:14 DCW [id number]) Posture Evaluation Position Standing Evaluation View Lateral L-Spine Posture Flattened,Decreased Lordosis PT-OP-M Strength Start: 07/18/21 17:19 Freq: Status: Active Protocol: Document 07/18/21 16:00 DCW (Rec: 07/19/21 17:14 DCW [id number]) Hip Strength Hip Manual Muscle Testing Right Flexion (L2) 4- Good- Extension (S1) 4- Good- Abduction 4 Good Adduction 4 Good External Rotation 4+ Good+ Internal Rotation 4+ Good+ Left Flexion (L2) 3 Fair Extension (S1) 4- Good- Abduction 4 Good Adduction 4 Good External Rotation 4- Good- Internal Rotation 3+ Fair+ Knee Strength Knee Manual Muscle Testing Right Flexion (S2) 4+ Good+ Extension (L3) 4+ Good+ Left Flexion (S2) 4 Good Extension (L3) 4- Good- Ankle/Foot Strength Ankle and Foot Manual Muscle Testing Right Dorsiflexion (L4) 4 Good Plantarflexion (S1) 4 Good Left Dorsiflexion (L4) 3 Fair Plantarflexion (S1) 3+ Fair+ PT-OP-Q Treatments Start: 07/18/21 17:19 Freq: Status: Active Protocol: Document 09/11/21 11:15 DCW (Rec: 09/11/21 11:55 DCW [id number]) Cardio Equipment Recumbent Stepper (Sci-Fit) Duration (Minutes) 6 Resistance 4 Seat Position 14 Gym Equipment Cable Column (Body Solid) Leg Extension Resistance 50# Leg Curl Resistance 70# Hip Adduction Resistance 40# Hip Abduction Resistance 60# Shuttle Recovery Unilateral Squats Resistance 62# Shuttle Recovery Platform Stable Bilateral Squats Resistance 100# Shuttle Recovery Platform Unstable Therapeutic Ball Resisted hip flexion Exercise Details Resisted hip/knee flexion Ball Size/Color Red - 55 cm Lv 3 T-band Body Position Supine LTR Exercise Details LTR Ball Size/Color Red - 55 cm Body Position Supine Therapeutic Exercises Supine Exercises 1 Supine Exercise Name Figure-4 piriformis stretch Side bilateral Manual Therapy Treatment Soft Tissue Mobilization Paraspinals Body Location B Paraspinals, QL Mobilization Type Sustained Pressure,Trigger Point Release Body Position Sidelying Piriformis Body Location B Piriforims Mobilization Type Sustained Pressure,Trigger Point Release Intensity/Depth Moderate Body Position Sidelying PT-OP-T Assessment and Plan Start: 07/18/21 17:19 Freq: Status: Active Protocol: Document 09/11/21 11:15 DCW (Rec: 09/11/21 11:55 DCW [id number]) Physical Therapy Assessment Impairments Impairments Activity Tolerance,Functional Activities,Functional Mobility ,Integument,Pain,ROM,Sensation ,Soft Tissue Mobility,Strength ,Tone Goals Two Impairment Pt displays left-sided LE weakness in all planes Fdc Goal (LTG) Pt to increase LE strength in all planes to at least 4/5 in order to prevent continued knee buckling during gait LTG Duration 09/17/21 One Impairment Pt does not have an appropriate home exercise program Short Term Goal (STG) Pt to be independent and compliant with an appropriate HEP STG Duration 08/18/21 Assessment Summary Assessment Pt showing good improvement overall, decreased tone and spasming in low back along surgical area. Increased strength in LEs, however left LE still lagging behind right. Physical Therapy Plan Frequency and Duration Frequency of Treatment 2x/Week Duration of Treatment Two months Plan of Care Start Date 07/18/21 Plan of Care End Date 09/17/21 Therapeutic Interventions Therapeutic Interventions Aquatic Therapy,Balance Training,Home Exercise Program ,Joint Mobilizations,Manual Therapy,Neuromuscular Re- education,Patient/Caregiver Education,Self-Care/Home Management,Soft Tissue Mobilization,Therapeutic Activities,Therapeutic Exercises Modalities Cold Pack/Ice Massage,Electric Stimulation,Hot Packs, Ultrasound Next Visit Focus/Plan Next Note Type Treatment Note Next Visit Plan LE strengthening, core strengthening, trunk mobility
--- NOTE | 2021-09-14 11:16 | PT.OTN ---
Current Diagnoses Stiffness of other specified joint, not elsewhere classified (09/14/21) Spinal stenosis, lumbar region with neurogenic claudication (09/14/21) Weakness (09/14/21) Physical Therapy Treatment Note PT-OP-A Visit Information Start: 07/18/21 17:19 Freq: Status: Active Protocol: Document 09/14/21 10:37 DCW (Rec: 09/14/21 11:16 DCW [id number]) Out-Patient Physical Therapy Visit Information Visit Information Visit Type Treatment Note Visit Note 7 min late Visit Start Time 10:37 Visit Stop Time 11:15 Total Visit Minutes 38 Visit Number 12 Number of ACADEMIC TUTOR Visits 0 Evaluation Information Evaluation Date 07/19/21 PT-OP-B Current Condition Start: 07/18/21 17:19 Freq: Status: Active Protocol: Document 07/18/21 16:00 DCW (Rec: 07/19/21 09:40 DCW [id number]) Current Condition History of Current Condition Onset Date 05/22/21 Current Complaints s/p L3-4, L4-5 TLIF History of Current Condition Pt is a 75 year old male presenting 8 weeks s/p L3-4, L4-5 TLIF with posterior instrumentation. Pt had previously fair conservative treatment of LBP and radicular symptoms. Notes he is feeling better, but currently still has some left leg nerve pain, notes his knee occasionally edgar, mild numbness, and often has cramping in his left leg at night. Reports he has been up walking more recently, going on two 1/4 mile walks each day. Coming in to his evaluation was the first time he had tried to drive since surgery. Notes his surgeon has placed him on a 25# lifting restriction, and has told him that at this point, bending and twisting is okay, but limited. Treatment Goals Patient/Caregiver Goals Pt's goals are to improve back and core strength, sleep through the night, and to feel comfortabl;e enough to continue with his previous shoulder HEP. 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 PT-OP-C Subjective Start: 07/18/21 17:19 Freq: Status: Active Protocol: Document 09/14/21 10:37 DCW (Rec: 09/14/21 11:16 DCW [id number]) OP-PT Subjective Patient Comments Patient Comments Pt notes his post-op with Dr Sierra went well, doesn't have his next follow-up for three months, but pt reports that his progression is right where he [Dr. Sierra] wants in to be. PT-OP-F Manual Assessment Start: 07/18/21 17:19 Freq: Status: Active Protocol: Document 07/18/21 16:00 DCW (Rec: 07/19/21 17:14 DCW [id number]) Manual Assessments Soft Tissue Assessment Soft Tissue Mobility Assessment Noticeable edema and inflammation along L2-5 directly between surgical incisions on each side of the spine Joint Mobility Assessment Joint Mobility Assessment Minimal lumbar joint mobility, most flexion and extension comes entirely from hip mobility. PT-OP-J Posture/Palpation/Skin Start: 07/18/21 17:19 Freq: Status: Active Protocol: Document 07/18/21 16:00 DCW (Rec: 07/19/21 17:14 DCW [id number]) Posture Evaluation Position Standing Evaluation View Lateral L-Spine Posture Flattened,Decreased Lordosis PT-OP-M Strength Start: 07/18/21 17:19 Freq: Status: Active Protocol: Document 07/18/21 16:00 DCW (Rec: 07/19/21 17:14 DCW [id number]) Hip Strength Hip Manual Muscle Testing Right Flexion (L2) 4- Good- Extension (S1) 4- Good- Abduction 4 Good Adduction 4 Good External Rotation 4+ Good+ Internal Rotation 4+ Good+ Left Flexion (L2) 3 Fair Extension (S1) 4- Good- Abduction 4 Good Adduction 4 Good External Rotation 4- Good- Internal Rotation 3+ Fair+ Knee Strength Knee Manual Muscle Testing Right Flexion (S2) 4+ Good+ Extension (L3) 4+ Good+ Left Flexion (S2) 4 Good Extension (L3) 4- Good- Ankle/Foot Strength Ankle and Foot Manual Muscle Testing Right Dorsiflexion (L4) 4 Good Plantarflexion (S1) 4 Good Left Dorsiflexion (L4) 3 Fair Plantarflexion (S1) 3+ Fair+ PT-OP-Q Treatments Start: 07/18/21 17:19 Freq: Status: Active Protocol: Document 09/14/21 10:37 DCW (Rec: 09/14/21 11:16 DCW [id number]) Cardio Equipment Recumbent Stepper (Sci-Fit) Duration (Minutes) 6 Resistance 4 Seat Position 15 Gym Equipment Cable Column (Body Solid) Leg Extension Resistance 50# Leg Curl Resistance 70# Hip Adduction Resistance 40# Hip Abduction Resistance 60# Shuttle Recovery Unilateral Squats Resistance 62# R, 50# L Shuttle Recovery Platform Stable Bilateral Squats Resistance 112# Shuttle Recovery Platform Unstable Manual Therapy Treatment Soft Tissue Mobilization Paraspinals Body Location B Paraspinals, QL Mobilization Type Sustained Pressure,Trigger Point Release Body Position Sidelying Piriformis Body Location B Piriforims Mobilization Type Sustained Pressure,Trigger Point Release Intensity/Depth Moderate Body Position Sidelying PT-OP-T Assessment and Plan Start: 07/18/21 17:19 Freq: Status: Active Protocol: Document 09/14/21 10:37 DCW (Rec: 09/14/21 11:16 DCW [id number]) Physical Therapy Assessment Impairments Impairments Activity Tolerance,Functional Activities,Functional Mobility ,Integument,Pain,ROM,Sensation ,Soft Tissue Mobility,Strength ,Tone Goals Two Impairment Pt displays left-sided LE weakness in all planes Shoe Lay Out Planner Goal (LTG) Pt to increase LE strength in all planes to at least 4/5 in order to prevent continued knee buckling during gait LTG Duration 09/17/21 One Impairment Pt does not have an appropriate home exercise program Short Term Goal (STG) Pt to be independent and compliant with an appropriate HEP STG Duration 08/18/21 Assessment Summary Assessment Pt doing well, significantly less tone along paraspinals vs last week. Physical Therapy Plan Frequency and Duration Frequency of Treatment 2x/Week Duration of Treatment Two months Plan of Care Start Date 07/18/21 Plan of Care End Date 09/17/21 Therapeutic Interventions Therapeutic Interventions Aquatic Therapy,Balance Training,Home Exercise Program ,Joint Mobilizations,Manual Therapy,Neuromuscular Re- education,Patient/Caregiver Education,Self-Care/Home Management,Soft Tissue Mobilization,Therapeutic Activities,Therapeutic Exercises Modalities Cold Pack/Ice Massage,Electric Stimulation,Hot Packs, Ultrasound Next Visit Focus/Plan Next Note Type Treatment Note Next Visit Plan LE strengthening, core strengthening, trunk mobility
--- NOTE | 2021-09-19 11:14 | PT.OTN ---
Current Diagnoses Stiffness of other specified joint, not elsewhere classified (09/19/21) Spinal stenosis, lumbar region with neurogenic claudication (09/19/21) Weakness (09/19/21) Physical Therapy Treatment Note PT-OP-A Visit Information Start: 07/18/21 17:19 Freq: Status: Active Protocol: Document 09/19/21 10:32 DCW (Rec: 09/19/21 11:14 DCW [id number]) Out-Patient Physical Therapy Visit Information Visit Information Visit Type Progress Note Visit Start Time 10:32 Visit Stop Time 11:15 Total Visit Minutes 43 Visit Number 13 Number of AIRPORT RAMP ATTENDANT Visits 0 Evaluation Information Evaluation Date 07/19/21 PT-OP-B Current Condition Start: 07/18/21 17:19 Freq: Status: Active Protocol: Document 07/18/21 16:00 DCW (Rec: 07/19/21 09:40 DCW [id number]) Current Condition History of Current Condition Onset Date 05/22/21 Current Complaints s/p L3-4, L4-5 TLIF History of Current Condition Pt is a 75 year old male presenting 8 weeks s/p L3-4, L4-5 TLIF with posterior instrumentation. Pt had previously fair conservative treatment of LBP and radicular symptoms. Notes he is feeling better, but currently still has some left leg nerve pain, notes his knee occasionally edgar, mild numbness, and often has cramping in his left leg at night. Reports he has been up walking more recently, going on two 1/4 mile walks each day. Coming in to his evaluation was the first time he had tried to drive since surgery. Notes his surgeon has placed him on a 25# lifting restriction, and has told him that at this point, bending and twisting is okay, but limited. Treatment Goals Patient/Caregiver Goals Pt's goals are to improve back and core strength, sleep through the night, and to feel comfortabl;e enough to continue with his previous shoulder HEP. 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 PT-OP-C Subjective Start: 07/18/21 17:19 Freq: Status: Active Protocol: Document 09/19/21 10:32 DCW (Rec: 09/19/21 11:14 DCW [id number]) OP-PT Subjective Patient Comments Patient Comments Pt adimts that he has had a rough couple days, and notes that his knee has been giving out on him when he is tired later in the day. PT-OP-F Manual Assessment Start: 07/18/21 17:19 Freq: Status: Active Protocol: Document 09/19/21 10:32 DCW (Rec: 09/19/21 10:42 DCW [id number]) Manual Assessments Soft Tissue Assessment Soft Tissue Mobility Assessment Minimal edema, good incisional healing at surgical site Joint Mobility Assessment Joint Mobility Assessment Minimal lumbar joint mobility, most flexion and extension comes entirely from hip mobility. PT-OP-J Posture/Palpation/Skin Start: 07/18/21 17:19 Freq: Status: Active Protocol: Document 09/19/21 10:32 DCW (Rec: 09/19/21 10:45 DCW [id number]) Posture Evaluation Position Standing Evaluation View Lateral L-Spine Posture Flattened,Decreased Lordosis PT-OP-K Range of Motion Start: 07/18/21 17:19 Freq: Status: Active Protocol: Document 09/19/21 10:32 DCW (Rec: 09/19/21 10:45 DCW [id number]) Lumbar Spine Range of Motion Lumbar Spine Active Degrees Testing Position 30 Flexion 5 Lateral Flexion Left 72 Lateral Flexion Right 70 Comments Lateral flexion measured in cm from fingertips to floor PT-OP-M Strength Start: 07/18/21 17:19 Freq: Status: Active Protocol: Document 09/19/21 10:32 DCW (Rec: 09/19/21 10:42 DCW [id number]) Hip Strength Hip Manual Muscle Testing Right Flexion (L2) 4 Good Extension (S1) 4 Good Abduction 4 Good Adduction 4+ Good+ External Rotation 4+ Good+ Internal Rotation 4+ Good+ Left Flexion (L2) 4- Good- Extension (S1) 4 Good Abduction 4 Good Adduction 4 Good External Rotation 4- Good- Internal Rotation 4- Good- Knee Strength Knee Manual Muscle Testing Right Flexion (S2) 5 Normal Extension (L3) 5 Normal Left Flexion (S2) 4 Good Extension (L3) 4 Good Ankle/Foot Strength Ankle and Foot Manual Muscle Testing Right Dorsiflexion (L4) 4+ Good+ Plantarflexion (S1) 4+ Good+ Left Dorsiflexion (L4) 4- Good- Plantarflexion (S1) 4+ Good+ PT-OP-Q Treatments Start: 07/18/21 17:19 Freq: Status: Active Protocol: Document 09/19/21 10:32 DCW (Rec: 09/19/21 11:14 [facility] [id number]) Gym Equipment Cable Column (Body Solid) Leg Extension Resistance 50#->40# Reps/Time c/o R knee pain Leg Curl Resistance 70# Hip Adduction Resistance 40# Hip Abduction Resistance 60# Therapeutic Ball Seated walk-out Exercise Details Lumbar flexion walk-out Ball Size/Color Red - 75 cm Body Position Sitting Therapeutic Exercises Sitting Exercises 2 Sitting Exercise Name Lateral flexion lumbar stretch Comments Gentle stretch 1 Sitting Exercise Name Lumbar flexion stretch Manual Therapy Treatment Other Other Manual Treatments Testing PT-OP-T Assessment and Plan Start: 07/18/21 17:19 Freq: Status: Active Protocol: Document 09/19/21 10:32 DCW (Rec: 09/19/21 11:14 [facility] [id number]) Physical Therapy Assessment Impairments Impairments Activity Tolerance,Functional Activities,Functional Mobility ,Integument,Pain,ROM,Sensation ,Soft Tissue Mobility,Strength ,Tone Goals Two Impairment Pt displays left-sided LE weakness in all planes Correction Goal (LTG) Pt to increase LE strength in all planes to at least 4/5 in order to prevent continued knee buckling during gait LTG Duration 11/20/21 - Improving One Impairment Pt does not have an appropriate home exercise program Short Term Goal (STG) Pt to be independent and compliant with an appropriate HEP STG Duration Met Assessment Summary Assessment Pt making good progress with left LE strength following surgery, still fairly limited with lumbar mobility. Pt continues to experience general achiness and fatigue, will benefit from continued skilled therapeutic intervention. Physical Therapy Plan Frequency and Duration Frequency of Treatment 2x/Week Duration of Treatment Two months Plan of Care Start Date 09/19/21 Plan of Care End Date 11/20/21 Therapeutic Interventions Therapeutic Interventions Aquatic Therapy,Balance Training,Home Exercise Program ,Joint Mobilizations,Manual Therapy,Neuromuscular Re- education,Patient/Caregiver Education,Self-Care/Home Management,Soft Tissue Mobilization,Therapeutic Activities,Therapeutic Exercises Modalities Cold Pack/Ice Massage,Electric Stimulation,Hot Packs, Ultrasound Next Visit Focus/Plan Next Note Type Treatment Note Next Visit Plan LE strengthening, core strengthening, trunk mobility
--- NOTE | 2021-09-19 11:15 | PT.OPPOC ---
Physical, Occupational & Speech Therapy At [facility] Current Diagnoses Stiffness of other specified joint, not elsewhere classified (09/19/21) Spinal stenosis, lumbar region with neurogenic claudication (09/19/21) Weakness (09/19/21) Visit Care Team Role Provider Type Ricardo Reinoso MD Primary Care Provider Physician Specialty: Family Practice Address: [address] [place] [address], [id number] Email: [email or web address] Tere Sierra MD Attending Provider Physician Family Provider Referring Provider Specialty: Orthopedics Orthopedic Surgery Address: [address] [place] [address], [id number] Email: [email or web address] Plan Of Care PT-OP-T Assessment and Plan Start: 07/18/21 17:19 Freq: Status: Active Protocol: Document 09/19/21 10:32 DCW (Rec: 09/19/21 11:14 DCW [id number]) Physical Therapy Assessment Impairments Impairments Activity Tolerance,Functional Activities,Functional Mobility ,Integument,Pain,ROM,Sensation ,Soft Tissue Mobility,Strength ,Tone Goals Two Impairment Pt displays left-sided LE weakness in all planes Financial Services Officer Goal (LTG) Pt to increase LE strength in all planes to at least 4/5 in order to prevent continued knee buckling during gait LTG Duration 11/20/21 - Improving One Impairment Pt does not have an appropriate home exercise program Short Term Goal (STG) Pt to be independent and compliant with an appropriate HEP STG Duration Met Assessment Summary Assessment Pt making good progress with left LE strength following surgery, still fairly limited with lumbar mobility. Pt continues to experience general achiness and fatigue, will benefit from continued skilled therapeutic intervention. Physical Therapy Plan Frequency and Duration Frequency of Treatment 2x/Week Duration of Treatment Two months Plan of Care Start Date 09/19/21 Plan of Care End Date 11/20/21 Therapeutic Interventions Therapeutic Interventions Aquatic Therapy,Balance Training,Home Exercise Program ,Joint Mobilizations,Manual Therapy,Neuromuscular Re- education,Patient/Caregiver Education,Self-Care/Home Management,Soft Tissue Mobilization,Therapeutic Activities,Therapeutic Exercises Modalities Cold Pack/Ice Massage,Electric Stimulation,Hot Packs, Ultrasound Next Visit Focus/Plan Next Note Type Treatment Note Next Visit Plan LE strengthening, core strengthening, trunk mobility Plan of Care Dates Plan of Care Start Date 09/19/21 Plan of Care End Date 11/20/21 Electronically Signed by: Gordon Barragan, PT 09/19/21 1868 If you are in agreement with this Plan of Care, please return a signed and dated copy. I have reviewed this Plan of Care and certify that the skilled therapy services above are required to meet the patient?s needs. Physician Signature Date Printed Name and Credentials Clinical Instructor Signature Printed Name and Credentials
--- NOTE | 2021-09-26 12:34 | PT.OTN ---
Current Diagnoses Stiffness of other specified joint, not elsewhere classified (09/26/21) Spinal stenosis, lumbar region with neurogenic claudication (09/26/21) Weakness (09/26/21) Physical Therapy Treatment Note PT-OP-A Visit Information Start: 07/18/21 17:19 Freq: Status: Active Protocol: Document 09/26/21 11:25 NBM (Rec: 09/26/21 12:31 NBM [id number]) Out-Patient Physical Therapy Visit Information Visit Information Visit Type Progress Note Visit Start Time 11:25 Visit Stop Time 12:15 Total Visit Minutes 50 Visit Number 14 Number of INSULATION ESTIMATOR Visits 1 PT-OP-B Current Condition Start: 07/18/21 17:19 Freq: Status: Active Protocol: Document 07/18/21 16:00 DCW (Rec: 07/19/21 09:40 DCW [id number]) Current Condition History of Current Condition Onset Date 05/22/21 Current Complaints s/p L3-4, L4-5 TLIF History of Current Condition Pt is a 75 year old male presenting 8 weeks s/p L3-4, L4-5 TLIF with posterior instrumentation. Pt had previously fair conservative treatment of LBP and radicular symptoms. Notes he is feeling better, but currently still has some left leg nerve pain, notes his knee occasionally edgar, mild numbness, and often has cramping in his left leg at night. Reports he has been up walking more recently, going on two 1/4 mile walks each day. Coming in to his evaluation was the first time he had tried to drive since surgery. Notes his surgeon has placed him on a 25# lifting restriction, and has told him that at this point, bending and twisting is okay, but limited. Treatment Goals Patient/Caregiver Goals Pt's goals are to improve back and core strength, sleep through the night, and to feel comfortabl;e enough to continue with his previous shoulder HEP. 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 PT-OP-C Subjective Start: 07/18/21 17:19 Freq: Status: Active Protocol: Document 09/26/21 11:25 NBM (Rec: 09/26/21 12:31 NBM [id number]) OP-PT Subjective Patient Comments Patient Comments Pt woke up with pain 2-3/10 which resolved to 0/10 after stretching and going for a 1.5 mi walk this morning. His low back continutes to be stiff. He would like STM to his L hip and thigh today. PT-OP-F Manual Assessment Start: 07/18/21 17:19 Freq: Status: Active Protocol: Document 09/19/21 10:32 DCW (Rec: 09/19/21 10:42 DCW [id number]) Manual Assessments Soft Tissue Assessment Soft Tissue Mobility Assessment Minimal edema, good incisional healing at surgical site Joint Mobility Assessment Joint Mobility Assessment Minimal lumbar joint mobility, most flexion and extension comes entirely from hip mobility. PT-OP-J Posture/Palpation/Skin Start: 07/18/21 17:19 Freq: Status: Active Protocol: Document 09/19/21 10:32 DCW (Rec: 09/19/21 10:45 DCW [id number]) Posture Evaluation Position Standing Evaluation View Lateral L-Spine Posture Flattened,Decreased Lordosis PT-OP-K Range of Motion Start: 07/18/21 17:19 Freq: Status: Active Protocol: Document 09/19/21 10:32 DCW (Rec: 09/19/21 10:45 DCW [id number]) Lumbar Spine Range of Motion Lumbar Spine Active Degrees Testing Position 30 Flexion 5 Lateral Flexion Left 72 Lateral Flexion Right 70 Comments Lateral flexion measured in cm from fingertips to floor PT-OP-M Strength Start: 07/18/21 17:19 Freq: Status: Active Protocol: Document 09/19/21 10:32 DCW (Rec: 09/19/21 10:42 DCW [id number]) Hip Strength Hip Manual Muscle Testing Right Flexion (L2) 4 Good Extension (S1) 4 Good Abduction 4 Good Adduction 4+ Good+ External Rotation 4+ Good+ Internal Rotation 4+ Good+ Left Flexion (L2) 4- Good- Extension (S1) 4 Good Abduction 4 Good Adduction 4 Good External Rotation 4- Good- Internal Rotation 4- Good- Knee Strength Knee Manual Muscle Testing Right Flexion (S2) 5 Normal Extension (L3) 5 Normal Left Flexion (S2) 4 Good Extension (L3) 4 Good Ankle/Foot Strength Ankle and Foot Manual Muscle Testing Right Dorsiflexion (L4) 4+ Good+ Plantarflexion (S1) 4+ Good+ Left Dorsiflexion (L4) 4- Good- Plantarflexion (S1) 4+ Good+ PT-OP-Q Treatments Start: 07/18/21 17:19 Freq: Status: Active Protocol: Document 09/26/21 11:25 [facility] (Rec: 09/26/21 12:31 [facility] [id number]) Cardio Equipment Recumbent Elliptical (Biodex) Duration (Minutes) 6 Resistance 5 Seat Position 13 Gym Equipment Cable Column (Body Solid) Leg Extension Resistance 40# Reps/Time 2 x 15 no knee pain today, vc for controlled eccentric Leg Curl Resistance 70# Reps/Time 2 x 15 Hip Adduction Resistance 50# Reps/Time 2 x 15 Hip Abduction Resistance 40# 1x10 - 50# 1 x 10 Therapeutic Exercises Standing Exercises Heel/Toe Raise Side bilateral Reps/Minutes 2 x 15 ea Comments vc to minimize forward rocking , slow eccentric Other Exercises 2 Other Exercise Name Child's pose Comments Discussed modification w/ pillow or yoga block under hips - not performed Manual Therapy Treatment Soft Tissue Mobilization L TFL Body Location L Tensor Fascia Latae, L IT Band, L Quad Mobilization Type Rolling,Strumming,Sustained Pressure Intensity/Depth Moderate Body Position Supine Comments Pt reported relief post STM PT-OP-T Assessment and Plan Start: 07/18/21 17:19 Freq: Status: Active Protocol: Document 09/26/21 11:25 [facility] (Rec: 09/26/21 12:31 [facility] [id number]) Physical Therapy Assessment Goals Two Impairment Pt displays left-sided LE weakness in all planes Small Products I Assembler Goal (LTG) Pt to increase LE strength in all planes to at least 4/5 in order to prevent continued knee buckling during gait LTG Duration 11/20/21 - Improving One Impairment Pt does not have an appropriate home exercise program Short Term Goal (STG) Pt to be independent and compliant with an appropriate HEP STG Duration Met Assessment Summary Assessment Pt continues to progress LE strength but experiences ongoing stiffness in lumbar region. Today he reported tingling down the front of his LLE w/ heel/calf raises which resolved w/ cue for core engagement. Hip discomfort and tension was relieved with STM today. Pt will benefit from continued skilled therapeutic intervention. Physical Therapy Plan Next Visit Focus/Plan Next Note Type Treatment Note Next Visit Plan LE strengthening, core strengthening, trunk mobility
--- NOTE | 2021-09-29 16:52 | PT.OTN ---
Current Diagnoses Stiffness of other specified joint, not elsewhere classified (09/29/21) Spinal stenosis, lumbar region with neurogenic claudication (09/29/21) Weakness (09/29/21) Physical Therapy Treatment Note PT-OP-A Visit Information Start: 07/18/21 17:19 Freq: Status: Active Protocol: Document 09/29/21 14:34 NBM (Rec: 09/29/21 16:49 NBM [id number]) Out-Patient Physical Therapy Visit Information Visit Information Visit Type Progress Note Visit Start Time 14:35 Visit Stop Time 15:30 Total Visit Minutes 55 Visit Number 15 Number of ORACLE HYPERION CONSULTANT Visits 2 PT-OP-B Current Condition Start: 07/18/21 17:19 Freq: Status: Active Protocol: Document 07/18/21 16:00 DCW (Rec: 07/19/21 09:40 DCW [id number]) Current Condition History of Current Condition Onset Date 05/22/21 Current Complaints s/p L3-4, L4-5 TLIF History of Current Condition Pt is a 75 year old male presenting 8 weeks s/p L3-4, L4-5 TLIF with posterior instrumentation. Pt had previously fair conservative treatment of LBP and radicular symptoms. Notes he is feeling better, but currently still has some left leg nerve pain, notes his knee occasionally edgar, mild numbness, and often has cramping in his left leg at night. Reports he has been up walking more recently, going on two 1/4 mile walks each day. Coming in to his evaluation was the first time he had tried to drive since surgery. Notes his surgeon has placed him on a 25# lifting restriction, and has told him that at this point, bending and twisting is okay, but limited. Treatment Goals Patient/Caregiver Goals Pt's goals are to improve back and core strength, sleep through the night, and to feel comfortabl;e enough to continue with his previous shoulder HEP. 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 PT-OP-C Subjective Start: 07/18/21 17:19 Freq: Status: Active Protocol: Document 09/29/21 14:34 NBM (Rec: 09/29/21 16:49 NBM [id number]) OP-PT Subjective Patient Comments Patient Comments Red reports he felt good after his last PT apt and had some good muscle soreness in his calves. He had a massage appt the next day that focused on his back and Left hip. He continues to experience stiffness in his low back. PT-OP-F Manual Assessment Start: 07/18/21 17:19 Freq: Status: Active Protocol: Document 09/19/21 10:32 DCW (Rec: 09/19/21 10:42 DCW [id number]) Manual Assessments Soft Tissue Assessment Soft Tissue Mobility Assessment Minimal edema, good incisional healing at surgical site Joint Mobility Assessment Joint Mobility Assessment Minimal lumbar joint mobility, most flexion and extension comes entirely from hip mobility. PT-OP-J Posture/Palpation/Skin Start: 07/18/21 17:19 Freq: Status: Active Protocol: Document 09/19/21 10:32 DCW (Rec: 09/19/21 10:45 DCW [id number]) Posture Evaluation Position Standing Evaluation View Lateral L-Spine Posture Flattened,Decreased Lordosis PT-OP-K Range of Motion Start: 07/18/21 17:19 Freq: Status: Active Protocol: Document 09/19/21 10:32 DCW (Rec: 09/19/21 10:45 DCW [id number]) Lumbar Spine Range of Motion Lumbar Spine Active Degrees Testing Position 30 Flexion 5 Lateral Flexion Left 72 Lateral Flexion Right 70 Comments Lateral flexion measured in cm from fingertips to floor PT-OP-M Strength Start: 07/18/21 17:19 Freq: Status: Active Protocol: Document 09/19/21 10:32 DCW (Rec: 09/19/21 10:42 DCW [id number]) Hip Strength Hip Manual Muscle Testing Right Flexion (L2) 4 Good Extension (S1) 4 Good Abduction 4 Good Adduction 4+ Good+ External Rotation 4+ Good+ Internal Rotation 4+ Good+ Left Flexion (L2) 4- Good- Extension (S1) 4 Good Abduction 4 Good Adduction 4 Good External Rotation 4- Good- Internal Rotation 4- Good- Knee Strength Knee Manual Muscle Testing Right Flexion (S2) 5 Normal Extension (L3) 5 Normal Left Flexion (S2) 4 Good Extension (L3) 4 Good Ankle/Foot Strength Ankle and Foot Manual Muscle Testing Right Dorsiflexion (L4) 4+ Good+ Plantarflexion (S1) 4+ Good+ Left Dorsiflexion (L4) 4- Good- Plantarflexion (S1) 4+ Good+ PT-OP-Q Treatments Start: 07/18/21 17:19 Freq: Status: Active Protocol: Document 09/29/21 14:34 [facility] (Rec: 09/29/21 16:49 [facility] [id number]) Cardio Equipment Recumbent Elliptical (Biodex) Duration (Minutes) 5 Resistance 5 Seat Position 13 Gym Equipment Cable Column (Body Solid) Leg Extension Resistance 40# Reps/Time 2 x 15 Leg Curl Resistance 70# Reps/Time 2 x 15, vc for slow eccentric, toes forward Hip Adduction Resistance 1 x 15: 50#, 1 x 15: 60# Hip Abduction Resistance 50# 2 x 10 Shuttle Recovery Unilateral Squats Resistance 62# R 1x15, 50# L 2x15 Shuttle Recovery Platform Stable Reps/Time R dc'd at 1 x 15 d/t c/o R knee pain Bilateral Squats Details 2x 15 Resistance 112#>100# Shuttle Recovery Platform Unstable Reps/Time c/o R knee discomfort Therapeutic Ball Seated walk-out Exercise Details Lumbar flexion walk-out Ball Size/Color Red - 75 cm Body Position Sitting Therapeutic Exercises Sitting Exercises Upper Trunk Rotation Sitting Exercise Name UTR - added to HEP Side bilateral Reps/Minutes 1 x 10 ea Comments Hold pain-free end range for stretch 2 Sitting Exercise Name Lateral flexion lumbar stretch Comments Gentle stretch 1 Sitting Exercise Name Lumbar flexion stretch Standing Exercises IT Band stretch Standing Exercise Name IT Band stretch - added to HEP Side bilateral Reps/Minutes 2 x 30 Comments feels really good Heel/Toe Raise Side bilateral Reps/Minutes 2 x 15 ea Comments vc for slow eccentric Manual Therapy Treatment Soft Tissue Mobilization Paraspinals Body Location R Paraspinals, R QL Mobilization Type Sustained Pressure,Trigger Point Release Body Position Sidelying Comments While performing manual to R paraspinals pt reported tingling starting into R hip - resolved when cued to engage core slightly. Self-Care/Home Management Treatment Education Patient Education Home Exercise Program Other Education Seated Upper Trunk Rotation and Standing IT Band stretch added to HEP - HO given PT-OP-T Assessment and Plan Start: 07/18/21 17:19 Freq: Status: Active Protocol: Document 09/29/21 14:34 [facility] (Rec: 09/29/21 16:49 [facility] [id number]) Physical Therapy Assessment Goals Two Impairment Pt displays left-sided LE weakness in all planes Custodial Goal (LTG) Pt to increase LE strength in all planes to at least 4/5 in order to prevent continued knee buckling during gait LTG Duration 11/20/21 - Improving One Impairment Pt does not have an appropriate home exercise program Short Term Goal (STG) Pt to be independent and compliant with an appropriate HEP STG Duration Met Assessment Summary Assessment Pt shows improved LE strength but continues to experience lumbar stiffness limiting lumbar mobility and will benefit from continued skilled therapeutic intervention. Ice declined. Physical Therapy Plan Next Visit Focus/Plan Next Note Type Treatment Note Next Visit Plan 3-way Child's pose modified w/ support under hips; Manual to R QL as needed. Consider revisiting supine exercises/ stretches for lumbar mobility and core: Fig4, HS stretch, SLR, LTR w/TBall. Continue POC . POC: LE strengthening, core strengthening, trunk mobility
--- NOTE | 2021-10-02 18:14 | PT.OTN ---
Current Diagnoses Stiffness of other specified joint, not elsewhere classified (10/02/21) Spinal stenosis, lumbar region with neurogenic claudication (10/02/21) Weakness (10/02/21) Physical Therapy Treatment Note PT-OP-A Visit Information Start: 07/18/21 17:19 Freq: Status: Active Protocol: Document 10/02/21 16:13 NBM (Rec: 10/02/21 18:11 NBM [id number]) Out-Patient Physical Therapy Visit Information Visit Information Visit Type Progress Note Visit Start Time 16:02 Visit Stop Time 16:51 Total Visit Minutes 49 Visit Number 16 Number of EYE DROPPER ASSEMBLER Visits 3 PT-OP-B Current Condition Start: 07/18/21 17:19 Freq: Status: Active Protocol: Document 07/18/21 16:00 DCW (Rec: 07/19/21 09:40 DCW [id number]) Current Condition History of Current Condition Onset Date 05/22/21 Current Complaints s/p L3-4, L4-5 TLIF History of Current Condition Pt is a 75 year old male presenting 8 weeks s/p L3-4, L4-5 TLIF with posterior instrumentation. Pt had previously fair conservative treatment of LBP and radicular symptoms. Notes he is feeling better, but currently still has some left leg nerve pain, notes his knee occasionally edgar, mild numbness, and often has cramping in his left leg at night. Reports he has been up walking more recently, going on two 1/4 mile walks each day. Coming in to his evaluation was the first time he had tried to drive since surgery. Notes his surgeon has placed him on a 25# lifting restriction, and has told him that at this point, bending and twisting is okay, but limited. Treatment Goals Patient/Caregiver Goals Pt's goals are to improve back and core strength, sleep through the night, and to feel comfortabl;e enough to continue with his previous shoulder HEP. 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 PT-OP-C Subjective Start: 07/18/21 17:19 Freq: Status: Active Protocol: Document 10/02/21 16:13 NBM (Rec: 10/02/21 18:11 NBM [id number]) OP-PT Subjective Patient Comments Patient Comments Red reports he did a lot of activity today like sanding a wall and his low back is stiff . When walking his dog yesterday he twisted and his back complained. His legs felt sore after his last PT visit. Red thinks he seems to be stumbling more over recent months. PT-OP-F Manual Assessment Start: 07/18/21 17:19 Freq: Status: Active Protocol: Document 09/19/21 10:32 DCW (Rec: 09/19/21 10:42 DCW [id number]) Manual Assessments Soft Tissue Assessment Soft Tissue Mobility Assessment Minimal edema, good incisional healing at surgical site Joint Mobility Assessment Joint Mobility Assessment Minimal lumbar joint mobility, most flexion and extension comes entirely from hip mobility. PT-OP-J Posture/Palpation/Skin Start: 07/18/21 17:19 Freq: Status: Active Protocol: Document 09/19/21 10:32 DCW (Rec: 09/19/21 10:45 DCW [id number]) Posture Evaluation Position Standing Evaluation View Lateral L-Spine Posture Flattened,Decreased Lordosis PT-OP-K Range of Motion Start: 07/18/21 17:19 Freq: Status: Active Protocol: Document 09/19/21 10:32 DCW (Rec: 09/19/21 10:45 DCW [id number]) Lumbar Spine Range of Motion Lumbar Spine Active Degrees Testing Position 30 Flexion 5 Lateral Flexion Left 72 Lateral Flexion Right 70 Comments Lateral flexion measured in cm from fingertips to floor PT-OP-M Strength Start: 07/18/21 17:19 Freq: Status: Active Protocol: Document 09/19/21 10:32 DCW (Rec: 09/19/21 10:42 DCW [id number]) Hip Strength Hip Manual Muscle Testing Right Flexion (L2) 4 Good Extension (S1) 4 Good Abduction 4 Good Adduction 4+ Good+ External Rotation 4+ Good+ Internal Rotation 4+ Good+ Left Flexion (L2) 4- Good- Extension (S1) 4 Good Abduction 4 Good Adduction 4 Good External Rotation 4- Good- Internal Rotation 4- Good- Knee Strength Knee Manual Muscle Testing Right Flexion (S2) 5 Normal Extension (L3) 5 Normal Left Flexion (S2) 4 Good Extension (L3) 4 Good Ankle/Foot Strength Ankle and Foot Manual Muscle Testing Right Dorsiflexion (L4) 4+ Good+ Plantarflexion (S1) 4+ Good+ Left Dorsiflexion (L4) 4- Good- Plantarflexion (S1) 4+ Good+ PT-OP-Q Treatments Start: 07/18/21 17:19 Freq: Status: Active Protocol: Document 10/02/21 16:13 NB (Rec: 10/02/21 18:11 [facility] [id number]) Cardio Equipment Recumbent Stepper (Sci-Fit) Duration (Minutes) 6 Resistance 4 Seat Position 15 Gym Equipment Shuttle Recovery Unilateral Squats Resistance 62#>50# R d/t c/o R knee pain, 50# L Shuttle Recovery Platform Stable Bilateral Squats Details 1 x 15 stable, 1x15 unstable Resistance 100# Shuttle Recovery Platform Stable,Unstable Reps/Time no knee discomfort. Therapeutic Exercises Supine Exercises 4 Supine Exercise Name SLR Side bilateral Comments d/c d/t L knee pain. 3 Supine Exercise Name ITB stretch /s strap Side bilateral Comments vc for form, good response 2 Supine Exercise Name Hamstring stretch Side bilateral 1 Supine Exercise Name Figure-4 piriformis stretch Side bilateral Prone Exercises Plank Prone Exercise Name trialed from knees Reps/Minutes 2x5SH Comments cues for excessive R rotation through trunk/hips Child's Pose Prone Exercise Name 3-way Child's pose Fwd/Lat Comments two pillows under hips Sidelying Exercises Planks Side left Reps/Minutes 3 x 8-10SH Comments knees; R not attemptd d/t R isabel. tolerance Sitting Exercises 1 Sitting Exercise Name Lumbar flexion stretch Comments w/ manual to low back Standing Exercises Core Standing Exercise Name Lateral stepping /c Paloff punch Side bilateral Equipment Used Lvl 3 TB Reps/Minutes 3 x 5 ea Manual Therapy Treatment Soft Tissue Mobilization Paraspinals Body Location R Paraspinals, R QL Mobilization Type Sustained Pressure,Trigger Point Release Body Position Sidelying Comments No tingling reported today. PT-OP-T Assessment and Plan Start: 07/18/21 17:19 Freq: Status: Active Protocol: Document 10/02/21 16:13 [facility] (Rec: 10/02/21 18:11 [facility] [id number]) Physical Therapy Assessment Goals Two Impairment Pt displays left-sided LE weakness in all planes Usp Goal (LTG) Pt to increase LE strength in all planes to at least 4/5 in order to prevent continued knee buckling during gait LTG Duration 11/20/21 - Improving One Impairment Pt does not have an appropriate home exercise program Short Term Goal (STG) Pt to be independent and compliant with an appropriate HEP STG Duration Met Assessment Summary Assessment Pt continues to demonstrate improved LE strength and self- awareness of core engagement. Pt tolerated side plank on L but was unable to attempt on R due to R shoulder tolerance, and demonstrates excessive right trunk/hip rotation in prone plank. Pt was able to perform modified 3-way child's pose and reported low back relief. No tingling reported today. Ice declined. Pt will benefit from continued skilled therapeutic intervention. Physical Therapy Plan Next Visit Focus/Plan Next Note Type Treatment Note Next Visit Plan Add to HEP?: modified 3-way child's pose,kitchen sink stretch; Cat/Camel; bird dog, sidelying hip abd/add, DF strengthening (4-way), planks (wall planks?); resisted Paloff press. EOS: supine stretches for lumbar mobility and core: Fig4, HS stretch, IT Band, LTR w/TBall; MFR w/ cupping to LB incisions Continue POC. POC: LE strengthening, core strengthening, trunk mobility
--- NOTE | 2021-10-06 11:38 | PT.OTN ---
Current Diagnoses Stiffness of other specified joint, not elsewhere classified (10/06/21) Spinal stenosis, lumbar region with neurogenic claudication (10/06/21) Weakness (10/06/21) Physical Therapy Treatment Note PT-OP-A Visit Information Start: 07/18/21 17:19 Freq: Status: Active Protocol: Document 10/06/21 11:38 NBM (Rec: 10/06/21 13:41 NBM [id number]) Out-Patient Physical Therapy Visit Information Visit Information Visit Type Treatment Note Visit Start Time 11:32 Visit Stop Time 12:15 Total Visit Minutes 43 Visit Number 17 Number of TRAINING EXECUTIVE Visits 4 PT-OP-B Current Condition Start: 07/18/21 17:19 Freq: Status: Active Protocol: Document 07/18/21 16:00 DCW (Rec: 07/19/21 09:40 DCW [id number]) Current Condition History of Current Condition Onset Date 05/22/21 Current Complaints s/p L3-4, L4-5 TLIF History of Current Condition Pt is a 75 year old male presenting 8 weeks s/p L3-4, L4-5 TLIF with posterior instrumentation. Pt had previously fair conservative treatment of LBP and radicular symptoms. Notes he is feeling better, but currently still has some left leg nerve pain, notes his knee occasionally edgar, mild numbness, and often has cramping in his left leg at night. Reports he has been up walking more recently, going on two 1/4 mile walks each day. Coming in to his evaluation was the first time he had tried to drive since surgery. Notes his surgeon has placed him on a 25# lifting restriction, and has told him that at this point, bending and twisting is okay, but limited. Treatment Goals Patient/Caregiver Goals Pt's goals are to improve back and core strength, sleep through the night, and to feel comfortabl;e enough to continue with his previous shoulder HEP. 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 PT-OP-C Subjective Start: 07/18/21 17:19 Freq: Status: Active Protocol: Document 10/06/21 11:38 NBM (Rec: 10/06/21 13:41 NBM [id number]) OP-PT Subjective Patient Comments Patient Comments Red reports his shoulder is sore from the lateral step- outs with punch and attempted planks- wants to focus on lower body today. His back felt sore after his last session but has been much looser all week than before so he thinks he needed that. He was able to ride his exercise bike yesterday for the first time in awhile. He gets cataract sx soon and thinks his blurry vision contributes to his stumbling. PT-OP-F Manual Assessment Start: 07/18/21 17:19 Freq: Status: Active Protocol: Document 09/19/21 10:32 DCW (Rec: 09/19/21 10:42 DCW [id number]) Manual Assessments Soft Tissue Assessment Soft Tissue Mobility Assessment Minimal edema, good incisional healing at surgical site Joint Mobility Assessment Joint Mobility Assessment Minimal lumbar joint mobility, most flexion and extension comes entirely from hip mobility. PT-OP-J Posture/Palpation/Skin Start: 07/18/21 17:19 Freq: Status: Active Protocol: Document 09/19/21 10:32 DCW (Rec: 09/19/21 10:45 DCW [id number]) Posture Evaluation Position Standing Evaluation View Lateral L-Spine Posture Flattened,Decreased Lordosis PT-OP-K Range of Motion Start: 07/18/21 17:19 Freq: Status: Active Protocol: Document 09/19/21 10:32 DCW (Rec: 09/19/21 10:45 DCW [id number]) Lumbar Spine Range of Motion Lumbar Spine Active Degrees Testing Position 30 Flexion 5 Lateral Flexion Left 72 Lateral Flexion Right 70 Comments Lateral flexion measured in cm from fingertips to floor PT-OP-M Strength Start: 07/18/21 17:19 Freq: Status: Active Protocol: Document 09/19/21 10:32 DCW (Rec: 09/19/21 10:42 DCW [id number]) Hip Strength Hip Manual Muscle Testing Right Flexion (L2) 4 Good Extension (S1) 4 Good Abduction 4 Good Adduction 4+ Good+ External Rotation 4+ Good+ Internal Rotation 4+ Good+ Left Flexion (L2) 4- Good- Extension (S1) 4 Good Abduction 4 Good Adduction 4 Good External Rotation 4- Good- Internal Rotation 4- Good- Knee Strength Knee Manual Muscle Testing Right Flexion (S2) 5 Normal Extension (L3) 5 Normal Left Flexion (S2) 4 Good Extension (L3) 4 Good Ankle/Foot Strength Ankle and Foot Manual Muscle Testing Right Dorsiflexion (L4) 4+ Good+ Plantarflexion (S1) 4+ Good+ Left Dorsiflexion (L4) 4- Good- Plantarflexion (S1) 4+ Good+ PT-OP-Q Treatments Start: 07/18/21 17:19 Freq: Status: Active Protocol: Document 10/06/21 11:38 [facility] (Rec: 10/06/21 13:41 [facility] [id number]) Cardio Equipment Recumbent Stepper (Sci-Fit) Duration (Minutes) 6 Resistance 4 Seat Position 15 Gym Equipment Cable Column (Body Solid) Leg Extension Resistance 40# Reps/Time d/c'd d/t pressure on ogden injury Leg Curl Resistance 80# 1x15, 70# 1x15 Hip Adduction Resistance 1 x 15: 50#, 1 x 15: 60# Hip Abduction Resistance 50# 2 x 10 Shuttle Recovery Unilateral Squats Resistance 62#>50# L, 50# R Shuttle Recovery Platform Stable Reps/Time no R knee pain today; R dc'd d /t stopper mechanism failure after ~3-5 reps Bilateral Squats Details 1 x 15 stable, 1x15 unstable Resistance 100# Shuttle Recovery Platform Stable,Unstable Reps/Time no knee discomfort. Therapeutic Exercises Sitting Exercises 4-way Ankle Sitting Exercise Name PF/DF/IN/EV - added to HEP Resistance Lvl 3 TB Reps/Minutes 1x10 ea Standing Exercises QL Stretch Standing Exercise Name Doorway QL Stretch - added to HEP Side bilateral Self-Care/Home Management Treatment Education Patient Education Home Exercise Program Other Education Added to HEP: Kitchen sink and Standing QL doorway stretches - HO given. PT-OP-T Assessment and Plan Start: 07/18/21 17:19 Freq: Status: Active Protocol: Document 10/06/21 11:38 [facility] (Rec: 10/06/21 13:41 [facility] [id number]) Physical Therapy Assessment Goals Two Impairment Pt displays left-sided LE weakness in all planes Software Test Manager Goal (LTG) Pt to increase LE strength in all planes to at least 4/5 in order to prevent continued knee buckling during gait LTG Duration 11/20/21 - Improving One Impairment Pt does not have an appropriate home exercise program Short Term Goal (STG) Pt to be independent and compliant with an appropriate HEP STG Duration Met Assessment Summary Assessment Red presents today with shoulder soreness and improvement in low back stiffness since last session. Treatment focus today on LE strengthening - shuttle rebound unilateral exercise was discontinued when stopper mechanism failed causing ogden contact to foot plate. Pt tolerated remaining treatment with continued focus on LE strengthening except leg extension due to pressure on ogden. Added to HEP: 4-way ankle and QL doorway stretch - handouts given. Pt will benefit from continued skilled therapeutic intervention. Physical Therapy Plan Next Visit Focus/Plan Next Note Type Treatment Note Next Visit Plan Assess response to tx (shuttle recovery) and HEP (QL doorway and kitchen sink stretches). Consider Cat/Camel; bird dog, sidelying hip abd/add, wall planks. ?MFR w/cupping to LB incisions. Continue POC. POC: LE strengthening, core strengthening, trunk mobility
--- NOTE | 2021-10-23 16:00 | PT.OTN ---
Current Diagnoses Stiffness of other specified joint, not elsewhere classified (10/23/21) Spinal stenosis, lumbar region with neurogenic claudication (10/23/21) Weakness (10/23/21) Physical Therapy Treatment Note PT-OP-A Visit Information Start: 07/18/21 17:19 Freq: Status: Active Protocol: Document 10/23/21 15:18 DCW (Rec: 10/23/21 16:00 DCW [id number]) Out-Patient Physical Therapy Visit Information Visit Information Visit Type Treatment Note Visit Start Time 15:15 Visit Stop Time 16:00 Total Visit Minutes 45 Visit Number 18 Number of RETAIL OFFICE MANAGER Visits 0 Evaluation Information Evaluation Date 07/19/21 PT-OP-B Current Condition Start: 07/18/21 17:19 Freq: Status: Active Protocol: Document 07/18/21 16:00 DCW (Rec: 07/19/21 09:40 DCW [id number]) Current Condition History of Current Condition Onset Date 05/22/21 Current Complaints s/p L3-4, L4-5 TLIF History of Current Condition Pt is a 75 year old male presenting 8 weeks s/p L3-4, L4-5 TLIF with posterior instrumentation. Pt had previously fair conservative treatment of LBP and radicular symptoms. Notes he is feeling better, but currently still has some left leg nerve pain, notes his knee occasionally edgar, mild numbness, and often has cramping in his left leg at night. Reports he has been up walking more recently, going on two 1/4 mile walks each day. Coming in to his evaluation was the first time he had tried to drive since surgery. Notes his surgeon has placed him on a 25# lifting restriction, and has told him that at this point, bending and twisting is okay, but limited. Treatment Goals Patient/Caregiver Goals Pt's goals are to improve back and core strength, sleep through the night, and to feel comfortabl;e enough to continue with his previous shoulder HEP. 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 PT-OP-C Subjective Start: 07/18/21 17:19 Freq: Status: Active Protocol: Document 10/23/21 15:18 DCW (Rec: 10/23/21 16:00 DCW [id number]) OP-PT Subjective Patient Comments Patient Comments I'm doing a lot better. I'm not having as much pain in this (left) leg, my leg feels stronger, my walking is better . Notes that he is still having leg pain at night. PT-OP-F Manual Assessment Start: 07/18/21 17:19 Freq: Status: Active Protocol: Document 09/19/21 10:32 DCW (Rec: 09/19/21 10:42 DCW [id number]) Manual Assessments Soft Tissue Assessment Soft Tissue Mobility Assessment Minimal edema, good incisional healing at surgical site Joint Mobility Assessment Joint Mobility Assessment Minimal lumbar joint mobility, most flexion and extension comes entirely from hip mobility. PT-OP-J Posture/Palpation/Skin Start: 07/18/21 17:19 Freq: Status: Active Protocol: Document 09/19/21 10:32 DCW (Rec: 09/19/21 10:45 DCW [id number]) Posture Evaluation Position Standing Evaluation View Lateral L-Spine Posture Flattened,Decreased Lordosis PT-OP-K Range of Motion Start: 07/18/21 17:19 Freq: Status: Active Protocol: Document 09/19/21 10:32 DCW (Rec: 09/19/21 10:45 DCW [id number]) Lumbar Spine Range of Motion Lumbar Spine Active Degrees Testing Position 30 Flexion 5 Lateral Flexion Left 72 Lateral Flexion Right 70 Comments Lateral flexion measured in cm from fingertips to floor PT-OP-M Strength Start: 07/18/21 17:19 Freq: Status: Active Protocol: Document 09/19/21 10:32 DCW (Rec: 09/19/21 10:42 DCW [id number]) Hip Strength Hip Manual Muscle Testing Right Flexion (L2) 4 Good Extension (S1) 4 Good Abduction 4 Good Adduction 4+ Good+ External Rotation 4+ Good+ Internal Rotation 4+ Good+ Left Flexion (L2) 4- Good- Extension (S1) 4 Good Abduction 4 Good Adduction 4 Good External Rotation 4- Good- Internal Rotation 4- Good- Knee Strength Knee Manual Muscle Testing Right Flexion (S2) 5 Normal Extension (L3) 5 Normal Left Flexion (S2) 4 Good Extension (L3) 4 Good Ankle/Foot Strength Ankle and Foot Manual Muscle Testing Right Dorsiflexion (L4) 4+ Good+ Plantarflexion (S1) 4+ Good+ Left Dorsiflexion (L4) 4- Good- Plantarflexion (S1) 4+ Good+ PT-OP-Q Treatments Start: 07/18/21 17:19 Freq: Status: Active Protocol: Document 10/23/21 15:18 DCW (Rec: 10/23/21 16:00 DCW [id number]) Cardio Equipment Recumbent Elliptical (Biodex) Duration (Minutes) 5 Resistance 5 Seat Position 13 Gym Equipment Cable Column (Body Solid) Leg Extension Resistance 50# Reps/Time 2x15 Leg Curl Resistance 70# Reps/Time 1x15, 1x10 Hip Adduction Resistance 60# Reps/Time 2x15 Hip Abduction Resistance 60# Reps/Time 2x15 Shuttle Recovery Unilateral Squats Resistance 50# Shuttle Recovery Platform Stable Bilateral Squats Resistance 100# Shuttle Recovery Platform Stable Manual Therapy Treatment Soft Tissue Mobilization Paraspinals Body Location R Paraspinals, R QL Mobilization Type Sustained Pressure,Trigger Point Release Body Position Sidelying PT-OP-T Assessment and Plan Start: 07/18/21 17:19 Freq: Status: Active Protocol: Document 10/23/21 15:18 DCW (Rec: 10/23/21 16:00 DCW [id number]) Physical Therapy Assessment Impairments Impairments Activity Tolerance,Functional Activities,Functional Mobility ,Integument,Pain,ROM,Sensation ,Soft Tissue Mobility,Strength ,Tone Goals Two Impairment Pt displays left-sided LE weakness in all planes Audit Officer Goal (LTG) Pt to increase LE strength in all planes to at least 4/5 in order to prevent continued knee buckling during gait LTG Duration 11/20/21 - Improving One Impairment Pt does not have an appropriate home exercise program Short Term Goal (STG) Pt to be independent and compliant with an appropriate HEP STG Duration Met Assessment Summary Assessment Pt doing much better, both with left LE strength and lumbar paraspinal tone. Will likely be approaching discharge by end of month, pt has planned trip out of area for of November. Physical Therapy Plan Frequency and Duration Frequency of Treatment 2x/Week Duration of Treatment Two months Plan of Care Start Date 09/19/21 Plan of Care End Date 11/20/21 Therapeutic Interventions Therapeutic Interventions Aquatic Therapy,Balance Training,Home Exercise Program ,Joint Mobilizations,Manual Therapy,Neuromuscular Re- education,Patient/Caregiver Education,Self-Care/Home Management,Soft Tissue Mobilization,Therapeutic Activities,Therapeutic Exercises Modalities Cold Pack/Ice Massage,Electric Stimulation,Hot Packs, Ultrasound Next Visit Focus/Plan Next Note Type Treatment Note Next Visit Plan Assess response to tx (shuttle recovery) and HEP (QL doorway and kitchen sink stretches). Consider Cat/Camel; bird dog, sidelying hip abd/add, wall planks. ?MFR w/cupping to LB incisions. Continue POC. POC: LE strengthening, core strengthening, trunk mobility
--- NOTE | 2021-10-30 13:12 | PT.OTN ---
Current Diagnoses Stiffness of other specified joint, not elsewhere classified (10/30/21) Spinal stenosis, lumbar region with neurogenic claudication (10/30/21) Weakness (10/30/21) Physical Therapy Treatment Note PT-OP-A Visit Information Start: 07/18/21 17:19 Freq: Status: Active Protocol: Document 10/30/21 09:47 NBM (Rec: 10/30/21 10:23 NBM [id number]) Out-Patient Physical Therapy Visit Information Visit Information Visit Type Treatment Note Visit Start Time 09:47 Visit Stop Time 10:30 Total Visit Minutes 43 Visit Number 19 Number of DATABASE MARKETING ANALYST Visits 1 PT-OP-B Current Condition Start: 07/18/21 17:19 Freq: Status: Active Protocol: Document 07/18/21 16:00 DCW (Rec: 07/19/21 09:40 DCW [id number]) Current Condition History of Current Condition Onset Date 05/22/21 Current Complaints s/p L3-4, L4-5 TLIF History of Current Condition Pt is a 75 year old male presenting 8 weeks s/p L3-4, L4-5 TLIF with posterior instrumentation. Pt had previously fair conservative treatment of LBP and radicular symptoms. Notes he is feeling better, but currently still has some left leg nerve pain, notes his knee occasionally edgar, mild numbness, and often has cramping in his left leg at night. Reports he has been up walking more recently, going on two 1/4 mile walks each day. Coming in to his evaluation was the first time he had tried to drive since surgery. Notes his surgeon has placed him on a 25# lifting restriction, and has told him that at this point, bending and twisting is okay, but limited. Treatment Goals Patient/Caregiver Goals Pt's goals are to improve back and core strength, sleep through the night, and to feel comfortabl;e enough to continue with his previous shoulder HEP. 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 He had his first cataract surgery and the second one is scheduled tomorrow. Uphill walking and uneven walking is really hard. PT-OP-F Manual Assessment Start: 07/18/21 17:19 Freq: Status: Active Protocol: Document 09/19/21 10:32 DCW (Rec: 09/19/21 10:42 DCW [id number]) Manual Assessments Soft Tissue Assessment Soft Tissue Mobility Assessment Minimal edema, good incisional healing at surgical site Joint Mobility Assessment Joint Mobility Assessment Minimal lumbar joint mobility, most flexion and extension comes entirely from hip mobility. PT-OP-J Posture/Palpation/Skin Start: 07/18/21 17:19 Freq: Status: Active Protocol: Document 09/19/21 10:32 DCW (Rec: 09/19/21 10:45 DCW [id number]) Posture Evaluation Position Standing Evaluation View Lateral L-Spine Posture Flattened,Decreased Lordosis PT-OP-K Range of Motion Start: 07/18/21 17:19 Freq: Status: Active Protocol: Document 09/19/21 10:32 DCW (Rec: 09/19/21 10:45 DCW [id number]) Lumbar Spine Range of Motion Lumbar Spine Active Degrees Testing Position 30 Flexion 5 Lateral Flexion Left 72 Lateral Flexion Right 70 Comments Lateral flexion measured in cm from fingertips to floor PT-OP-M Strength Start: 07/18/21 17:19 Freq: Status: Active Protocol: Document 09/19/21 10:32 DCW (Rec: 09/19/21 10:42 DCW [id number]) Hip Strength Hip Manual Muscle Testing Right Flexion (L2) 4 Good Extension (S1) 4 Good Abduction 4 Good Adduction 4+ Good+ External Rotation 4+ Good+ Internal Rotation 4+ Good+ Left Flexion (L2) 4- Good- Extension (S1) 4 Good Abduction 4 Good Adduction 4 Good External Rotation 4- Good- Internal Rotation 4- Good- Knee Strength Knee Manual Muscle Testing Right Flexion (S2) 5 Normal Extension (L3) 5 Normal Left Flexion (S2) 4 Good Extension (L3) 4 Good Ankle/Foot Strength Ankle and Foot Manual Muscle Testing Right Dorsiflexion (L4) 4+ Good+ Plantarflexion (S1) 4+ Good+ Left Dorsiflexion (L4) 4- Good- Plantarflexion (S1) 4+ Good+ PT-OP-Q Treatments Start: 07/18/21 17:19 Freq: Status: Active Protocol: Document 10/30/21 09:47 NB (Rec: 10/30/21 10:23 [facility] [id number]) Cardio Equipment Recumbent Elliptical (Biodex) Duration (Minutes) 5 Resistance 5 Seat Position 13 Gym Equipment Cable Column (Body Solid) Hip Adduction Resistance 60# Reps/Time 2x15 Hip Abduction Resistance 60#>50# Reps/Time 2x15 Shuttle Recovery Unilateral Squats Resistance 50# Shuttle Recovery Platform Stable Reps/Time 2 x 15 rep Bilateral Squats Resistance 100# Shuttle Recovery Platform Stable Reps/Time 2 x 15 rep Therapeutic Ball LTR Exercise Details LTR Ball Size/Color Green - 65 cm Body Position Supine Therapeutic Exercises Supine Exercises 1 Supine Exercise Name Figure-4 piriformis stretch Side bilateral Reps/Minutes 2 x 30 ea Sidelying Exercises 1 Sidelying Exercise Name Open book Side right Comments dc'd d/t LBP and lumbar hyperextension w/ cueing Manual Therapy Treatment Soft Tissue Mobilization Paraspinals Body Location R Paraspinals, R QL Mobilization Type Rolling,Sustained Pressure, Trigger Point Release Body Position Sidelying Comments focus on QL origin/insertions Self-Care/Home Management Treatment Education Patient Education Body Mechanics Other Education Discussed how to complete standing daily activities such as cooking w/ one foot on a stool or inside cabinet ledge to ease low back pain. PT-OP-R Modalities Start: 07/18/21 17:19 Freq: Status: Active Protocol: Document 10/30/21 09:47 MARQUIS (Rec: 10/30/21 13:01 [facility] [id number]) Hot Pack/Cold Pack Treatment Hot Pack Location lumbar Patient Position Hooklying Treatment Duration (minutes) 10 Patient Tolerance Good PT-OP-T Assessment and Plan Start: 07/18/21 17:19 Freq: Status: Active Protocol: Document 10/30/21 09:47 MARQUIS (Rec: 10/30/21 10:23 [facility] [id number]) Physical Therapy Assessment Goals Two Impairment Pt displays left-sided LE weakness in all planes Long-Term Goal (LTG) Pt to increase LE strength in all planes to at least 4/5 in order to prevent continued knee buckling during gait LTG Duration 11/20/21 - Improving One Impairment Pt does not have an appropriate home exercise program Short Term Goal (STG) Pt to be independent and compliant with an appropriate HEP STG Duration Met Assessment Summary Assessment Pt presents today w/ lumbar soreness. Treatment focus on LE strengthening, stretching and manual therapy. Pt is unable to tolerate previous 2x15 at 60# w/ seated hip abduction today but is able to complete 2nd set at 50#. Pt reports decreased low back pain end of treatment session.
--- NOTE | 2021-11-14 15:07 | PT.OTN ---
Current Diagnoses Stiffness of other specified joint, not elsewhere classified (11/14/21) Spinal stenosis, lumbar region with neurogenic claudication (11/14/21) Weakness (11/14/21) Physical Therapy Treatment Note PT-OP-A Visit Information Start: 07/18/21 17:19 Freq: Status: Active Protocol: Document 11/14/21 14:35 DCW (Rec: 11/14/21 15:05 DCW [id number]) Out-Patient Physical Therapy Visit Information Visit Information Visit Type Discharge Summary Visit Start Time 14:35 Visit Stop Time 15:00 Total Visit Minutes 25 Visit Number 20 Number of ALCOHOL RUBBER Visits 0 Evaluation Information Evaluation Date 07/19/21 PT-OP-B Current Condition Start: 07/18/21 17:19 Freq: Status: Active Protocol: Document 07/18/21 16:00 DCW (Rec: 07/19/21 09:40 DCW [id number]) Current Condition History of Current Condition Onset Date 05/22/21 Current Complaints s/p L3-4, L4-5 TLIF History of Current Condition Pt is a 75 year old male presenting 8 weeks s/p L3-4, L4-5 TLIF with posterior instrumentation. Pt had previously fair conservative treatment of LBP and radicular symptoms. Notes he is feeling better, but currently still has some left leg nerve pain, notes his knee occasionally edgar, mild numbness, and often has cramping in his left leg at night. Reports he has been up walking more recently, going on two 1/4 mile walks each day. Coming in to his evaluation was the first time he had tried to drive since surgery. Notes his surgeon has placed him on a 25# lifting restriction, and has told him that at this point, bending and twisting is okay, but limited. Treatment Goals Patient/Caregiver Goals Pt's goals are to improve back and core strength, sleep through the night, and to feel comfortabl;e enough to continue with his previous shoulder HEP. 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 PT-OP-C Subjective Start: 07/18/21 17:19 Freq: Status: Active Protocol: Document 11/14/21 14:35 DCW (Rec: 11/14/21 15:05 DCW [id number]) OP-PT Subjective Patient Comments Patient Comments My back feels better than ever! Pt does note that last week, he was out camping, stood up, and had a severe right calf cramp. Pt notes there was swelling, skin discoloration, and significant pain. PT has since been checked twice for a DVT, negative both times. Notes today is the best his calf has felt since it happens, but is still pretty sore overall. Has follow-up with PCP later this week. PT-OP-F Manual Assessment Start: 07/18/21 17:19 Freq: Status: Active Protocol: Document 09/19/21 10:32 DCW (Rec: 09/19/21 10:42 DCW [id number]) Manual Assessments Soft Tissue Assessment Soft Tissue Mobility Assessment Minimal edema, good incisional healing at surgical site Joint Mobility Assessment Joint Mobility Assessment Minimal lumbar joint mobility, most flexion and extension comes entirely from hip mobility. PT-OP-J Posture/Palpation/Skin Start: 07/18/21 17:19 Freq: Status: Active Protocol: Document 09/19/21 10:32 DCW (Rec: 09/19/21 10:45 DCW [id number]) Posture Evaluation Position Standing Evaluation View Lateral L-Spine Posture Flattened,Decreased Lordosis PT-OP-K Range of Motion Start: 07/18/21 17:19 Freq: Status: Active Protocol: Document 11/14/21 14:35 DCW (Rec: 11/14/21 15:07 DCW [id number]) Lumbar Spine Range of Motion Lumbar Spine Active Degrees Testing Position Standing Flexion 50 Extension 15 Lateral Flexion Left 69 Lateral Flexion Right 68 Comments Lateral flexion measured in cm from fingertips to floor PT-OP-M Strength Start: 07/18/21 17:19 Freq: Status: Active Protocol: Document 11/14/21 14:35 DCW (Rec: 11/14/21 15:07 DCW [id number]) Hip Strength Hip Manual Muscle Testing Right Flexion (L2) 5 Normal Extension (S1) 5 Normal Abduction 5 Normal Adduction 5 Normal External Rotation 5 Normal Internal Rotation 5 Normal Left Flexion (L2) 4 Good Extension (S1) 4 Good Abduction 4+ Good+ Adduction 4+ Good+ External Rotation 4 Good Internal Rotation 4 Good Knee Strength Knee Manual Muscle Testing Right Flexion (S2) 5 Normal Extension (L3) 5 Normal Left Flexion (S2) 4+ Good+ Extension (L3) 4+ Good+ Ankle/Foot Strength Ankle and Foot Manual Muscle Testing Right Dorsiflexion (L4) 5 Normal Plantarflexion (S1) 5 Normal Left Dorsiflexion (L4) 5 Normal Plantarflexion (S1) 5 Normal PT-OP-Q Treatments Start: 07/18/21 17:19 Freq: Status: Active Protocol: Document 11/14/21 14:35 DCW (Rec: 11/14/21 15:05 DCW [id number]) Cardio Equipment Recumbent Elliptical (Biodex) Duration (Minutes) 5 Resistance 5 Seat Position 13 Therapeutic Exercises Supine Exercises 1 Supine Exercise Name Figure-4 piriformis stretch Side bilateral Manual Therapy Treatment Other Other Manual Treatments Testing: MMT, ROM PT-OP-R Modalities Start: 07/18/21 17:19 Freq: Status: Active Protocol: Document 10/30/21 09:47 NBM (Rec: 10/30/21 13:01 NBM [id number]) Hot Pack/Cold Pack Treatment Hot Pack Location lumbar Patient Position Hooklying Treatment Duration (minutes) 10 Patient Tolerance Good PT-OP-T Assessment and Plan Start: 07/18/21 17:19 Freq: Status: Active Protocol: Document 11/14/21 14:35 DCW (Rec: 11/14/21 15:05 DCW [id number]) Physical Therapy Assessment Impairments Impairments Activity Tolerance,Functional Activities,Functional Mobility ,Integument,Pain,ROM,Sensation ,Soft Tissue Mobility,Strength ,Tone Goals Two Impairment Pt displays left-sided LE weakness in all planes Flare Stitcher Goal (LTG) Pt to increase LE strength in all planes to at least 4/5 in order to prevent continued knee buckling during gait LTG Duration Met One Impairment Pt does not have an appropriate home exercise program Short Term Goal (STG) Pt to be independent and compliant with an appropriate HEP STG Duration Met Progress Towards Goals Progress Towards Goals Goals Met Assessment Summary Assessment Pt doing very well at this time, no complaints of back pain, left LE weakness significantly reduced since initial evaluation. Pt very happy with current level of function, feels comfortable with discharge at this time. Physical Therapy Plan Frequency and Duration Frequency of Treatment 2x/Week Duration of Treatment Two months Plan of Care Start Date 09/19/21 Plan of Care End Date 11/20/21 Therapeutic Interventions Therapeutic Interventions Aquatic Therapy,Balance Training,Home Exercise Program ,Joint Mobilizations,Manual Therapy,Neuromuscular Re- education,Patient/Caregiver Education,Self-Care/Home Management,Soft Tissue Mobilization,Therapeutic Activities,Therapeutic Exercises Modalities Cold Pack/Ice Massage,Electric Stimulation,Hot Packs, Ultrasound Discharge Physical Therapy Discharge Reasons Goals Met Next Visit Focus/Plan Next Note Type Discharge Summary
== END 2021-11-15 10:11 | disposition home or self-care (01) ==
LOC: PHYS 14:30
PROVIDERS: Family Provider Orthopaedic Surgery Orthopaedic Surgery of the Spine; PCP Family Medicine; Referring Provider Orthopaedic Surgery Orthopaedic Surgery of the Spine; Visit Provider Orthopaedic Surgery Orthopaedic Surgery of the Spine
DX: M48.062 Spinal stenosis, lumbar region with neurogenic claudication (principal); M25.69 Stiffness of other specified joint, not elsewhere classified; R53.1 Weakness
CPT/HCPCS: 97110; 97140; 97161

== ENCOUNTER → 2022-02-19 15:12 | Outpatient (CLI) | payer MEDICARE, OTHER, SELFPAY ==
[2021-05-22 06:39] VITALS: BMI 27.7
[2022-02-20 16:12] LABS: Prostate Specific Antigen Scrn 1.82 ng/mL (0.1-4.0)
== END ==
PROVIDERS: Family Provider Orthopaedic Surgery Orthopaedic Surgery of the Spine; PCP Family Medicine; Referring Provider Family Medicine; Visit Provider Family Medicine
DX: Z12.5 Encounter for screening for malignant neoplasm of prostate (principal)
CPT/HCPCS: 36415; G0103

== ENCOUNTER 2022-03-23 12:15 | Outpatient (RCR) | payer MEDICARE, OTHER, SELFPAY ==
[2021-05-22 06:39] VITALS: BMI 27.7
--- NOTE | 2022-02-16 11:16 | PT.OIE ---
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) Hiatal hernia Hypertension (11/24/13) Hypertension (~2013) Irritable bowel syndrome (~1999) Lumbago Measles (~1955) Migraines Mumps (~1955) Osteoarthritis (~2004) Pneumonia Shoulder pain (~2001) Tinnitus (~1969) Varicose veins of right lower extremity with pain Vertigo Past Surgical History (Last Reviewed 05/26/21 @ 08:54 by Neetu Choe PA-C) Anesthesia 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) History of knee replacement (~05/2011) History of knee replacement (~09/2010) 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) Hx of carpal tunnel repair S/P cervical spinal fusion (06/13/18) Status post arthroscopy (~2006) Visit Care Team Role Provider Type Tere Sierra MD Family Provider Physician Specialty: Orthopedics Orthopedic Surgery Address: [address] [place] [address], [address] Email: [email or web address] Attending Provider Physician Primary Care Provider Referring Provider Specialty: Family Practice Address: [address] [place] [address], [address] Email: [email or web address] Physical Therapy Initial Evaluation PT-OP-A Visit Information Start: 02/16/22 10:45 Freq: Status: Active Protocol: Document 02/16/22 10:00 DCW (Rec: 02/16/22 10:59 DCW [id number]) Out-Patient Physical Therapy Visit Information Visit Information Visit Type Initial Evaluation Visit Note 25 minutes late Visit Start Time 10:00 Visit Stop Time 10:40 Total Visit Minutes 40 Visit Number 1 Number of PRICER Visits 0 Evaluation Information Evaluation Date 02/16/22 PT-OP-B Current Condition Start: 02/16/22 10:45 Freq: Status: Active Protocol: Document 02/16/22 10:00 DCW (Rec: 02/16/22 10:59 [facility] [id number]) Current Condition History of Current Condition Onset Date 02/06/22 Current Complaints R Calf pain History of Current Condition Pt is a 76 year old male presenting with complaints of right calf pain. Pt is well known to this clinic, and has been seen for multiple other issues, including cervical pain, dizziness, an ds/p lumbar surgery. Pt reports that he was walking his dog on 02/06/22, felt a little tweak in his calf, walked a little further, and then when going downhill, felt more of a pop and had to call his to pick him up. Pt admits he has felt improvement over the last week, but still has a solid 4/10 pain with activity , including achiness when lying in bed. Pt admits he has not been doing much activity, but would like to get back to walking his dog 2 miles each day. Has been performing a lot of rest, ice, and elevation, and feels that that has helped a bit. Notes he was limping yesterday, but hasn't been today. Is scheduled for an MRI tomorrow. Future Testing and Treatments Planned MRI 02/17/22 PT-OP-C Subjective Start: 02/16/22 10:45 Freq: Status: Active Protocol: Document 02/16/22 10:00 DCW (Rec: 02/16/22 10:59 [facility] [id number]) OP-PT Subjective Patient Comments Patient Comments It just aches at night when I 'm trying to sleep. I'm glad it's feeling better than it was last week, but I'm still struggling to sleep. Patient Reported Progress Improving Patient Questionnaires Lower Extremity Functional Scale LEFS Score 35/80 = 43.75% LEFS Impairment 40 to 59% Impaired (Score 32- 47) OP-PT Pain Assessment Pain Assessment Grid Paper Pain Assessment Grid Completed Yes Location Right Medial Calf Intensity 4 Scale Used Numeric (0 - 10) Description Aching PT-OP-F Manual Assessment Start: 02/16/22 10:45 Freq: Status: Active Protocol: Document 02/16/22 10:00 DCW (Rec: 02/16/22 11:05 DCW [id number]) Manual Assessments Soft Tissue Assessment Soft Tissue Mobility Assessment Mild tone and tenderness to palpation 2/4: Pain with wincing along muscle belly of R medial gastroc PT-OP-G Mobility & Gait Start: 02/16/22 10:45 Freq: Status: Active Protocol: Document 02/16/22 10:00 DCW (Rec: 02/16/22 11:09 DCW [id number]) OP Gait Assessment Gait Gait Assistance Required: Independent Assistive Devices Assistive Device None Comments Gait Comments Ambulates with increased R ER, heavy R heel-strike. Assessed LLD due to heavy heel strike, however within one cm, L 105 cm ASIS to medial malleoli, R 104.3 cm PT-OP-K Range of Motion Start: 02/16/22 10:45 Freq: Status: Active Protocol: Document 02/16/22 10:00 DCW (Rec: 02/16/22 11:05 DCW [id number]) Ankle and Foot Goniometric Range of Motion Ankle and Foot Right Active Ankle/Foot ROM WFL Yes Testing Position Sitting Dorsiflexion with Knee Flexed 5 Plantarflexion 40 Inversion 30 Eversion 20 Comments DF with knee extended lacking 5? from neutral Left Active Ankle/Foot ROM WFL Yes Testing Position Sitting Dorsiflexion with Knee Flexed 10 Dorsiflexion with Knee Extended 2 Plantarflexion 50 Inversion 30 Eversion 20 PT-OP-M Strength Start: 02/16/22 10:45 Freq: Status: Active Protocol: Document 02/16/22 10:00 DCW (Rec: 02/16/22 11:05 DCW [id number]) Ankle/Foot Strength Ankle and Foot Manual Muscle Testing Right Dorsiflexion (L4) 5 Normal Plantarflexion (S1) 4- Good- Left Dorsiflexion (L4) 5 Normal Plantarflexion (S1) 5 Normal PT-OP-Q Treatments Start: 02/16/22 10:45 Freq: Status: Active Protocol: Document 02/16/22 10:00 DCW (Rec: 02/16/22 10:59 DCW [id number]) Therapeutic Exercises Sitting Exercises Ankle Flexion Sitting Exercise Name PF/DF Side right Resistance Lv 3 Equipment Used T-band Standing Exercises Heel Raises Standing Exercise Name Eccentric SL heel raises (DL concentric) Side right PT-OP-T Assessment and Plan Start: 02/16/22 10:45 Freq: Status: Active Protocol: Document 02/16/22 10:00 DCW (Rec: 02/16/22 11:16 DCW [id number]) Physical Therapy Assessment Rehab Potential Rehabilitation Potential Excellent Evaluation Complexity Number of Personal Factors/Comorbidities 1-2 Number of Body Systems Impaired 1-2 Clinical Presentation at Evaluation Stable Impairments Impairments Functional Mobility,Pain,Soft Tissue Mobility,Strength Goals Two Impairment Pt unable to walk dog due to calf pain [facility] Goal (LTG) Pt to report return to typical two mile walk with dog without increased pain in calf . LTG Duration 04/19/22 One Impairment Pt does not have an appropriate home exercise program Short Term Goal (STG) Pt to be independent and compliant with an appropriate HEP STG Duration 03/19/22 Assessment Summary Assessment Pt presents with signs and symptoms of referring diagnosis of right gastroc strain. DDx unclear in strain vs mild tear, roblero not seem to be any indication currently of large full-thickness near, however pt is scheduled for an MRI tomorrow which should help rule in-out any tear. Pt already making good progress over the past week, although has some remaining limitations at this time, including R toe out during gait, heavy heel strike on R, tenderness to palpation, and PF weakness. Pt should benefit from skilled therapy to improve strength and mobility, general gait training, and STM to decrease calf tone. Physical Therapy Plan Frequency and Duration Frequency of Treatment 2x/Week Plan of Care Start Date 02/16/22 Plan of Care End Date 04/19/22 Therapeutic Interventions Therapeutic Interventions Aquatic Therapy,Home Exercise Program,Manual Therapy, Neuromuscular Re-education, Patient/Caregiver Education, Self-Care/Home Management,Soft Tissue Mobilization, Therapeutic Activities, Therapeutic Exercises Modalities Cold Pack/Ice Massage,Electric Stimulation,Hot Packs Next Visit Focus/Plan Next Note Type Treatment Note Next Visit Plan STM, ankle strengthening, gait training
--- NOTE | 2022-02-16 11:17 | PT.OPPOC ---
Physical, Occupational & Speech Therapy At [facility] 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) Visit Care Team Role Provider Type Tere Sierra MD Family Provider Physician Specialty: Orthopedics Orthopedic Surgery Address: [address] [place] [address], [address] Email: [email or web address] Ricardo Reinoso MD Attending Provider Physician Primary Care Provider Referring Provider Specialty: Family Practice Address: [address] [place] [address], [address] Email: [email or web address] Plan Of Care PT-OP-T Assessment and Plan Start: 02/16/22 10:45 Freq: Status: Active Protocol: Document 02/16/22 10:00 DCW (Rec: 02/16/22 11:16 DCW [id number]) Physical Therapy Assessment Rehab Potential Rehabilitation Potential Excellent Evaluation Complexity Number of Personal Factors/Comorbidities 1-2 Number of Body Systems Impaired 1-2 Clinical Presentation at Evaluation Stable Impairments Impairments Functional Mobility,Pain,Soft Tissue Mobility,Strength Goals Two Impairment Pt unable to walk dog due to calf pain Snf Goal (LTG) Pt to report return to typical two mile walk with dog without increased pain in calf . LTG Duration 04/19/22 One Impairment Pt does not have an appropriate home exercise program Short Term Goal (STG) Pt to be independent and compliant with an appropriate HEP STG Duration 03/19/22 Assessment Summary Assessment Pt presents with signs and symptoms of referring diagnosis of right gastroc strain. DDx unclear in strain vs mild tear, roblero not seem to be any indication currently of large full-thickness near, however pt is scheduled for an MRI tomorrow which should help rule in-out any tear. Pt already making good progress over the past week, although has some remaining limitations at this time, including R toe out during gait, heavy heel strike on R, tenderness to palpation, and PF weakness. Pt should benefit from skilled therapy to improve strength and mobility, general gait training, and STM to decrease calf tone. Physical Therapy Plan Frequency and Duration Frequency of Treatment 2x/Week Plan of Care Start Date 02/16/22 Plan of Care End Date 04/19/22 Therapeutic Interventions Therapeutic Interventions Aquatic Therapy,Home Exercise Program,Manual Therapy, Neuromuscular Re-education, Patient/Caregiver Education, Self-Care/Home Management,Soft Tissue Mobilization, Therapeutic Activities, Therapeutic Exercises Modalities Cold Pack/Ice Massage,Electric Stimulation,Hot Packs Next Visit Focus/Plan Next Note Type Treatment Note Next Visit Plan STM, ankle strengthening, gait training Plan of Care Dates Plan of Care Start Date 02/16/22 Plan of Care End Date 04/19/22 Electronically Signed by: Gordon Barragan, PT 02/16/22 2330 If you are in agreement with this Plan of Care, please return a signed and dated copy. I have reviewed this Plan of Care and certify that the skilled therapy services above are required to meet the patient?s needs. Physician Signature Date Printed Name and Credentials Clinical Instructor Signature Printed Name and Credentials
--- NOTE | 2022-02-21 16:45 | PT.OTN ---
Current Diagnoses Pain in right lower leg (02/21/22) Other specified soft tissue disorders (02/21/22) Physical Therapy Treatment Note PT-OP-A Visit Information Start: 02/16/22 10:45 Freq: Status: Active Protocol: Document 02/21/22 16:00 DCW (Rec: 02/21/22 16:45 DCW [id number]) Out-Patient Physical Therapy Visit Information Visit Information Visit Type Treatment Note Visit Start Time 16:00 Visit Stop Time 16:45 Total Visit Minutes 45 Visit Number 2 Number of RESEARCH PROFESSOR Visits 0 Evaluation Information Evaluation Date 02/16/22 PT-OP-B Current Condition Start: 02/16/22 10:45 Freq: Status: Active Protocol: Document 02/16/22 10:00 DCW (Rec: 02/16/22 10:59 DCW [id number]) Current Condition History of Current Condition Onset Date 02/06/22 Current Complaints R Calf pain History of Current Condition Pt is a 76 year old male presenting with complaints of right calf pain. Pt is well known to this clinic, and has been seen for multiple other issues, including cervical pain, dizziness, an ds/p lumbar surgery. Pt reports that he was walking his dog on 02/06/22, felt a little tweak in his calf, walked a little further, and then when going downhill, felt more of a pop and had to call his to pick him up. Pt admits he has felt improvement over the last week, but still has a solid 4/10 pain with activity , including achiness when lying in bed. Pt admits he has not been doing much activity, but would like to get back to walking his dog 2 miles each day. Has been performing a lot of rest, ice, and elevation, and feels that that has helped a bit. Notes he was limping yesterday, but hasn't been today. Is scheduled for an MRI tomorrow. Future Testing and Treatments Planned MRI 02/17/22 PT-OP-C Subjective Start: 02/16/22 10:45 Freq: Status: Active Protocol: Document 02/21/22 16:00 DCW (Rec: 02/21/22 16:45 DCW [id number]) OP-PT Subjective Patient Comments Patient Comments Pt had MRI Saturday, but still has not heard about results. Admits that he is having quite a bit of pain today, the more I walk the worse it gets. PT-OP-F Manual Assessment Start: 02/16/22 10:45 Freq: Status: Active Protocol: Document 02/16/22 10:00 DCW (Rec: 02/16/22 11:05 DCW [id number]) Manual Assessments Soft Tissue Assessment Soft Tissue Mobility Assessment Mild tone and tenderness to palpation 2/4: Pain with wincing along muscle belly of R medial gastroc PT-OP-G Mobility & Gait Start: 02/16/22 10:45 Freq: Status: Active Protocol: Document 02/16/22 10:00 DCW (Rec: 02/16/22 11:09 DCW [id number]) OP Gait Assessment Gait Gait Assistance Required: Independent Assistive Devices Assistive Device None Comments Gait Comments Ambulates with increased R ER, heavy R heel-strike. Assessed LLD due to heavy heel strike, however within one cm, L 105 cm ASIS to medial malleoli, R 104.3 cm PT-OP-K Range of Motion Start: 02/16/22 10:45 Freq: Status: Active Protocol: Document 02/16/22 10:00 DCW (Rec: 02/16/22 11:05 DCW [id number]) Ankle and Foot Goniometric Range of Motion Ankle and Foot Right Active Ankle/Foot ROM WFL Yes Testing Position Sitting Dorsiflexion with Knee Flexed 5 Plantarflexion 40 Inversion 30 Eversion 20 Comments DF with knee extended lacking 5? from neutral Left Active Ankle/Foot ROM WFL Yes Testing Position Sitting Dorsiflexion with Knee Flexed 10 Dorsiflexion with Knee Extended 2 Plantarflexion 50 Inversion 30 Eversion 20 PT-OP-M Strength Start: 02/16/22 10:45 Freq: Status: Active Protocol: Document 02/16/22 10:00 DCW (Rec: 02/16/22 11:05 DCW [id number]) Ankle/Foot Strength Ankle and Foot Manual Muscle Testing Right Dorsiflexion (L4) 5 Normal Plantarflexion (S1) 4- Good- Left Dorsiflexion (L4) 5 Normal Plantarflexion (S1) 5 Normal PT-OP-Q Treatments Start: 02/16/22 10:45 Freq: Status: Active Protocol: Document 02/21/22 16:00 DCW (Rec: 02/21/22 16:45 DCW [id number]) Cardio Equipment Recumbent Elliptical (Biodex) Duration (Minutes) 5 Resistance 5 Seat Position 13 Gym Equipment Shuttle Balance Red Details DF/PF Therapeutic Exercises Standing Exercises Calf Stretch Standing Exercise Name Toe-in gastroc stretch Side bilateral Equipment Used LUL Manual Therapy Treatment Soft Tissue Mobilization R Calf Body Location Gastroc/Soleus STM Mobilization Type Strumming,Sustained Pressure Intensity/Depth Moderate Body Position Prone Taping R Calf Body Location R Calf Treatment Focus Support Type of Tape Kinesio Tape PT-OP-T Assessment and Plan Start: 02/16/22 10:45 Freq: Status: Active Protocol: Document 02/21/22 16:00 DCW (Rec: 02/21/22 16:45 DCW [id number]) Physical Therapy Assessment Impairments Impairments Functional Mobility,Pain,Soft Tissue Mobility,Strength Goals Two Impairment Pt unable to walk dog due to calf pain Wrap Turner Goal (LTG) Pt to report return to typical two mile walk with dog without increased pain in calf . LTG Duration 04/19/22 One Impairment Pt does not have an appropriate home exercise program Short Term Goal (STG) Pt to be independent and compliant with an appropriate HEP STG Duration 03/19/22 Assessment Summary Assessment Increased pain and calf tightness while trying to walk today, pt admits it has been worse. Attempted to focus on decreasing tone and pain control. Trial of K-tape for calf support. Physical Therapy Plan Frequency and Duration Frequency of Treatment 2x/Week Plan of Care Start Date 02/16/22 Plan of Care End Date 04/19/22 Therapeutic Interventions Therapeutic Interventions Aquatic Therapy,Home Exercise Program,Manual Therapy, Neuromuscular Re-education, Patient/Caregiver Education, Self-Care/Home Management,Soft Tissue Mobilization, Therapeutic Activities, Therapeutic Exercises Modalities Cold Pack/Ice Massage,Electric Stimulation,Hot Packs Next Visit Focus/Plan Next Note Type Treatment Note Next Visit Plan STM, ankle strengthening, gait training
--- NOTE | 2022-02-23 16:38 | PT.OTN ---
Current Diagnoses Pain in right lower leg (02/23/22) Other specified soft tissue disorders (02/23/22) Physical Therapy Treatment Note PT-OP-A Visit Information Start: 02/16/22 10:45 Freq: Status: Active Protocol: Document 02/23/22 16:00 DCW (Rec: 02/23/22 16:38 DCW [id number]) Out-Patient Physical Therapy Visit Information Visit Information Visit Type Treatment Note Visit Start Time 16:00 Visit Stop Time 16:30 Total Visit Minutes 30 Visit Number 3 Number of CADDY/CADDIE SUPERVISOR Visits 0 Evaluation Information Evaluation Date 02/16/22 PT-OP-B Current Condition Start: 02/16/22 10:45 Freq: Status: Active Protocol: Document 02/16/22 10:00 DCW (Rec: 02/16/22 10:59 DCW [id number]) Current Condition History of Current Condition Onset Date 02/06/22 Current Complaints R Calf pain History of Current Condition Pt is a 76 year old male presenting with complaints of right calf pain. Pt is well known to this clinic, and has been seen for multiple other issues, including cervical pain, dizziness, an ds/p lumbar surgery. Pt reports that he was walking his dog on 02/06/22, felt a little tweak in his calf, walked a little further, and then when going downhill, felt more of a pop and had to call his to pick him up. Pt admits he has felt improvement over the last week, but still has a solid 4/10 pain with activity , including achiness when lying in bed. Pt admits he has not been doing much activity, but would like to get back to walking his dog 2 miles each day. Has been performing a lot of rest, ice, and elevation, and feels that that has helped a bit. Notes he was limping yesterday, but hasn't been today. Is scheduled for an MRI tomorrow. Future Testing and Treatments Planned MRI 02/17/22 PT-OP-C Subjective Start: 02/16/22 10:45 Freq: Status: Active Protocol: Document 02/23/22 16:00 DCW (Rec: 02/23/22 16:38 DCW [id number]) OP-PT Subjective Patient Comments Patient Comments Pt reports he went for a walk yesterday, about half a mile, and was just sore the whole time. PT-OP-F Manual Assessment Start: 02/16/22 10:45 Freq: Status: Active Protocol: Document 02/16/22 10:00 DCW (Rec: 02/16/22 11:05 DCW [id number]) Manual Assessments Soft Tissue Assessment Soft Tissue Mobility Assessment Mild tone and tenderness to palpation 2/4: Pain with wincing along muscle belly of R medial gastroc PT-OP-G Mobility & Gait Start: 02/16/22 10:45 Freq: Status: Active Protocol: Document 02/16/22 10:00 DCW (Rec: 02/16/22 11:09 DCW [id number]) OP Gait Assessment Gait Gait Assistance Required: Independent Assistive Devices Assistive Device None Comments Gait Comments Ambulates with increased R ER, heavy R heel-strike. Assessed LLD due to heavy heel strike, however within one cm, L 105 cm ASIS to medial malleoli, R 104.3 cm PT-OP-K Range of Motion Start: 02/16/22 10:45 Freq: Status: Active Protocol: Document 02/16/22 10:00 DCW (Rec: 02/16/22 11:05 DCW [id number]) Ankle and Foot Goniometric Range of Motion Ankle and Foot Right Active Ankle/Foot ROM WFL Yes Testing Position Sitting Dorsiflexion with Knee Flexed 5 Plantarflexion 40 Inversion 30 Eversion 20 Comments DF with knee extended lacking 5? from neutral Left Active Ankle/Foot ROM WFL Yes Testing Position Sitting Dorsiflexion with Knee Flexed 10 Dorsiflexion with Knee Extended 2 Plantarflexion 50 Inversion 30 Eversion 20 PT-OP-M Strength Start: 02/16/22 10:45 Freq: Status: Active Protocol: Document 02/16/22 10:00 DCW (Rec: 02/16/22 11:05 DCW [id number]) Ankle/Foot Strength Ankle and Foot Manual Muscle Testing Right Dorsiflexion (L4) 5 Normal Plantarflexion (S1) 4- Good- Left Dorsiflexion (L4) 5 Normal Plantarflexion (S1) 5 Normal PT-OP-Q Treatments Start: 02/16/22 10:45 Freq: Status: Active Protocol: Document 02/23/22 16:00 DCW (Rec: 02/23/22 16:38 DCW [id number]) Cardio Equipment Recumbent Elliptical (Biodex) Duration (Minutes) 5 Resistance 5 Seat Position 13 Gym Equipment Shuttle Balance Red Details DF/PF Therapeutic Exercises Standing Exercises Calf Stretch Standing Exercise Name Toe-in gastroc stretch Side bilateral Equipment Used LUL Manual Therapy Treatment Soft Tissue Mobilization R Calf Body Location Gastroc/Soleus STM Mobilization Type Strumming,Sustained Pressure Intensity/Depth Moderate Body Position Sitting PT-OP-T Assessment and Plan Start: 02/16/22 10:45 Freq: Status: Active Protocol: Document 02/23/22 16:00 DCW (Rec: 02/23/22 16:38 DC [id number]) Physical Therapy Assessment Impairments Impairments Functional Mobility,Pain,Soft Tissue Mobility,Strength Goals Two Impairment Pt unable to walk dog due to calf pain Correction Goal (LTG) Pt to report return to typical two mile walk with dog without increased pain in calf . LTG Duration 04/19/22 One Impairment Pt does not have an appropriate home exercise program Short Term Goal (STG) Pt to be independent and compliant with an appropriate HEP STG Duration 03/19/22 Assessment Summary Assessment Shortened session today to attempt to get some treatment in but not overdo-it after pt had increased soreness after last session. Assess pt response next week. Hopeful pt will have received MRI results. Physical Therapy Plan Frequency and Duration Frequency of Treatment 2x/Week Plan of Care Start Date 02/16/22 Plan of Care End Date 04/19/22 Therapeutic Interventions Therapeutic Interventions Aquatic Therapy,Home Exercise Program,Manual Therapy, Neuromuscular Re-education, Patient/Caregiver Education, Self-Care/Home Management,Soft Tissue Mobilization, Therapeutic Activities, Therapeutic Exercises Modalities Cold Pack/Ice Massage,Electric Stimulation,Hot Packs Next Visit Focus/Plan Next Note Type Treatment Note Next Visit Plan STM, ankle strengthening, gait training
--- NOTE | 2022-02-27 22:20 | PT.OTN ---
Current Diagnoses Pain in right lower leg (02/27/22) Other specified soft tissue disorders (02/27/22) Physical Therapy Treatment Note PT-OP-A Visit Information Start: 02/16/22 10:45 Freq: Status: Active Protocol: Document 02/27/22 09:43 NBM (Rec: 02/27/22 10:32 NBM [id number]) Out-Patient Physical Therapy Visit Information Visit Information Visit Type Treatment Note Visit Start Time 09:45 Visit Stop Time 10:25 Total Visit Minutes 40 Visit Number 4 Number of COMMERCIAL DESIGNER Visits 1 Evaluation Information Evaluation Date 02/16/22 PT-OP-B Current Condition Start: 02/16/22 10:45 Freq: Status: Active Protocol: Document 02/16/22 10:00 DCW (Rec: 02/16/22 10:59 DCW [id number]) Current Condition History of Current Condition Onset Date 02/06/22 Current Complaints R Calf pain History of Current Condition Pt is a 76 year old male presenting with complaints of right calf pain. Pt is well known to this clinic, and has been seen for multiple other issues, including cervical pain, dizziness, an ds/p lumbar surgery. Pt reports that he was walking his dog on 02/06/22, felt a little tweak in his calf, walked a little further, and then when going downhill, felt more of a pop and had to call his to pick him up. Pt admits he has felt improvement over the last week, but still has a solid 4/10 pain with activity , including achiness when lying in bed. Pt admits he has not been doing much activity, but would like to get back to walking his dog 2 miles each day. Has been performing a lot of rest, ice, and elevation, and feels that that has helped a bit. Notes he was limping yesterday, but hasn't been today. Is scheduled for an MRI tomorrow. Future Testing and Treatments Planned MRI 02/17/22 PT-OP-C Subjective Start: 02/16/22 10:45 Freq: Status: Active Protocol: Document 02/27/22 09:43 NBM (Rec: 02/27/22 10:32 NBM [id number]) OP-PT Subjective Patient Comments Patient Comments Pt states massage last time may have been too much. Pt reports constant dull ache and he still has no results reported on MRI and the report has been sent twice. He is frustrated - This is a waste of everyone's time. Last October it swelled a lot but then got better without therapy, then he was walking downhill down the street and he felt and heard a pop. He tried raking yesterday and after a half hour he had to stop and ice to manage the pain, but he's not sure if the ice even helps, maybe ibuprofen does. Toe-off during walking hurts R calf. PT-OP-F Manual Assessment Start: 02/16/22 10:45 Freq: Status: Active Protocol: Document 02/16/22 10:00 DCW (Rec: 02/16/22 11:05 DCW [id number]) Manual Assessments Soft Tissue Assessment Soft Tissue Mobility Assessment Mild tone and tenderness to palpation /: Pain with wincing along muscle belly of R medial gastroc PT-OP-G Mobility & Gait Start: 02/16/22 10:45 Freq: Status: Active Protocol: Document 02/16/22 10:00 DCW (Rec: 02/16/22 11:09 DCW [id number]) OP Gait Assessment Gait Gait Assistance Required: Independent Assistive Devices Assistive Device None Comments Gait Comments Ambulates with increased R ER, heavy R heel-strike. Assessed LLD due to heavy heel strike, however within one cm, L 105 cm ASIS to medial malleoli, R 104.3 cm PT-OP-K Range of Motion Start: 02/16/22 10:45 Freq: Status: Active Protocol: Document 02/16/22 10:00 DCW (Rec: 02/16/22 11:05 DCW [id number]) Ankle and Foot Goniometric Range of Motion Ankle and Foot Right Active Ankle/Foot ROM WFL Yes Testing Position Sitting Dorsiflexion with Knee Flexed 5 Plantarflexion 40 Inversion 30 Eversion 20 Comments DF with knee extended lacking 5? from neutral Left Active Ankle/Foot ROM WFL Yes Testing Position Sitting Dorsiflexion with Knee Flexed 10 Dorsiflexion with Knee Extended 2 Plantarflexion 50 Inversion 30 Eversion 20 PT-OP-M Strength Start: 02/16/22 10:45 Freq: Status: Active Protocol: Document 02/16/22 10:00 DCW (Rec: 02/16/22 11:05 DCW [id number]) Ankle/Foot Strength Ankle and Foot Manual Muscle Testing Right Dorsiflexion (L4) 5 Normal Plantarflexion (S1) 4- Good- Left Dorsiflexion (L4) 5 Normal Plantarflexion (S1) 5 Normal PT-OP-Q Treatments Start: 02/16/22 10:45 Freq: Status: Active Protocol: Document 02/27/22 09:43 NBM (Rec: 02/27/22 10:32 [facility] [id number]) Cardio Equipment Recumbent Elliptical (Biodex) Duration (Minutes) 5 Resistance 5 Seat Position 13 Gym Equipment Shuttle Balance Red Details DF/PF Therapeutic Exercises Standing Exercises Calf Stretch Standing Exercise Name Toe-in gastroc stretch Side bilateral Equipment Used LUL Heel Raises Standing Exercise Name Eccentric SL heel raises (DL concentric) Side right Comments Discussed - no done today d/t pt's concern of increased pain later Manual Therapy Treatment Soft Tissue Mobilization R Calf Body Location Gastroc/Soleus STM Mobilization Type Strumming,Sustained Pressure, Other Intensity/Depth Superficial Body Position Sitting Comments Circular strokes distal to proximal along both gastroc heads while removing KT adhesive Sitting, hooklying, and hooklying w/ RLE extended over COMMERCIAL DESIGNER's shoulder for light edema massage to medial border of medial head of gastroc. +feedback response to all, particularly STM to palpable distal soleus (Moderate intensity/depth) PT-OP-T Assessment and Plan Start: 02/16/22 10:45 Freq: Status: Active Protocol: Document 02/27/22 09:43 NBM (Rec: 02/27/22 10:32 [facility] [id number]) Physical Therapy Assessment Goals Two Impairment Pt unable to walk dog due to calf pain Qa Software Test Engineer Goal (LTG) Pt to report return to typical two mile walk with dog without increased pain in calf . LTG Duration 04/19/22 One Impairment Pt does not have an appropriate home exercise program Short Term Goal (STG) Pt to be independent and compliant with an appropriate HEP STG Duration 03/19/22 Assessment Summary Assessment Pt presents with ongoing dull ache to medial head of R gastrocnemius and treatment session is pain-limited. Pt will follow up for MRI results . Treatment focus on STM for light edema massage and pain management. Pt has a positive feedback response to manual therapy, particularly to palpable distal soleus in hooklying. Palpable tightness to gastroc/soleus decreases with manual. Physical Therapy Plan Frequency and Duration Frequency of Treatment 2x/Week Plan of Care Start Date 02/16/22 Plan of Care End Date 04/19/22 Therapeutic Interventions Therapeutic Interventions Aquatic Therapy,Home Exercise Program,Manual Therapy, Neuromuscular Re-education, Patient/Caregiver Education, Self-Care/Home Management,Soft Tissue Mobilization, Therapeutic Activities, Therapeutic Exercises Modalities Cold Pack/Ice Massage,Electric Stimulation,Hot Packs Next Visit Focus/Plan Next Note Type Treatment Note Next Visit Plan MRI results? Assess response to last visit. STM, ankle strengthening, gait training
--- NOTE | 2022-03-02 11:56 | PT.OTN ---
Current Diagnoses Pain in right lower leg (03/02/22) Other specified soft tissue disorders (03/02/22) Physical Therapy Treatment Note PT-OP-A Visit Information Start: 02/16/22 10:45 Freq: Status: Active Protocol: Document 03/02/22 10:45 NBM (Rec: 03/02/22 13:49 NBM [id number]) Out-Patient Physical Therapy Visit Information Visit Information Visit Type Treatment Note Visit Start Time 10:45 Visit Stop Time 11:20 Total Visit Minutes 35 Visit Number 5 Number of CHAIN FORMING MACHINE OPERATOR Visits 2 Precautions Precautions 02/17/22 MRI Impression: 1. Grade 1 strain of the flexor digitorum longus muscle at the level of the mid leg measuring 7.7 cm in length. 2. Fatty change within the FDL muscle and the medial soleus muscle compatible with remote injury. PT-OP-B Current Condition Start: 02/16/22 10:45 Freq: Status: Active Protocol: Document 02/16/22 10:00 DCW (Rec: 02/16/22 10:59 DCW [id number]) Current Condition History of Current Condition Onset Date 02/06/22 Current Complaints R Calf pain History of Current Condition Pt is a 76 year old male presenting with complaints of right calf pain. Pt is well known to this clinic, and has been seen for multiple other issues, including cervical pain, dizziness, an ds/p lumbar surgery. Pt reports that he was walking his dog on 02/06/22, felt a little tweak in his calf, walked a little further, and then when going downhill, felt more of a pop and had to call his to pick him up. Pt admits he has felt improvement over the last week, but still has a solid 4/10 pain with activity , including achiness when lying in bed. Pt admits he has not been doing much activity, but would like to get back to walking his dog 2 miles each day. Has been performing a lot of rest, ice, and elevation, and feels that that has helped a bit. Notes he was limping yesterday, but hasn't been today. Is scheduled for an MRI tomorrow. Future Testing and Treatments Planned MRI 02/17/22 PT-OP-C Subjective Start: 02/16/22 10:45 Freq: Status: Active Protocol: Document 03/02/22 10:45 NBM (Rec: 03/02/22 13:49 NBM [id number]) OP-PT Subjective Patient Comments Patient Comments Pt states after last visit he was able to get in and out of car throughout the next day and do a lot of walking with only dull ache and no sharp pain with walking. He rested all day yesterday, and today is a busy day. It's my turn to clean. Pt brings MRI results indicating Grade 1 strain of the FDL and fatty change in the FDL and medial soleus m. compatible with remote injury. PT-OP-F Manual Assessment Start: 02/16/22 10:45 Freq: Status: Active Protocol: Document 02/16/22 10:00 DCW (Rec: 02/16/22 11:05 DCW [id number]) Manual Assessments Soft Tissue Assessment Soft Tissue Mobility Assessment Mild tone and tenderness to palpation 2/4: Pain with wincing along muscle belly of R medial gastroc PT-OP-G Mobility & Gait Start: 02/16/22 10:45 Freq: Status: Active Protocol: Document 02/16/22 10:00 DCW (Rec: 02/16/22 11:09 DCW [id number]) OP Gait Assessment Gait Gait Assistance Required: Independent Assistive Devices Assistive Device None Comments Gait Comments Ambulates with increased R ER, heavy R heel-strike. Assessed LLD due to heavy heel strike, however within one cm, L 105 cm ASIS to medial malleoli, R 104.3 cm PT-OP-K Range of Motion Start: 02/16/22 10:45 Freq: Status: Active Protocol: Document 02/16/22 10:00 DCW (Rec: 02/16/22 11:05 DCW [id number]) Ankle and Foot Goniometric Range of Motion Ankle and Foot Right Active Ankle/Foot ROM WFL Yes Testing Position Sitting Dorsiflexion with Knee Flexed 5 Plantarflexion 40 Inversion 30 Eversion 20 Comments DF with knee extended lacking 5? from neutral Left Active Ankle/Foot ROM WFL Yes Testing Position Sitting Dorsiflexion with Knee Flexed 10 Dorsiflexion with Knee Extended 2 Plantarflexion 50 Inversion 30 Eversion 20 PT-OP-M Strength Start: 02/16/22 10:45 Freq: Status: Active Protocol: Document 02/16/22 10:00 DCW (Rec: 02/16/22 11:05 DCW [id number]) Ankle/Foot Strength Ankle and Foot Manual Muscle Testing Right Dorsiflexion (L4) 5 Normal Plantarflexion (S1) 4- Good- Left Dorsiflexion (L4) 5 Normal Plantarflexion (S1) 5 Normal PT-OP-Q Treatments Start: 02/16/22 10:45 Freq: Status: Active Protocol: Document 03/02/22 10:45 NBM (Rec: 03/02/22 13:49 NBM [id number]) Cardio Equipment Recumbent Bicycle Duration (Minutes) 5 Resistance 5 Seat Position 11 Gym Equipment Shuttle Balance Red Details DF/PF Therapeutic Exercises Standing Exercises Calf Stretch Standing Exercise Name Toe-in gastroc stretch Side bilateral Equipment Used LUL Manual Therapy Treatment Soft Tissue Mobilization R Calf Body Location Gastroc/Soleus, FDL Mobilization Type Strumming,Sustained Pressure, Other Intensity/Depth Superficial Body Position Hooklying Comments Moderate intensity/depth to palpable distal soleus PT-OP-T Assessment and Plan Start: 02/16/22 10:45 Freq: Status: Active Protocol: Document 03/02/22 10:45 NBM (Rec: 03/07/22 10:40 NBM [id number]) Physical Therapy Assessment Impairments Impairments Functional Mobility,Pain,Soft Tissue Mobility,Strength Goals Two Impairment Pt unable to walk dog due to calf pain Cinetechnician Goal (LTG) Pt to report return to typical two mile walk with dog without increased pain in calf . LTG Duration 04/19/22 One Impairment Pt does not have an appropriate home exercise program Short Term Goal (STG) Pt to be independent and compliant with an appropriate HEP STG Duration 03/19/22 Assessment Summary Assessment 02/17/22 MRI Impression: 1. Grade 1 strain of the flexor digitorum longus muscle at the level of the mid leg measuring 7.7 cm in length. 2. Fatty change within the FDL muscle and the medial soleus muscle compatible with remote injury. Pt presents with decreased pain after manual thearpy 02/27 and increased rest at home, consistent with findings of Grade 1 strain to FDL. Treatment focus on education for rest and anatomy of FDL and soleus muscles w/ visual aid, and STM to soleus and FDL. Pt also encouraged to trim toenails to reduce potential impact on gait. Physical Therapy Plan Frequency and Duration Frequency of Treatment 2x/Week Plan of Care Start Date 02/16/22 Plan of Care End Date 04/19/22 Therapeutic Interventions Therapeutic Interventions Aquatic Therapy,Home Exercise Program,Manual Therapy, Neuromuscular Re-education, Patient/Caregiver Education, Self-Care/Home Management,Soft Tissue Mobilization, Therapeutic Activities, Therapeutic Exercises Modalities Cold Pack/Ice Massage,Electric Stimulation,Hot Packs Next Visit Focus/Plan Next Note Type Treatment Note Next Visit Plan Assess response to last visit STM, ankle strengthening, gait training
--- NOTE | 2022-03-14 16:29 | PT.OTN ---
Current Diagnoses Pain in right lower leg (03/14/22) Other specified soft tissue disorders (03/14/22) Physical Therapy Treatment Note PT-OP-A Visit Information Start: 02/16/22 10:45 Freq: Status: Active Protocol: Document 03/14/22 16:00 DCW (Rec: 03/14/22 16:29 [facility] [id number]) Out-Patient Physical Therapy Visit Information Visit Information Visit Type Treatment Note Visit Start Time 16:00 Visit Stop Time 16:25 Total Visit Minutes 25 Visit Number 6 Number of CAMERA TUNING ENGINEER Visits 0 Evaluation Information Evaluation Date 02/16/22 Precautions Precautions 02/17/22 MRI Impression: 1. Grade 1 strain of the flexor digitorum longus muscle at the level of the mid leg measuring 7.7 cm in length. 2. Fatty change within the FDL muscle and the medial soleus muscle compatible with remote injury. PT-OP-B Current Condition Start: 02/16/22 10:45 Freq: Status: Active Protocol: Document 02/16/22 10:00 DCW (Rec: 02/16/22 10:59 [facility] [id number]) Current Condition History of Current Condition Onset Date 02/06/22 Current Complaints R Calf pain History of Current Condition Pt is a 76 year old male presenting with complaints of right calf pain. Pt is well known to this clinic, and has been seen for multiple other issues, including cervical pain, dizziness, an ds/p lumbar surgery. Pt reports that he was walking his dog on 02/06/22, felt a little tweak in his calf, walked a little further, and then when going downhill, felt more of a pop and had to call his to pick him up. Pt admits he has felt improvement over the last week, but still has a solid 4/10 pain with activity , including achiness when lying in bed. Pt admits he has not been doing much activity, but would like to get back to walking his dog 2 miles each day. Has been performing a lot of rest, ice, and elevation, and feels that that has helped a bit. Notes he was limping yesterday, but hasn't been today. Is scheduled for an MRI tomorrow. Future Testing and Treatments Planned MRI 02/17/22 PT-OP-C Subjective Start: 02/16/22 10:45 Freq: Status: Active Protocol: Document 03/14/22 16:00 DCW (Rec: 03/14/22 16:29 DCW [id number]) OP-PT Subjective Patient Comments Patient Comments Pt reports he has been feeling better, does note that he has continues pain/soreness along medial mid-calf. PT-OP-F Manual Assessment Start: 02/16/22 10:45 Freq: Status: Active Protocol: Document 02/16/22 10:00 DCW (Rec: 02/16/22 11:05 DCW [id number]) Manual Assessments Soft Tissue Assessment Soft Tissue Mobility Assessment Mild tone and tenderness to palpation 2/4: Pain with wincing along muscle belly of R medial gastroc PT-OP-G Mobility & Gait Start: 02/16/22 10:45 Freq: Status: Active Protocol: Document 02/16/22 10:00 DCW (Rec: 02/16/22 11:09 DCW [id number]) OP Gait Assessment Gait Gait Assistance Required: Independent Assistive Devices Assistive Device None Comments Gait Comments Ambulates with increased R ER, heavy R heel-strike. Assessed LLD due to heavy heel strike, however within one cm, L 105 cm ASIS to medial malleoli, R 104.3 cm PT-OP-K Range of Motion Start: 02/16/22 10:45 Freq: Status: Active Protocol: Document 02/16/22 10:00 DCW (Rec: 02/16/22 11:05 DCW [id number]) Ankle and Foot Goniometric Range of Motion Ankle and Foot Right Active Ankle/Foot ROM WFL Yes Testing Position Sitting Dorsiflexion with Knee Flexed 5 Plantarflexion 40 Inversion 30 Eversion 20 Comments DF with knee extended lacking 5? from neutral Left Active Ankle/Foot ROM WFL Yes Testing Position Sitting Dorsiflexion with Knee Flexed 10 Dorsiflexion with Knee Extended 2 Plantarflexion 50 Inversion 30 Eversion 20 PT-OP-M Strength Start: 02/16/22 10:45 Freq: Status: Active Protocol: Document 02/16/22 10:00 DCW (Rec: 02/16/22 11:05 DCW [id number]) Ankle/Foot Strength Ankle and Foot Manual Muscle Testing Right Dorsiflexion (L4) 5 Normal Plantarflexion (S1) 4- Good- Left Dorsiflexion (L4) 5 Normal Plantarflexion (S1) 5 Normal PT-OP-Q Treatments Start: 02/16/22 10:45 Freq: Status: Active Protocol: Document 03/14/22 16:00 DCW (Rec: 03/14/22 16:29 DCW [id number]) Cardio Equipment Recumbent Elliptical (Biodex) Duration (Minutes) 5 Resistance 5 Seat Position 13 Gym Equipment Shuttle Balance Red Details DF/PF Therapeutic Exercises Standing Exercises Calf Stretch Standing Exercise Name Toe-in gastroc stretch Side bilateral Equipment Used LUL Manual Therapy Treatment Soft Tissue Mobilization R Calf Body Location Gastroc/Soleus STM Mobilization Type Strumming,Sustained Pressure, Other Intensity/Depth Superficial Body Position Sitting Comments Circular strokes distal to proximal along both gastroc heads while removing KT adhesive Sitting PT-OP-T Assessment and Plan Start: 02/16/22 10:45 Freq: Status: Active Protocol: Document 03/14/22 16:00 DCW (Rec: 03/14/22 16:29 DCW [id number]) Physical Therapy Assessment Impairments Impairments Functional Mobility,Pain,Soft Tissue Mobility,Strength Goals Two Impairment Pt unable to walk dog due to calf pain High Density Press Laborer Goal (LTG) Pt to report return to typical two mile walk with dog without increased pain in calf . LTG Duration 04/19/22 One Impairment Pt does not have an appropriate home exercise program Short Term Goal (STG) Pt to be independent and compliant with an appropriate HEP STG Duration 03/19/22 Assessment Summary Assessment Pt continues to progress well, significant decrease in pain overall, able to perform his normal walking and hobby activities with minimal discomfort, although still notes point-specific pain along medial mid-calf. Pt planning to likely discharge next week, prior to his vacation to [place]. Physical Therapy Plan Frequency and Duration Frequency of Treatment 2x/Week Plan of Care Start Date 02/16/22 Plan of Care End Date 04/19/22 Therapeutic Interventions Therapeutic Interventions Aquatic Therapy,Home Exercise Program,Manual Therapy, Neuromuscular Re-education, Patient/Caregiver Education, Self-Care/Home Management,Soft Tissue Mobilization, Therapeutic Activities, Therapeutic Exercises Modalities Cold Pack/Ice Massage,Electric Stimulation,Hot Packs Next Visit Focus/Plan Next Note Type Treatment Note Next Visit Plan Assess response to last visit STM, ankle strengthening, gait training
--- NOTE | 2022-03-23 13:42 | PT.OTN ---
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 Pt is well known to this clinic, and has been seen for multiple other issues, including cervical pain, dizziness, an ds/p lumbar surgery. Pt reports that he was walking his dog on 02/06/22, felt a little tweak in his calf, walked a little further, and then when going downhill, felt more of a pop and had to call his to pick him up. Pt admits he has felt improvement over the last week, but still has a solid 4/10 pain with activity , including achiness when lying in bed. Pt admits he has not been doing much activity, but would like to get back to walking his dog 2 miles each day. Has been performing a lot of rest, ice, and elevation, and feels that that has helped a bit. Notes he was limping yesterday, but hasn't been today. Is scheduled for an MRI tomorrow. Future Testing and Treatments Planned MRI 02/17/22 PT-OP-C Subjective Start: 02/16/22 10:45 Freq: Status: Active Protocol: Document 03/23/22 12:17 NBM (Rec: 03/23/22 13:41 NBM [id number]) OP-PT Subjective Patient Comments Patient Comments Pt reports he has been stretching his calves a lot with knee straight and bent, but they always seem tight. His plantar fascia has returned in his R foot and at times the pain has been worse than the calf pain. He had a massage a few days ago and she worked on his calf. He reports he talked to his Dr. directly after receiving a referral to an ortho and not knowing why, and if his calf does not continue to progress then he will pursue the referral after returning from the next three weeks in [place] . PT-OP-F Manual Assessment Start: 02/16/22 10:45 Freq: Status: Active Protocol: Document 02/16/22 10:00 DCW (Rec: 02/16/22 11:05 DCW [id number]) Manual Assessments Soft Tissue Assessment Soft Tissue Mobility Assessment Mild tone and tenderness to palpation /: Pain with wincing along muscle belly of R medial gastroc PT-OP-G Mobility & Gait Start: 02/16/22 10:45 Freq: Status: Active Protocol: Document 02/16/22 10:00 DCW (Rec: 02/16/22 11:09 DCW [id number]) OP Gait Assessment Gait Gait Assistance Required: Independent Assistive Devices Assistive Device None Comments Gait Comments Ambulates with increased R ER, heavy R heel-strike. Assessed LLD due to heavy heel strike, however within one cm, L 105 cm ASIS to medial malleoli, R 104.3 cm PT-OP-K Range of Motion Start: 02/16/22 10:45 Freq: Status: Active Protocol: Document 02/16/22 10:00 DCW (Rec: 02/16/22 11:05 DCW [id number]) Ankle and Foot Goniometric Range of Motion Ankle and Foot Right Active Ankle/Foot ROM WFL Yes Testing Position Sitting Dorsiflexion with Knee Flexed 5 Plantarflexion 40 Inversion 30 Eversion 20 Comments DF with knee extended lacking 5? from neutral Left Active Ankle/Foot ROM WFL Yes Testing Position Sitting Dorsiflexion with Knee Flexed 10 Dorsiflexion with Knee Extended 2 Plantarflexion 50 Inversion 30 Eversion 20 PT-OP-M Strength Start: 02/16/22 10:45 Freq: Status: Active Protocol: Document 02/16/22 10:00 DCW (Rec: 02/16/22 11:05 DCW [id number]) Ankle/Foot Strength Ankle and Foot Manual Muscle Testing Right Dorsiflexion (L4) 5 Normal Plantarflexion (S1) 4- Good- Left Dorsiflexion (L4) 5 Normal Plantarflexion (S1) 5 Normal PT-OP-Q Treatments Start: 02/16/22 10:45 Freq: Status: Active Protocol: Document 03/23/22 12:17 [facility] (Rec: 03/23/22 13:41 [facility] [id number]) Gym Equipment Shuttle Recovery Unilateral Squats Resistance 50# Shuttle Recovery Platform Stable Reps/Time x20 Bilateral Squats Resistance 50>75# Shuttle Recovery Platform Stable Reps/Time x20 Shuttle Balance Red Details DF/PF Therapeutic Exercises Sitting Exercises Ankle Flexion Sitting Exercise Name resisted DF Side right Resistance Lv 1 Tb Reps/Minutes x10 Comments added to HEP Standing Exercises Calf Stretch Standing Exercise Name Toe-in gastroc stretch Side bilateral Equipment Used LUL Comments tightness L>R noted Manual Therapy Treatment Soft Tissue Mobilization R Calf Body Location Gastroc/Soleus STM Mobilization Type Strumming,Sustained Pressure, Other Intensity/Depth Superficial Body Position Sitting Comments Circular strokes distal to proximal along both gastroc heads and along medial border of soleus. Sitting Self-Care/Home Management Treatment Education Patient Education Home Exercise Program Other Education Discussed adding tibialis anterior strengthening to calf stretching. Added to HEP: resisted dorsiflexion - Lvl 1 Tb and HO given. PT-OP-T Assessment and Plan Start: 02/16/22 10:45 Freq: Status: Active Protocol: Document 03/23/22 12:17 [facility] (Rec: 03/23/22 13:41 [facility] [id number]) Physical Therapy Assessment Goals Two Impairment Pt unable to walk dog due to calf pain Service And Repair Supervisor Goal (LTG) Pt to report return to typical two mile walk with dog without increased pain in calf . LTG Duration 04/19/22 One Impairment Pt does not have an appropriate home exercise program Short Term Goal (STG) Pt to be independent and compliant with an appropriate HEP STG Duration 03/19/22 Assessment Summary Assessment Pt demonstrates no change in last visit w/ R medial calf point-specific pain and ongoing gastroc and soleus tightness, but pt also reports plantar fasciitis in R foot now. Pt received an ortho referral from PCP and plans to pursue upon return from three weeks in [place] if his calf pain does not continue to progress as it has been. Discussed adding tibialis anterior strengthening to calf stretching. Added to HEP: resisted dorsiflexion - Lvl 1 Tb and HO given. Physical Therapy Plan Frequency and Duration Frequency of Treatment 2x/Week Plan of Care Start Date 02/16/22 Plan of Care End Date 04/19/22 Therapeutic Interventions Therapeutic Interventions Aquatic Therapy,Home Exercise Program,Manual Therapy, Neuromuscular Re-education, Patient/Caregiver Education, Self-Care/Home Management,Soft Tissue Mobilization, Therapeutic Activities, Therapeutic Exercises Modalities Cold Pack/Ice Massage,Electric Stimulation,Hot Packs Next Visit Focus/Plan Next Note Type Treatment Note Next Visit Plan Check w/ pt if planning to pursue ortho referral. STM, ankle strengthening, gait training
--- NOTE | 2022-04-17 10:13 | PT.OPDS ---
Current Diagnoses Pain in right lower leg (03/23/22) Other specified soft tissue disorders (03/23/22) Visit Care Team Role Provider Type Tere Sierra MD Family Provider Physician Specialty: Orthopedics Orthopedic Surgery Address: [address] [place] [address], [id number] Email: [email or web address] Attending Provider Physician Primary Care Provider Referring Provider Specialty: Family Practice Address: [address] [place] [address], [address] Email: [email or web address] Visit Number Visit Number 7 Discharge Summary PT-OP-B Current Condition Start: 02/16/22 10:45 Freq: Status: Active Protocol: Document 02/16/22 10:00 DCW (Rec: 02/16/22 10:59 DCW [id number]) Current Condition History of Current Condition Onset Date 02/06/22 Current Complaints R Calf pain History of Current Condition Pt is a 76 year old male presenting with complaints of right calf pain. Pt is well known to this clinic, and has been seen for multiple other issues, including cervical pain, dizziness, an ds/p lumbar surgery. Pt reports that he was walking his dog on 02/06/22, felt a little tweak in his calf, walked a little further, and then when going downhill, felt more of a pop and had to call his to pick him up. Pt admits he has felt improvement over the last week, but still has a solid 4/10 pain with activity , including achiness when lying in bed. Pt admits he has not been doing much activity, but would like to get back to walking his dog 2 miles each day. Has been performing a lot of rest, ice, and elevation, and feels that that has helped a bit. Notes he was limping yesterday, but hasn't been today. Is scheduled for an MRI tomorrow. Future Testing and Treatments Planned MRI 02/17/22 PT-OP-C Subjective Start: 02/16/22 10:45 Freq: Status: Active Protocol: Document 03/23/22 12:17 NBM (Rec: 03/23/22 13:41 NBM [id number]) OP-PT Subjective Patient Comments Patient Comments Pt reports he has been stretching his calves a lot with knee straight and bent, but they always seem tight. His plantar fascia has returned in his R foot and at times the pain has been worse than the calf pain. He had a massage a few days ago and she worked on his calf. He reports he talked to his Dr. directly after receiving a referral to an ortho and not knowing why, and if his calf does not continue to progress then he will pursue the referral after returning from the next three weeks in [place] . PT-OP-F Manual Assessment Start: 02/16/22 10:45 Freq: Status: Active Protocol: Document 02/16/22 10:00 DCW (Rec: 02/16/22 11:05 DCW [id number]) Manual Assessments Soft Tissue Assessment Soft Tissue Mobility Assessment Mild tone and tenderness to palpation 2/: Pain with wincing along muscle belly of R medial gastroc PT-OP-G Mobility & Gait Start: 02/16/22 10:45 Freq: Status: Active Protocol: Document 02/16/22 10:00 DCW (Rec: 02/16/22 11:09 DCW [id number]) OP Gait Assessment Gait Gait Assistance Required: Independent Assistive Devices Assistive Device None Comments Gait Comments Ambulates with increased R ER, heavy R heel-strike. Assessed LLD due to heavy heel strike, however within one cm, L 105 cm ASIS to medial malleoli, R 104.3 cm PT-OP-K Range of Motion Start: 02/16/22 10:45 Freq: Status: Active Protocol: Document 02/16/22 10:00 DCW (Rec: 02/16/22 11:05 DCW [id number]) Ankle and Foot Goniometric Range of Motion Ankle and Foot Right Active Ankle/Foot ROM WFL Yes Testing Position Sitting Dorsiflexion with Knee Flexed 5 Plantarflexion 40 Inversion 30 Eversion 20 Comments DF with knee extended lacking 5? from neutral Left Active Ankle/Foot ROM WFL Yes Testing Position Sitting Dorsiflexion with Knee Flexed 10 Dorsiflexion with Knee Extended 2 Plantarflexion 50 Inversion 30 Eversion 20 PT-OP-M Strength Start: 02/16/22 10:45 Freq: Status: Active Protocol: Document 02/16/22 10:00 DCW (Rec: 02/16/22 11:05 DCW [id number]) Ankle/Foot Strength Ankle and Foot Manual Muscle Testing Right Dorsiflexion (L4) 5 Normal Plantarflexion (S1) 4- Good- Left Dorsiflexion (L4) 5 Normal Plantarflexion (S1) 5 Normal PT-OP-T Assessment and Plan Start: 02/16/22 10:45 Freq: Status: Active Protocol: Document 04/17/22 10:12 DCW (Rec: 04/17/22 10:13 DCW [id number]) Physical Therapy Assessment Assessment Summary Assessment Pt phoned clinic to request discharge, stating he does not need any further PT. Physical Therapy Plan Discharge Physical Therapy Discharge Reasons Patient Request Next Visit Focus/Plan Next Note Type Discharge Summary
== END 2022-04-18 14:20 | disposition home or self-care (01) ==
LOC: PHYS 12:15
PROVIDERS: Family Provider Orthopaedic Surgery Orthopaedic Surgery of the Spine; PCP Family Medicine; Referring Provider Family Medicine; Visit Provider Family Medicine
DX: M79.661 Pain in right lower leg (principal); M79.89 Other specified soft tissue disorders
CPT/HCPCS: 97110; 97140; 97161; 97535

== ENCOUNTER → 2022-12-24 10:17 | Outpatient (CLI) | payer MEDICARE, OTHER, SELFPAY ==
[2021-05-22 06:39] VITALS: BMI 27.7
--- NOTE | 2022-12-24 10:18 | DI.RAD.S_ITS ---
PROCEDURE: FL BARIUM SWALLOW W SPEECH INDICATIONS: dysphagia post cervical sx COMPARISON: None. TECHNIQUE: Examination was conducted in conjunction with speech pathology per standard protocol. In the lateral projection, filming was performed of the patient swallowing. AP projection filming may also be performed with patient swallowing. COMPARISON: FINDINGS: Function: ACDF. Lumbar spine fixation. The oral preparatory phase appears normal, with proper containment. The subsequent oral propulsive phase, pharyngeal phase, and esophageal phase of swallowing also appear normal with all proffered substances. No laryngotracheal penetration or aspiration. Intermittent vallecular pooling. Rapid transit of a barium tablet. Morphology: No cricopharyngeal bar is identified. No cervical esophageal webs. No Zenker's diverticulum. No strictures. IMPRESSION: No aspiration. Intermittent vallecular pooling. Please see separately dictated speech pathologist's report. Dictated by: Franklyn Warren M.D. on 12/24/2022 at 14:19 Approved by: Franklyn Warren M.D. on 12/24/2022 at 14:30
--- NOTE | 2022-12-24 14:51 | ST.SWALLOW ---
Visit Care Team Role Provider Type Ricardo Reinoso MD Primary Care Provider Physician Specialty: Family Practice Address: [address] [place] [address], [id number] Email: [email or web address] Tere Sierra MD Family Provider Physician Specialty: Orthopedics Orthopedic Surgery Address: [address] [place] [address], [id number] Email: [email or web address] Attending Provider Physician Referring Provider Specialty: [facility] Address: [address] [place] [address], [address], [address] Email: [email or web address] Modified Barium Swallow Study FINANCE LEAD Modified Barium Swallow Study Start: 12/24/22 10:07 Freq: Status: Active Protocol: Document 12/24/22 13:21 AYOK (Rec: 12/24/22 14:51 LNK [id number]) Modified Barium Swallow Study Total Time Visit Start Time 10:30 Visit Stop Time 11:10 Total Visit Minutes [address] Carbajal Setting Setting Outpatient Care Patient Information Identification Type Name,Date of Patient History Pt was seen for a Modified Barium Swallow Study (MBSS) at the referral of his physician . According to review of the pt's records and pt report, he has been having difficulty with swallowing both liquids and solids since he had ACDF surgery (06/13/2018). Pt describes a sensation on the left side of his throat in the area of his larynx. He stated that he will cough hard , at times to the point his becomes concerned. Subjective Observations Pt entered the fluoroscopy room and was seated in the fluoro chair. Instructions and procedures were described for him after which he indicated he understood and agreed to proceed. Patient Positioning Position View Lat-A/P Imaging Lateral View Textures Administered Trials Presented Thin Liquid via Spoon (IDDSI 0 ),Thin Liquid via Cup (IDDSI 0 ),Mildly Thick Liquid via Spoon (IDDSI 2),Mildly Thick Liquid via Cup (IDDSI 2), Extremely Thick Liquid via Spoon (IDDSI 4),Regular (IDDSI 7) Barium Tablet Yes The IDDSI Framework Protocol: IDDSI.1 Oral Impairment Source: The Modified Barium Swallow Impairment Profile (MBSImP??) Lip Closure No labial escape Tongue Control During Bolus Hold Cohesive bolus between tongue to palatal seal Bolus Preparation/Mastication Timely & efficient chewing & mashing Bolus Transport/Lingual Motion Brisk tongue motion Oral Residue Trace residue lining oral structures Location Tongue Initiation of Pharyngeal Swallow Bolus head at posterior angle of ramus (first hyoid excursion) Additional Oral Impairment Observations OME and DKS were observed to be WNL. Mastication was noted to be WNL. Rotary chew pattern noted with good bolus formation, control and AP transition. Oral phase of swallowing WNL Pharyngeal Impairment Source: The Modified Barium Swallow Impairment Profile (MBSImP??) Soft Palate Elevation No bolus between soft palate & pharyngeal wall Laryngeal Elevation Part.sup.move.thyroid cart/ part.approx.arytenoids to epiglot.petiole Anterior Hyoid Excursion Partial anterior movement Epiglottic Movement Complete inversion Laryngeal Vestibular Closure Complete; no air/contrast in laryngeal vestibule Pharyngeal Stripping Wave Present - complete Pharyngoesophageal Segment Opening Partial distention/partial duration; partial obstruction of flow Pharyngeal Residue Trace residue within/on pharyngeal structures Location Diffuse (>3 areas) Additional Pharyngeal Impairment Observation of the tongue base Observations contact with the posterior pharyngeal wall was not possible due to a small area pooled contrast at the tongue base above the valeculla that was present across all liquid trials. This contrast was not considered to be within the valeculla. Two additional small areas of pooled contrast were also noted across liquid trials at the level of the epiglottic base and hyoid. Hyopharyngeal elevation and movement was noted to be mildly reduced but did not impact epiglottic inversion. The pt remarked several times that he felt a tickle, or that the bolus did not go down, pointing at the laryngeal area of the left side of his neck. He cleared his throat often after trials. No laryngeal penetration or tracheal aspiration was observed. There appeared to be diminished PES opening and duration. The ACDF hardware was located near to PES, possible impacting the PES opening (i.e., scar tissue). Pooled contrast at the PES with the cookie and semi-solid trials was observed. The pt stated that these trials seemed to be stuck in his throat. The pt presented with swallowing judged to be WFL. The above described lingual pool of contrast liquid, as well as the observations of the PES opening indicate a need for further evaluation. A/P View Textures Administered Trials Presented Thin Liquid via Spoon (IDDSI 0 ) The IDDSI Framework Protocol: IDDSI.1 A/P View Observations Pharyngeal Contraction Unilateral bulging Esophageal Clearance Upright Position Complete clearance; esophageal coating Esophageal Function WFL Additional A-P Observations The esophageal phase of swallowing was observed to be WNL Clinical Impressions Findings Please review the oral and pharyngeal sections above for detail. The results of the MBSS indicated the pt 's swallowing is WFL overall. The above described lingual pooling of contrast liquid, as well as the observations of the PES opening indicate a need for further evaluation. When the pt reported the tickle in his throat, he consistently pointed to the left side of his neck near the base of tongue/laryngeal structures. In addition, the pt's PES appeared to be diminished in duration and/or extension of its opening. Further assessment of these areas is recommended as the pt reports frequent coughing and a sensation of a tickle and globus, especially with liquids. Solids were reported to be difficult to swallow, which may be related to the PES opening described above. Patient Appropriate for Therapy No: Pt's s/sx do not appear to be dysphagia related Recommendations Diet Comments No change in diet is recommended Aspiration Precautions Recommended Precautions Upright at 90 Degrees, Alternate Liquids/Solids Additional Precautions Alternating foods/liquids may reduce pooling and therefore the tickle/globu Treatment Plan Recommended Referrals ENT Consult
== END ==
PROVIDERS: Family Provider Orthopaedic Surgery Orthopaedic Surgery of the Spine; PCP Family Medicine; Referring Provider Family Medicine; Visit Provider Family Medicine
DX: R13.10 Dysphagia, unspecified (principal); J38.7 Other diseases of larynx
CPT/HCPCS: 74230; 92611

== ENCOUNTER → 2023-02-18 08:19 | Outpatient (CLI) | payer MEDICARE, OTHER, SELFPAY ==
[2021-05-22 06:39] VITALS: BMI 27.7
[2023-02-18 09:35] LABS: Alanine Aminotransferase 37 IU/L (<50); Albumin 4.3 g/dL (3.5-5.0); Albumin Globulin Ratio 1.5 (1.0-2.8); Alkaline Phosphatase 72 U/L (38-126); Aspartate Aminotransferase 31 IU/L (17-59); BUN Creatinine Ratio 18.3 (6-22); Blood Urea Nitrogen 17 mg/dL (9-20); Calcium 9.7 mg/dL (8.4-10.2); Carbon Dioxide 33 mmol/L (22-32); Chloride 99 mmol/L (98-107); Cholesterol 157 mg/dL (140-199); Estimated Glomerular Filt Rate > 60 mL/min (>60); Globulin 2.9 g/dL (1.7-4.1); Glucose 99 mg/dL (80-110); HDL Cholesterol 67 mg/dL (40-60); HEMOLYSIS < 15 (0-50); LDL Cholesterol Calculated 79 mg/dL (<100); Potassium 4.1 mmol/L (3.4-5.1); Sodium 138 mmol/L (137-145); Total Protein 7.2 g/dL (6.3-8.2); Triglycerides 54 mg/dL (35-150)
[2023-02-18 11:47] LABS: Creatinine Urine Random 118.7 mg/dL
[2023-02-18 11:50] LABS: Microalbumin Urine Random < 0.6 mg/dL (0-1.6)
== END ==
PROVIDERS: Family Provider Orthopaedic Surgery Orthopaedic Surgery of the Spine; PCP Family Medicine; Referring Provider Family Medicine; Visit Provider Family Medicine
DX: I10 Essential (primary) hypertension (principal); E78.2 Mixed hyperlipidemia
CPT/HCPCS: 36415; 80053; 80061; 82043; 82570

== ENCOUNTER → 2023-02-20 10:35 | Outpatient (CLI) | payer MEDICARE, OTHER, SELFPAY ==
[2023-02-19 14:36] VITALS: BMI 27.7
[2023-02-20 11:31] LABS: Add Manual Diff / Slide Review NO; Basophils Absolute Auto 0 /uL (0-100); Basophils Percent Auto 0.2 % (0-2); Eosinophils Absolute Auto 200 /uL (0-450); Eosinophils Percent Auto 2.8 % (2-4); Hematocrit 43.3 % (41-53); Hemoglobin 14.5 g/dL (13.5-17.5); Lymphocytes Absolute Auto 1300 /uL (1100-4500); Lymphocytes Percent Auto 14.9 % (25-40); Mean Corpuscular HGB Conc 33.5 % (30-36); Mean Corpuscular Hemoglobin 31.5 PG (26-34); Mean Corpuscular Volume 94.1 fL (80-100); Monocytes Absolute Auto 700 /uL (0-900); Monocytes Percent Auto 7.9 % (3-14); Neutrophils Absolute Auto 6500 /uL (1500-7000); Neutrophils Percent Auto 74.2 % (50-75); Platelet Count 181 X10^3/uL (150-400); Red Cell Distribution Width 13.6 % (11.6-14.8); White Blood Cell Count 8.7 X10^3/uL (4.5-11.0)
[2023-02-20 12:21] LABS: Prostate Specific Antigen Scrn 1.26 ng/mL (0.1-4.0)
[2023-02-20 12:24] LABS: Ferritin 223 ng/mL (18-464)
[2023-02-21 17:52] LABS: HIV 1 & 2 Ab/Ag 4th Gen Combo NEGATIVE (NEGATIVE); Hep C Virus Ab w/Reflex Quant NEGATIVE s/c (NEGATIVE)
== END ==
PROVIDERS: Family Provider Orthopaedic Surgery Orthopaedic Surgery of the Spine; PCP Family Medicine; Referring Provider Physician Assistant; Visit Provider Physician Assistant
DX: Z11.59 Encounter for screening for other viral diseases (principal); B02.29 Other postherpetic nervous system involvement; Z12.5 Encounter for screening for malignant neoplasm of prostate
CPT/HCPCS: 36415; 82728; 85025; 86803; 87389; G0103

== ENCOUNTER → 2023-11-05 09:15 | Outpatient (CLI) | payer MEDICARE, OTHER, SELFPAY ==
[2023-02-19 14:36] VITALS: BMI 27.7
[2023-11-05 10:30] LABS: Add Manual Diff / Slide Review NO; Basophils Absolute Auto 0 /uL (0-100); Basophils Percent Auto 0.5 % (0-2); Eosinophils Absolute Auto 200 /uL (0-450); Eosinophils Percent Auto 4.2 % (2-4); Hematocrit 41.4 % (41-53); Hemoglobin 14.2 g/dL (13.5-17.5); Lymphocytes Absolute Auto 1500 /uL (1100-4500); Lymphocytes Percent Auto 27.5 % (25-40); Mean Corpuscular HGB Conc 34.2 % (30-36); Mean Corpuscular Hemoglobin 32.1 PG (26-34); Mean Corpuscular Volume 93.9 fL (80-100); Monocytes Absolute Auto 300 /uL (0-900); Monocytes Percent Auto 6.3 % (3-14); Neutrophils Absolute Auto 3200 /uL (1500-7000); Neutrophils Percent Auto 61.5 % (50-75); Platelet Count 203 X10^3/uL (150-400); Red Cell Distribution Width 13.5 % (11.6-14.8); White Blood Cell Count 5.3 X10^3/uL (4.5-11.0)
[2023-11-05 10:45] LABS: Alanine Aminotransferase 26 IU/L (<50); Albumin 4.3 g/dL (3.5-5.0); Albumin Globulin Ratio 1.5 (1.0-2.8); Alkaline Phosphatase 68 U/L (38-126); Aspartate Aminotransferase 27 IU/L (17-59); BUN Creatinine Ratio 22.1 (6-22); Bilirubin Total 0.9 mg/dL (0.2-1.3); Blood Urea Nitrogen 23 mg/dL (9-20); Calcium 9.2 mg/dL (8.4-10.2); Carbon Dioxide 29 mmol/L (22-32); Chloride 99 mmol/L (98-107); Estimated Glomerular Filt Rate > 60 mL/min (>60); Globulin 2.8 g/dL (1.7-4.1); Glucose 135 mg/dL (80-110); Potassium 4.4 mmol/L (3.4-5.1); Sodium 136 mmol/L (137-145); Total Protein 7.1 g/dL (6.3-8.2)
[2023-11-05 10:51] LABS: HEMOLYSIS < 15 (0-50)
[2023-11-05 12:56] LABS: Hemoglobin A1C% w Est Avg Glu 5.3 % (4.0-6.0)
[2023-11-05 14:33] LABS: Vitamin B12 518 pg/mL (239-931)
== END ==
PROVIDERS: Family Provider Orthopaedic Surgery Orthopaedic Surgery of the Spine; PCP Family Medicine; Referring Provider Family Medicine; Visit Provider Family Medicine
DX: N48.9 Disorder of penis, unspecified (principal); B02.29 Other postherpetic nervous system involvement; I10 Essential (primary) hypertension; R20.2 Paresthesia of skin; L29.9 Pruritus, unspecified
CPT/HCPCS: 36415; 80053; 82607; 83036; 85025; 86592

== ENCOUNTER → 2024-02-06 10:31 | Outpatient (CLI) | payer MEDICARE, OTHER, SELFPAY ==
[2023-02-19 14:36] VITALS: BMI 27.7
--- NOTE | 2024-02-06 10:33 | DI.RAD.S_ITS ---
PROCEDURE: XR HAND RT MIN 3V INDICATIONS: bilateral thumb pain TECHNIQUE: 3 views of the hand(s) acquired. COMPARISON: None. FINDINGS: Bones: Nondisplaced remote avulsion fracture of the radial base of the 1st metacarpal appreciated. 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 There is also mild degeneration in all interphalangeal and the 2nd and 3rd MCP joints. Soft tissues: There is mild diffuse soft tissue swelling. 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 on 02/07/2024 at 7:13 Approved by: Obdulio Monaco M.D. on 02/07/2024 at 7:15
--- NOTE | 2024-02-06 10:33 | DI.RAD.S_ITS ---
PROCEDURE: XR HAND LT MIN 3V INDICATIONS: bilateral thumb pain TECHNIQUE: 3 views of the hand(s) acquired. COMPARISON: None. FINDINGS: Bones: Accessory ossicle seen adjacent ulnar styloid process. Ulnar positive variance noted. 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 There is moderate degeneration in all interphalangeal joints and mild degeneration in the MCP joints. Soft tissues: No soft tissue abnormality. IMPRESSION: Degeneration Dictated by: Obdulio Monaco M.D. on 02/07/2024 at 7:15 Approved by: Obdulio Monaco M.D. on 02/07/2024 at 7:17
== END ==
PROVIDERS: Family Provider Orthopaedic Surgery Orthopaedic Surgery of the Spine; PCP Family Medicine; Referring Provider Family Medicine; Visit Provider Family Medicine
DX: S62.234A Other nondisplaced fracture of base of first metacarpal bone, right hand, initial encounter for closed fracture (principal); M18.0 Bilateral primary osteoarthritis of first carpometacarpal joints; M19.042 Primary osteoarthritis, left hand; M19.041 Primary osteoarthritis, right hand; M79.644 Pain in right finger(s); M79.645 Pain in left finger(s)
CPT/HCPCS: 73130

== ENCOUNTER → 2024-02-27 08:35 | Outpatient (CLI) | payer MEDICARE, OTHER, SELFPAY ==
[2023-02-19 14:36] VITALS: BMI 27.7
[2024-02-27 09:34] LABS: Alanine Aminotransferase 40 IU/L (<50); Albumin 4.2 g/dL (3.5-5.0); Albumin Globulin Ratio 1.6 (1.0-2.8); Alkaline Phosphatase 68 U/L (38-126); Aspartate Aminotransferase 31 IU/L (17-59); BUN Creatinine Ratio 16.8 (6-22); Bilirubin Total 0.9 mg/dL (0.2-1.3); Blood Urea Nitrogen 17 mg/dL (9-20); Calcium 9.1 mg/dL (8.4-10.2); Carbon Dioxide 29 mmol/L (22-32); Chloride 104 mmol/L (98-107); Cholesterol 154 mg/dL (140-199); Estimated Glomerular Filt Rate > 60 mL/min (>60); Globulin 2.6 g/dL (1.7-4.1); Glucose 104 mg/dL (80-110); HDL Cholesterol 70 mg/dL (40-60); HEMOLYSIS < 15 (0-50); LDL Cholesterol Calculated 70 mg/dL (<100); Potassium 4.2 mmol/L (3.4-5.1); Sodium 139 mmol/L (137-145); Total Protein 6.8 g/dL (6.3-8.2); Triglycerides 72 mg/dL (35-150)
[2024-02-27 10:03] LABS: Prostate Specific Antigen Scrn 1.29 ng/mL (0.1-4.0)
== END ==
PROVIDERS: Family Provider Orthopaedic Surgery Orthopaedic Surgery of the Spine; PCP Family Medicine; Referring Provider Family Medicine; Visit Provider Family Medicine
DX: Z79.899 Other long term (current) drug therapy (principal); Z12.5 Encounter for screening for malignant neoplasm of prostate; I10 Essential (primary) hypertension; E78.2 Mixed hyperlipidemia
CPT/HCPCS: 36415; 80053; 80061; G0103

== ENCOUNTER → 2024-07-06 15:17 | Outpatient (CLI) | payer MEDICARE, OTHER, SELFPAY ==
[2023-02-19 14:36] VITALS: BMI 27.7
--- NOTE | 2024-07-06 15:19 | DI.CT.S_ITS ---
PROCEDURE: CT CHEST WO CON INDICATIONS: chronic cough, 30 year occupational exposure to fiberglass TECHNIQUE: Noncontrast 5 mm thick sections acquired from the pulmonary apices to the posterior costophrenic angles. 1 mm lung window, 5 mm thick coronal and sagittal and 7 mm axial MIP reformats were then acquired. For radiation dose reduction, the following was used: automated exposure control, adjustment of mA and/or kV according to patient size. COMPARISON: None. 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 Lower Neck: No enlarged lymph nodes. Thyroid: No thyroid nodules which require sonographic follow up, per consensus guidelines. Axillae: No enlarged lymph nodes. Chest Wall: Unremarkable. Bones: Unremarkable. Lungs and Pleura: No pneumothorax or pleural effusions. No consolidation or suspicious nodules. Heart: Heart size is normal. No pericardial effusion. Triple-vessel coronary artery calcifications. Thoracic Vessels: The aorta and pulmonary arteries demonstrate normal size. Mediastinum and Briana: No enlarged lymph nodes. Esophagus: No wall thickening. No hiatal hernia. Upper Abdomen: Visualized upper abdomen solid organs and bowel loops appear normal. IMPRESSION: No acute cardiopulmonary process. Triple-vessel coronary artery calcifications. Approved by: Riana Epperson M.D.,Ph.D. on 07/07/2024 at 12:36
== END ==
PROVIDERS: Family Provider Orthopaedic Surgery Orthopaedic Surgery of the Spine; PCP Family Medicine; Referring Provider Family Medicine; Visit Provider Family Medicine
DX: Z57.39 Occupational exposure to other air contaminants (principal); I25.10 Atherosclerotic heart disease of native coronary artery without angina pectoris
CPT/HCPCS: 71250

== ENCOUNTER → 2024-07-07 10:06 | Outpatient (CLI) | payer MEDICARE, OTHER, SELFPAY ==
[2023-02-19 14:36] VITALS: BMI 27.7
[2024-07-07 23:07] LABS: HSV 1 IGG AB Non Reactive (Non Reactive); HSV 2 IGG AB Non Reactive (Non Reactive)
== END ==
PROVIDERS: Family Provider Orthopaedic Surgery Orthopaedic Surgery of the Spine; PCP Family Medicine; Referring Provider Family Medicine; Visit Provider Family Medicine
DX: N48.9 Disorder of penis, unspecified (principal); B02.29 Other postherpetic nervous system involvement
CPT/HCPCS: 36415; 86695; 86696

== ENCOUNTER → 2024-08-20 12:35 | Outpatient (CLI) | payer MEDICARE, OTHER, SELFPAY ==
[2023-02-19 14:36] VITALS: BMI 27.7
--- NOTE | 2024-08-20 12:39 | DI.ECHO.S_ITS ---
[facility]+ [facility] : : [address] : : [place] : : [id number] : : Phone: [phone] Echocardiogram Report + + :Name: ANANTH NICHOLS Study Date: 08/20/2024 Height: 67 in : :Hospital ReadingLocation: Weight: 235 lb : : Gender: Male BSA: 2.2 m2 : :: 1945 Age: 78 yrs BP: 138/77 mmHg: :Reason For Study: SYSTOLIC HEART MURMUR : :Ordering Physician: MELY, : :OVI Performed By: Bella Chino : :Referring: OVI BOONE : + + Interpretation Summary Top normal LV systolic function. LVEF is 65-70% No significant LVOT gradient. Mild to moderate aortic stenosis. Peak velocity is 2.7 m/s. Mild left atrial dilation. Mild aortic regurgitation. Mild pulmonary hypertension. Other findings as below. No previous echo images are available for comparison. Procedure: A two-dimensional transthoracic echocardiogram with color flow and Doppler was performed. The study quality was technically adequate. There is no prior echocardiogram noted for this patient. The patient was in sinus bradycardia with heart rates between 49-61 bpm during the exam. Left Ventricle: The left ventricle is normal in size and wall thickness. The ejection fraction is estimated to be 60-65%. Right Ventricle: The right ventricle is normal size. The right ventricular systolic function is normal. Atria: The left atrium is mildly dilated. The right atrium is normal in size. There is no Doppler evidence for an interatrial shunt. Mitral Valve: The mitral valve leaflets appear mildly thickened, but open well. There is trace mitral regurgitation. Aortic Valve: The aortic valve is trileaflet. The aortic valve is mildly calcified. There is mildly reduced leaflet mobility. There is mild to moderate aortic stenosis. The peak aortic velocity is 2.65 m/sec. The aortic valve mean gradient is 16 mmHg. The calculated aortic valve area is 1.3 cm2. There is mild aortic regurgitation. Tricuspid Valve: The tricuspid valve leaflets are thin and pliable. There is mild tricuspid regurgitation. The right ventricular systolic pressure is estimated to be at least 37 mmHg based on an estimated right atrial pressure of 8 mm Hg. Pulmonic Valve: The pulmonic valve leaflets are thin and pliable; valve motion is normal. There is trace pulmonic regurgitation. Great Vessels: The aortic root is normal size. The ascending aorta is at the upper limits of normal in size. The IVC is dilated (diameter is greater than 2.1 cm) yet it collapses greater than 50% with a sniff. This suggests a right atrial pressure of 8 mm Hg. Pericardium/ Pleura There is no pericardial effusion. There is no pleural effusion. MMode/2D Measurements & Calculations LVIDd: 5.5 cm LVOT diam: 2.1 cm LVIDs: 3.6 cm Ao root diam: 3.2 cm FS: 33.8 % asc Aorta Diam: 3.9 cm IVSd: 0.90 cm Ao Arch Diam (Prox Trans): 2.8 cm LVPWd: 0.72 cm LV dotson. diameter/BSA (cm/m^2): 2.5 LV sys. diameter/BSA (cm/m^2): 1.7 LA A2 area: 25.7 cm2 RA long axis: 5.3 cm LA A4 area: 19.0 cm2 RA area: 16.1 cm2 LA length (vol): 5.6 cm RA vol: 41.7 ml LA vol: 74.1 ml RA : 19.3 ml/m2 LA vol index: 34.2 ml/m2 IVC diam: 2.1 cm RVD1 (basal): 4.0 cm TAPSE: 2.5 cm Doppler Measurements & Calculations Ao V2 max: 265.7 cm/sec LVOT Max Yuriy: 94.3 cm/sec Ao V2 mean: 187.8 cm/sec LV V1 max P.6 mmHg Ao max P.9 mmHg LV V1 VTI: 20.9 cm Ao mean P.3 mmHg LAURIE(I,D): 1.2 cm2 Ao V2 VTI: 60.6 cm LAURIE(V,D): 1.3 cm2 sev ratio: 0.35 LAURIE indexed to BSA (cm^2/m^2): 0.57 MV E max yuriy: 68.2 cm/sec TR max yuriy: 269.4 cm/sec MV A max yuriy: 79.6 cm/sec TR max P.0 mmHg MV E/A: 0.86 PA V2 max: 122.2 cm/sec Med Peak E' Yuriy: 9.8 cm/sec PA V2 mean: 79.6 cm/sec E/E' med: 6.9 PA mean P.9 mmHg Lat Peak E' Yuriy: 9.7 cm/sec PA pr(Accel): 15.6 mmHg E/E' lat: 7.0 E/e' average: 7.0 MV dec time: 0.27 sec SV(LVOT): 74.1 ml Reading Physician:03:34 PM
== END ==
PROVIDERS: Family Provider Orthopaedic Surgery Orthopaedic Surgery of the Spine; PCP Family Medicine; Referring Provider Family Medicine; Visit Provider Family Medicine
DX: I08.2 Rheumatic disorders of both aortic and tricuspid valves (principal); I10 Essential (primary) hypertension; R01.1 Cardiac murmur, unspecified
CPT/HCPCS: 93306

== ENCOUNTER → 2024-09-03 13:56 | Outpatient (CLI) | payer MEDICARE, OTHER, SELFPAY ==
[2023-02-19 14:36] VITALS: BMI 27.7
--- NOTE | 2024-09-03 13:59 | DI.NM.S_ITS ---
PROCEDURE: NM EXERCISE TREADMILL NON NUC COMPARISON: None. INDICATIONS: CAD FINDINGS: The patient exercised for 6 minutes and 42 seconds reaching 82% of maximum predicted heart rate.7.0METs, EMILEE -13%. Appropriate BP response to exercise. No angina during the study. Mild horizontal ST depressions in the inferior and anterolateral leads during recovery. Occasional PVCs during the study. IMPRESSION: Abnormal stress test due to mild horizontal ST depressions in the inferior and anterolateral leads during recovery. Above average exercise tolerance (EMILEE - 13%). No angina during the study. Recommend treadmill nuclear stress test at [facility] for further assessment. Dictated by: Kenn Navarro MD on 09/04/2024 at 14:13 Approved by: Kenn Navarro MD on 09/04/2024 at 14:16
== END ==
LOC: NUCM 13:58
PROVIDERS: Family Provider Orthopaedic Surgery Orthopaedic Surgery of the Spine; PCP Family Medicine; Referring Provider Family Medicine; Visit Provider Internal Medicine
DX: I25.10 Atherosclerotic heart disease of native coronary artery without angina pectoris (principal); I25.84 Coronary atherosclerosis due to calcified coronary lesion; R94.39 Abnormal result of other cardiovascular function study
CPT/HCPCS: 93017

== ENCOUNTER → 2024-10-02 15:58 | Outpatient (CLI) | payer MEDICARE, OTHER, SELFPAY ==
[2023-02-19 14:36] VITALS: BMI 27.7
== END ==
PROVIDERS: Family Provider Orthopaedic Surgery Orthopaedic Surgery of the Spine; PCP Family Medicine; Visit Provider Family Medicine
DX: N48.9 Disorder of penis, unspecified (principal)
CPT/HCPCS: 87070; 87075; 87205; 87252

== ENCOUNTER 2025-03-06 12:38 | Emergency (ER) | payer MEDICARE, OTHER, SELFPAY ==
[2023-02-19 14:36] VITALS: BMI 27.7
[2025-03-06] VITALS (30 sets, daily range): BP systolic 128–177; BP diastolic 57–83; PULSE 50–66; RESP 13–25; TEMP 36.7; O2SAT 93–97; BMI 27.1
--- NOTE | 2025-03-06 12:45 | DI.RAD.S_ITS ---
PROCEDURE: XR CHEST 1V INDICATIONS: Chest Pain TECHNIQUE: One view of the chest was acquired. COMPARISON: None. FINDINGS: Surgical changes and devices: Bilateral shoulder arthroplasty. Lungs and pleura: Lungs are clear. No pleural effusions or pneumothorax. Mediastinum: Mediastinal contours appear normal. Heart size is enlarged. Bones and chest wall: No suspicious bony lesions. Overlying soft tissues appear unremarkable. IMPRESSION: No acute cardiopulmonary pathology. Dictated by: Yves Aranda M.D. on 03/06/2025 at 13:33 Approved by: Yves Aranda M.D. on 03/06/2025 at 13:33
--- NOTE | 2025-03-06 12:46 | EKG_ITS ---
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
[2025-03-06] MEDS: ASPIRIN 81 MG CHEW TAB 324 MG PO (12:53)
[2025-03-06 13:08] LABS: Add Manual Diff / Slide Review NO; Hematocrit 41.3 % (41-53); Hemoglobin 14.1 g/dL (13.5-17.5); Lymphocytes Absolute Auto 1700 /uL (1100-4500); Mean Corpuscular HGB Conc 34.2 % (30-36); Mean Corpuscular Hemoglobin 32.4 PG (26-34); Mean Corpuscular Volume 94.6 fL (80-100); Platelet Count 161 X10^3/uL (150-400)
[2025-03-06 13:19] LABS: INR 1.0 (0.9-1.3); Prothrombin Time 11.6 SECONDS (9.4-12.5)
[2025-03-06 13:22] LABS: Alanine Aminotransferase 54 IU/L (<50); Albumin 4.6 g/dL (3.5-5.0); Albumin Globulin Ratio 1.6 (1.0-2.8); Alkaline Phosphatase 80 U/L (38-126); Blood Urea Nitrogen 20 mg/dL (9-20); Calcium 9.2 mg/dL (8.4-10.2); Carbon Dioxide 28 mmol/L (22-32); Chloride 102 mmol/L (98-107); Creatine Kinase 57 U/L (55-170); Estimated Glomerular Filt Rate > 60 mL/min (>60); Globulin 2.8 g/dL (1.7-4.1); Glucose 106 mg/dL (70-99); HEMOLYSIS < 15 (0-50); Lipase 79 U/L (23-300); Magnesium 2.0 mg/dL (1.6-2.3); PTT Partial Thromboplastin Tim 34 SECONDS (25.1-36.5); Potassium 4.3 mmol/L (3.4-5.1); Sodium 137 mmol/L (137-145); Total Protein 7.4 g/dL (6.3-8.2)
--- NOTE | 2025-03-06 13:33 | ED.CHESTPAIN ---
HPI - Chest Pain General Chief Complaint: Chest Pain Stated Complaint: CHEST PAIN Time Seen by Provider: 03/06/25 12:45 Source: patient Mode of arrival: Ambulatory Limitations: no limitations History of Present Illness HPI narrative: Patient is a 79 year old man who presented to ED for substernal chest pain. Past medical history significant for hypertension, hyperlipidemia, BPH, and low back pain. He stated he was cooking today around noon when he developed intermittent, nonradiating chest pain. No alleviating or aggrevating factors. He has never experienced similar symptoms. No fevers, chills, nausea, vomiting. No recent increase in activity or strenuous extercise. No rashes. Related Data Home Medications ?Medication ?Instructions ?Recorded ?Confirmed latanoprost 0.005 % eye drops 1 drp EYE-BOTH HS ##0 03/22/16 10/02/24 atorvastatin 40 mg tablet 40 mg PO DAILY 09/10/24 10/02/24 meloxicam 7.5 mg tablet 7.5 mg PO DAILY 09/10/24 10/02/24 Previous Rx's ?Medication ?Instructions ?Recorded valacyclovir 500 mg tablet 500 mg PO BID #120 tabs 07/07/24 lisinopril 10 mg tablet 10 mg PO ONCE PM #90 tabs 09/16/24 acetaminophen 325 mg tablet 650 mg (2 x 325 mg) PO Q6H PRN 03/06/25 (Tylenol) pain #30 tabs Allergies Allergy/AdvReac Type Severity Reaction Status Date / Time omeprazole (OMEPRAZOLE) AdvReac Mild BLOATING, Verified 03/06/25 12:46 CRAMPS meperidine (From Demerol) AdvReac Verified 03/06/25 12:46 Review of Systems Review of Systems Narrative: See HPI. Patient History Medical History Porokeratosis Bilateral thumb pain BPH (benign prostatic hyperplasia) Varicose veins of right lower extremity with pain Vertigo Cervical stenosis of spine Hiatal hernia Lumbago Pneumonia Migraines 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) Glaucoma Osteoarthritis (~2004) Shoulder pain (~2001) Foot pain (~2013) Chronic back pain (~1999) Carpal tunnel syndrome (~2012) Ankle pain (~2009) Actinic keratosis (~2004) Mumps (~1956) Measles (~1955) Chicken pox (~1955) Tinnitus (~1969) Irritable bowel syndrome (~1999) Hypertension (~2013) Hypertension (11/24/13) Surgical History 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) S/P cervical spinal fusion (06/13/18) Hx of carpal tunnel repair 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) Anesthesia History of knee replacement (~09/2010) History of knee replacement (~05/2011) Status post arthroscopy (~2006) Family History Brother Age: 84 Hypertension High cholesterol Stroke Brother Age: 85 Hypertension High cholesterol Father Heart disease Mother Hypertension High cholesterol Grandfather Heart disease Social History household members: spouse Smoking Status: Unknown if ever smoked alcohol intake: current Smoking Status: Unknown if ever smoked alcohol intake frequency: 0-2 drinks per day Exam Narrative Exam Narrative: Vitals: Afebrile, hypertensive, all other vitals normal. Gen: Well developed, well nourished, no acute distress Eyes: No sclera icterus, EOMI Card: Regular rate, no murmurs, rubs, or gallops. 2+ radial pulses. Pulm: No increased work of breathing Abd: Soft, nondistended, nontender to palpation Ext: No peripheral edema in bilateral lower extremities Neuro: A&O x 4, CN grossly intact, moving all 4 extremities spontaneously Psych: Appropriate Initial Vital Signs Initial Vital Signs: Vital Signs Temperature 98.1 F 03/06/25 12:40 Pulse Rate 66 03/06/25 12:40 Respiratory Rate 14 03/06/25 12:40 Blood Pressure 177/83 H 03/06/25 12:40 Pulse Oximetry 95 03/06/25 12:40 Oxygen Delivery Method Room Air 03/06/25 12:40 Scores HEART Score Heart Score history: Moderately Suspicious Heart Score EKG: Normal Heart Score Age: > or = 65 years old Heart Score risk factors: 1-2 risk factors Heart Score troponin: < or = to normal limit Heart Score Total: 4 Course Course Course Narrative: 1409 Patient updated with current lab results. Heart score 4. Will repeat troponin. 1612 Repeat troponin negative. Heart score 4, recommended admission for observation given comorbidies, patient declined. Orders Ordered: Discontinued Medications Aspirin (Aspirin 81 Mg Chew Tab) 324 mg PO NOW ONE Stop: 03/06/25 12:46 Last Admin: 03/06/25 12:53 Dose: 324 mg Documented By: JEFF Vital Signs Vital signs: Vital Signs - 8 hr 03/06/25 12:40 03/06/25 12:44 03/06/25 12:44 Temperature 98.1 F Pulse Rate 66 64 Respiratory Rate 14 Blood Pressure 177/83 H 177/83 H Pulse Oximetry 95 97 Oxygen Delivery Method Room Air 03/06/25 13:00 03/06/25 13:00 03/06/25 13:05 Temperature Pulse Rate 59 L 60 Respiratory Rate 17 17 Blood Pressure 137/63 Pulse Oximetry 95 96 Oxygen Delivery Method 03/06/25 13:05 03/06/25 13:10 03/06/25 13:10 Temperature Pulse Rate 56 L Respiratory Rate 20 Blood Pressure 133/57 L 142/65 H Pulse Oximetry 93 Oxygen Delivery Method 03/06/25 13:15 03/06/25 13:15 03/06/25 13:20 Temperature Pulse Rate 55 L 53 L Respiratory Rate 24 17 Blood Pressure 147/68 H Pulse Oximetry 96 94 Oxygen Delivery Method 03/06/25 13:20 03/06/25 13:25 03/06/25 13:25 Temperature Pulse Rate 56 L Respiratory Rate 18 Blood Pressure 146/67 H 165/74 H Pulse Oximetry 96 Oxygen Delivery Method 03/06/25 13:30 03/06/25 13:30 03/06/25 13:35 Temperature Pulse Rate 55 L 54 L Respiratory Rate 17 18 Blood Pressure 164/77 H Pulse Oximetry 96 94 Oxygen Delivery Method 03/06/25 13:35 03/06/25 13:40 03/06/25 13:40 Temperature Pulse Rate 53 L Respiratory Rate 13 Blood Pressure 149/70 H 143/71 H Pulse Oximetry 96 Oxygen Delivery Method 03/06/25 13:45 03/06/25 13:45 03/06/25 13:50 Temperature Pulse Rate 53 L 52 L Respiratory Rate 17 17 Blood Pressure 143/75 H Pulse Oximetry 94 94 Oxygen Delivery Method 03/06/25 13:50 03/06/25 13:55 03/06/25 13:55 Temperature Pulse Rate 52 L Respiratory Rate 19 Blood Pressure 141/74 H 143/64 H Pulse Oximetry 95 Oxygen Delivery Method 03/06/25 14:00 03/06/25 14:00 03/06/25 14:05 Temperature Pulse Rate 50 L 53 L Respiratory Rate 15 19 Blood Pressure 136/70 Pulse Oximetry 96 96 Oxygen Delivery Method 03/06/25 14:05 03/06/25 14:10 03/06/25 14:10 Temperature Pulse Rate 53 L Respiratory Rate 18 Blood Pressure 156/72 H 149/67 H Pulse Oximetry 95 Oxygen Delivery Method 03/06/25 14:15 03/06/25 14:15 03/06/25 14:20 Temperature Pulse Rate 53 L 53 L Respiratory Rate 17 19 Blood Pressure 136/74 Pulse Oximetry 94 95 Oxygen Delivery Method 03/06/25 14:20 03/06/25 14:25 03/06/25 14:25 Temperature Pulse Rate 56 L Respiratory Rate 19 Blood Pressure 148/76 H 142/69 H Pulse Oximetry 95 Oxygen Delivery Method 03/06/25 14:30 03/06/25 14:30 03/06/25 14:35 Temperature Pulse Rate 53 L Respiratory Rate 18 Blood Pressure 141/67 H 138/63 Pulse Oximetry 95 Oxygen Delivery Method 03/06/25 14:35 03/06/25 14:40 03/06/25 14:40 Temperature Pulse Rate 52 L 51 L Respiratory Rate 17 18 Blood Pressure 136/62 Pulse Oximetry 94 93 Oxygen Delivery Method 03/06/25 14:45 03/06/25 14:45 03/06/25 14:50 Temperature Pulse Rate 53 L 52 L Respiratory Rate 20 18 Blood Pressure 132/63 Pulse Oximetry 94 95 Oxygen Delivery Method 03/06/25 14:50 03/06/25 14:55 03/06/25 14:55 Temperature Pulse Rate 52 L Respiratory Rate 18 Blood Pressure 142/68 H 142/68 H Pulse Oximetry 94 Oxygen Delivery Method 03/06/25 15:00 03/06/25 15:00 03/06/25 15:05 Temperature Pulse Rate 53 L 51 L Respiratory Rate 18 19 Blood Pressure 130/63 Pulse Oximetry 94 95 Oxygen Delivery Method 03/06/25 15:05 03/06/25 15:30 Temperature Pulse Rate 54 L Respiratory Rate 25 H Blood Pressure 128/63 Pulse Oximetry 94 Oxygen Delivery Method MDM - Chest Pain Lab Data 03/06/25 12:56 03/06/25 12:56 Labs: Lab Results 03/06/25 03/06/25 Range/Units 12:56 15:15 WBC 5.7 (4.5-11.0) X10^3/uL RBC 4.37 L (4.5-5.9) X10^6/uL Hgb 14.1 (13.5-17.5) g/dL Hct 41.3 (41-53) % MCV 94.6 (80-100) fL MCH 32.4 (26-34) PG MCHC 34.2 (30-36) % RDW 13.4 (11.6-14.8) % Plt Count 161 (150-400) X10^3/uL Neut % (Auto) 58.6 (50-75) % Lymph % (Auto) 28.9 (25-40) % [place] % (Auto) 9.0 (3-14) % Eos % (Auto) 2.5 (2-4) % Baso % (Auto) 1.0 (0-2) % Neut # (Auto) 3400 (3997-5384) /uL Lymph # (Auto) 1700 (7328-5552) /uL [place] # (Auto) 500 (0-900) /uL Eos # (Auto) 100 (0-450) /uL Baso # (Auto) 100 (0-100) /uL PT 11.6 (9.4-12.5) SECONDS INR 1.0 (0.9-1.3) APTT 34 (25.1-36.5) SECONDS Sodium 137 (137-145) mmol/L Potassium 4.3 (3.4-5.1) mmol/L Chloride 102 (98-107) mmol/L Carbon Dioxide 28 (22-32) mmol/L BUN 20 (9-20) mg/dL Creatinine 0.93 (0.66-1.25) mg/dL Estimated GFR > 60 (>60) mL/min BUN/Creatinine Ratio 21.5 (6-22) Glucose 106 H (70-99) mg/dL Calcium 9.2 (8.4-10.2) mg/dL Magnesium 2.0 (1.6-2.3) mg/dL Total Bilirubin 0.8 (0.2-1.3) mg/dL AST 37 (17-59) IU/L ALT 54 H (<50) IU/L Alkaline Phosphatase 80 (38-126) U/L Total Creatine Kinase 57 (55-170) U/L Troponin I < 0.012 < 0.012 (0.01-0.034) ng/mL NT-Pro-B Natriuret Pep 125 (<450) pg/mL Total Protein 7.4 (6.3-8.2) g/dL Albumin 4.6 (3.5-5.0) g/dL Globulin 2.8 (1.7-4.1) g/dL Albumin/Globulin Ratio 1.6 (1.0-2.8) Lipase 79 (23-300) U/L Imaging Data Chest x-ray: Radiologist's Impression: PROCEDURE: XR CHEST 1V INDICATIONS: Chest Pain TECHNIQUE: One view of the chest was acquired. COMPARISON: None. FINDINGS: Surgical changes and devices: Bilateral shoulder arthroplasty. Lungs and pleura: Lungs are clear. No pleural effusions or pneumothorax. Mediastinum: Mediastinal contours appear normal. Heart size is enlarged. Bones and chest wall: No suspicious bony lesions. Overlying soft tissues appear unremarkable. IMPRESSION: No acute cardiopulmonary pathology. MDM Narrative Medical decision making narrative: 79 year old male with a history of hypertension and hypercholesterolemia presents with acute onset of substernal chest pain. Differential diagnosis: ACS, aortic dissection, cardiac tampanode, PE, GERD, esophageal spasm, PUD, muscle sprain, costrochrondritis EMR Review: Previous echo obtained on 08/20/2024 reviewed. No abnormalities, LVEF 65-70%. Labs: CBC with leukocytosis or left shift, anemia, or thrombocytopenia. Chem panel normal. ALT 54 (elevated). Serial troponin neg. BNP 125. Lipase 79. Imaging: CXR without any cardiopulmonary pathology to explain patient's symptoms. EKG: NSR, HR 60, AK 196, QT 398, QTc 398, no axis deviation, no ectopy or evidence of ischemia. ED Course: Patient arrived to the ER hemodynamically normal. EMR reviewed to include prior echocardiogram from 08/20/2024 with normal structure and function and an LVEF of 65?70%. Laboratory evaluation was largely negative with serial troponins negative and BNP 125. CXR unremarkable and EKG was nonischemic Based on history, risk factors, EKG, and serial troponins, the patient?s HEART score was calculated as 4, placing him in an intermediate risk category for major adverse cardiac events. The implications of this score, including the potential benefit of observation versus outpatient management, were discussed in detail with the patient. A shared decision making conversation was completed, reviewing the diagnostic findings, the intermediate risk HEART score, and options for further evaluation. After discussing risks and uncertainties, the patient elected to pursue discharge with close outpatient follow up rather than extended observation. He expressed understanding of the plan and the importance of returning for any worsening or recurrent symptoms. Discharge Plan Departure Patient Disposition: Home Clinical Impression: Chest pain Activity Restrictions/Additional Instructions: You were seen in the emergency department for chest pain, nausea, and clamminess. These are signs and symptoms concerning for heart attack. In the ER, laboratory work to include EKG, cardiac enzymes, chest x-ray was not suggestive of a heart attack. Given your medical history (high blood pressure, high cholesterol) we repeated the troponin 3 hours later and this was also normal. You were offered admission for observation and continued heart monitoring however you declined. Please return to the ER if you develop any new or worsening chest pain, chest pain that radiates to your neck or arms, shortness of breath, nausea, vomiting or any other concerns. Follow up with your primary care physician for further management. Thank you for trusting me with your care today. Happy holidays! - Dr. House Prescriptions: New acetaminophen [Tylenol] 325 mg tablet 650 mg PO Q6H PRN (Reason: pain) Qty: 30 0RF No Action atorvastatin 40 mg tablet 40 mg PO DAILY meloxicam 7.5 mg tablet 7.5 mg PO DAILY latanoprost 0.005 % drops 1 drp EYE-BOTH HS Qty: 0 lisinopril 10 mg tablet 10 mg PO ONCE PM Qty: 90 1RF valacyclovir 500 mg tablet 500 mg PO BID Qty: 120 2RF Referrals: Ricardo Reinoso MD [Primary Care Provider, Family Practice] Stand Alone Forms: Patient Portal/API
[2025-03-06 13:34] LABS: NT-proBNP (BNP-Adult 18+) 125 pg/mL (<450); Troponin I < 0.012 ng/mL (0.01-0.034)
[2025-03-06 15:57] LABS: Troponin I < 0.012 ng/mL (0.01-0.034)
== END 2025-03-06 16:26 | disposition home or self-care (01) ==
PROVIDERS: Emergency Provider Student in an Organized Health Care Education/Training Program; Family Provider Orthopaedic Surgery Orthopaedic Surgery of the Spine; PCP Family Medicine
DX: R07.89 Other chest pain (principal); Z86.79 Personal history of other diseases of the circulatory system
CPT/HCPCS: 36415; 71045; 80053; 82550; 83690; 83735; 83880; 84484; 85025; 85610; 85730; 93005; 93010; 99284